=== PATIENT | female | born 1945 | race Caucasian/White ===

== ENCOUNTER → 2017-07-10 | Day surgery (SDC) | payer OTHER, MEDICARE ==
[2017-06-11 09:31] VITALS: Ht 160 cm; Wt 97.3 kg
[~2017-07-10] VITALS: Ht 160 cm; Wt 97.3 kg
[~2017-07-10] MED LIST: 500ML BSS 0.3ML EPI 1:1000PF IRRIG ONE; ACETAMINOPHEN 325 MG TAB PO PRN; AMLO-114 PO; AMVISC PLUS 0.8ML SYRINGE INT OCU ONE; ASPCH81X PO; ATOR-22 PO; ATROPINE SULFATE 0.1 MG/ML 5ML SYR IV PRN; BETAXOLOL HCL 0.25% OP SUSP PER DROP CHARGE OPL SCH; BRIMONIDINE TART 0.2% OP SOLN PER DROP CHARGE ONE; BSS FLUSH ONE; CHOL1CAP57 PO; CINN500T PO; ENDOCOAT 0.85ML SYRINGE INT OCU ONE; EpHEDrine SULFATE INJ 50 MG/ML AMP IV PRN; EpINEphrine INJ 1MG/ML AMP 1 MG/ML AMP ONE; HYDR25TA4 PO; INSDGI SC; INSU100I SC; ISOS60TA25 PO; LACTATED RINGER'S 1000ML 500 ML IV SCH; LIDOCAINE 4% OP SOLN DROP CHARGE ONE; LIDOCAINE 4% OP SOLN DROP CHARGE OPL SCH; LIDOCAINE HCL 1% MPF 2 ML VIAL ONE; LISI40TA PO; METO50TA16 PO; MIDAZOLAM HCL 1 MG/ML 2ML VIAL ONE; MIX: 4ML BSS 1ML EPI 1:1000 PF INSTIL ONE; MOXIFLOXACIN OPH SOLN PER DROP CHARGE ONE; MULT-506 PO; NTRGSL/4 UT; OCUCOAT 1 ML SOLN IO ONE; OMEG10007 PO; POVIDONE-IODINE OP SOLN 30 ML BTL ONE; PROPARACAINE 0.5% OP SOLN PER DROP CHARGE OPL SCH; PSYL55.43 PO; RMR15 PO; TOBRAMYCIN/DEXAMETHASONE OPH OINT PER APPLN CHARGE ONE
--- NOTE | 2017-07-10 08:20 | History & Physical Bridge - [place] ---
H&P Re-Evaluation Bridge Note: I have examined the patient, reviewed the History & Physical and in the interval since the performance of the History & Physical I have noted the following changes of clinical significance: No changes noted
[2017-07-10] MEDS: PHENYLEPHRINE HCL 2.5% OP SOLN PER DROP CHARGE OPL SCH ×2 (08:45→08:50)
[2017-07-10] MEDS: TROPICAMIDE 1% OP SOLN PER DROP CHARGE OPL SCH ×2 (08:46→08:51)
[2017-07-10] MEDS: CYCLOPENTOLATE HCL 1% OP SOLN PER DROP CHARGE OPL SCH ×2 (08:47→08:52)
[2017-07-10] MEDS: MOXIFLOXACIN OPH SOLN PER DROP CHARGE OPL SCH ×2 (08:48→08:58)
--- NOTE | 2017-07-10 09:46 | Discharge Instructions-SurgCtr ---
Discharge Instructions Date of Service Jul 10, 2017. Visit Reason for Visit: Cataract Left Eye Discharge Discharge Diagnosis / Problem: lens implant left eye Discharge Goals Goal(s): Improve function Activity Recommendations Activity Limitations: resume your previous activity Lifting Limitations: no more than 10 pounds Exercise/Sports Limitations: gradually increase as tolerated May Resume Sexual Activity: when tolerated Shower/Bathe: tomorrow Driving or Machine Use: resume 1 day after discharge Anesthesia . Post Anesthesia Instructions: If you have had General Anesthesia or IV Sedation: * Do not drive today. * Resume driving when surgeon permits. * Do not make important decisions or sign legal documents today. * Call surgeon for: 1. Temperature elevations greater than 101 degrees F. 2. Uncontrollable pain. 3. Excessive bleeding. 4. Persistent nausea and vomiting. 5. Medication intolerance (nausea, vomiting or rash). * For nausea and vomiting use only clear liquids such as: tea, soda, bouillon until nausea subsides, then gradually increase diet as tolerated. * If you have any concerns or questions, call your surgeon's office. If physician is unavailable and it is an emergency, call 911 or go to the nearest emergency room. . Instructions / Follow-Up Instructions / Follow-Up ACTIVITY RECOMMENDATIONS: * Light activities. * Mild irritation and blurred vision are common for the first few days. * You may walk outside, read, watch television. * Redness around the white part of the eye is common. MEDICATIONS: Resume previous medications unless instructed otherwise by your surgeon. Start all eye drops at 1 pm today: * Eye drops (today and tomorrow): Prednisone - one drop in operative eye every 3 hours while awake Ofloxacin - one drop in operative eye every 3 hours while awake SPECIAL CARE INSTRUCTIONS: * Tape plastic shield over eye to sleep at night. Call your doctor at with any concerns or problems. FOLLOW UP VISIT: Follow-up with Dr Levy at [place] office as scheduled. Diet Recommendations Home Diet: no limitations Procedures Procedures Performed: cataract extraction with lens implant Pending Studies Studies pending at discharge: no Medical Emergencies . Who to Call and When: Medical Emergencies: If at any time you feel your situation is an emergency, please call 911 immediately. . Non-Emergent Contact Non-Emergency issues call your: Petrographer Call Non-Emergent contact if: your pain is not controlled [phone] . . "Provider Documentation" section prepared by Blayne Levy. .
--- NOTE | 2017-07-10 09:49 | [facility] Operative Report ---
Operative Report Date of Service Jul 10, 2017. Operative Report 1. PREOPERATIVE DIAGNOSIS: Senile nuclear cataract, left eye. 2. POSTOPERATIVE DIAGNOSIS: Senile nuclear cataract, left eye. 3. PROCEDURE: Phacoemulsification of left cataract with posterior chamber lens implant, type Bausch [employer] Lomb, model Hoya [id number], power +20.5 diopters. ANESTHESIA: Local standby. SURGEON: Dr. Levy. COMPLICATIONS: None. OPERATING TIME: 10 minutes. 4. OPERATION AND FINDINGS: DESCRIPTION OF PROCEDURE: The left pupil was dilated. The anesthetic was administered using a topical technique. The left eye was prepped and draped. A speculum was placed. A clear corneal incision was formed. The chamber was filled with Amvisc Plus and Endocoat. Epinephrine solution was used. A paracentesis was placed. A capsulorrhexis was performed. The nucleus was hydrodissected. The lens was removed with phacoemulsification. Time was 5.69 seconds. The aspiration unit was used to remove the cortex. The capsule was filled with Amvisc Plus. The lens implant was folded and placed into the capsule. The incision was hydrated. The Amvisc was aspirated. The wound was secure. The chamber was deep. The pupil was round. Brimonidine, TobraDex ointment and Vigamox solution were placed. The speculum was removed. The patient was returned to the Recovery Room in stable condition. I attest to the content of the Intraoperative Record and any orders documented therein. Any exceptions are noted below. The scribe's documentation has been prepared in my presence, under my direction and personally reviewed by me in its entirety. I confirm that the note above accurately reflects all work, treatment, procedures, and medical decision making performed by me. I personally scribed for Blayne Levy M.D. (MARGY) on 07/10/17 at 09:49. Electronically submitted by Nelly Garcia (DAT).
[2017-07-10 09:51] VITALS: TEMP 36.7
--- NOTE | 2017-07-10 10:00 | Anesthesia Progress Nt - [facility] ---
Anesthesia Post Op Note Date & Time Jul 10, 2017 at 10:00 Vital Signs Pain Intensity: 0 Vital Signs Past 12 Hours Date Time Temp Pulse Resp B/P (MAP) Pulse Ox O2 Delivery O2 Flow Rate FiO2 07/10/17 08:36 37.1 59 22 136/75 (95) 95 Room Air Notes Mental Status: alert / awake / arousable, participated in evaluation Pt Amnestic to Procedure: Yes Nausea / Vomiting: adequately controlled Pain: adequately controlled Airway Patency, RR, SpO2: stable & adequate BP & HR: stable & adequate Hydration State: stable & adequate Anesthetic Complications: no major complications apparent
[2017-07-10 10:12] VITALS: BP 138/73; PULSE 54; O2SAT 97
== END | disposition home or self-care (01) ==
LOC: X.SURG 07:59
PROVIDERS: ATTEND Specialist
DX: H25.12 Age-related nuclear cataract, left eye (principal); E11.36 Type 2 diabetes mellitus with diabetic cataract; I10 Essential (primary) hypertension; Z79.4 Long term (current) use of insulin; Z79.82 Long term (current) use of aspirin; Z79.899 Other long term (current) drug therapy

== ENCOUNTER → 2017-07-24 | Day surgery (SDC) | payer OTHER, MEDICARE ==
[2017-07-22 09:41] VITALS: Ht 160 cm; Wt 97.3 kg
[~2017-07-24] VITALS: Ht 160 cm; Wt 97.3 kg
[~2017-07-24] MED LIST changes: -BETAXOLOL HCL 0.25% OP SUSP PER DROP CHARGE OPL SCH; +BETAXOLOL HCL 0.25% OP SUSP PER DROP CHARGE OPR SCH; +BRIMONIDINE TART 0.2% OP SOLN PER DROP CHARGE OPR ONE; -LIDOCAINE 4% OP SOLN DROP CHARGE OPL SCH; +LIDOCAINE 4% OP SOLN DROP CHARGE OPR SCH; -PROPARACAINE 0.5% OP SOLN PER DROP CHARGE OPL SCH; +PROPARACAINE 0.5% OP SOLN PER DROP CHARGE OPR SCH
[2017-07-24] MEDS: PHENYLEPHRINE HCL 2.5% OP SOLN PER DROP CHARGE OPR SCH ×2 (06:40→06:45)
[2017-07-24] MEDS: TROPICAMIDE 1% OP SOLN PER DROP CHARGE OPR SCH ×2 (06:41→06:46)
[2017-07-24] MEDS: CYCLOPENTOLATE HCL 1% OP SOLN PER DROP CHARGE OPR SCH ×2 (06:42→06:47)
[2017-07-24] MEDS: MOXIFLOXACIN OPH SOLN PER DROP CHARGE OPR SCH ×2 (06:43→06:53)
--- NOTE | 2017-07-24 07:13 | Discharge Instructions-SurgCtr ---
Discharge Instructions Date of Service Jul 24, 2017. Visit Reason for Visit: Cataract Right Eye Discharge Discharge Diagnosis / Problem: lens implant right eye Discharge Goals Goal(s): Improve function Activity Recommendations Activity Limitations: resume your previous activity Lifting Limitations: no more than 10 pounds Exercise/Sports Limitations: gradually increase as tolerated May Resume Sexual Activity: when tolerated Shower/Bathe: tomorrow Driving or Machine Use: resume 1 day after discharge Anesthesia . Post Anesthesia Instructions: If you have had General Anesthesia or IV Sedation: * Do not drive today. * Resume driving when surgeon permits. * Do not make important decisions or sign legal documents today. * Call surgeon for: 1. Temperature elevations greater than 101 degrees F. 2. Uncontrollable pain. 3. Excessive bleeding. 4. Persistent nausea and vomiting. 5. Medication intolerance (nausea, vomiting or rash). * For nausea and vomiting use only clear liquids such as: tea, soda, bouillon until nausea subsides, then gradually increase diet as tolerated. * If you have any concerns or questions, call your surgeon's office. If physician is unavailable and it is an emergency, call 911 or go to the nearest emergency room. . Instructions / Follow-Up Instructions / Follow-Up ACTIVITY RECOMMENDATIONS: * Light activities. * Mild irritation and blurred vision are common for the first few days. * You may walk outside, read, watch television. * Redness around the white part of the eye is common. MEDICATIONS: Resume previous medications unless instructed otherwise by your surgeon. Start all eye drops at 1 pm today: * Eye drops (today and tomorrow): Prednisone - one drop in operative eye every 3 hours while awake Ofloxacin - one drop in operative eye every 3 hours while awake SPECIAL CARE INSTRUCTIONS: * Tape plastic shield over eye to sleep at night. Call your doctor at with any concerns or problems. FOLLOW UP VISIT: Follow-up with Dr Levy at [place] office as scheduled. Diet Recommendations Home Diet: no limitations Procedures Procedures Performed: Right Cataract Phacoemulsification With Intraocular Lens Implant Pending Studies Studies pending at discharge: no Medical Emergencies . Who to Call and When: Medical Emergencies: If at any time you feel your situation is an emergency, please call 911 immediately. . Non-Emergent Contact Non-Emergency issues call your: Custom Shoemaker Call Non-Emergent contact if: your pain is not controlled [phone] . . "Provider Documentation" section prepared by Blayne Levy. .
--- NOTE | 2017-07-24 07:16 | [facility] Operative Report ---
Operative Report Date of Service Jul 24, 2017. Operative Report 1. PREOPERATIVE DIAGNOSIS: Senile nuclear cataract, right eye. 2. POSTOPERATIVE DIAGNOSIS: Senile nuclear cataract, right eye. 3. PROCEDURE: Phacoemulsification of right cataract with posterior chamber lens implant, type Bausch & Lomb, model Hoya [id number], power +19.0 diopters. ANESTHESIA: Local standby. SURGEON: Dr. Levy. COMPLICATIONS: None. OPERATING TIME: 10 minutes. 4. OPERATION AND FINDINGS: DESCRIPTION OF PROCEDURE: The right pupil was dilated. The anesthetic was administered using a topical technique. The right eye was prepped and draped. A speculum was placed. A clear corneal incision was formed. The chamber was filled with Amvisc Plus and Endocoat. Epinephrine solution was used. A paracentesis was placed. A capsulorrhexis was performed. The nucleus was hydrodissected. The lens was removed with phacoemulsification. Time was 0.3 seconds. The aspiration unit was used to remove the cortex. The capsule was filled with Amvisc Plus. The lens implant was folded and placed into the capsule. The incision was hydrated. The Amvisc was aspirated. The wound was secure. The chamber was deep. The pupil was round. Brimonidine, TobraDex ointment and Vigamox solution were placed. The speculum was removed. The patient was returned to the Recovery Room in stable condition. I attest to the content of the Intraoperative Record and any orders documented therein. Any exceptions are noted below. The scribe's documentation has been prepared in my presence, under my direction and personally reviewed by me in its entirety. I confirm that the note above accurately reflects all work, treatment, procedures, and medical decision making performed by me. I personally scribed for Blayne Levy M.D. (MARGY) on 07/24/17 at 07:16. Electronically submitted by Nelly Garcia (DAT).
[2017-07-24 07:17] VITALS: TEMP 36.5
[2017-07-24 07:39] VITALS: BP 130/70; PULSE 64; O2SAT 94
--- NOTE | 2017-07-24 07:46 | Anesthesia Progress Nt - [facility] ---
Anesthesia Post Op Note Date & Time Jul 24, 2017 at 07:46 Vital Signs Pain Intensity: 0 Vital Signs Past 12 Hours Date Time Temp Pulse Resp B/P (MAP) Pulse Ox O2 Delivery O2 Flow Rate FiO2 07/24/17 07:39 64 64 130/70 (90) 94 Room Air 07/24/17 07:17 36.5 60 18 146/75 (98) 95 Room Air 07/24/17 06:32 36.8 65 20 173/80 (111) 94 Room Air Notes Mental Status: alert / awake / arousable, participated in evaluation Pt Amnestic to Procedure: Yes Nausea / Vomiting: adequately controlled Pain: adequately controlled Airway Patency, RR, SpO2: stable & adequate BP & HR: stable & adequate Hydration State: stable & adequate Anesthetic Complications: no major complications apparent
== END | disposition home or self-care (01) ==
LOC: X.SURG 06:03
PROVIDERS: ATTEND Specialist
DX: H25.11 Age-related nuclear cataract, right eye (principal); I10 Essential (primary) hypertension; E11.9 Type 2 diabetes mellitus without complications; Z79.4 Long term (current) use of insulin; Z79.899 Other long term (current) drug therapy; Z79.82 Long term (current) use of aspirin

== ENCOUNTER → 2017-10-29 | Outpatient (CLI) | payer OTHER, MEDICARE ==
[~2017-10-29] MED LIST changes: -500ML BSS 0.3ML EPI 1:1000PF IRRIG ONE; -ACETAMINOPHEN 325 MG TAB PO PRN; -AMLO-114 PO; +AMLO10TA3 PO; -AMVISC PLUS 0.8ML SYRINGE INT OCU ONE; -ATROPINE SULFATE 0.1 MG/ML 5ML SYR IV PRN; +AZIT250T PO; +BENZ100C84 PO; -BETAXOLOL HCL 0.25% OP SUSP PER DROP CHARGE OPR SCH; -BRIMONIDINE TART 0.2% OP SOLN PER DROP CHARGE ONE; -BRIMONIDINE TART 0.2% OP SOLN PER DROP CHARGE OPR ONE; -BSS FLUSH ONE; +DXY100 PO; -ENDOCOAT 0.85ML SYRINGE INT OCU ONE; -EpHEDrine SULFATE INJ 50 MG/ML AMP IV PRN; -EpINEphrine INJ 1MG/ML AMP 1 MG/ML AMP ONE; +GLUC10007 PO; +GLUCTAB7 PO; -LACTATED RINGER'S 1000ML 500 ML IV SCH; -LIDOCAINE 4% OP SOLN DROP CHARGE ONE; -LIDOCAINE 4% OP SOLN DROP CHARGE OPR SCH; -LIDOCAINE HCL 1% MPF 2 ML VIAL ONE; +LUTE15CA PO; -MIDAZOLAM HCL 1 MG/ML 2ML VIAL ONE; -MIX: 4ML BSS 1ML EPI 1:1000 PF INSTIL ONE; -MOXIFLOXACIN OPH SOLN PER DROP CHARGE ONE; -OCUCOAT 1 ML SOLN IO ONE; -POVIDONE-IODINE OP SOLN 30 ML BTL ONE; -PROPARACAINE 0.5% OP SOLN PER DROP CHARGE OPR SCH; -TOBRAMYCIN/DEXAMETHASONE OPH OINT PER APPLN CHARGE ONE; +potassium chloride PO
--- NOTE | 2017-10-29 15:30 | MAMMOGRAPHY REPORT ---
BILATERAL DIGITAL SCREENING MAMMOGRAM WITH CAD: 10/29/2017 CLINICAL HISTORY: Routine screening. Patient has no complaints. TECHNIQUE: Bilateral CC and MLO views were obtained. Current study was also evaluated with a Compute r Aided Detection (CAD) system. COMPARISON: Comparison is made to exams dated: 09/20/2016 mammogram, 09/19/2015 mammogram, 09/12/2015 mammogram, 09/10/2014 mammogram, 09/07/2013 mammogram, and 09/01/2012 mammogram - [facility]. BREAST COMPOSITION: The tissue of both breasts is heterogeneously dense, which may obscure small mas ses. FINDINGS: There are diffuse bilateral benign benign calcifications in both breasts. A lobulated mas s in the 6:00 anterior left breast is slightly increased in size comparing to prior mammograms, but p reviously documented to represent a simple cyst on ultrasound. No new suspicious mass, architectural distortion or cluster of microcalcifications is seen. IMPRESSION: ACR BI-RADS CATEGORY 2: BENIGN There is no mammographic evidence of malignancy. A 1 year screening mammogram is recommended. The pa tient will receive written notification of the results. Approximately 10% of breast cancers are not detected with mammography. A negative mammographic report should not delay biopsy if a clinically suggestive mass is present. Anai Swain M.D. ay/:10/29/2017 15:06:46 Cotton Header: Ade ALFARO(Margaret)(Jj), [facility] letter sent: Normal 1/2 BI-RADS Code: ACR BI-RADS Category 2: Benign
== END | disposition home or self-care (01) ==
LOC: C.MAMM 14:23
PROVIDERS: ATTEND Internal Medicine
DX: Z12.31 Encounter for screening mammogram for malignant neoplasm of breast (principal)

== ENCOUNTER 2018-06-12 02:47 | Inpatient (IN) | payer OTHER, MEDICARE ==
[~2018-06-12] VITALS: Ht 160 cm; Wt 100.5 kg
[2018-06-12] VITALS (9 sets, daily range): BP systolic 122–164; BP diastolic 48–72; PULSE 65–74; TEMP 36.5–36.9; O2SAT 92–96; BMI 39.2
[~2018-06-12 02:47] MED LIST changes: -AZIT250T PO; -BENZ100C84 PO; -DXY100 PO; -GLUC10007 PO; -GLUCTAB7 PO; -LUTE15CA PO; -potassium chloride PO
[2018-06-12] MEDS ORDERED: ALBUT/IPRATROP 3MG/0.5MG NEB 3 ML VIAL INH STA (03:07)
[2018-06-12] MEDS ORDERED: BENZONATATE 100MG CAP PO ONE ×2 (03:15→08:00)
--- NOTE | 2018-06-12 03:16 | EMERGENCY ROOM VISIT NOTE ---
History Report prepared by Eduin: Hugh Lopez Under the Supervision of: Marilou BarnettO. First contact with patient: 02:54 Chief Complaint: COUGH Stated Complaint: COLD History of Present Illness The patient is a 73 year old female who presents to the Emergency Room with complaints of a worsening, dry, cough, beginning 3-4 days ago. The patient states she was evaluated by her PCP the other day and place on a z-pack. She reports it has helped, and she has three pills left. The patient notes her cough worsened tonight, and she cannot sleep because lying down worsens her symptoms. She states she took Robitussin without relief because the cough medication (tessalon perles) she was given was too expensive to fill the prescription. The patient reports a history of bronchitis and pneumonia. She notes she had a fever of 100.3 the past two nights, but it resolves overnight. The patient states she has been urinating more often because of her increased fluid intake. She reports she also has had a mild increase in the swelling of her legs. The patient notes she has chest tightness when she coughs and a runny nose. She states she has a history of two silent heart attacks, and she has not followed up with cardiology in the past 5 years because she was told she did not need to. The patient denies a smoking history, asthma history, seasonal allergies, dizziness, diarrhea, and black stool. Source of History: patient Onset: 3-4 days ago Position: other (lungs) Quality: other (dry cough) Timing: worsening Modifying Factors (Worsening): other (lying down) Modifying Factors (Relieving): other (z-pack) Associated Symptoms: No diarrhea Note: Associated symptoms: chest tightness, runny nose Denies: dizziness, black stool Review of Systems See HPI for pertinent positives & negatives. A total of 10 systems reviewed and were otherwise negative. Past Medical & Surgical Medical Problems: (1) Benign hypertension (2) CKD (chronic kidney disease), stage III (3) Coronary artery disease (4) Depressive disorder (5) Diabetes mellitus type II, controlled (6) Dyslipidemia (7) GERD (gastroesophageal reflux disease) (8) Hypoxia Surgical Problems: (1) H/O colonoscopy (2) H/O tubal ligation (3) History of arthroplasty of right knee (4) History of esophagogastroduodenoscopy (5) S/P cholecystectomy (6) S/P tonsillectomy Family History Diabetes mellitus FHx: heart disease Social History Smoking Status: Never Smoker Drug Use: none Marital Status: Housing Status: lives with family Occupation Status: retired Current/Historical Medications Scheduled Amlodipine (Norvasc), 10 MG PO QAM Aspirin (Aspirin Chewable), 81 MG PO QAM Atorvastatin (Lipitor), 20 MG PO QAM Azithromycin (Zithromax), 250 MG PO DAILY Cholecalciferol (Vitamin D3), 1,000 UNITS PO QAM Fish Oil ([place]-3), 1,200 MG PO QAM Nqzkaozheqn-Mbdniiiqghf-Kqv C- (Glucosamine Chondroitin), 500 MG PO DAILY Hydrochlorothiazide (Hctz), 25 MG PO QAM Insulin Glargine (Lantus), 44 UNITS SC QPM Insulin Lispro (Human) (Humalog), 1 DOSE SC UD Isosorbide Mononitrate Ext Rel (Imdur Ext Rel), 60 MG PO BID Lisinopril (Zestril), 40 MG PO QAM Lutein-Zeaxanthin (Lutein), 1 CAP PO DAILY Metoprolol Tartrate (Lopressor) (Lopressor), 50 MG PO BID Mirtazapine (Remeron *), 15 MG PO HS Multivitamin (Multivitamin), 1 TAB PO QAM Psyllium (Metamucil Powder), 1 TSP PO QAM [potassium chloride ], 99 MG PO DAILY Scheduled PRN Nitroglycerin (Nitrostat), 0.4 MG UT PRN PRN for Chest Pain Allergies Coded Allergies: Sulfa Antibiotics (Verified Allergy, Severe, HIVES, 06/12/18) Iodinated Diagnostic Agents (Verified Allergy, Intermediate, HIVES, 06/12/18 ) Penicillins (Verified Allergy, Intermediate, HIVES, 06/12/18) Codeine (Verified Allergy, Unknown, HAS TOLERATED MORPHINE W/O RXN SEVERE N&V, 06/12/18) Exenatide (Verified Allergy, Unknown, BYETTA-ELEVATED LIPASE, 06/12/18) Erythromycin (Verified Adverse Reaction, Intermediate, NAUSEA AND VOMITING , 06/12/18) Rofecoxib (Verified Adverse Reaction, Intermediate, NAUSEA AND VOMITING, ) Metformin (Verified Adverse Reaction, Mild, GI UPSET, 06/12/18) Morphine and Related (Verified Adverse Reaction, Mild, GI UPSET, 06/12/18) Physical Exam Vital Signs Date Time Temp Pulse Resp B/P (MAP) Pulse Ox O2 Delivery O2 Flow Rate FiO2 06/12/18 10:36 71 22 95 06/12/18 10:31 179/67 2.0 06/12/18 10:26 94 Nasal Cannula 2.0 06/12/18 10:16 73 18 94 06/12/18 10:08 73 22 165/67 94 Nasal Cannula 2.0 06/12/18 10:03 165/67 06/12/18 09:46 73 19 94 06/12/18 09:41 171/81 06/12/18 09:36 171/81 06/12/18 09:00 147/57 06/12/18 08:52 69 20 144/80 91 Nasal Cannula 2.0 06/12/18 08:40 144/80 06/12/18 08:16 68 20 91 06/12/18 07:49 72 06/12/18 07:45 65 18 159/61 91 Room Air 06/12/18 07:41 159/61 06/12/18 06:24 82 20 159/72 92 Room Air 06/12/18 04:31 93 20 156/63 92 Room Air 06/12/18 02:48 37.4 65 18 153/66 93 Room Air Physical Exam GENERAL: alert, well appearing, well nourished, no distress, non-toxic. Frequent cough. EYE EXAM: normal conjunctiva, PERRL and EOM's grossly intact OROPHARYNX: no exudate, no erythema, lips, buccal mucosa, and tongue normal and mucous membranes are moist NECK: supple, no nuchal rigidity, no adenopathy, non-tender LUNGS: Clear to auscultation. Normal chest wall mechanics, no w/r/r HEART: no murmurs, S1 normal and S2 normal ABDOMEN: abdomen soft, non-tender, normo-active bowel sounds, no masses, no rebound or guarding. BACK: Back is symmetrical on inspection and there is no deformity, no midline tenderness, no CVA tenderness. SKIN: no rashes and no bruising UPPER EXTREMITIES: upper extremities are grossly normal. Full range of motion, normal pulses. LOWER EXTREMITIES: Trace to 1+ LE edema. Full range of motion, normal pulses. NEURO EXAM: Normal sensorium, cranial nerves II-XII grossly intact, normal speech, no gross weakness of arms, no gross weakness of legs. Medical Decision & Procedures ER Provider Diagnostic Interpretation: X-ray: I interpreted the following studies. Chest: A two view study of the chest was reviewed and was negative for cardiomegaly, effusion, pulmonary edema , pneumothorax, or wide mediastinum. Questionable early infiltrate at the left base. Radiology results have been interpreted by the [facility] radiologist and reviewed by me. US VENOUS BILATERAL LOWER EXTREMITIES: No evidence of DVT in the bilateral lower extremities. Radiologist: Marisabel De Leon MD Study ready at 0507 and initial results transmitted at 0607. Laboratory Results 06/12/18 03:26 Red Blood Count 4.34, Mean Corpuscular Volume 91.0, Mean Corpuscular Hemoglobin 30.9, Mean Corpuscular Hemoglobin Concent 33.9, Mean Platelet Volume 9.6, Neutrophils (%) (Auto) 63.2, Lymphocytes (%) (Auto) 25.2, Monocytes (%) (Auto) 7.6, Eosinophils (%) (Auto) 3.4, Basophils (%) (Auto) 0.3, Neutrophils # (Auto) 4.41, Lymphocytes # (Auto) 1.76, Monocytes # (Auto) 0.53, Eosinophils # (Auto) 0.24, Basophils # (Auto) 0.02 06/12/18 03:26 Test 06/12/18 03:20 06/12/18 03:26 Procalcitonin 0.08 ng/ml (0-0.5) White Blood Count 6.98 K/uL (4.8-10.8) Red Blood Count 4.34 M/uL (4.2-5.4) Hemoglobin 13.4 g/dL (12.0-16.0) Hematocrit 39.5 % (37-47) Mean Corpuscular Volume 91.0 fL (80-100) Mean Corpuscular Hemoglobin 30.9 pg (25-34) Mean Corpuscular Hemoglobin Concent 33.9 g/dl (32-36) Platelet Count 203 K/uL (130-400) Mean Platelet Volume 9.6 fL (7.4-10.4) Neutrophils (%) (Auto) 63.2 % Lymphocytes (%) (Auto) 25.2 % Monocytes (%) (Auto) 7.6 % Eosinophils (%) (Auto) 3.4 % Basophils (%) (Auto) 0.3 % Neutrophils # (Auto) 4.41 K/uL (1.4-6.5) Lymphocytes # (Auto) 1.76 K/uL (1.2-3.4) Monocytes # (Auto) 0.53 K/uL (0.11-0.59) Eosinophils # (Auto) 0.24 K/uL (0-0.5) Basophils # (Auto) 0.02 K/uL (0-0.2) RDW Standard Deviation 41.3 fL (36.4-46.3) RDW Coefficient of Variation 12.3 % (11.5-14.5) Immature Granulocyte % (Auto) 0.3 % Immature Granulocyte # (Auto) 0.02 K/uL (0.00-0.02) Prothrombin Time 9.9 SECONDS (9.0-12.0) Prothromb Time International Ratio 0.9 (0.9-1.1) D-Dimer 2260 ug/L FEU (0-500) Anion Gap 6.0 mmol/L (3-11) Est Creatinine Clear Calc Drug Dose 46.9 ml/min Estimated GFR () 52.1 Estimated GFR (Non- 44.9 BUN/Creatinine Ratio 9.6 (10-20) Calcium Level 8.8 mg/dl (8.5-10.1) Magnesium Level 2.0 mg/dl (1.8-2.4) Total Bilirubin 0.7 mg/dl (0.2-1) Aspartate Amino Transf (AST/SGOT) 19 U/L (15-37) Alanine Aminotransferase (ALT/SGPT) 24 U/L (12-78) Alkaline Phosphatase 92 U/L (45-117) Pro-B-Type Natriuretic Peptide 179 pg/ml (0-900) Total Protein 8.0 gm/dl (6.4-8.2) Albumin 3.7 gm/dl (3.4-5.0) Globulin 4.3 gm/dl (2.5-4.0) Albumin/Globulin Ratio 0.9 (0.9-2) Thyroid Stimulating Hormone (TSH) 3.480 uIu/ml (0.300-4.500) Laboratory results per my review. Medications Administered Medications (Trade) Dose Ordered Sig/Cheri Route Start Time Stop Time Status Last Admin Dose Admin Benzonatate (Tessalon Perles Cap) 100 mg NOW ONCE PO 06/12/18 03:15 06/12/18 03:16 DC 06/12/18 03:13 100 MG Albuterol/ Ipratropium (Duoneb) 3 ml NOW STAT INH 06/12/18 03:07 06/12/18 03:09 DC 06/12/18 03:13 3 ML Benzonatate (Tessalon Perles Cap) 100 mg NOW ONCE PO 06/12/18 08:00 06/12/18 08:01 DC 06/12/18 08:17 100 MG Albuterol (Ventolin Hfa Inhaler) 2 puffs NOW ONCE INH 06/12/18 08:15 06/12/18 08:16 DC 06/12/18 08:23 2 PUFFS Dexamethasone Sodium Phosphate (Dexamethasone Inj Pf) 10 mg NOW ONCE IV 06/12/18 08:15 06/12/18 08:16 DC 06/12/18 08:22 10 MG ECG Per My Interpretation Indication: SOB/dyspnea Rate (beats per minute): 63 Rhythm: sinus rhythm Findings: 1st degree AV block, Q waves (V1 and V2), no acute ischemic change, other (low voltage throughout, poor R-wave progression. normal axis. normal intervals.) ED Course 0257: The patient was evaluated in room B03B. A complete history and physical exam was performed. 0307: Ordered Duoneb 3ml INH 0315: Ordered Benzonatate 100mg PO 0354: I discussed the current test results with the patient. She confirmed her allergy to CT dye. Her allergy is diffuse erythema and hives. She will have bilateral Doppler obtained of her lower extremities. 0730: Patient here feeling improved, will re-dose her Tessalon Perle. Patient awaiting VQ scan at this time. Aware the Dopplers are negative. 0900: Signed out to Dr. Calvillo awaiting V/Q study. If negative I would anticipate patient could be discharged and continue the course of her antibiotics for her bronchitis. Medical Decision Differential diagnoses includes but is not limited to pneumonia, bronchitis, COPD/Asthma exacerbation, pneumothorax, pulmonary embolism, congestive heart failure, acute coronary syndrome Patient well-appearing here despite complaints and improved following administration of Tessalon Perle and neb treatment. Patient already taking antibiotics for presumed bronchitis. No evidence of consolidation or pneumonia. Elevated d-dimer noted as patient unable to be ruled out using PERC criteria. Lower extremity Dopplers negative, and patient awaiting VQ scan due to IV dye allergy. Labs otherwise reassuring, troponin negative. I do not suspect ACS or congestive heart failure given several days of symptoms and negative labs and imaging. Patient not hypoxic here. Ambulatory trial had not yet been attempted as testing not completed. Patient signed out awaiting VQ scan for final disposition. Patient hemo-dynamically stable while in the ER. Mildly hypertensive likely secondary to symptoms and anxiety regarding the situation. Medication Reconcilliation Current Medication List: was personally reviewed by me Blood Pressure Screening Patient's blood pressure: Elevated blood pressure Blood pressure disposition: Referred to PCP Impression Primary Impression: Upper respiratory infection Additional Impression: Cough Scribe Attestation The scribe's documentation has been prepared under my direction and personally reviewed by me in its entirety. I confirm that the note above accurately reflects all work, treatment, procedures, and medical decision making performed by me. Departure Information Dispostion Still a Patient Referrals Dalton Gonzalez D.O. (PCP) Patient Instructions My [facility] Problem Qualifiers Primary Impression: Upper respiratory infection URI type: unspecified URI Qualified Codes: J06.9 - Acute upper respiratory infection, unspecified
[2018-06-12 03:31] LABS: BASO % 0.3 %; BASO ABS # 0.02 K/uL (0-0.2); EOS % 3.4 %; EOS ABS # 0.24 K/uL (0-0.5); HEMATOCRIT 39.5 % (37-47); HEMOGLOBIN 13.4 g/dL (12.0-16.0); IG# 0.02 K/uL (0.00-0.02); LYMPH % 25.2 %; LYMPH ABS # 1.76 K/uL (1.2-3.4); MEAN CORPUSCULAR HEMOGLOBIN 30.9 pg (25-34); MEAN CORPUSCULAR HGB CONC 33.9 g/dl (32-36); MEAN PLATELET VOLUME 9.6 fL (7.4-10.4); MONO % 7.6 %; MONO ABS # 0.53 K/uL (0.11-0.59); NEUT % 63.2 %; NEUT ABS # 4.41 K/uL (1.4-6.5); PLATELET COUNT 203 K/uL (130-400); RED CELL DISTRIBUTION WIDTH CV 12.3 % (11.5-14.5); RED CELL DISTRIBUTION WIDTH SD 41.3 fL (36.4-46.3); WHITE BLOOD COUNT 6.98 K/uL (4.8-10.8)
[2018-06-12 03:42] LABS: INR 0.9 (0.9-1.1)
[2018-06-12] MEDS ORDERED: GLUC10007 PO (03:42)
[2018-06-12] MEDS ORDERED: LUTE15CA PO (03:43)
[2018-06-12] MEDS ORDERED: potassium chloride PO (03:46)
[2018-06-12 04:03] LABS: ALBUMIN 3.7 gm/dl (3.4-5.0); ALKALINE PHOSPHATASE 92 U/L (45-117); ALT/SGPT 24 U/L (12-78); AST/SGOT 19 U/L (15-37); BLOOD UREA NITROGEN 11 mg/dl (7-18); CALCIUM 8.8 mg/dl (8.5-10.1); CARBON DIOXIDE 31 mmol/L (21-32); CREATININE 1.19 mg/dl (0.60-1.20); GLUCOSE 115 mg/dl (70-99); POTASSIUM 3.4 mmol/L (3.5-5.1); SODIUM 132 mmol/L (136-145)
[2018-06-12] MEDS ORDERED: AZIT250T PO (04:11)
[2018-06-12] MEDS ORDERED: BENZ100C84 PO (04:12)
--- NOTE | 2018-06-12 07:02 | DIAGNOSTIC IMAGING REPORT ---
BILATERAL LOWER EXTREMITY VENOUS DOPPLER HISTORY: elevated dimer, leg edema COMPARISON STUDY: None. FINDINGS: There is normal compressibility, flow, and augmentation within the bilateral lower extremity deep venous systems. IMPRESSION: No DVT within the right or left lower extremity. Electronically signed by: Jose Pathak M.D. 06/12/2018 7:01 AM Dictated Date/Time: 06/12/2018 7:01 AM
--- NOTE | 2018-06-12 07:45 | DIAGNOSTIC IMAGING REPORT ---
CHEST 2 VIEWS ROUTINE HISTORY: Short of breath. Cough. COMPARISON: Chest 01/01/2016. FINDINGS: The heart remains mildly enlarged. No pleural effusions. No pneumothorax. No focal lung consolidations to suggest pneumonia.. Calcified bilateral hilar lymph nodes. IMPRESSION: Mild cardiomegaly. Otherwise, no acute process within the chest. Electronically signed by: Jose Pathak M.D. 06/12/2018 7:44 AM Dictated Date/Time: 06/12/2018 7:42 AM
[2018-06-12] MEDS ORDERED: ALBUTEROL HFA 8 GM INHALER INH ONE (08:15)
[2018-06-12] MEDS ORDERED: DEXAMETHASONE **PF** INJ 10 MG/ML VIAL IV ONE (08:15)
[2018-06-12] MEDS ORDERED: ONDANSETRON INJ 2 MG/ML 2 ML VIAL IV PRN (11:00)
[2018-06-12] MEDS ORDERED: ALUMINUM/MAGNESIUM/SIMETH (MAALOX MAX) 30 ML UDC PO PRN (11:00)
[2018-06-12] MEDS ORDERED: NITROGLYCERIN 0.4 MG SL PER TAB CHARGE SL PRN (11:00)
[2018-06-12] MEDS ORDERED: POLYETHYLENE (MIRALAX) 17 GM PACK PO PRN (11:00)
[2018-06-12] MEDS ORDERED: ACETAMINOPHEN 325 MG TAB PO PRN (11:00)
[2018-06-12] MEDS ORDERED: GLUCTAB7 PO (11:13)
[2018-06-12] MEDS ORDERED: GLUCAGON FOR INJ 1 MG VIAL SQ PRN (11:30)
[2018-06-12] MEDS ORDERED: CARBOHYDRATES FOR HYPOGLYCEMIA PO PRN (11:30)
[2018-06-12] MEDS ORDERED: DEXTROSE 50% 50 ML SYR IV PRN (11:30)
[2018-06-12] MEDS ORDERED: GLUCOSE 10 TABS/TUBE PO PRN (11:30)
[2018-06-12] MEDS ORDERED: GLUCOSE 40% GEL 15 GM TUBE PO PRN (11:30)
[2018-06-12] MEDS ORDERED: POTASSIUM CHLORIDE 20 MEQ TABCR PO STA (12:05)
[2018-06-12] MEDS ORDERED: AMLODIPINE BESYLATE 5 MG TAB PO STA (12:07)
[2018-06-12] MEDS ORDERED: LISINOPRIL 40 MG TAB PO STA (12:08)
[2018-06-12] MEDS ORDERED: METOPROLOL TARTRATE 50 MG TAB PO STA (12:08)
[2018-06-12] MEDS ORDERED: LORAZEPAM 2 MG/ML 1 ML VIAL IV SCH (12:15)
[2018-06-12] MEDS ORDERED: NSS + 20MEQ KCL 1000ML 1,000 ML IV SCH (12:30)
--- NOTE | 2018-06-12 12:40 | History and Physical ---
History & Physical Date & Time of Service: Jun 12, 2018 at 11:28 Chief Complaint: COLD Primary Care Physician: Dalton Gonzalez D.O. History of Present Illness Source: patient, spouse, clinic records, hospital records Pt is 73 y/o F with PMH HTN, dyslipidemia, DM II, depression, anxiety, CKD III, CAD, GERD presented to ER with complaint of cough. Reports dry cough, sore throat, rhinorrhea, post nasal drip started 5 days ago. Her sore throat has decreased. Reports fever 100.3F 2 days ago, temp 100.4F yesterday. Took Advil once yesterday, no further antipyretics. Patient states last night increased coughing and came to ER. Some chest tightness with coughing and increased coughing with inspiration, but denies SOB. Denies other CP. Seen by PCP office . Was rx Tessalon Perles by PCP however didn't bead picker as were too expensive. Has taken Zithromax for 2 days. Denies ill contacts. Denies recent travel. Patient denies any history of asthma or COPD. States was an incident a couple years ago where she was exposed to the [place] dust and had some respiratory issues after that which have since resolved. Denies diaphoresis, N/V /D/C, BLUE, dizziness, syncope, vision changes, neck pain, orthopnea, palpitations , hemoptysis, sore throat, choking, otalgia, abdominal pain, paresthesias, weakness, extremity weakness, extremity edema, rashes, urinary symptoms, weight loss. In ER given dexamethasone, Tessalon Perles, DuoNeb with reported overall decreased cough. History echo in 2015: EF: 55-60%, normal wall motion, no significant valvular abnormality. Previous echo 11/2013: EF: 55-59%, grade 2 diastolic dysfunction, inferior wall mildly hypokinetic, mild aortic valve sclerosis without stenosis History nuclear stress test in 2013: Normal Past Medical/Surgical History Medical Problems: (1) Benign hypertension Status: Chronic (2) CKD (chronic kidney disease), stage III Status: Chronic (3) Coronary artery disease Status: Chronic (4) Depressive disorder Status: Chronic (5) Diabetes mellitus type II, controlled Status: Chronic (6) Dyslipidemia Status: Chronic (7) GERD (gastroesophageal reflux disease) Status: Chronic Surgical Problems: (1) H/O colonoscopy Status: Chronic (2) H/O tubal ligation Status: Chronic (3) History of arthroplasty of right knee Status: Chronic (4) History of esophagogastroduodenoscopy Status: Chronic (5) S/P cholecystectomy Status: Chronic (6) S/P tonsillectomy Status: Chronic Family History Diabetes mellitus FHx: heart disease Social History Smoking Status: Never Smoker Smokeless Tobacco Use: No Alcohol Use: none Drug Use: none Marital Status: Housing status: lives with family Occupational Status: retired Immunizations History of Influenza Vaccine: Yes History of Tetanus Vaccine?: Yes History of Pneumococcal: Yes History of Hepatitis B Vaccine: No Allergies Coded Allergies: Sulfa Antibiotics (Verified Allergy, Severe, HIVES, 06/12/18) Iodinated Diagnostic Agents (Verified Allergy, Intermediate, HIVES, 06/12/18 ) Penicillins (Verified Allergy, Intermediate, HIVES, 06/12/18) Codeine (Verified Allergy, Unknown, HAS TOLERATED MORPHINE W/O RXN SEVERE N&V, 06/12/18) Exenatide (Verified Allergy, Unknown, BYETTA-ELEVATED LIPASE, 06/12/18) Erythromycin (Verified Adverse Reaction, Intermediate, NAUSEA AND VOMITING , 06/12/18) Rofecoxib (Verified Adverse Reaction, Intermediate, NAUSEA AND VOMITING, ) Metformin (Verified Adverse Reaction, Mild, GI UPSET, 06/12/18) Morphine and Related (Verified Adverse Reaction, Mild, GI UPSET, 06/12/18) Home Medications Scheduled Amlodipine (Norvasc), 10 MG PO QAM Aspirin (Aspirin Chewable), 81 MG PO QAM Atorvastatin (Lipitor), 20 MG PO QAM Cholecalciferol (Vitamin D3), 1,000 UNITS PO QAM Doxycycline Hyclate (Doxycycline Hyclate), 100 MG PO BID Fish Oil ([place]-3), 1,200 MG PO QAM Jovgegzowlg-Kjjcbxwaddv-Hiz C- (Glucosamine Chondroitin), 500 MG PO DAILY Hydrochlorothiazide (Hctz), 25 MG PO QAM Insulin Glargine (Lantus), 44 UNITS SC QPM Insulin Lispro (Human) (Humalog), 1 DOSE SC UD Isosorbide Mononitrate Ext Rel (Imdur Ext Rel), 60 MG PO BID Lisinopril (Zestril), 40 MG PO QAM Lutein-Zeaxanthin (Lutein), 1 CAP PO DAILY Metoprolol Tartrate (Lopressor) (Lopressor), 50 MG PO BID Mirtazapine (Remeron *), 15 MG PO HS Multivitamin (Multivitamin), 1 TAB PO QAM Psyllium (Metamucil Powder), 1 TSP PO QAM [potassium chloride ], 99 MG PO DAILY Scheduled PRN Nitroglycerin (Nitrostat), 0.4 MG UT PRN PRN for Chest Pain Review of Systems See HPI for pertinent positives & negatives. All other systems reviewed and were otherwise negative Physical Exam Vital Signs Date Time Temp Pulse Resp B/P (MAP) Pulse Ox O2 Delivery O2 Flow Rate FiO2 06/12/18 11:07 74 06/12/18 10:31 179/67 2.0 06/12/18 10:26 94 Nasal Cannula 2.0 06/12/18 10:16 73 18 94 06/12/18 10:08 73 22 165/67 94 Nasal Cannula 2.0 06/12/18 10:03 165/67 06/12/18 09:46 73 19 94 06/12/18 09:41 171/81 06/12/18 09:36 171/81 06/12/18 09:00 147/57 06/12/18 08:52 69 20 144/80 91 Nasal Cannula 2.0 06/12/18 08:40 144/80 06/12/18 08:16 68 20 91 06/12/18 07:49 72 06/12/18 07:45 65 18 159/61 91 Room Air 06/12/18 07:41 159/61 06/12/18 06:24 82 20 159/72 92 Room Air 06/12/18 04:31 93 20 156/63 92 Room Air 06/12/18 02:48 37.4 65 18 153/66 93 Room Air General Appearance: WD/WN, no apparent distress (However occasional dry cough noted) Head: normocephalic, atraumatic Eyes: normal inspection, sclerae normal ENT: hearing grossly normal, pharynx normal, + pertinent finding (Mucous membranes mildly dry) Neck: supple, trachea midline Respiratory/Chest: lungs clear, normal breath sounds, no respiratory distress, no accessory muscle use Cardiovascular: regular rate, rhythm, normal peripheral pulses Abdomen/GI: normal bowel sounds, non tender, soft Extremities/Musculoskelatal: no calf tenderness, normal capillary refill, normal range of motion, + pedal edema (Slight to 1+ BLE) Neurologic/Psych: alert, normal mood/affect, oriented x 3 Skin: warm/dry Diagnostics Laboratory Results Results Past 24 Hours Test 06/12/18 03:26 06/12/18 11:26 Range/Units White Blood Count 6.98 4.8-10.8 K/uL Red Blood Count 4.34 4.2-5.4 M/uL Hemoglobin 13.4 12.0-16.0 g/dL Hematocrit 39.5 37-47 % Mean Corpuscular Volume 91.0 80-100 fL Mean Corpuscular Hemoglobin 30.9 25-34 pg Mean Corpuscular Hemoglobin Concent 33.9 32-36 g/dl Platelet Count 203 130-400 K/uL Mean Platelet Volume 9.6 7.4-10.4 fL Neutrophils (%) (Auto) 63.2 % Lymphocytes (%) (Auto) 25.2 % Monocytes (%) (Auto) 7.6 % Eosinophils (%) (Auto) 3.4 % Basophils (%) (Auto) 0.3 % Neutrophils # (Auto) 4.41 1.4-6.5 K/uL Lymphocytes # (Auto) 1.76 1.2-3.4 K/uL Monocytes # (Auto) 0.53 0.11-0.59 K/uL Eosinophils # (Auto) 0.24 0-0.5 K/uL Basophils # (Auto) 0.02 0-0.2 K/uL RDW Standard Deviation 41.3 36.4-46.3 fL RDW Coefficient of Variation 12.3 11.5-14.5 % Immature Granulocyte % (Auto) 0.3 % Immature Granulocyte # (Auto) 0.02 0.00-0.02 K/uL Prothrombin Time 9.9 9.0-12.0 SECONDS Prothromb Time International Ratio 0.9 0.9-1.1 D-Dimer 2260 0-500 ug/L FEU Sodium Level 132 136-145 mmol/L Potassium Level 3.4 3.5-5.1 mmol/L Chloride Level 95 98-107 mmol/L Carbon Dioxide Level 31 21-32 mmol/L Anion Gap 6.0 3-11 mmol/L Blood Urea Nitrogen 11 7-18 mg/dl Creatinine 1.19 0.60-1.20 mg/dl Est Creatinine Clear Calc Drug Dose 46.9 ml/min Estimated GFR () 52.1 Estimated GFR (Non- 44.9 BUN/Creatinine Ratio 9.6 10-20 Random Glucose 115 70-99 mg/dl Calcium Level 8.8 8.5-10.1 mg/dl Magnesium Level 2.0 1.8-2.4 mg/dl Total Bilirubin 0.7 0.2-1 mg/dl Aspartate Amino Transf (AST/SGOT) 19 15-37 U/L Alanine Aminotransferase (ALT/SGPT) 24 12-78 U/L Alkaline Phosphatase 92 45-117 U/L Troponin I < 0.015 0-0.045 ng/ml Pro-B-Type Natriuretic Peptide 179 0-900 pg/ml Total Protein 8.0 6.4-8.2 gm/dl Albumin 3.7 3.4-5.0 gm/dl Globulin 4.3 2.5-4.0 gm/dl Albumin/Globulin Ratio 0.9 0.9-2 Thyroid Stimulating Hormone (TSH) 3.480 0.300-4.500 uIu/ml Diagnostic Radiology CXR: IMPRESSION: Mild cardiomegaly. Otherwise, no acute process within the chest. VENOUS DOPPLER BLE: IMPRESSION: No DVT within the right or left lower extremity. Impression Assessment and Plan Pt is 73 y/o F with PMH HTN, dyslipidemia, DM II, depression, anxiety, CKD III, CAD, GERD presented with complaint of cough, sore throat, rhinorrhea, post nasal drip started 5 days ago, with worsening cough last night and reported fever 100.3F. HYPOXIA COUGH Probable bronchitis In ER patient afebrile, P: 65, R: 18, BP 153/66. O2 sat 91-92% on room air, however noted to drop to 88% on room air, Up to 95 percent on 2L NC. No leukocytosis, BNP: 179, initial troponin negative, EKG: No acute ST elevation. CXR: No infiltrate. Patient received DuoNeb, Ventolin inhaler, dexamethasone 10 mg IV, Tessalon Perles. Patient reports decreased cough after ER treatment. -procalcitonin WNL -DuoNebs -Supplemental oxygen per protocol, wean as able -Rocephin, doxycycline -CBC in a.m. ELEVATED D-DIMER R/O PE D-dimer: 2260. Doppler BLE: Negative for DVT. Patient history IVP dye allergy with hives even when premedicated with Benadryl and prednisone. VQ scan was attempted in ER however patient reports became claustrophobic and then denied skin. -Patient is willing to try VQ scan again being premedicated with Ativan, pending study results HYPOKALEMIA K: 3.4 -Potassium 40meg p.o., 20 meq. in IVF -PRP in am INSULIN-DEPENDENT DM II A1c: 8.8 and 11/2017 -A1c in a.m. -Continue Lantus 44 units -NovoLog sliding scale per protocol HTN In ER BP initially 153/66 up to 176/81. Patient does not have morning BP meds -Will give her morning meds: Metoprolol, amlodipine, lisinopril -Continue amlodipine, metoprolol, lisinopril -Hold HCTZ at this time, reevaluate fluid status CKD III Creatinine: 1.19 (baseline approximately 1.1) -Monitor renal function -Avoid nephrotoxic agents when possible H/O CAD Denies chest pain. Initial troponin negative -Trend troponin -Continue isosorbide, aspirin, atorvastatin, metoprolol HLD -Continue atorvastatin ANXIETY/DEPRESSION Denies current depression symptoms. Does have continued anxiety -uses Remeron at bedtime for anxiety DVT Prophylaxis -Heparin SQ Admit tele Full Code as per discussion with pt Follows with Dr Gonzalez for routine care Pt was seen with Dr Gonzalez. See addendum Attending addendum Patient seen and examined care coordinated with Mony Jo PA-C Labs and images reviewed This is a 73-year-old female with past medical history of hypertension hyperlipidemia type 2 diabetes, presented with fever and cough Was hypoxic in room air Failed outpatient treatment No evidence of sepsis Chest x-ray does not reveal any evidence of infiltrate or effusion Patient will be admitted to telemetry ACUTE HYPOXIC RESPIRATORY FAILURE Secondary to bronchitis No prior history of COPD, no audible wheeze, no evidence of pneumonia D-dimer elevated Lower extremity Doppler negative for DVT Due to patient's history of contrast allergy VQ scan ordered Continue supplemental O2, empiric antibiotic with doxycycline (patient was treated with Zithromax as outpatient) Please refer to further documentation by Mony Jo PA-C for discussion of other chronic issues Dipika Gonzalez MD Advanced Directives Existing Living Will: Yes Existing Power of Adoption Agent: Yes ( ) Resuscitation Status VTE Prophylaxis Will order VTE Prophylaxis: Yes Additional Copies To Dalton Gonzalez D.O.
[2018-06-12] MEDS: DOXYCYCLINE HYCLATE 100 MG CAP PO SCH ×2 (12:50→20:30)
[2018-06-12] MEDS: CEFTRIAXONE SOD INJ 1 GM in DEXTROSE 5% ADD-VANTAGE 50ML 50 ML IV SCH (12:50)
--- NOTE | 2018-06-12 12:50 | EMERGENCY ROOM VISIT NOTE ---
ED Visit Note This patient was signed out to me by Dr. duque at shift change. She is waiting for a VQ scan at 9:30 in the morning. There is concerned that her d- dimer was significantly elevated over 1999. Dopplers of her legs were negative. CAT scan of her chest was unable be obtained due to severe dye allergy and this is why the VQ scan was ordered. The patient went over to V/Q and was too anxious and could not do it and they brought her back over. When I saw her she seems comfortable and she has a dry cough. The nurses told me that she is in the high 80s on oxygen and they are worried she is getting hypoxemic project with exertion. This probably is more likely bronchitis with some hypoxemia however I do think she needs to be admitted/observed is difficult to rule out PE or other pathology. She may be willing to try this again later with some sedation she says. I did consult the [facility] hospitalist to see her in the ER.
[2018-06-12] MEDS: INSULIN ASPART 100 UNITS/ML 3 ML PEN SC SCH ×3 (12:53→20:36)
[2018-06-12] MEDS: HEPARIN SOD 5000 UNIT/0.5 ML CARP SQ SCH ×2 (12:57→20:38)
[2018-06-12] MEDS: ALBUT/IPRATROP 3MG/0.5MG NEB 3 ML VIAL INH SCH ×2 (15:48→20:51)
[2018-06-12] MEDS ORDERED: PHARMACY GLYCEMIC MGMT CONSULT PRN (19:30)
[2018-06-12] MEDS ORDERED: INSULIN GLARGINE SOLOSTAR 100 UNITS/ML 3 ML PEN SC ONE (20:00)
--- NOTE | 2018-06-12 20:29 | DIAGNOSTIC IMAGING REPORT ---
NUCLEAR PULMONARY VENTILATION/PERFUSION SCAN CLINICAL HISTORY: Elevated d-dimer. COMPARISON STUDY: Chest x-ray dated 06/12/2018. Pulmonary ventilation/perfusion scan dated 01/12/2011. TECHNIQUE: Initially, ventilation images of both lungs are obtained following the inhalation of 31.9 mCi of aerosolized technetium 99m DTPA. Subsequently, perfusion images of both lungs were obtained following the IV administration of 6.71 mCi of technetium 99m MAA. Ventilation and perfusion images were acquired in the anterior, posterior, and oblique projections. FINDINGS: A chest x-ray performed the same day 06/12/2018 shows cardiomegaly. The lungs are clear. The ventilation of both lungs is heterogeneous. Inhaled tracer is noted in the stomach. No perfusion defects are identified on the perfusion imaging. IMPRESSION: Findings are considered low probability for pulmonary embolus. Electronically signed by: Barry Isabel M.D. 06/12/2018 8:28 PM Dictated Date/Time: 06/12/2018 8:26 PM
[2018-06-12] MEDS: METOPROLOL TARTRATE 50 MG TAB PO SCH (20:30)
[2018-06-12] MEDS ORDERED: INSULIN HUMAN REGULAR IV BOLUS 8 UNIT in SYRINGE 0 ML IV SCH (20:30)
[2018-06-12] MEDS: BENZONATATE 100MG CAP PO PRN (20:31)
[2018-06-12] MEDS: ISOSORBIDE MONONITRATE 60 MG TABCR PO SCH (20:31)
[2018-06-12] MEDS ORDERED: INSULIN GLARGINE SOLOSTAR 100 UNITS/ML 3 ML PEN SC SCH (21:00)
[2018-06-12] MEDS ORDERED: MIRTAZAPINE TAB 15 MG TAB PO SCH (21:00)
[2018-06-13] MEDS: INSULIN ASPART 100 UNITS/ML 3 ML PEN SC SCH ×4 (00:18→11:49)
[2018-06-13] MEDS ORDERED: INSULIN ASPART 100 UNITS/ML 3 ML PEN SC ONE (01:00)
[2018-06-13 03:47] VITALS: BP 126/58; PULSE 60; TEMP 36.7; O2SAT 95
[2018-06-13] MEDS: HEPARIN SOD 5000 UNIT/0.5 ML CARP SQ SCH ×2 (06:13→13:29)
[2018-06-13 06:42] LABS: HEMATOCRIT 37.2 % (37-47); HEMOGLOBIN 12.8 g/dL (12.0-16.0); MEAN CELL VOLUME 91.4 fL (80-100); MEAN CORPUSCULAR HEMOGLOBIN 31.4 pg (25-34); MEAN CORPUSCULAR HGB CONC 34.4 g/dl (32-36); MEAN PLATELET VOLUME 9.9 fL (7.4-10.4); PLATELET COUNT 217 K/uL (130-400); RED CELL DISTRIBUTION WIDTH CV 12.5 % (11.5-14.5); RED CELL DISTRIBUTION WIDTH SD 41.4 fL (36.4-46.3)
[2018-06-13 07:12] VITALS: PULSE 60; O2SAT 94
[2018-06-13 07:16] LABS: CALCIUM 8.9 mg/dl (8.5-10.1); CREATININE 1.19 mg/dl (0.60-1.20); POTASSIUM 4.1 mmol/L (3.5-5.1)
[2018-06-13 07:30] VITALS: BP 106/45; PULSE 65; TEMP 36.4; O2SAT 95
[2018-06-13 07:53] LABS: HEMOGLOBIN A1C 8.4 % (4.5-5.6)
[2018-06-13] MEDS: ALBUT/IPRATROP 3MG/0.5MG NEB 3 ML VIAL INH SCH ×2 (07:53→11:37)
--- NOTE | 2018-06-13 08:13 | Clinical Documentation Query ---
CLINICAL DOCUMENTATION QUERY 73 yo female admitted with bronchitis c/p cough, SOB and fever. Patient's initial O2 sat 92% on room air dripped to 88% and resolved with O2 at 2L NC. In your clinical opinion is this patient being managed for: ( x ) Acute respiratory failure with hypoxia, resolved ( ) Not Agree ( ) Other explanation of clinical findings (No explanation is considered a No Response) ( ) Unable to determine ( ) Need to Discuss (Phone CDS or qliq) (No discussion is considered a No Response) The medical record reflects the following clinical findings, treatment, and risk factors. Clinical Indicators: As above Treatment: O2, telemetry, CXR, Duoneb Risk Factors: Age, elevated D-dimer, SOB, hypoxia, fever Please clarify and document your clinical opinion in the progress notes and discharge summary. Terms such as "probable", "suspected", "likely", "questionable", "possible", or "still to be ruled out" are acceptable. IF IN AGREEMENT, YOU MUST DOCUMENT ABOVE DIAGNOSTIC STATEMENT IN DAILY PROGRESS NOTES AND DISCHARGE SUMMARY. This document is not part of the patient's record. Thank You, Gracie Treviño RN, MSN [phone]
[2018-06-13] MEDS: ISOSORBIDE MONONITRATE 60 MG TABCR PO SCH (08:35)
[2018-06-13] MEDS: BENZONATATE 100MG CAP PO PRN (08:35)
[2018-06-13] MEDS: DOXYCYCLINE HYCLATE 100 MG CAP PO SCH (08:35)
[2018-06-13] MEDS: METOPROLOL TARTRATE 50 MG TAB PO SCH (08:35)
[2018-06-13] MEDS ORDERED: AMLODIPINE BESYLATE 5 MG TAB PO SCH (09:00)
[2018-06-13] MEDS ORDERED: LISINOPRIL 40 MG TAB PO SCH (09:00)
[2018-06-13] MEDS ORDERED: ASPIRIN 81 MG ECTAB PO SCH (09:00)
[2018-06-13] MEDS ORDERED: MULTIVITAMIN TAB PO SCH (09:00)
[2018-06-13] MEDS ORDERED: CHOLECALCIFEROL 1000 INTER.UNIT TAB PO SCH (09:00)
[2018-06-13] MEDS ORDERED: ATORVASTATIN 20 MG TAB PO SCH (09:00)
--- NOTE | 2018-06-13 10:42 | Hospitalist Progress Note ---
Hospitalist Progress Note Date of Service Jun 13, 2018. (Mercedes Jo ., LORENZO) Subjective Pt evaluation today including: conversation w/ patient, conversation w/ family , physical exam, chart review, lab review, review of inpatient medication list Pt seen and examined. Sitting in bedside chair. Reports is feeling much better today with overall decreased cough. Hasn't felt like had chest tightness or SOB. Feels like nebulizer treatments are helping. Denies fever/chills, diaphoresis, N/V/D/C, BLUE, dizziness, orthopnea, palpitations, abdominal pain, extremity edema, urinary symptoms. (Mercedes Jo ., LORENZO) Medications Medications (Trade) Dose Ordered Sig/Cheri Route Start Time Stop Time Status Last Admin Dose Admin Heparin Sodium (Porcine) (Heparin Sq 5000 Unit/0.5ml) 5,000 unit Q8 SQ 06/12/18 14:00 07/12/18 13:59 06/13/18 06:13 5,000 UNIT Polyethylene (Miralax Powder Packet) 17 gm DAILY PRN PO 06/12/18 11:00 07/12/18 10:59 06/13/18 08:45 17 GM Lorazepam (Ativan Inj) 1 mg TODAY@1215 IV 06/12/18 12:15 06/12/18 23:59 DC 06/12/18 16:25 1 MG Potassium Chloride (Klor-Con Tab) 40 meq NOW STAT PO 06/12/18 12:05 06/12/18 12:19 DC 06/12/18 12:48 40 MEQ Potassium Chloride/Sodium Chloride 1,000 ml @ 80 mls/hr [id number] IV 06/12/18 12:30 06/12/18 19:29 DC 06/12/18 12:51 80 MLS/HR Albuterol/ Ipratropium (Duoneb) 3 ml QIDR INH 06/12/18 16:00 07/12/18 15:59 06/13/18 07:53 3 ML Amlodipine Besylate (Norvasc Tab) 10 mg NOW STAT PO 06/12/18 12:07 06/12/18 12:19 DC 06/12/18 12:49 10 MG Metoprolol Tartrate (Lopressor Tab) 50 mg NOW STAT PO 06/12/18 12:08 06/12/18 12:19 DC 06/12/18 12:49 50 MG Lisinopril (Zestril Tab) 40 mg NOW STAT PO 06/12/18 12:08 06/12/18 12:19 DC 06/12/18 12:50 40 MG Amlodipine Besylate (Norvasc Tab) 10 mg QAM PO 06/13/18 09:00 07/13/18 08:59 06/13/18 08:36 10 MG Aspirin (Ecotrin Tab) 81 mg QAM PO 06/13/18 09:00 07/13/18 08:59 06/13/18 08:35 81 MG Atorvastatin Calcium (Lipitor Tab) 20 mg QAM PO 06/13/18 09:00 07/13/18 08:59 06/13/18 08:34 20 MG Isosorbide Mononitrate (Imdur Ext Rel Tab) 60 mg BID PO 06/12/18 21:00 07/12/18 20:59 06/13/18 08:35 60 MG Lisinopril (Zestril Tab) 40 mg QAM PO 06/13/18 09:00 07/13/18 08:59 06/13/18 08:36 40 MG Metoprolol Tartrate (Lopressor Tab) 50 mg BID PO 06/12/18 21:00 07/12/18 20:59 06/13/18 08:35 50 MG Mirtazapine (Remeron Tab) 15 mg HS PO 06/12/18 21:00 07/12/18 20:59 06/12/18 20:30 15 MG Multivitamins (Multivitamin Tab) 1 tab QAM PO 06/13/18 09:00 07/13/18 08:59 06/13/18 08:34 1 TAB Cholecalciferol (Vitamin D Tab) 1,000 inter.unit QAM PO 06/13/18 09:00 07/13/18 08:59 06/13/18 08:35 1,000 INTER.UNIT Benzonatate (Tessalon Perles Cap) 100 mg TID PRN PO 06/12/18 11:30 07/12/18 11:29 06/13/18 08:35 100 MG Insulin Aspart (novoLOG ASPART) SLIDING SCALE If C... ACHS SC 06/12/18 16:15 07/12/18 16:14 06/13/18 08:45 15 UNITS Doxycycline Hyclate (Vibramycin Cap) 100 mg BID PO 06/12/18 12:30 06/19/18 12:29 06/13/18 08:35 100 MG Ceftriaxone Sodium 1 gm/ Dextrose 50 ml @ 100 mls/hr Q24H IV 06/12/18 13:00 06/19/18 12:59 06/12/18 12:50 100 MLS/HR Insulin Aspart (novoLOG ASPART) SLIDING SCALE If C... TODAY@0000,0400 SC 06/13/18 00:00 06/13/18 04:01 DC 06/13/18 03:57 3 UNITS Insulin Glargine (Lantus Solostar Pen) 50 units NOW ONCE SC 06/12/18 20:00 06/12/18 20:01 DC 06/12/18 20:37 50 UNITS Insulin Human Regular 8 unit/ Syringe 8 ml @ 1.6 mls/min TODAY@2029 IV 06/12/18 20:30 06/12/18 20:34 DC 06/12/18 20:38 1.6 MLS/MIN (Mercedes Jo, LORENZO) Objective Vital Signs Date Time Temp Pulse Resp B/P (MAP) Pulse Ox O2 Delivery O2 Flow Rate FiO2 06/13/18 07:30 36.4 65 18 106/45 (65) 95 Nasal Cannula 2.0 06/13/18 07:12 60 18 94 Nasal Cannula 2.0 06/13/18 03:47 36.7 60 16 126/58 (80) 95 Room Air 06/12/18 23:40 36.9 66 20 122/48 (72) 92 Nasal Cannula 2.0 06/12/18 20:51 74 18 95 Room Air 06/12/18 20:03 36.5 71 22 146/58 (87) 94 Room Air 06/12/18 20:00 Room Air 06/12/18 16:19 92 Room Air 06/12/18 15:48 65 16 96 Nasal Cannula 2.0 06/12/18 15:17 36.5 67 19 154/72 (99) 96 Nasal Cannula 1.5 06/12/18 12:15 95 Nasal Cannula 2.0 06/12/18 12:00 36.9 74 20 164/64 (97) 95 Nasal Cannula 2.0 06/12/18 11:31 160/67 06/12/18 11:08 172/73 06/12/18 11:07 74 06/12/18 11:01 176/81 06/12/18 10:36 71 22 95 06/12/18 10:31 179/67 2.0 06/12/18 10:26 94 Nasal Cannula 2.0 06/12/18 10:16 73 18 94 06/12/18 10:08 73 22 165/67 94 Nasal Cannula 2.0 06/12/18 10:03 165/67 06/12/18 09:46 73 19 94 06/12/18 09:41 171/81 06/12/18 09:36 171/81 06/12/18 09:00 147/57 06/12/18 08:52 69 20 144/80 91 Nasal Cannula 2.0 06/12/18 08:40 144/80 (Mercedes Jo ., PA-C) Physical Exam General Appearance: no apparent distress, + obese Eyes: normal inspection, sclerae normal ENT: hearing grossly normal, pharynx normal, + pertinent finding (mucous membranes moist) Neck: supple, trachea midline Respiratory/Chest: lungs clear, normal breath sounds, no respiratory distress Cardiovascular: regular rate, rhythm Abdomen: normal bowel sounds, non tender, soft Extremities: normal range of motion, non-tender, normal capillary refill, + pedal edema (trace BLE) Neurologic/Psychiatric: alert, normal mood/affect, oriented x 3 Skin: warm/dry (Mercedes Jo ., PA-C) Laboratory Results Last 24 Hours Test 06/12/18 12:18 06/12/18 12:20 06/12/18 14:44 06/12/18 16:15 Troponin I < 0.015 ng/ml Bedside Glucose 191 mg/dl 270 mg/dl 291 mg/dl Test 06/12/18 17:15 06/12/18 18:30 06/12/18 20:00 06/13/18 00:09 Troponin I < 0.015 ng/ml Urine Color YELLOW Urine Appearance CLEAR Urine pH 7.0 Urine Specific [place] 1.025 Urine Protein 1+ Urine Glucose (UA) 3+ Urine Ketones 1+ Urine Occult Blood NEG Urine Nitrite NEG Urine Bilirubin NEG Urine Urobilinogen NEG Urine Leukocyte Esterase NEG Urine WBC (Auto) 1-5 /hpf Urine RBC (Auto) 0-4 /hpf Urine Hyaline Casts (Auto) 1-5 /lpf Urine Epithelial Cells (Auto) >30 /lpf Urine Bacteria (Auto) NEG Bedside Glucose 338 mg/dl 256 mg/dl Test 06/13/18 03:52 06/13/18 06:13 Bedside Glucose 187 mg/dl White Blood Count 8.40 K/uL Red Blood Count 4.07 M/uL Hemoglobin 12.8 g/dL Hematocrit 37.2 % Mean Corpuscular Volume 91.4 fL Mean Corpuscular Hemoglobin 31.4 pg Mean Corpuscular Hemoglobin Concent 34.4 g/dl RDW Standard Deviation 41.4 fL RDW Coefficient of Variation 12.5 % Platelet Count 217 K/uL Mean Platelet Volume 9.9 fL Sodium Level 138 mmol/L Potassium Level 4.1 mmol/L Chloride Level 102 mmol/L Carbon Dioxide Level 29 mmol/L Anion Gap 7.0 mmol/L Blood Urea Nitrogen 23 mg/dl Creatinine 1.19 mg/dl Est Creatinine Clear Calc Drug Dose 46.9 ml/min Estimated GFR () 52.1 Estimated GFR (Non- 44.9 BUN/Creatinine Ratio 19.4 Random Glucose 169 mg/dl Estimated Average Glucose 194 mg/dl Hemoglobin A1c 8.4 % Calcium Level 8.9 mg/dl Magnesium Level 2.3 mg/dl (Mercedes Jo, KAREEM-Oziel) Assessment and Plan BRONCHITIS HYPOXIA Pt improved with overall less cough, no further SOB/wheezing. Doing well with duoneb. O2 sats 94-95% on 2L CXR: No infiltrate. Procalcitonin was WNL. -DuoNebs -Wean Supplemental as able -Rocephin, doxycycline ELEVATED D-DIMER DDimer: 2200 VQ Scan: low probability for PE BLE venous doppler negative for DVT HYPOKALEMIA Resolved, K: 4.1 from 3.4 yesterday -Had Potassium replacement yesterday INSULIN-DEPENDENT DM II A1c: 8.4 Pt had elevated BSG's, highest 338. She had received IV dexamethasone 10mg IV in ER yesterday. -Lantus, Novolog sliding scale adjusted HTN Stable Continue amlodipine, metoprolol, lisinopril, HCTZ CKD III Creatinine: 1.19. Stable and at baseline of 1.1 -Monitor renal function -Avoid nephrotoxic agents when possible H/O CAD Denies chest pain. Troponin negative x 3 -Continue isosorbide, aspirin, atorvastatin, metoprolol HLD -Continue atorvastatin ANXIETY/DEPRESSION Stable -continue Remeron at bedtime for anxiety DVT Prophylaxis -Heparin SQ Admitted tele Disposition: Anticipate discharge home today or tomorrow Full Code as per discussion with pt Follows with Dr Gonzalez for routine care Pt was seen with Dr Gonzalez. See addendum (Mercedes Jo PA-C) Attending addendum Patient seen and examined care coordinated with Mony Jo PA-C Patient reports patient reports no further episode of shortness of breath or dyspnea on exertion Hypoxia has resolved patient is in room air No cough no fever or chills Wants to be discharged home today ACUTE HYPOXEMIC RESPIRATORY FAILURE Due to bronchitis Presented with hypoxemia and room air required supplemental O2 Symptoms resolved after breathing treatment, empiric antibiotic with doxycycline D-dimer found to be elevated Lower extremity Doppler negative for DVT CT of the chest was due to contrast dye allergy VQ scan shows low probability of PE Stable to be discharged home today Dipika Gonzalez MD (Dipika Gonzalez M.D.)
[2018-06-13 11:25] VITALS: BP 115/73; PULSE 57; TEMP 36.5; O2SAT 95
[2018-06-13 11:38] VITALS: PULSE 65; O2SAT 96
[2018-06-13] MEDS: CEFTRIAXONE SOD INJ 1 GM in DEXTROSE 5% ADD-VANTAGE 50ML 50 ML IV SCH (13:28)
[2018-06-13 13:35] VITALS: Ht 160 cm; Wt 100.5 kg
[2018-06-13] MEDS ORDERED: INSULIN GLARGINE SOLOSTAR 100 UNITS/ML 3 ML PEN SC STA (14:20)
--- NOTE | 2018-06-13 14:26 | Pharmacy Progress Note ---
Glycemic: Assessment & Plan Date of Service Jun 13, 2018. Assessment & Plan Assessment * 73 yo F with significant outpatient doses of insulin now with steroid-induced hyperglycemia * Outpatient regimen * Lantus 44 units qPM * Humalog TIDM // plus correction factor at 12 mg/dL/unit when BSG above 150 mg/dL * BSG's not well controlled - ranging 172-338 mg/dL over the last 24 hours * Will adjust regimen to similar to outpatient regimen, but slightly more basal insulin * Patient may require insulin drip later today if BSG's cannot be better controlled with above changes Plan * Basal insulin: Lantus 20 units x1 now, then ongoing qPM based on BSG (range 25-60 units) * Correctional Insulin: Novolog Correction per scale ACHS - two overnight checks Goal Range: Low 120 mg/dL - High 150 mg/dL Correction Factor: 12 mg/dL/unit * Prandial insulin: Per carb ratio of 1 unit per 3 grams CHO consumed Pharmacy will continue to monitor patient daily and write orders per [facility] inpatient glycemic control protocol. Thanks. * Please note that the plan above was derived based on current level of insulin resistance and hospital stress. These recommendations are appropriate for inpatient admission only. Plan of care upon discharge will need to be reassessed to avoid potential outpatient hypo/hyperglycemia.
[2018-06-13] MEDS ORDERED: DXY100 PO (14:48)
--- NOTE | 2018-06-13 14:49 | Discharge Instructions ---
Discharge Instructions Date of Service Jun 13, 2018. Admission Reason for Admission: Cough, Hypoxia Discharge Discharge Diagnosis / Problem: COUGH /BRONCHITIS Discharge Goals Goal(s): Decrease discomfort, Improve function, Increase independence, Improve disease control, Therapeutic intervention Activity Recommendations Activity Limitations: resume your previous activity . Instructions / Follow-Up Instructions / Follow-Up HOSPITAL FOLLOW UP :06/18/2018 @ 11:[address] Lukas Solitario MD General Internal Medicine [facility] Current Hospital Diet Patient's current hospital diet: Diabetes Type 2 Diet, AHA Diet (Heart Healthy) Discharge Diet Recommended Diet: AHA Diet (Heart Healthy), Diabetes Type 2 Diet Pending Studies Studies pending at discharge: no Laboratory Results Hemoglobin A1c Test 06/13/18 06:13 Range/Units Estimated Average Glucose 194 mg/dl Hemoglobin A1c 8.4 H 4.5-5.6 % Medical Emergencies . Who to Call and When: Medical Emergencies: If at any time you feel your situation is an emergency, please call 911 immediately. . Non-Emergent Contact Non-Emergency issues call your: Primary Care Provider . . "Provider Documentation" section prepared by Dipika Gonzalez. .
[2018-06-13 15:01] VITALS: BP 115/73; PULSE 65; TEMP 36.5; O2SAT 96
[2018-06-13] MEDS ORDERED: INSULIN GLARGINE SOLOSTAR 100 UNITS/ML 3 ML PEN SC SCH (21:00)
[2018-06-14] MEDS ORDERED: INSULIN ASPART 100 UNITS/ML 3 ML PEN SC SCH
[2018-06-14] MEDS ORDERED: HYDROCHLOROTHIAZIDE 25 MG TAB PO SCH (09:00)
--- NOTE | 2018-06-16 02:54 | Discharge Summary ---
Discharge Summary Date of Service Jun 16, 2018. Discharge Summary Admission Date: Jun 12, 2018 at 11:00 Discharge Date: Jun 13, 2018 Discharge Disposition: Home Principal Diagnosis: COUGH /BRONCHITIS Procedures: Portable chest x-ray: 06/12/2018 Mild cardiomegaly, otherwise no acute process within the chest Bilateral lower extremity venous Doppler No DVT within the right or left lower extremity VQ scan Low probability for PE Medication Reconciliation New Medications: Doxycycline Hyclate (Doxycycline Hyclate) 100 Mg Cap 100 MG PO BID for 3 Days, #6 CAP Continued Medications: Amlodipine (Norvasc) 10 Mg Tab 10 MG PO QAM Aspirin (Aspirin Chewable) 81 Mg Chew 81 MG PO QAM Atorvastatin (Lipitor) 20 Mg Tab 20 MG PO QAM Cholecalciferol (Vitamin D3) 1,000 Unit Cap 1000 UNITS PO QAM Fish Oil ([place]-3) 1 Ea Cap 1200 MG PO QAM Momdfmkhxxj-Fnxqzneehzr-Tkn C- (Glucosamine Chondroitin) 1 Tab Tab 500 MG PO DAILY Hydrochlorothiazide (Hctz) 25 Mg Tab 25 MG PO QAM Insulin Glargine (Lantus) Vial 44 UNITS SC QPM Insulin Lispro (Human) (Humalog) 100 Unit/Ml Inj 1 DOSE SC UD PER SLIDING SCALE Isosorbide Mononitrate Ext Rel (Imdur Ext Rel) 60 Mg Ertab 60 MG PO BID Lisinopril (Zestril) 40 Mg Tab 40 MG PO QAM Lutein-Zeaxanthin (Lutein) 1 Cap Cap 1 CAP PO DAILY Metoprolol Tartrate (Lopressor) (Lopressor) 50 Mg Tab 50 MG PO BID Mirtazapine (Remeron *) 15 Mg Tab 15 MG PO HS Multivitamin (Multivitamin) Tab 1 TAB PO QAM Nitroglycerin (Nitrostat) 0.4 Mg Tab 0.4 MG UT PRN PRN for Chest Pain Psyllium (Metamucil Powder) Powd 1 TSP PO QAM [potassium chloride ] () 99 MG PO DAILY Discontinued Medications: Azithromycin (Zithromax) 250 Mg Tab 250 MG PO DAILY, #4 TAB Admission Information HPI (per Admitting provider): Pt is 73 y/o F with PMH HTN, dyslipidemia, DM II, depression, anxiety, CKD III, CAD, GERD presented to ER with complaint of cough. Reports dry cough, sore throat, rhinorrhea, post nasal drip started 5 days ago. Her sore throat has decreased. Reports fever 100.3F 2 days ago, temp 100.4F yesterday. Took Advil once yesterday, no further antipyretics. Patient states last night increased coughing and came to ER. Some chest tightness with coughing and increased coughing with inspiration, but denies SOB. Denies other CP. Seen by PCP office . Was rx Tessalon Perles by PCP however didn't pick up driver as were too expensive. Has taken Zithromax for 2 days. Denies ill contacts. Denies recent travel. Patient denies any history of asthma or COPD. States was an incident a couple years ago where she was exposed to the [place] dust and had some respiratory issues after that which have since resolved. Denies diaphoresis, N/V /D/C, BLUE, dizziness, syncope, vision changes, neck pain, orthopnea, palpitations , hemoptysis, sore throat, choking, otalgia, abdominal pain, paresthesias, weakness, extremity weakness, extremity edema, rashes, urinary symptoms, weight loss. In ER given dexamethasone, Tessalon Perles, DuoNeb with reported overall decreased cough. History echo in 2015: EF: 55-60%, normal wall motion, no significant valvular abnormality. Previous echo 11/2013: EF: 55-59%, grade 2 diastolic dysfunction, inferior wall mildly hypokinetic, mild aortic valve sclerosis without stenosis History nuclear stress test in 2013: Normal Physical Exam (per Admitting): General Appearance: WD/WN, no apparent distress (However occasional dry cough noted) Head: normocephalic, atraumatic Eyes: normal inspection, sclerae normal ENT: hearing grossly normal, pharynx normal, + pertinent finding (Mucous membranes mildly dry) Neck: supple, trachea midline Respiratory/Chest: lungs clear, normal breath sounds, no respiratory distress, no accessory muscle use Cardiovascular: regular rate, rhythm, normal peripheral pulses Abdomen/GI: normal bowel sounds, non tender, soft Extremities/Musculoskelatal: no calf tenderness, normal capillary refill, normal range of motion, + pedal edema (Slight to 1+ BLE) Neurologic/Psych: alert, normal mood/affect, oriented x 3 Skin: warm/dry Hospital Course Assessment and Plan BRONCHITIS HYPOXIA Pt improved with overall less cough, no further SOB/wheezing. Doing well with duoneb. O2 sats 94-95% on 2L CXR: No infiltrate. Procalcitonin was WNL. -DuoNebs -Wean Supplemental as able -Rocephin, doxycycline ELEVATED D-DIMER DDimer: 2200 VQ Scan: low probability for PE BLE venous doppler negative for DVT HYPOKALEMIA Resolved, K: 4.1 from 3.4 yesterday -Had Potassium replacement yesterday INSULIN-DEPENDENT DM II A1c: 8.4 Pt had elevated BSG's, highest 338. She had received IV dexamethasone 10mg IV in ER yesterday. -Lantus, Novolog sliding scale adjusted HTN Stable Continue amlodipine, metoprolol, lisinopril, HCTZ CKD III Creatinine: 1.19. Stable and at baseline of 1.1 -Monitor renal function -Avoid nephrotoxic agents when possible H/O CAD Denies chest pain. Troponin negative x 3 -Continue isosorbide, aspirin, atorvastatin, metoprolol HLD -Continue atorvastatin ANXIETY/DEPRESSION Stable -continue Remeron at bedtime for anxiety DVT Prophylaxis -Heparin SQ Admitted tele Disposition: Anticipate discharge home today or tomorrow Full Code as per discussion with pt Follows with Dr Gonzalez for routine care Pt was seen with Dr Gonzalez. See addendum (Mercedes Jo PA-C) Attending addendum Patient seen and examined care coordinated with Mony Jo PA-C Patient reports patient reports no further episode of shortness of breath or dyspnea on exertion Hypoxia has resolved patient is in room air No cough no fever or chills Wants to be discharged home today ACUTE HYPOXEMIC RESPIRATORY FAILURE Due to bronchitis Presented with hypoxemia and room air required supplemental O2 Symptoms resolved after breathing treatment, empiric antibiotic with doxycycline D-dimer found to be elevated Lower extremity Doppler negative for DVT CT of the chest was due to contrast dye allergy VQ scan shows low probability of PE Stable to be discharged home today Dipika Gonzalez MD (Dipika Gonzalez M.D.) Total time spent on discharge = 40 mins This includes examination of the patient, discharge planning, medication reconciliation, and communication with other providers. Discharge Instructions Discharge Instructions Date of Service Jun 13, 2018. Admission Reason for Admission: Cough, Hypoxia Discharge Discharge Diagnosis / Problem: COUGH /BRONCHITIS Discharge Goals Goal(s): Decrease discomfort, Improve function, Increase independence, Improve disease control, Therapeutic intervention Activity Recommendations Activity Limitations: resume your previous activity . Instructions / Follow-Up Instructions / Follow-Up HOSPITAL FOLLOW UP :06/18/2018 @ 11:[address] Lukas Solitario MD General Internal Medicine [facility] Hospital Diet Patient's current hospital diet: Diabetes Type 2 Diet, AHA Diet (Heart Healthy) Discharge Diet Recommended Diet: AHA Diet (Heart Healthy), Diabetes Type 2 Diet Pending Studies Studies pending at discharge: no Laboratory Results Hemoglobin A1c Test 06/13/18 06:13 Range/Units Estimated Average Glucose 194 mg/dl Hemoglobin A1c 8.4 H 4.5-5.6 % Medical Emergencies . Who to Call and When: Medical Emergencies: If at any time you feel your situation is an emergency, please call 911 immediately. . Non-Emergent Contact Non-Emergency issues call your: Primary Care Provider . . "Provider Documentation" section prepared by Dipika Gonzalez.
== END 2018-06-13 16:10 | disposition home or self-care (01) | DRG 202 ==
LOC: C.EDB 02:48 → C.2E 11:00 → UNDOADMIN 11:00 → EDBEDREQ 11:10 → ENRESERV 11:10
PROVIDERS: ADMIT Hospitalist; ATTEND Hospitalist
DX: J40 Bronchitis, not specified as acute or chronic (principal); J96.01 Acute respiratory failure with hypoxia; I12.9 Hypertensive chronic kidney disease with stage 1 through stage 4 chronic kidney disease, or unspecified chronic kidney disease; N18.3 Chronic kidney disease, stage 3 (moderate); I25.10 Atherosclerotic heart disease of native coronary artery without angina pectoris; F32.9 Major depressive disorder, single episode, unspecified; E11.21 Type 2 diabetes mellitus with diabetic nephropathy; E78.5 Hyperlipidemia, unspecified; K21.9 Gastro-esophageal reflux disease without esophagitis; Z83.3 Family history of diabetes mellitus; Z79.4 Long term (current) use of insulin; Z88.2 Allergy status to sulfonamides; Z88.0 Allergy status to penicillin; Z88.5 Allergy status to narcotic agent; Z79.84 Long term (current) use of oral hypoglycemic drugs; E87.6 Hypokalemia

== ENCOUNTER 2021-10-17 18:18 | Inpatient (IN) ==
[2021-10-17] MEDS ORDERED: SODIUM CHLORIDE 0.9% 1000ML 1,000 ML IV ONE (19:22)
--- NOTE | 2021-10-17 19:24 | Emergency Department Note ---
Impression & Plan Chest pain, Hypertensive urgency ADMIT ED Provider Note HPI: The patient is a 76-year-old female with history of coronary artery disease, hyperlipidemia, chronic kidney disease, type 2 diabetes, GERD, presents the emergency department with a chief complaint of dizziness. Patient states that for about the past 3-1/2 hours she has had a sensation of dizziness. She states that this occurred when she was at home and got up from a seated position to go make dinner. Patient states this sensation has been relatively constant since then, she has had some nausea that is now resolved, denies any vomiting, denies any chest pain or shortness of breath. On arrival here to the ED the patient is noted to be hypertensive greater than 200 systolic, she is otherwise without any increased work of breathing, she does not any focal deficits, she is otherwise in no acute distress. ROS: -Neuro: Dizziness -General: Hypertension *10 point review systems was conducted and is otherwise negative unless stated above *Outpatient medications and allergy history reviewed PE: General: Alert, NAD HEENT: Normocephalic, atraumatic, trachea midline Eyes: Extraocular eye movement is intact, no scleral erythema Pulmonary: Clear to auscultation bilaterally, no wheezing Cardio: Regular rate and rhythm GI: Abdomen is soft, nontender : No suprapubic tenderness MSK: No evidence of trauma or malformation of the extremities, no edema Skin: No evidence of rash Neuro: Alert, no focal deficits, there is no ataxia on [id number] testing bilaterally Psychiatric: Cooperative monitoring tech: - An order was placed for continuous cardiac monitoring - Patient was noted to be in sinus rhythm with rate of 70 EKG: Rate: 66 Rhythm: Sinus rhythm Intervals: NV interval slightly prolonged at 214 ms, otherwise within normal limits ST changes: No ST elevation Time: 1922 Medical Decision Making: Patient presented to the emergency department with a chief complaint of dizzi ness, states she is also had some intermittent episodes of chest pain that occurred mostly after she arrived here to the ED. EKG does not show any acute ischemic changes, troponin is negative x1, patient does have a slight creatinine elevation although this does appear to be her baseline. Patient was given multiple doses of antihypertensive medications here in the ED including labetalol and hydralazine, her blood pressure did eventually downtrend to 179/74, she states that she feels improved on my reassessment but still has some mild chest discomfort. CT imaging of the head was performed here in the ED that does not show any evidence of subacute stroke, there is no evidence of intracranial bleeding. I did discuss obtaining MRI of the brain to rule out posterior circulation stroke, patient states that she absolutely cannot tolerate an MRI secondary to anxiety and claustrophobia. She was offered anxiolytic medications but again refused. In addition, patient states she has an anaphy lactic reaction to IV contrast therefore CT angiography of the head and chest was not performed. Chest x-ray was performed that does not show any evidence of mediastinum widening. Patient's pain is mild, have low suspicion for aortic dissection but the patient is aware that I cannot completely rule this out without imaging. Given the patient's multiple risk factors in addition to the fact that on my reassessment she is still complaining of some mild "chest tightness" I do think that she would benefit from admission for trending of enzymes and further care. She was given aspirin here in the ED following her work-up. I discussed case with the on-call hospitalist for [facility], Dr. Rodriguez, who accepted the patient to a monitored bed for further care, patient was in agreement to the above plan she was admitted in stable condition. * Diagnosis: Hypertensive urgency, chest pain, nonspecific vertigo/dizziness * Disposition: Admission * CRITICAL CARE TIME: 35 min -Management of hypertensive urgency with blood pressures greater than 220 systolic requiring IV medications for stabilization, time spent at the bedside, discussion with other healthcare providers and arrangement of admission, interpretation of diagnostic studies Grabiel Galeana DO Emergency Medicine Past Med/Surg History Medical History (Updated 10/17/21 @ 22:46 by Grabiel Galeana DO) CKD (chronic kidney disease), stage III Coronary artery disease Cough Diabetes mellitus type II, controlled Dyslipidemia Dyspnea GERD (gastroesophageal reflux disease) Lower extremity edema Lower extremity edema Morbid obesity due to excess calories Surgical History H/O colonoscopy H/O tubal ligation History of arthroplasty of right knee History of esophagogastroduodenoscopy S/P tonsillectomy Family History Other Family history non-contributory Social History Smoking Status: Never smoker Preferred Language: Cymraes Feels Safe at Home: Yes Allergies Allergies Allergy/AdvReac Type Severity Reaction Status Date / Time Sulfa (Sulfonamide Allergy Severe HIVES Verified 10/17/21 20:25 Antibiotics) Iodinated Contrast Media Allergy Intermediate HIVES Verified 10/17/21 20:25 Penicillins Allergy Intermediate HIVES Verified 10/17/21 20:25 codeine Allergy Unknown HAS Verified 10/17/21 20:25 TOLERATED MORPHINE W/O RXN SEVERE N&V exenatide Allergy Unknown BYETTA-ELEVATED Verified 10/17/21 20:25 LIPASE erythromycin base AdvReac Intermediate NAUSEA AND Verified 10/17/21 20:25 VOMITING rofecoxib AdvReac Intermediate NAUSEA AND Verified 10/17/21 20:25 VOMITING metformin AdvReac Mild GI UPSET Verified 10/17/21 20:25 morphine AdvReac Mild GI UPSET Verified 10/17/21 20:25 Home Meds Home Medications Medication Instructions Recorded Confirmed aspirin 81 mg chewable tablet 81 mg PO DAILY 08/24/18 10/17/21 atorvastatin 20 mg tablet 20 mg PO DAILY 08/24/18 10/17/21 cholecalciferol (vitamin D3) 25 1,000 unit PO DAILY 08/24/18 10/17/21 mcg (1,000 unit) tablet (Vitamin D3) cinnamon bark 500 mg capsule 500 mg PO DAILY 08/24/18 10/17/21 (Cinnamon) isosorbide mononitrate 60 mg 60 mg PO BID 08/24/18 10/17/21 tablet,extended release 24 hr metoprolol tartrate 50 mg tablet 50 mg PO BID 08/24/18 10/17/21 (Lopressor) multivitamin 1 tab PO DAILY 08/24/18 10/17/21 nitroglycerin 0.4 mg sublingual 0.4 mg SUBLINGUAL DIRECTED PRN 08/24/18 10/17/21 tablet (Nitrostat) psyllium husk 3.4 gram/5.4 gram 2 tbsp PO DAILY 08/24/18 10/17/21 oral powder (Metamucil) albuterol sulfate 90 mcg/actuation 2 puff INHALATION Q6H PRN 09/15/19 10/17/21 aerosol inhaler (ProAir HFA) insulin glargine 100 unit/mL (3 60 unit SUBCUT HS 09/15/19 10/17/21 mL) subcutaneous pen (Basaglar KwikPen U-100 Insulin) mirtazapine 30 mg tablet 30 mg PO HS 09/15/19 10/17/21 furosemide 40 mg tablet 40 mg PO DAILY 03/23/21 10/17/21 insulin lispro 100 unit/mL 5 unit SUBCUT TID 03/23/21 10/17/21 subcutaneous pen (Humalog KwikPen (U-100) Insulin) ketoconazole 2 % shampoo 1 applic TOPICAL Q14D 03/23/21 10/17/21 pen needle, diabetic 32 gauge x #50 ea 03/23/21 10/17/2132" (ReliOn Pen [place]) vit C,E,zinc,copper-oeabn5y 250 1 cap PO DAILY 03/23/21 10/17/21 mg-lutein 5 mg-zeaxanthin 1 mg capsule (Ocuvite Adult 50 Plus) ascorbic acid (vitamin C) 1,000 mg 1 g PO DAILY 10/17/21 10/17/21 tablet (Vitamin C) losartan 100 mg tablet 100 mg PO DAILY 10/17/21 10/17/21 potassium 99 mg tablet 99 mg PO DAILY 10/17/21 10/17/21 Results & Data (ED) Vital Signs Vital Signs - 24 hr 10/17/21 19:24 10/17/21 19:30 10/17/21 19:40 Temperature 37.3 C Temperature Source Oral Pulse Rate 65 68 65 Pulse Rate from SpO2 Sensor 68 65 Respiratory Rate 22 17 21 Respiratory Effort / Characteristics Non-Labored Spontaneous Respiratory Depth Normal Respiratory Pattern Regular Blood Pressure 228/154 H 218/85 H 188/68 H Blood Pressure Mean 178 129 108 Pulse Oximetry 96 94 96 Oxygen Delivery Method Room Air Sepsis Recent Fever Within 48 Hours No Sepsis New/Unexplained Change in Mental Status No Sepsis Action Taken by Nursing No Action Required 10/17/21 20:00 10/17/21 20:30 10/17/21 20:50 Temperature Temperature Source Pulse Rate 83 67 72 Pulse Rate from SpO2 Sensor 71 68 72 Respiratory Rate 15 19 11 L Respiratory Effort / Characteristics Respiratory Depth Respiratory Pattern Blood Pressure 203/64 H 189/70 H 177/71 H Blood Pressure Mean 110 109 106 Pulse Oximetry 96 95 93 Oxygen Delivery Method Sepsis Recent Fever Within 48 Hours Sepsis New/Unexplained Change in Mental Status Sepsis Action Taken by Nursing 10/17/21 21:00 10/17/21 21:10 10/17/21 22:00 Temperature Temperature Source Pulse Rate 68 68 72 Pulse Rate from SpO2 Sensor 68 69 72 Respiratory Rate 14 15 20 Respiratory Effort / Characteristics Respiratory Depth Respiratory Pattern Blood Pressure 188/66 H 177/79 H 179/74 H Blood Pressure Mean 106 111 109 Pulse Oximetry 92 95 97 Oxygen Delivery Method Sepsis Recent Fever Within 48 Hours Sepsis New/Unexplained Change in Mental Status Sepsis Action Taken by Nursing Laboratory Data Result diagrams: 10/17/21 19:33 10/17/21 19:33 Lab Results 10/17/21 10/17/21 10/17/21 Range/Units 19:33 19:33 19:33 WBC 5.33 (4.8-10.8) K/uL RBC 4.22 (4.2-5.4) M/uL Hgb 13.6 (12.0-16.0) g/dL Hct 39.6 (37-47) % MCV 93.8 (80-100) fL MCH 32.2 (25-34) pg MCHC 34.3 (32-36) g/dL RDW Std Deviation 44.6 (36.4-46.3) fL RDW Coeff of [place] 12.9 (11.5-14.5) % Plt Count 149 (130-400) K/uL MPV 9.7 (7.4-10.4) fL Immature Gran % (Auto) 0.2 % Neut % (Auto) 60.9 % Lymph % (Auto) 31.0 % [place] % (Auto) 4.7 % Eos % (Auto) 2.6 % Baso % (Auto) 0.6 % Neut # (Auto) 3.25 (1.4-6.5) K/uL Lymph # (Auto) 1.65 (1.2-3.4) K/uL [place] # (Auto) 0.25 (0.11-0.59) K/uL Eos # (Auto) 0.14 (0-0.5) K/uL Baso # (Auto) 0.03 (0-0.2) K/uL Immature Gran # (Auto) 0.01 (0.00-0.02) K/uL PT 9.8 (9.0-12.0) Seconds INR 1.0 (0.9-1.1) Sodium 136 (136-145) mmol/L Potassium 3.5 (3.5-5.1) mmol/L Chloride 99 (98-107) mmol/L Carbon Dioxide 33 H (21-32) mmol/L Anion Gap 4.0 (3-11) BUN 18 (7-18) mg/dl Creatinine 1.21 H (0.6-1.2) mg/dl Est Cr Clr Drug Dosing 44.6 ml/min Est GFR ( Amer) 50.0 ml/min Est GFR (Non-Af Amer) 43.1 ml/min BUN/Creatinine Ratio 15.2 (10-20) Glucose 261 H (70-99) mg/dl POC Glucose (70-99) mg/dl Calcium 9.2 (8.5-10.1) mg/dl Total Bilirubin 0.4 (0.2-1) mg/dl AST 14 L (15-37) U/L ALT 32 (12-78) Alkaline Phosphatase 93 (45-117) U/L Troponin I < 0.015 (0-0.045) ng/ml Total Protein 7.4 (6.4-8.2) gm/dl Albumin 3.7 (3.4-5.0) gm/dl Globulin 3.7 (2.5-4.0) gm/dl Albumin/Globulin Ratio 1.0 (0.9-2) Lipase 184 (73-393) U/L Urine Color Urine Appearance (Clear) Urine pH (4.5-7.5) Ur Specific [place] (1.000-1.030) Urine Protein (Negative) Urine Glucose (UA) (Negative) Urine Ketones (Negative) Urine Blood (Negative) Urine Nitrite (Negative) Urine Bilirubin (Negative) Urine Urobilinogen (Negative) Ur Leukocyte Esterase (Negative) Urine WBC (Auto) (0-5) /hpf Urine RBC (Auto) (0-4) /hpf U Hyaline Cast (Auto) (0-5) /lpf U Epithel Cells (Auto) (0-5) /lpf Urine Bacteria (Auto) (Negative) 10/17/21 10/17/21 Range/Units 19:33 20:37 WBC (4.8-10.8) K/uL RBC (4.2-5.4) M/uL Hgb (12.0-16.0) g/dL Hct (37-47) % MCV (80-100) fL MCH (25-34) pg MCHC (32-36) g/dL RDW Std Deviation (36.4-46.3) fL RDW Coeff of [place] (11.5-14.5) % Plt Count (130-400) K/uL MPV (7.4-10.4) fL Immature Gran % (Auto) % Neut % (Auto) % Lymph % (Auto) % [place] % (Auto) % Eos % (Auto) % Baso % (Auto) % Neut # (Auto) (1.4-6.5) K/uL Lymph # (Auto) (1.2-3.4) K/uL [place] # (Auto) (0.11-0.59) K/uL Eos # (Auto) (0-0.5) K/uL Baso # (Auto) (0-0.2) K/uL Immature Gran # (Auto) (0.00-0.02) K/uL PT (9.0-12.0) Seconds INR (0.9-1.1) Sodium (136-145) mmol/L Potassium (3.5-5.1) mmol/L Chloride (98-107) mmol/L Carbon Dioxide (21-32) mmol/L Anion Gap (3-11) BUN (7-18) mg/dl Creatinine (0.6-1.2) mg/dl Est Cr Clr Drug Dosing ml/min Est GFR ( Amer) ml/min Est GFR (Non-Af Amer) ml/min BUN/Creatinine Ratio (10-20) Glucose (70-99) mg/dl POC Glucose 253 H (70-99) mg/dl Calcium (8.5-10.1) mg/dl Total Bilirubin (0.2-1) mg/dl AST (15-37) U/L ALT (12-78) Alkaline Phosphatase (45-117) U/L Troponin I (0-0.045) ng/ml Total Protein (6.4-8.2) gm/dl Albumin (3.4-5.0) gm/dl Globulin (2.5-4.0) gm/dl Albumin/Globulin Ratio (0.9-2) Lipase (73-393) U/L Urine Color Yellow Urine Appearance Clear (Clear) Urine pH 7.5 (4.5-7.5) Ur Specific [place] 1.013 (1.000-1.030) Urine Protein 1+ H (Negative) Urine Glucose (UA) 2+ H (Negative) Urine Ketones Negative (Negative) Urine Blood Negative (Negative) Urine Nitrite Negative (Negative) Urine Bilirubin Negative (Negative) Urine Urobilinogen Negative (Negative) Ur Leukocyte Esterase Negative (Negative) Urine WBC (Auto) 1-5 (0-5) /hpf Urine RBC (Auto) 0-4 (0-4) /hpf U Hyaline Cast (Auto) 1-5 (0-5) /lpf U Epithel Cells (Auto) 5-10 H (0-5) /lpf Urine Bacteria (Auto) Negative (Negative) Administered Medications Discontinued Medications Aspirin (Aspirin Chew 324 Mg) 324 mg PO NOW STA Stop: 10/17/21 22:04 Last Admin: 10/17/21 22:27 Dose: 324 mg Documented by: [id number] Hydralazine HCl (Hydralazine Hcl 20 Mg/Ml Vial) 10 mg IV NOW STA Stop: 10/17/21 21:14 Last Admin: 10/17/21 21:18 Dose: 10 mg Documented by: [id number] Sodium Chloride (Nss 1000ml) 1,000 mls @ 999 mls/hr IV .Q1H1M ONE Stop: 10/17/21 20:22 Last Infusion: 10/17/21 20:43 Dose: 0 mls/hr Documented by: [id number] Admin: 10/17/21 19:42 Dose: 999 mls/hr Documented by: [id number] Labetalol HCl (Labetalol Hcl Iv 5 Mg/Ml 20ml) 10 mg IV NOW STA Stop: 10/17/21 19:33 Last Admin: 10/17/21 19:41 Dose: 10 mg Documented by: [id number] Cosigned by: [id number] Lorazepam (Lorazepam 0.5 Mg Tab) 0.5 mg PO NOW STA Stop: 10/17/21 21:18 Last Admin: 10/17/21 21:27 Dose: 0.5 mg Documented by: [id number] Imaging Data Radiologist's Impression: Head CT 10/17/21 19:[address] DOSE: 537.48 mGy.cm HISTORY: Dizziness. TECHNIQUE: Multiaxial CT images of the head were performed without the use of intravenous contrast. Automated exposure control was utilized for this study. A dose lowering technique was utilized adhering to the principles of ALARA. Comparison: Head CT 09/12/2015. Findings: Partial visualization of the chronically opacified right maxillary sinus. The mastoid air cells are clear. The calvarium and skull base are intact. The ventricles and sulci are within normal limits. There is no mass, hematoma, midline shift, or acute infarct. Impression: 1. No acute intracranial abnormality. 2. No change in the chronically opacified right maxillary sinus. ACT 112: Negative or not required by law. Electronically signed by: Jose Pathak M.D. 10/17/2021 8:32 PM Chest X-Ray 10/17/21 19:22 XR chest 1V portable HISTORY: DIZZY COMPARISON: Chest 09/15/2019. FINDINGS: The cardiac silhouette remains mildly enlarged. There are low lung volumes. No pleural effusions. No pneumothorax. No new focal lung consolidations to suggest pneumonia. No evidence for pulmonary edema. IMPRESSION: Stable mild cardiomegaly. Otherwise, no acute process within the chest. ACT 112: Negative or not required by law. Electronically signed by: Jose Pathak M.D. 10/17/2021 8:05 PM Discharge Plan Visit Data Chief Complaint: Illness Stated Complaint: Illness, Dizziness, Hypertension ED Provider: Grabiel Galeana Discharge Problem: Chest pain, Hypertensive urgency Forms Stand Alone Forms: [facility] Prescriptions Prescriptions: No Action furosemide 40 mg tablet 40 mg PO DAILY RF: 0 insulin lispro [Humalog KwikPen Insulin] 100 unit/mL insulin pen 5 unit subcut TID RF: 0 ketoconazole 2 % shampoo 1 applic topical Q14D RF: 0 Ocuvite Adult 50 Plus 250-5-1 mg capsule 1 cap PO DAILY RF: 0 (DME) pen needle, diabetic [ReliOn Pen [place]] 32 gauge x 5/32" needle See Rx Instructions .ROUTE .MEDSUPPLY Qty: 50 RF: 0 mirtazapine 30 mg tablet 30 mg PO HS RF: 0 albuterol sulfate [ProAir HFA] 90 mcg/actuation HFA aerosol inhaler 2 puff inhalation Q6H PRN (Reason: Shortness Of Breath Or Wheezing) RF: 0 Basaglar KwikPen U-100 Insulin 100 unit/mL (3 mL) Insulin Pen 60 unit subcut HS RF: 0 multivitamin Tablet 1 tab PO DAILY RF: 0 isosorbide mononitrate 60 mg Tablet Extended Release 24 Hr 60 mg PO BID RF: 0 metoprolol tartrate [Lopressor] 50 mg Tablet 50 mg PO BID RF: 0 nitroglycerin [Nitrostat] 0.4 mg Tablet, Sublingual 0.4 mg Sublingual DIRECTED PRN (Reason: Chest Pain) RF: 0 aspirin 81 mg Tablet,Chewable 81 mg PO DAILY RF: 0 cinnamon bark [Cinnamon] 500 mg Capsule 500 mg PO DAILY RF: 0 cholecalciferol (vitamin D3) [Vitamin D3] 1,000 unit Tablet 1,000 unit PO DAILY RF: 0 Metamucil 3.4 gram/5.4 gram Powder 2 tbsp PO DAILY RF: 0 atorvastatin 20 mg Tablet 20 mg PO DAILY RF: 0 ascorbic acid (vitamin C) [Vitamin C] 1,000 mg Tablet 1 g PO DAILY RF: 0 potassium 99 mg Tablet 99 mg PO DAILY RF: 0 losartan 100 mg tablet 100 mg PO DAILY RF: 0 Referrals Referrals: Dalton Gonzalez DO [Physician] - Discharge Problem: Chest pain Qualifiers: Chest pain type: unspecified Qualified Code(s): R07.9 - Chest pain, unspecified
[2021-10-17] MEDS ORDERED: LABETALOL HCL IV 5 MG/ML 20ML IV STA (19:32)
[2021-10-17 19:42] LABS: Basophils # (auto) 0.03 K/uL (0-0.2); Basophils % (auto) 0.6 %; Eosinophils # (auto) 0.14 K/uL (0-0.5); Eosinophils % (auto) 2.6 %; Hematocrit (blood only) 39.6 % (37-47); Hemoglobin 13.6 g/dL (12.0-16.0); Immature Granulocytes # (auto) 0.01 K/uL (0.00-0.02); Immature Granulocytes % (auto) 0.2 %; Lymphocytes # (auto) 1.65 K/uL (1.2-3.4); Mean Corpuscular Hemoglobin 32.2 pg (25-34); Mean Corpuscular Hgb Conc 34.3 g/dL (32-36); Mean Corpuscular Volume 93.8 fL (80-100); Mean Platelet Volume 9.7 fL (7.4-10.4); Monocytes # (auto) 0.25 K/uL (0.11-0.59); Monocytes % (auto) 4.7 %; Neutrophils # (auto) 3.25 K/uL (1.4-6.5); Neutrophils % (auto) 60.9 %; Platelet Count 149 K/uL (130-400); RDW Coefficient of Variation 12.9 % (11.5-14.5); RDW Standard Deviation 44.6 fL (36.4-46.3); Red Blood Count 4.22 M/uL (4.2-5.4); White Blood Count 5.33 K/uL (4.8-10.8)
[2021-10-17 19:56] LABS: Appearance Urine Clear (Clear); Bacteria Urine Automated Negative (Negative); Bilirubin Urine Negative (Negative); Blood Urine Negative (Negative); Color Urine Yellow; Glucose Urine UA 2+ (Negative); Ketones Urine Negative (Negative); Leukocyte Esterase Urine Negative (Negative); Nitrite Urine Negative (Negative); Prothrombin Time 9.8 Seconds (9.0-12.0); RBC Urine Automated 0-4 /hpf (0-4); Specific Gravity Urine 1.013 (1.000-1.030); Urobilinogen Urine Negative (Negative); pH Urine 7.5 (4.5-7.5)
[2021-10-17 20:00] LABS: Alanine Aminotransferase 32 (12-78); Albumin Level 3.7 gm/dl (3.4-5.0); Aspartate Aminotransferase 14 U/L (15-37); BUN Creatinine Ratio 15.2 (10-20); Blood Urea Nitrogen 18 mg/dl (7-18); Calcium 9.2 mg/dl (8.5-10.1); Carbon Dioxide 33 mmol/L (21-32); Chloride 99 mmol/L (98-107); Creatinine Clr Calc Pharmacy 44.6 ml/min; Est GFR (Non-African American) 43.1 ml/min; Glucose 261 mg/dl (70-99); Lipase 184 U/L (73-393); Potassium 3.5 mmol/L (3.5-5.1); Sodium 136 mmol/L (136-145)
[2021-10-17 20:02] LABS: Protein Urine 1+ (Negative)
[2021-10-17 20:05] LABS: Alkaline Phosphatase 93 U/L (45-117); Bilirubin,Total 0.4 mg/dl (0.2-1); Globulin 3.7 gm/dl (2.5-4.0); Total Protein 7.4 gm/dl (6.4-8.2); Troponin I < 0.015 ng/ml (0-0.045)
--- NOTE | 2021-10-17 20:06 | XRay Report ---
XR chest 1V portable HISTORY: DIZZY COMPARISON: Chest 09/15/2019. FINDINGS: The cardiac silhouette remains mildly enlarged. There are low lung volumes. No pleural effu sions. No pneumothorax. No new focal lung consolidations to suggest pneumonia. No evidence for pulmon lora edema. IMPRESSION: Stable mild cardiomegaly. Otherwise, no acute process within the chest. ACT 112: Negative or not required by law. Electronically signed by: Jose Pathak M.D. 10/17/2021 8:05 PM
--- NOTE | 2021-10-17 20:33 | CT Scan Report ---
HEAD CT NONCONTRAST CT DOSE: 537.48 mGy.cm HISTORY: Dizziness. TECHNIQUE: Multiaxial CT images of the head were performed without the use of intravenous contrast. A utomated exposure control was utilized for this study. A dose lowering technique was utilized adheri ng to the principles of ALARA. Comparison: Head CT 09/12/2015. Findings: Partial visualization of the chronically opacified right maxillary sinus. The mastoid air c ells are clear. The calvarium and skull base are intact. The ventricles and sulci are within normal l imits. There is no mass, hematoma, midline shift, or acute infarct. Impression: 1. No acute intracranial abnormality. 2. No change in the chronically opacified right maxillary sinus. ACT 112: Negative or not required by law. Electronically signed by: Jose Pathak M.D. 10/17/2021 8:32 PM
[2021-10-17] MEDS ORDERED: hydrALAZINE HCL 20 MG/ML VIAL IV STA (21:13)
[2021-10-17] MEDS ORDERED: LORazepam 0.5 MG TAB PO STA (21:17)
[2021-10-17] MEDS ORDERED: ASPIRIN CHEW 324 MG PO STA (22:03)
[2021-10-18] MEDS ORDERED: LABETALOL HCL IV 5 MG/ML 20ML IV PRN (01:24)
[2021-10-18] MEDS ORDERED: ONDANSETRON INJ 2 MG/ML 2 ML VIAL IV PRN (01:24)
[2021-10-18] MEDS ORDERED: ACETAMINOPHEN 325 MG TAB PO PRN (01:24)
[2021-10-18] MEDS ORDERED: NITROGLYCERIN SL 0.4 MG/TAB TAB SL PRN (01:24)
[2021-10-18] MEDS ORDERED: ALBUTEROL HFA 8 GM INHALER INH PRN (01:44)
[2021-10-18] MEDS ORDERED: DEXTROSE 50% 50 ML SYRINGE IV PRN (01:45)
[2021-10-18] MEDS ORDERED: GLUCOSE 40% GEL 15 GM TUBE PO PRN (01:45)
[2021-10-18] MEDS ORDERED: GLUCAGON FOR INJ 1 MG VIAL IM PRN (01:45)
[2021-10-18] MEDS ORDERED: CARBOHYDRATES FOR HYPOGLYCEMIA PO PRN (01:45)
[2021-10-18] MEDS ORDERED: GLUCOSE 10 TABS/TUBE PO PRN (01:45)
[2021-10-18] MEDS ORDERED: MIRTAZAPINE TAB 15 MG TAB PO ONE ×2 (01:46→12:56)
[2021-10-18] MEDS ORDERED: INSULIN GLARGINE SOLOSTAR 100 UNITS/ML 3 ML PEN SC STA (01:48)
[2021-10-18] MEDS: NITROGLYCERIN 2% OINTMENT 30GM TUBE EXT SCH ×2 (01:56→06:02)
--- NOTE | 2021-10-18 01:58 | History and Physical Report ---
DATE OF ADMISSION: 10/17/2021. CHIEF COMPLAINT: Dizziness and chest pain. HISTORY OF PRESENT ILLNESS: A 76-year-old female with past medical history significant for diabetes, diabetic retinopathy, hyperlipidemia, chronic kidney disease stage III, COPD, CAD, hypertension, obesity, irritable bowel syndrome, gastritis, history of panic disorder, lives at home, presents with dizziness and some chest discomfort. Today, the patient felt very dizzy and also some chest discomfort radiating to both her arms and checked her blood pressure, it was like 220s, so she came to the hospital. In the ER, blood pressure was 228/154, after labetalol it is improving. She says now dizziness is improving, but she thinks it could be a panic attack. She used to have panic attacks 10 years ago. She used to be on Klonopin, but stopped about 5 years ago. Currently, she is on Remeron. She has mild headache. No blurred visions or double visions. No earache, no runny nose, no sore throat, no cough, no fever. Feeling cold. Was nauseous earlier, but currently no nausea, no sweating. No shortness of breath, no abdominal pain. A few days back she had some constipation and diarrhea, but currently her bowels movements are okay. Has some mild burning micturition. No hematuria. Ambulates okay without any support. Appetite is okay. ALLERGIES: SULFA ANTIBIOTICS, IODINATED CONTRAST MEDIA, PENICILLINS, CODEINE, EXENATIDE, ERYTHROMYCIN BASE, ROFECOXIB, METFORMIN, MORPHINE. PAST MEDICAL HISTORY: As mentioned above. PAST SURGICAL HISTORY: Right total knee arthroplasty, bilateral carpal tunnel surgery, colonoscopy, EGDs, EGD with biopsy, right lower eyelid cyst removed,lasering of secondary cataract, ligation of oviducts, tonsillectomy, cholecystectomy, right revision of knee joint replacement. MEDICATIONS: The patient is on albuterol 2 puffs inhalation q. 6 hours p.r.n., vitamin C 1 gram p.o. daily, aspirin 81 mg p.o. daily, atorvastatin 20 mg p.o. daily, vitamin D 1000 units p.o. daily, furosemide 40 mg p.o. daily, Basaglar insulin 60 units subcutaneous at bedtime, insulin lispro 5 units subcutaneous t.i.d., isosorbide mononitrate 60 mg p.o. b.i.d., losartan 100 mg p.o. daily, metoprolol 50 mg p.o. b.i.d., Remeron 30 mg p.o. at bedtime, multivitamin 1 tablet p.o. daily, nitroglycerin 0.4 mg sublingual p.r.n., potassium 10 mEq p.o. daily, multivitamins 1 capsule p.o. daily. FAMILY HISTORY: Significant for father has eye problems, knee replacements; uncle has diabetes; aunt has diabetes. SOCIAL HISTORY: , no smoking, no alcohol, no drug use. REVIEW OF SYSTEMS: As per HPI. Rest of the review of systems is negative. PHYSICAL EXAMINATION: GENERAL: The patient is morbidly obese, not in acute distress. VITAL SIGNS: Temperature 37.3, pulse 71, respiratory rate 21, blood pressure was 228/154, currently 188/64, oxygen 90% on room air. HEENT: Pupils equal, round and reactive to light. Oral mucosa moist. NECK: No JVD, no neck masses. CARDIOVASCULAR: S1 and S2 heard. Regular rate and rhythm. No murmur, no gallop. RESPIRATORY: Normal AP diameter. No accessory muscle use. No wheezing, no crackles. ABDOMEN: Soft, bowel sounds present, nontender, no distention. CENTRAL NERVOUS SYSTEM: Cranial nerves II-XII grossly intact, nonfocal. EXTREMITIES: Bilateral lower extremity edema present, no erythema seen. LABORATORY DATA: WBC 5.3, hemoglobin 13.6, hematocrit 39.6, platelets 149. PT 9.8, INR 1. Sodium 136, potassium 3.5, chloride 99, bicarbonate 33, BUN 18, creatinine 1.2, serum glucose 261, calcium 9.2, total bilirubin 0.4, AST 114, ALT 32, alkaline phosphatase 93. Troponin I less than 0.015. Lipase 184. SARS-CoV-2 RNA negative. IMAGING DATA: Chest x-ray, no acute process. CT of the head, no acute intracranial abnormalities. EKG: Normal sinus rhythm with first-degree AV block at the rate of 66, no acute ST changes seen. ASSESSMENT AND PLAN: This is a 76-year-old female who presents with dizziness, found to have hypertensive urgency and also complains of some chest discomfort. 1. Dizziness and chest discomfort: Possibly secondary to hypertensive urgency. The patient also attributes it to her panic attacks. After labetalol, blood pressure improved and dizziness is improving. ACS initial workup negative. Will continue her home medication of losartan, Imdur, diuretics, metoprolol. Will place her on IV labetalol p.r.n. and also place on nitroglycerin paste. Monitor the blood pressure. Follow serial enzymes, echo. Keep her n.p.o. after midnight. Monitor in the tele and consult cardiology in the a.m. for further recommendations. 2. History of diabetes: The patient is on Basaglar insulin 60 units subcutaneous at bedtime. If the patient continues to be n.p.o., we need to cut back the night dose. Placed on insulin sliding scale. Follow the blood sugars, follow HbA1c levels. 3. Hyperlipidemia: Continue statin. 4. History of panic attacks: Currently on Remeron , which will be continued. If any concern, consult psychiatry. 5. Chronic kidney disease stage III: Baseline creatinine of 1.1, presently with a creatinine of 1.2. Will follow the labs. 6. History of chronic obstructive pulmonary disease: Currently stable. 7. History of coronary artery disease: Continue her aspirin, statin, beta osbaldo, and nitrate. 8. Obesity: Needs counseling. 9. B/l lower extremity edema. On Lasix. follow echo. 10. Deep venous thrombosis prophylaxis: Will place on sequential compression devices for now. DISPOSITION: Closely monitor in the [employer] tele. PT/OT prior to discharge. Social service to help with discharge planning. Level 1 full code. Job ID: [id number] [id number]
[2021-10-18] MEDS: INSULIN ASPART PER UNIT SC SCH ×5 (02:20→20:20)
[2021-10-18 05:52] LABS: Basophils # (auto) 0.03 K/uL (0-0.2); Basophils % (auto) 0.6 %; Eosinophils # (auto) 0.11 K/uL (0-0.5); Hematocrit (blood only) 37.4 % (37-47); Hemoglobin 12.7 g/dL (12.0-16.0); Immature Granulocytes # (auto) 0.01 K/uL (0.00-0.02); Immature Granulocytes % (auto) 0.2 %; Lymphocytes % (auto) 33.5 %; Mean Corpuscular Hemoglobin 31.8 pg (25-34); Mean Corpuscular Volume 93.7 fL (80-100); Mean Platelet Volume 9.9 fL (7.4-10.4); Monocytes % (auto) 5.6 %; Neutrophils # (auto) 3.13 K/uL (1.4-6.5); Neutrophils % (auto) 58.1 %; Platelet Count 150 K/uL (130-400); RDW Coefficient of Variation 13.1 % (11.5-14.5); RDW Standard Deviation 45.2 fL (36.4-46.3); Red Blood Count 3.99 M/uL (4.2-5.4); White Blood Count 5.38 K/uL (4.8-10.8)
[2021-10-18 06:28] LABS: BUN Creatinine Ratio 15.1 (10-20); Blood Urea Nitrogen 16 mg/dl (7-18); Carbon Dioxide 32 mmol/L (21-32); Chloride 105 mmol/L (98-107); Creatinine Clr Calc Pharmacy 51.5 ml/min; Est GFR (African American) 60.7 ml/min; Est GFR (Non-African American) 52.4 ml/min; Glucose 177 mg/dl (70-99); Potassium 3.5 mmol/L (3.5-5.1); Sodium 141 mmol/L (136-145)
[2021-10-18 06:33] LABS: Troponin I < 0.015 ng/ml (0-0.045)
[2021-10-18 06:34] LABS: Magnesium 2.2 mg/dl (1.8-2.4)
[2021-10-18 08:31] LABS: Estimated Average Glucose 200 mg/dl; Hemoglobin A1C 8.6 % (4.5-5.6)
--- NOTE | 2021-10-18 08:42 | Cardiology Consultation ---
Date of Consultation October 18, 2021 Assessment & Plan (1) Hypertensive urgency: (2) Chest pain: (3) Coronary artery disease: (4) Anxiety: Patient admitted for dizziness, chest tightness, with associated hypertensive urgency. EKG without acute ischemic changes. Negative cardiac enzymes Echo results pending Symptoms resolved this morning but BP remains uncontrolled. She was started on nitro patch and using IV labetalol PRN since admission. Will d/c nitro patch due to headaches. Transition metoprolol tartrate to carvedilol for additional BP support. Continue losartan 100 mg, isosorbide 60 mg BID, furosemide 40 mg. Pending BP response to AM meds and initiation of carvedilol, consider addition of low dose spironolactone to aid with edema and borderline hypokalemia. She has been intolerant to amlodipine in the past, causing increased edema. Will avoid Could also trial hydralazine if needed. Continue ASA, statin. At this time, stress testing not recommended due to uncontrolled hypertension. Once her BP has improved, could consider outpatient nuclear stress test. Case discussed with Dr. Castorena. Supervising Physician Co-Signing Physician Notes 76-year-old female admitted with vertigo and hypertensive urgency. Denies chest discomfort currently. Dizziness slowly improving. No dysrhythmias on telemetry. Denies any recent noncompliance with outpatient medications. PE: General: NAD, awake alert [place] x3. Heart: Regular, normal S1-S2. 2/6 systolic ejection murmur heard best at the right second intercostal space without radiation. Lungs: Clear bilateral, no rales, rhonchi, wheeze. Extremities: No edema. A/P: Agree with above PA-C history, physical exam, assessment and plan. Transition metoprolol to carvedilol to improve blood pressure control. Continue losartan, isosorbide, and furosemide as previously ordered. Pending review of blood pressure response to carvedilol, will consider addition of low-dose Aldactone. History of Present Illness Reason for Consultation: HTN urgency; chest pain Requesting Physician: Dr. Rodriguez Attending Physician: Dr. Marc Castorena History of Present Illness Patient is a 76 year old female who presnted to [facility] yesterday with complaints of dizziness, chest tightness, and elevated BP readings at home. She is known to [facility], following with Nathan Ramírez PA-C routinely. History includes: 1. ASCVD documented by August 2003 cardiac catheterization with a 100% occlusion of the PDA of the RCA with left to right collateral filling, 30% RCA stenosis, 30% LCX stenosis, and a 50% mid LAD stenosis. 2. Carotid artery disease, mild 3. Hypertension 4. Hyperlipidemia 5. Type II diabetes mellitus with retinopathy, stage III chronic kidney disease, neuropathy 6. Chart history of COPD At her last visit, due to systolic murmur, echo was ordered but not yet completed. Patient was in usual state of health yesterday morning. Her had cataract surgery and she took him/brought him home. They went out to eat for lunch. Last evening, she was preparing to go get dinner and had sudden onset dizziness, felt the room was spinning. She sat down, became "anxious". [place] she was having a panic attack with associated chest tightness radiating across her chest and down her b/l arms. She took her BP and found BP to be significantly elevated > 220 at home. She had a mild headache as well. Due to her symptoms she came to the ER for evaluation. Upon arrival to ER, BP was significantly elevated, consistent with home readings. Started on IV hydralazine, nitro patch was placed. EKG was without acute changes from prior. Negative cardiac enzymes. She underwent head CT which was unremarkable. Chest pain improved in the ER. Currently at time of consult, patient feeling fairly well. Admits to being anxious. She notes ongoing LE edema, but unchanged. Amlodipine was stopped earlier this year due to worsening LE edema. No orthopnea, PND. NO palpitations or tachypalpitations. No current chest pain or SOB. She admits to dietary indiscretion and high sodium foods. No fever, cough, chills. Echo was completed this morning. She has not yet taking morning meds. She is NPO but requesting to eat breakfast. Allergies Allergy/AdvReac Type Severity Reaction Status Date / Time Sulfa (Sulfonamide Allergy Severe HIVES Verified 10/17/21 20:25 Antibiotics) Iodinated Contrast Media Allergy Intermediate HIVES Verified 10/17/21 20:25 Penicillins Allergy Intermediate HIVES Verified 10/17/21 20:25 codeine Allergy Unknown HAS Verified 10/17/21 20:25 TOLERATED MORPHINE W/O RXN SEVERE N&V exenatide Allergy Unknown BYETTA-ELEVATED Verified 10/17/21 20:25 LIPASE erythromycin base AdvReac Intermediate NAUSEA AND Verified 10/17/21 20:25 VOMITING rofecoxib AdvReac Intermediate NAUSEA AND Verified 10/17/21 20:25 VOMITING metformin AdvReac Mild GI UPSET Verified 10/17/21 20:25 morphine AdvReac Mild GI UPSET Verified 10/17/21 20:25 Home Medications Medication Instructions Recorded Confirmed Type aspirin 81 mg chewable tablet 81 mg PO DAILY 08/24/18 10/17/21 History atorvastatin 20 mg tablet 20 mg PO DAILY 08/24/18 10/17/21 History cholecalciferol (vitamin D3) 25 1,000 unit PO DAILY 08/24/18 10/17/21 History mcg (1,000 unit) tablet (Vitamin D3) cinnamon bark 500 mg capsule 500 mg PO DAILY 08/24/18 10/17/21 History (Cinnamon) isosorbide mononitrate 60 mg 60 mg PO BID 08/24/18 10/17/21 History tablet,extended release 24 hr metoprolol tartrate 50 mg tablet 50 mg PO BID 08/24/18 10/17/21 History (Lopressor) multivitamin 1 tab PO DAILY 08/24/18 10/17/21 History nitroglycerin 0.4 mg sublingual 0.4 mg SUBLINGUAL DIRECTED PRN 08/24/18 10/17/21 History tablet (Nitrostat) psyllium husk 3.4 gram/5.4 gram 2 tbsp PO DAILY 08/24/18 10/17/21 History oral powder (Metamucil) albuterol sulfate 90 mcg/actuation 2 puff INHALATION Q6H PRN 09/15/19 10/17/21 History aerosol inhaler (ProAir HFA) insulin glargine 100 unit/mL (3 60 unit SUBCUT HS 09/15/19 10/17/21 History mL) subcutaneous pen (Basaglar KwikPen U-100 Insulin) mirtazapine 30 mg tablet 30 mg PO HS 09/15/19 10/17/21 History furosemide 40 mg tablet 40 mg PO DAILY 03/23/21 10/17/21 History insulin lispro 100 unit/mL 5 unit SUBCUT TID 03/23/21 10/17/21 History subcutaneous pen (Humalog KwikPen (U-100) Insulin) ketoconazole 2 % shampoo 1 applic TOPICAL Q14D 03/23/21 10/17/21 History pen needle, diabetic 32 gauge x #50 ea 03/23/21 10/17/21 History 5/32" (ReliOn Pen [place]) vit C,E,zinc,copper-whujz8q 250 1 cap PO DAILY 03/23/21 10/17/21 History mg-lutein 5 mg-zeaxanthin 1 mg capsule (Ocuvite Adult 50 Plus) ascorbic acid (vitamin C) 1,000 mg 1 g PO DAILY 10/17/21 10/17/21 History tablet (Vitamin C) losartan 100 mg tablet 100 mg PO DAILY 10/17/21 10/17/21 History potassium 99 mg tablet 99 mg PO DAILY 10/17/21 10/17/21 History Patient History Medical History (Updated 10/19/21 @ 09:36 by Marine Daugherty PA-C) CKD (chronic kidney disease), stage III Coronary artery disease Cough Diabetes mellitus type II, controlled Dyslipidemia Dyspnea GERD (gastroesophageal reflux disease) Lower extremity edema Lower extremity edema Morbid obesity due to excess calories Surgical History H/O colonoscopy H/O tubal ligation History of arthroplasty of right knee History of esophagogastroduodenoscopy S/P tonsillectomy Family History Other Family history non-contributory Social History Smoking Status: Never smoker Second Hand Exposure: No; Hx Alcohol Use: No Hx Substance Use: No Preferred Language: Hebrew Communication Ability: Effective Medicaid Nurse Required: No Beliefs That Will Affect Care: None marital status: Current Living Situation: Spouse How many Children do You have: 0 Other Information That Helps Us Care for You: No Feels Safe at Home: Yes Safety Concerns: Feels Safe At This Time Assistive Devices: None Review of Systems Review of Systems: All systems reviewed & are unremarkable except as noted in HPI & below Physical Exam Constitutional: WD/WN, vitals as above well developed and + obese; no acute distress Neck: trachea midline, no thyromegaly Respiratory: normal respiratory effort, lungs clear to auscultation Cardiovascular: Rate/Rhythm: regular rate and regular rhythm Heart Sounds: + murmur (II/ systolic murmur LSB) Palpation: normal PMI Vessels: no JVD Extremities: + edema (Trace to 1+ pretibial edema) Gastrointestinal (Abdomen): normal bowel sounds, soft, nontender, no hepatosplenomegaly Musculoskeletal: no cyanosis or clubbing, extremities motor strength 5/5 Neurologic: PERRL, EOMI, accommodation nl, no face palsy, no dysarthria Psychiatric: A+Ox3, euthymic affect Results & Data ([facility]) Vital Signs (Past 12 Hours) Vital Signs Temp Pulse Pulse Resp BP BP Pulse Ox 10/18/21 06:45 36.8 C 68 18 181/72 H 95 10/18/21 06:43 181/72 H 10/18/21 06:00 196/70 H 10/18/21 03:50 36.8 C 66 18 176/67 H 95 10/18/21 00:55 36.8 C 69 18 201/70 H 95 10/17/21 23:00 71 21 186/64 H 90 10/17/21 22:30 72 16 208/76 H 95 10/17/21 22:00 72 20 179/74 H 97 10/17/21 21:10 68 15 177/79 H 95 10/17/21 21:00 68 14 188/66 H 92 10/17/21 20:50 72 11 L 177/71 H 93 Laboratory Results 10/18/21 10/18/21 10/18/21 Range/Units 05:55 05:14 05:14 WBC (4.8-10.8) K/uL RBC (4.2-5.4) M/uL Hgb (12.0-16.0) g/dL Hct (37-47) % MCV (80-100) fL MCH (25-34) pg MCHC (32-36) g/dL RDW Std Deviation (36.4-46.3) fL RDW Coeff of [place] (11.5-14.5) % Plt Count (130-400) K/uL MPV (7.4-10.4) fL Immature Gran % (Auto) % Neut % (Auto) % Lymph % (Auto) % Barnes % (Auto) % Eos % (Auto) % Baso % (Auto) % Neut # (Auto) (1.4-6.5) K/uL Lymph # (Auto) (1.2-3.4) K/uL Barnes # (Auto) (0.11-0.59) K/uL Eos # (Auto) (0-0.5) K/uL Baso # (Auto) (0-0.2) K/uL Immature Gran # (Auto) (0.00-0.02) K/uL PT (9.0-12.0) Seconds INR (0.9-1.1) Sodium (136-145) mmol/L Potassium (3.5-5.1) mmol/L Chloride (98-107) mmol/L Carbon Dioxide (21-32) mmol/L Anion Gap (3-11) BUN (7-18) mg/dl Creatinine (0.6-1.2) mg/dl Est Cr Clr Drug Dosing ml/min Est GFR ( Amer) ml/min Est GFR (Non-Af Amer) ml/min BUN/Creatinine Ratio (10-20) Glucose (70-99) mg/dl POC Glucose 155 H (70-99) mg/dl Estimat Average Glucose 200 mg/dl Hemoglobin A1c 8.6 H (4.5-5.6) % Calcium (8.5-10.1) mg/dl Magnesium (1.8-2.4) mg/dl Total Bilirubin (0.2-1) mg/dl AST (15-37) U/L ALT (12-78) Alkaline Phosphatase (45-117) U/L Troponin I Cancelled (0-0.045) ng/ml Total Protein (6.4-8.2) gm/dl Albumin (3.4-5.0) gm/dl Globulin (2.5-4.0) gm/dl Albumin/Globulin Ratio (0.9-2) Lipase (73-393) U/L Urine Color Urine Appearance (Clear) Urine pH (4.5-7.5) Ur Specific Mode (1.000-1.030) Urine Protein (Negative) Urine Glucose (UA) (Negative) Urine Ketones (Negative) Urine Blood (Negative) Urine Nitrite (Negative) Urine Bilirubin (Negative) Urine Urobilinogen (Negative) Ur Leukocyte Esterase (Negative) Urine WBC (Auto) (0-5) /hpf Urine RBC (Auto) (0-4) /hpf U Hyaline Cast (Auto) (0-5) /lpf U Epithel Cells (Auto) (0-5) /lpf Urine Bacteria (Auto) (Negative) SARS-CoV-2, RNA, NAAT (NEGATIVE) 10/18/21 10/18/21 10/18/21 Range/Units 05:14 05:14 01:54 WBC 5.38 (4.8-10.8) K/uL RBC 3.99 L (4.2-5.4) M/uL Hgb 12.7 (12.0-16.0) g/dL Hct 37.4 (37-47) % MCV 93.7 (80-100) fL MCH 31.8 (25-34) pg MCHC 34.0 (32-36) g/dL RDW Std Deviation 45.2 (36.4-46.3) fL RDW Coeff of [place] 13.1 (11.5-14.5) % Plt Count 150 (130-400) K/uL MPV 9.9 (7.4-10.4) fL Immature Gran % (Auto) 0.2 % Neut % (Auto) 58.1 % Lymph % (Auto) 33.5 % Barnes % (Auto) 5.6 % Eos % (Auto) 2.0 % Baso % (Auto) 0.6 % Neut # (Auto) 3.13 (1.4-6.5) K/uL Lymph # (Auto) 1.80 (1.2-3.4) K/uL Barnes # (Auto) 0.30 (0.11-0.59) K/uL Eos # (Auto) 0.11 (0-0.5) K/uL Baso # (Auto) 0.03 (0-0.2) K/uL Immature Gran # (Auto) 0.01 (0.00-0.02) K/uL PT (9.0-12.0) Seconds INR (0.9-1.1) Sodium 141 (136-145) mmol/L Potassium 3.5 (3.5-5.1) mmol/L Chloride 105 (98-107) mmol/L Carbon Dioxide 32 (21-32) mmol/L Anion Gap 4.0 (3-11) BUN 16 (7-18) mg/dl Creatinine 1.03 (0.6-1.2) mg/dl Est Cr Clr Drug Dosing 51.5 ml/min Est GFR ( Amer) 60.7 ml/min Est GFR (Non-Af Amer) 52.4 ml/min BUN/Creatinine Ratio 15.1 (10-20) Glucose 177 H (70-99) mg/dl POC Glucose 319 H* (70-99) mg/dl Estimat Average Glucose mg/dl Hemoglobin A1c (4.5-5.6) % Calcium 9.0 (8.5-10.1) mg/dl Magnesium 2.2 (1.8-2.4) mg/dl Total Bilirubin (0.2-1) mg/dl AST (15-37) U/L ALT (12-78) Alkaline Phosphatase (45-117) U/L Troponin I < 0.015 (0-0.045) ng/ml Total Protein (6.4-8.2) gm/dl Albumin (3.4-5.0) gm/dl Globulin (2.5-4.0) gm/dl Albumin/Globulin Ratio (0.9-2) Lipase (73-393) U/L Urine Color Urine Appearance (Clear) Urine pH (4.5-7.5) Ur Specific Mode (1.000-1.030) Urine Protein (Negative) Urine Glucose (UA) (Negative) Urine Ketones (Negative) Urine Blood (Negative) Urine Nitrite (Negative) Urine Bilirubin (Negative) Urine Urobilinogen (Negative) Ur Leukocyte Esterase (Negative) Urine WBC (Auto) (0-5) /hpf Urine RBC (Auto) (0-4) /hpf U Hyaline Cast (Auto) (0-5) /lpf U Epithel Cells (Auto) (0-5) /lpf Urine Bacteria (Auto) (Negative) SARS-CoV-2, RNA, NAAT (NEGATIVE) 10/17/21 10/17/21 10/17/21 Range/Units 22:26 20:37 19:33 WBC (4.8-10.8) K/uL RBC (4.2-5.4) M/uL Hgb (12.0-16.0) g/dL Hct (37-47) % MCV (80-100) fL MCH (25-34) pg MCHC (32-36) g/dL RDW Std Deviation (36.4-46.3) fL RDW Coeff of [place] (11.5-14.5) % Plt Count (130-400) K/uL MPV (7.4-10.4) fL Immature Gran % (Auto) % Neut % (Auto) % Lymph % (Auto) % Barnes % (Auto) % Eos % (Auto) % Baso % (Auto) % Neut # (Auto) (1.4-6.5) K/uL Lymph # (Auto) (1.2-3.4) K/uL Barnes # (Auto) (0.11-0.59) K/uL Eos # (Auto) (0-0.5) K/uL Baso # (Auto) (0-0.2) K/uL Immature Gran # (Auto) (0.00-0.02) K/uL PT (9.0-12.0) Seconds INR (0.9-1.1) Sodium (136-145) mmol/L Potassium (3.5-5.1) mmol/L Chloride (98-107) mmol/L Carbon Dioxide (21-32) mmol/L Anion Gap (3-11) BUN (7-18) mg/dl Creatinine (0.6-1.2) mg/dl Est Cr Clr Drug Dosing ml/min Est GFR ( Amer) ml/min Est GFR (Non-Af Amer) ml/min BUN/Creatinine Ratio (10-20) Glucose (70-99) mg/dl POC Glucose 253 H (70-99) mg/dl Estimat Average Glucose mg/dl Hemoglobin A1c (4.5-5.6) % Calcium (8.5-10.1) mg/dl Magnesium (1.8-2.4) mg/dl Total Bilirubin (0.2-1) mg/dl AST (15-37) U/L ALT (12-78) Alkaline Phosphatase (45-117) U/L Troponin I (0-0.045) ng/ml Total Protein (6.4-8.2) gm/dl Albumin (3.4-5.0) gm/dl Globulin (2.5-4.0) gm/dl Albumin/Globulin Ratio (0.9-2) Lipase (73-393) U/L Urine Color Yellow Urine Appearance Clear (Clear) Urine pH 7.5 (4.5-7.5) Ur Specific Mode 1.013 (1.000-1.030) Urine Protein 1+ H (Negative) Urine Glucose (UA) 2+ H (Negative) Urine Ketones Negative (Negative) Urine Blood Negative (Negative) Urine Nitrite Negative (Negative) Urine Bilirubin Negative (Negative) Urine Urobilinogen Negative (Negative) Ur Leukocyte Esterase Negative (Negative) Urine WBC (Auto) 1-5 (0-5) /hpf Urine RBC (Auto) 0-4 (0-4) /hpf U Hyaline Cast (Auto) 1-5 (0-5) /lpf U Epithel Cells (Auto) 5-10 H (0-5) /lpf Urine Bacteria (Auto) Negative (Negative) SARS-CoV-2, RNA, NAAT NEGATIVE (NEGATIVE) 10/17/21 10/17/21 10/17/21 Range/Units 19:33 19:33 19:33 WBC 5.33 (4.8-10.8) K/uL RBC 4.22 (4.2-5.4) M/uL Hgb 13.6 (12.0-16.0) g/dL Hct 39.6 (37-47) % MCV 93.8 (80-100) fL MCH 32.2 (25-34) pg MCHC 34.3 (32-36) g/dL RDW Std Deviation 44.6 (36.4-46.3) fL RDW Coeff of [place] 12.9 (11.5-14.5) % Plt Count 149 (130-400) K/uL MPV 9.7 (7.4-10.4) fL Immature Gran % (Auto) 0.2 % Neut % (Auto) 60.9 % Lymph % (Auto) 31.0 % Barnes % (Auto) 4.7 % Eos % (Auto) 2.6 % Baso % (Auto) 0.6 % Neut # (Auto) 3.25 (1.4-6.5) K/uL Lymph # (Auto) 1.65 (1.2-3.4) K/uL Barnes # (Auto) 0.25 (0.11-0.59) K/uL Eos # (Auto) 0.14 (0-0.5) K/uL Baso # (Auto) 0.03 (0-0.2) K/uL Immature Gran # (Auto) 0.01 (0.00-0.02) K/uL PT 9.8 (9.0-12.0) Seconds INR 1.0 (0.9-1.1) Sodium 136 (136-145) mmol/L Potassium 3.5 (3.5-5.1) mmol/L Chloride 99 (98-107) mmol/L Carbon Dioxide 33 H (21-32) mmol/L Anion Gap 4.0 (3-11) BUN 18 (7-18) mg/dl Creatinine 1.21 H (0.6-1.2) mg/dl Est Cr Clr Drug Dosing 44.6 ml/min Est GFR ( Amer) 50.0 ml/min Est GFR (Non-Af Amer) 43.1 ml/min BUN/Creatinine Ratio 15.2 (10-20) Glucose 261 H (70-99) mg/dl POC Glucose (70-99) mg/dl Estimat Average Glucose mg/dl Hemoglobin A1c (4.5-5.6) % Calcium 9.2 (8.5-10.1) mg/dl Magnesium (1.8-2.4) mg/dl Total Bilirubin 0.4 (0.2-1) mg/dl AST 14 L (15-37) U/L ALT 32 (12-78) Alkaline Phosphatase 93 (45-117) U/L Troponin I < 0.015 (0-0.045) ng/ml Total Protein 7.4 (6.4-8.2) gm/dl Albumin 3.7 (3.4-5.0) gm/dl Globulin 3.7 (2.5-4.0) gm/dl Albumin/Globulin Ratio 1.0 (0.9-2) Lipase 184 (73-393) U/L Urine Color Urine Appearance (Clear) Urine pH (4.5-7.5) Ur Specific Mode (1.000-1.030) Urine Protein (Negative) Urine Glucose (UA) (Negative) Urine Ketones (Negative) Urine Blood (Negative) Urine Nitrite (Negative) Urine Bilirubin (Negative) Urine Urobilinogen (Negative) Ur Leukocyte Esterase (Negative) Urine WBC (Auto) (0-5) /hpf Urine RBC (Auto) (0-4) /hpf U Hyaline Cast (Auto) (0-5) /lpf U Epithel Cells (Auto) (0-5) /lpf Urine Bacteria (Auto) (Negative) SARS-CoV-2, RNA, NAAT (NEGATIVE) Diagnostic Findings Telemetry reviewed - NSR with HR"s in the 60's. No concerning arrhythmias EKG - NSR Sinus rhythm with 1st degree A-V block Possible old Inferior infarct, previously noted. No acute changes Chest xray: no acute process, lungs clear Head CT: 1. No acute intracranial abnormality. 2. No change in the chronically opacified right maxillary sinus. Medications Administered 10/18/21 10/18/21 10/18/21 Range/Units 05:55 05:14 05:14 WBC (4.8-10.8) K/uL RBC (4.2-5.4) M/uL Hgb (12.0-16.0) g/dL Hct (37-47) % MCV (80-100) fL MCH (25-34) pg MCHC (32-36) g/dL RDW Std Deviation (36.4-46.3) fL RDW Coeff of [place] (11.5-14.5) % Plt Count (130-400) K/uL MPV (7.4-10.4) fL Immature Gran % (Auto) % Neut % (Auto) % Lymph % (Auto) % Barnes % (Auto) % Eos % (Auto) % Baso % (Auto) % Neut # (Auto) (1.4-6.5) K/uL Lymph # (Auto) (1.2-3.4) K/uL Barnes # (Auto) (0.11-0.59) K/uL Eos # (Auto) (0-0.5) K/uL Baso # (Auto) (0-0.2) K/uL Immature Gran # (Auto) (0.00-0.02) K/uL PT (9.0-12.0) Seconds INR (0.9-1.1) Sodium (136-145) mmol/L Potassium (3.5-5.1) mmol/L Chloride (98-107) mmol/L Carbon Dioxide (21-32) mmol/L Anion Gap (3-11) BUN (7-18) mg/dl Creatinine (0.6-1.2) mg/dl Est Cr Clr Drug Dosing ml/min Est GFR ( Amer) ml/min Est GFR (Non-Af Amer) ml/min BUN/Creatinine Ratio (10-20) Glucose (70-99) mg/dl POC Glucose 155 H (70-99) mg/dl Estimat Average Glucose 200 mg/dl Hemoglobin A1c 8.6 H (4.5-5.6) % Calcium (8.5-10.1) mg/dl Magnesium (1.8-2.4) mg/dl Total Bilirubin (0.2-1) mg/dl AST (15-37) U/L ALT (12-78) Alkaline Phosphatase (45-117) U/L Troponin I Cancelled (0-0.045) ng/ml Total Protein (6.4-8.2) gm/dl Albumin (3.4-5.0) gm/dl Globulin (2.5-4.0) gm/dl Albumin/Globulin Ratio (0.9-2) Lipase (73-393) U/L Urine Color Urine Appearance (Clear) Urine pH (4.5-7.5) Ur Specific Mode (1.000-1.030) Urine Protein (Negative) Urine Glucose (UA) (Negative) Urine Ketones (Negative) Urine Blood (Negative) Urine Nitrite (Negative) Urine Bilirubin (Negative) Urine Urobilinogen (Negative) Ur Leukocyte Esterase (Negative) Urine WBC (Auto) (0-5) /hpf Urine RBC (Auto) (0-4) /hpf U Hyaline Cast (Auto) (0-5) /lpf U Epithel Cells (Auto) (0-5) /lpf Urine Bacteria (Auto) (Negative) SARS-CoV-2, RNA, NAAT (NEGATIVE) 10/18/21 10/18/21 10/18/21 Range/Units 05:14 05:14 01:54 WBC 5.38 (4.8-10.8) K/uL RBC 3.99 L (4.2-5.4) M/uL Hgb 12.7 (12.0-16.0) g/dL Hct 37.4 (37-47) % MCV 93.7 (80-100) fL MCH 31.8 (25-34) pg MCHC 34.0 (32-36) g/dL RDW Std Deviation 45.2 (36.4-46.3) fL RDW Coeff of [place] 13.1 (11.5-14.5) % Plt Count 150 (130-400) K/uL MPV 9.9 (7.4-10.4) fL Immature Gran % (Auto) 0.2 % Neut % (Auto) 58.1 % Lymph % (Auto) 33.5 % Barnes % (Auto) 5.6 % Eos % (Auto) 2.0 % Baso % (Auto) 0.6 % Neut # (Auto) 3.13 (1.4-6.5) K/uL Lymph # (Auto) 1.80 (1.2-3.4) K/uL Barnes # (Auto) 0.30 (0.11-0.59) K/uL Eos # (Auto) 0.11 (0-0.5) K/uL Baso # (Auto) 0.03 (0-0.2) K/uL Immature Gran # (Auto) 0.01 (0.00-0.02) K/uL PT (9.0-12.0) Seconds INR (0.9-1.1) Sodium 141 (136-145) mmol/L Potassium 3.5 (3.5-5.1) mmol/L Chloride 105 (98-107) mmol/L Carbon Dioxide 32 (21-32) mmol/L Anion Gap 4.0 (3-11) BUN 16 (7-18) mg/dl Creatinine 1.03 (0.6-1.2) mg/dl Est Cr Clr Drug Dosing 51.5 ml/min Est GFR ( Amer) 60.7 ml/min Est GFR (Non-Af Amer) 52.4 ml/min BUN/Creatinine Ratio 15.1 (10-20) Glucose 177 H (70-99) mg/dl POC Glucose 319 H* (70-99) mg/dl Estimat Average Glucose mg/dl Hemoglobin A1c (4.5-5.6) % Calcium 9.0 (8.5-10.1) mg/dl Magnesium 2.2 (1.8-2.4) mg/dl Total Bilirubin (0.2-1) mg/dl AST (15-37) U/L ALT (12-78) Alkaline Phosphatase (45-117) U/L Troponin I < 0.015 (0-0.045) ng/ml Total Protein (6.4-8.2) gm/dl Albumin (3.4-5.0) gm/dl Globulin (2.5-4.0) gm/dl Albumin/Globulin Ratio (0.9-2) Lipase (73-393) U/L Urine Color Urine Appearance (Clear) Urine pH (4.5-7.5) Ur Specific Mode (1.000-1.030) Urine Protein (Negative) Urine Glucose (UA) (Negative) Urine Ketones (Negative) Urine Blood (Negative) Urine Nitrite (Negative) Urine Bilirubin (Negative) Urine Urobilinogen (Negative) Ur Leukocyte Esterase (Negative) Urine WBC (Auto) (0-5) /hpf Urine RBC (Auto) (0-4) /hpf U Hyaline Cast (Auto) (0-5) /lpf U Epithel Cells (Auto) (0-5) /lpf Urine Bacteria (Auto) (Negative) SARS-CoV-2, RNA, NAAT (NEGATIVE) 10/17/21 10/17/21 10/17/21 Range/Units 22:26 20:37 19:33 WBC (4.8-10.8) K/uL RBC (4.2-5.4) M/uL Hgb (12.0-16.0) g/dL Hct (37-47) % MCV (80-100) fL MCH (25-34) pg MCHC (32-36) g/dL RDW Std Deviation (36.4-46.3) fL RDW Coeff of [place] (11.5-14.5) % Plt Count (130-400) K/uL MPV (7.4-10.4) fL Immature Gran % (Auto) % Neut % (Auto) % Lymph % (Auto) % Barnes % (Auto) % Eos % (Auto) % Baso % (Auto) % Neut # (Auto) (1.4-6.5) K/uL Lymph # (Auto) (1.2-3.4) K/uL Barnes # (Auto) (0.11-0.59) K/uL Eos # (Auto) (0-0.5) K/uL Baso # (Auto) (0-0.2) K/uL Immature Gran # (Auto) (0.00-0.02) K/uL PT (9.0-12.0) Seconds INR (0.9-1.1) Sodium (136-145) mmol/L Potassium (3.5-5.1) mmol/L Chloride (98-107) mmol/L Carbon Dioxide (21-32) mmol/L Anion Gap (3-11) BUN (7-18) mg/dl Creatinine (0.6-1.2) mg/dl Est Cr Clr Drug Dosing ml/min Est GFR ( Amer) ml/min Est GFR (Non-Af Amer) ml/min BUN/Creatinine Ratio (10-20) Glucose (70-99) mg/dl POC Glucose 253 H (70-99) mg/dl Estimat Average Glucose mg/dl Hemoglobin A1c (4.5-5.6) % Calcium (8.5-10.1) mg/dl Magnesium (1.8-2.4) mg/dl Total Bilirubin (0.2-1) mg/dl AST (15-37) U/L ALT (12-78) Alkaline Phosphatase (45-117) U/L Troponin I (0-0.045) ng/ml Total Protein (6.4-8.2) gm/dl Albumin (3.4-5.0) gm/dl Globulin (2.5-4.0) gm/dl Albumin/Globulin Ratio (0.9-2) Lipase (73-393) U/L Urine Color Yellow Urine Appearance Clear (Clear) Urine pH 7.5 (4.5-7.5) Ur Specific Mode 1.013 (1.000-1.030) Urine Protein 1+ H (Negative) Urine Glucose (UA) 2+ H (Negative) Urine Ketones Negative (Negative) Urine Blood Negative (Negative) Urine Nitrite Negative (Negative) Urine Bilirubin Negative (Negative) Urine Urobilinogen Negative (Negative) Ur Leukocyte Esterase Negative (Negative) Urine WBC (Auto) 1-5 (0-5) /hpf Urine RBC (Auto) 0-4 (0-4) /hpf U Hyaline Cast (Auto) 1-5 (0-5) /lpf U Epithel Cells (Auto) 5-10 H (0-5) /lpf Urine Bacteria (Auto) Negative (Negative) SARS-CoV-2, RNA, NAAT NEGATIVE (NEGATIVE) 10/17/21 10/17/21 10/17/21 Range/Units 19:33 19:33 19:33 WBC 5.33 (4.8-10.8) K/uL RBC 4.22 (4.2-5.4) M/uL Hgb 13.6 (12.0-16.0) g/dL Hct 39.6 (37-47) % MCV 93.8 (80-100) fL MCH 32.2 (25-34) pg MCHC 34.3 (32-36) g/dL RDW Std Deviation 44.6 (36.4-46.3) fL RDW Coeff of [place] 12.9 (11.5-14.5) % Plt Count 149 (130-400) K/uL MPV 9.7 (7.4-10.4) fL Immature Gran % (Auto) 0.2 % Neut % (Auto) 60.9 % Lymph % (Auto) 31.0 % Barnes % (Auto) 4.7 % Eos % (Auto) 2.6 % Baso % (Auto) 0.6 % Neut # (Auto) 3.25 (1.4-6.5) K/uL Lymph # (Auto) 1.65 (1.2-3.4) K/uL Barnes # (Auto) 0.25 (0.11-0.59) K/uL Eos # (Auto) 0.14 (0-0.5) K/uL Baso # (Auto) 0.03 (0-0.2) K/uL Immature Gran # (Auto) 0.01 (0.00-0.02) K/uL PT 9.8 (9.0-12.0) Seconds INR 1.0 (0.9-1.1) Sodium 136 (136-145) mmol/L Potassium 3.5 (3.5-5.1) mmol/L Chloride 99 (98-107) mmol/L Carbon Dioxide 33 H (21-32) mmol/L Anion Gap 4.0 (3-11) BUN 18 (7-18) mg/dl Creatinine 1.21 H (0.6-1.2) mg/dl Est Cr Clr Drug Dosing 44.6 ml/min Est GFR ( Amer) 50.0 ml/min Est GFR (Non-Af Amer) 43.1 ml/min BUN/Creatinine Ratio 15.2 (10-20) Glucose 261 H (70-99) mg/dl POC Glucose (70-99) mg/dl Estimat Average Glucose mg/dl Hemoglobin A1c (4.5-5.6) % Calcium 9.2 (8.5-10.1) mg/dl Magnesium (1.8-2.4) mg/dl Total Bilirubin 0.4 (0.2-1) mg/dl AST 14 L (15-37) U/L ALT 32 (12-78) Alkaline Phosphatase 93 (45-117) U/L Troponin I < 0.015 (0-0.045) ng/ml Total Protein 7.4 (6.4-8.2) gm/dl Albumin 3.7 (3.4-5.0) gm/dl Globulin 3.7 (2.5-4.0) gm/dl Albumin/Globulin Ratio 1.0 (0.9-2) Lipase 184 (73-393) U/L Urine Color Urine Appearance (Clear) Urine pH (4.5-7.5) Ur Specific Mode (1.000-1.030) Urine Protein (Negative) Urine Glucose (UA) (Negative) Urine Ketones (Negative) Urine Blood (Negative) Urine Nitrite (Negative) Urine Bilirubin (Negative) Urine Urobilinogen (Negative) Ur Leukocyte Esterase (Negative) Urine WBC (Auto) (0-5) /hpf Urine RBC (Auto) (0-4) /hpf U Hyaline Cast (Auto) (0-5) /lpf U Epithel Cells (Auto) (0-5) /lpf Urine Bacteria (Auto) (Negative) SARS-CoV-2, RNA, NAAT (NEGATIVE) (1) Chest pain Chest pain type: unspecified Qualified Code(s): R07.9 - Chest pain, unspecified
[2021-10-18] MEDS ORDERED: METOPROLOL TARTRATE 50 MG TAB PO SCH (09:00)
[2021-10-18] MEDS ORDERED: NON-FORMULARY MEDICATION (Potassium 99 mg Tablet) PO SCH (09:00)
[2021-10-18] MEDS: CHOLECALCIFEROL 1,000 UNITS 25 MCG TAB PO SCH (09:13)
[2021-10-18] MEDS: MULTIVITAMIN TAB PO SCH (09:13)
[2021-10-18] MEDS: LOSARTAN POTASSIUM 50 MG TAB PO SCH (09:13)
[2021-10-18] MEDS: ASCORBIC ACID 500 MG TAB PO SCH (09:13)
[2021-10-18] MEDS: ASPIRIN 81 MG ECTAB PO SCH (09:13)
[2021-10-18] MEDS: ATORVASTATIN 20 MG TAB PO SCH (09:13)
[2021-10-18] MEDS: ISOSORBIDE MONO EXTENDED REL 60 MG TABCR PO SCH ×2 (09:13→20:05)
[2021-10-18] MEDS: FUROSEMIDE 40 MG TAB PO SCH (09:13)
[2021-10-18] MEDS: carvediloL 12.5 MG TAB PO SCH ×2 (09:45→20:05)
[2021-10-18] MEDS ORDERED: Nursing to Pharmacy Communication SCH (10:45)
[2021-10-18] MEDS: PSYLLIUM 58.6% POWDER PACKET PO SCH (13:27)
--- NOTE | 2021-10-18 15:24 | Hospitalist Progress Note ---
Date of Service October 18, 2021 Assessment & Plan (1) Hypertensive urgency: Plan: Presented with dizziness and chest pain Noted to have a blood pressure of 228/154 at presentation in the emergency room Received appropriate medications and blood pressure has been improving as of this morning Appreciate cardiology input and recommendation She has been added carvedilol 12.5 mg twice daily and metoprolol has been discontinued Continue with losartan Echocardiogram showed normal systolic function with grade 1 diastolic dysfunction and no significant valvular abnormality Blood pressure has been improving (2) Chest pain: Plan: Denies any more chest pain Her chest pain seems to be related to anxiety and goes away with some activities Cardiac enzymes remain unremarkable, no significant EKG changes Echo: EF 65 to 70%, mild concentric LVH, grade 1 diastolic dysfunction and aortic valve sclerosis mild without significant aortic stenosis and no change compared with prior (3) Anxiety: Plan: Has significant anxiety and has been getting Remeron 30 mg at night May need more during daytime Was given 1 dose of Remeron 15 mg today (4) Coronary artery disease: Plan: As above (5) Diabetes mellitus type II, controlled: Plan: Hemoglobin A1c is elevated at 8.6 Continue diabetic diet and sliding scale insulin coverage (6) GERD (gastroesophageal reflux disease): Plan: DVT prophylaxis Subcu heparin Admission and Anticipated Discharge Date Admission Date: October 17, 2021 Subjective 10/18/2021 The patient was seen and examined in telemetry unit She was admitted with dizziness and chest pain and noted to have very high blood pressure at presentation She has been very anxious but denies any more chest pain and/or palpitation Her blood pressure has been improving Review of Systems Review of Systems: All systems reviewed and are unremarkable except as noted below Cardiovascular: Additional Comments: Has had chest pain with dizziness at presentation which are improving Neurologic: Remains very anxious Physical Exam Physical Exam: Lying in bed with mild to moderate anxiety Constitutional: well developed, well nourished, + ill appearing and + obese Eyes: PERRL, conjunctivae normal, anicteric sclerae ENMT: external ear and nose normal, oropharynx normal Neck: trachea midline, no thyromegaly Respiratory: no respiratory distress Auscultation: lungs clear to auscultation bilaterally; no crackles Cardiovascular: Rate/Rhythm: regular rate and regular rhythm; not tachycardic Heart Sounds: normal S1 and normal S2; no murmur Palpation: normal PMI Extremities: + edema (Trace edema bilaterally) Gastrointestinal (Abdomen): Inspection/Auscultation: normal bowel sounds; abdomen not distended Percussion/Palpation: abdomen soft; abdomen nontender Musculoskeletal: No acute arthritis in any joint Neurologic: Alert, awake and oriented x3. No focal sensory and motor deficit appreciated Lymphatic: no cervical or axillary lymphadenopathy Results & Data Results & Data ([facility]) Vital Signs (Past 12 Hours) Vital Signs Temp Pulse Pulse Resp BP Pulse Ox 10/18/21 11:30 36.7 C 68 20 162/71 H 96 10/18/21 08:00 66 10/18/21 06:45 36.8 C 68 18 181/72 H 95 10/18/21 06:43 181/72 H 10/18/21 06:00 196/70 H 10/18/21 03:50 36.8 C 66 18 176/67 H 95 Laboratory Results Short CBC 10/17/21 10/18/21 Range/Units 19:33 05:14 WBC 5.33 5.38 (4.8-10.8) K/uL Hgb 13.6 12.7 (12.0-16.0) g/dL Hct 39.6 37.4 (37-47) % Plt Count 149 150 (130-400) K/uL BMP 10/17/21 10/18/21 19:33 05:14 Sodium 136 141 Potassium 3.5 3.5 Chloride 99 105 Carbon Dioxide 33 H 32 BUN 18 16 Creatinine 1.21 H 1.03 Glucose 261 H 177 H Calcium 9.2 9.0 Cardiac Enzymes 10/17/21 10/18/21 10/18/21 Range/Units 19:33 05:14 05:14 Troponin I < 0.015 < 0.015 Cancelled (0-0.045) ng/ml Liver Function 10/17/21 Range/Units 19:33 Total Bilirubin 0.4 (0.2-1) mg/dl AST 14 L (15-37) U/L ALT 32 (12-78) Alkaline Phosphatase 93 (45-117) U/L Albumin 3.7 (3.4-5.0) gm/dl Urine 10/17/21 Range/Units 19:33 Urine Color Yellow Urine Appearance Clear (Clear) Urine pH 7.5 (4.5-7.5) Ur Specific [place] 1.013 (1.000-1.030) Urine Protein 1+ H (Negative) Urine Glucose (UA) 2+ H (Negative) Medications Administered Current Inpatient Medications Acetaminophen (Acetaminophen 325 Mg Tab) 650 mg PO Q4H PRN PRN Reason: Pain or Fever Stop: 11/17/21 01:23 Albuterol (Albuterol Hfa 8 Gm Inhaler) 2 puffs INH Q6H PRN PRN Reason: Shortness Of Breath Or Wheezing Stop: 11/17/21 01:43 Ascorbic Acid (Ascorbic Acid 500 Mg Tab) 1,000 mg PO DAILY [facility]DA Stop: 11/17/21 08:59 Last Admin: 10/18/21 09:13 Dose: 1,000 mg Documented by: Aspirin (Aspirin 81 Mg Ectab) 81 mg PO DAILY [facility]DA Stop: 11/17/21 08:59 Last Admin: 10/18/21 09:13 Dose: 81 mg Documented by: Atorvastatin Calcium (Atorvastatin 20 Mg Tab) 20 mg PO DAILY [facility]DA Stop: 11/17/21 08:59 Last Admin: 10/18/21 09:13 Dose: 20 mg Documented by: Carvedilol (Carvedilol 12.5 Mg Tab) 12.5 mg PO BID [facility] Stop: 11/17/21 08:59 Last Admin: 10/18/21 09:45 Dose: 12.5 mg Documented by: Dextrose (Dextrose 50% 50 Ml Syringe) 25 - 50 ml IV UD PRN; Protocol PRN Reason: Hypoglycemia Protocol Stop: 11/17/21 01:44 Furosemide (Furosemide 40 Mg Tab) 40 mg PO DAILY [facility]DA Stop: 11/17/21 08:59 Last Admin: 10/18/21 09:13 Dose: 40 mg Documented by: Glucagon (Glucagon For Inj 1 Mg Vial) 1 mg IM UD PRN; Protocol PRN Reason: Hypoglycemia Protocol Stop: 11/17/21 01:44 Glucose (Glucose 40% Gel 15 Gm Tube) 15 - 30 gm PO UD PRN; Protocol PRN Reason: Hypoglycemia Protocol Stop: 11/17/21 01:44 Glucose (Glucose 10 Tabs/Tube) 4 - 8 tabs PO UD PRN; Protocol PRN Reason: Hypoglycemia Protocol Stop: 11/17/21 01:44 Insulin Aspart (Insulin Aspart Per Unit) 0 units SC ACHS [facility]DA Stop: 11/17/21 11:29 Last Admin: 10/18/21 12:38 Dose: 4 units Documented by: Insulin Glargine (Insulin Glargine Solostar 100 Units/Ml 3 Ml Pen) 60 units SQ HS [facility] Stop: 11/17/21 20:59 Isosorbide Mononitrate (Isosorbide [place] Extended Rel 60 Mg Tabcr) 60 mg PO BID [facility]DA Stop: 11/17/21 08:59 Last Admin: 10/18/21 09:13 Dose: 60 mg Documented by: Labetalol HCl (Labetalol Hcl Iv 5 Mg/Ml 20ml) 10 mg IV Q4H PRN PRN Reason: Hypertension Stop: 11/17/21 01:23 Last Admin: 10/18/21 06:03 Dose: 10 mg Documented by: Losartan Potassium (Losartan Potassium 50 Mg Tab) 100 mg PO DAILY [facility] Stop: 11/17/21 08:59 Last Admin: 10/18/21 09:13 Dose: 100 mg Documented by: Mirtazapine (Mirtazapine Tab 15 Mg Tab) 30 mg PO HS [facility] Stop: 11/17/21 20:59 Miscellaneous (Carbohydrates For Hypoglycemia ) 15 - 30 gm PO UD PRN PRN Reason: Hypoglycemia Treatment Stop: 11/17/21 01:44 Multivitamins (Multivitamin Tab) 1 tab PO DAILY [facility] Stop: 11/17/21 08:59 Last Admin: 10/18/21 09:13 Dose: 1 tab Documented by: Nitroglycerin (Nitroglycerin Sl 0.4 Mg/Tab Tab) 0.4 mg SL UD PRN PRN Reason: Chest Pain Stop: 11/17/21 01:23 Ondansetron HCl (Ondansetron Inj 2 Mg/Ml 2 Ml Vial) 4 mg IV Q6H PRN PRN Reason: Nausea Stop: 11/17/21 01:23 Psyllium Hydrophilic Mucilloid (Psyllium 58.6% Powder Packet) 2 pkt PO QAM [facility] Stop: 11/17/21 09:29 Last Admin: 10/18/21 13:27 Dose: 2 pkt Documented by: Vitamin D (Cholecalciferol 1,000 Units 25 Mcg Tab) 1,000 units PO DAILY [facility] Stop: 11/17/21 08:59 Last Admin: 10/18/21 09:13 Dose: 1,000 units Documented by: (1) Chest pain Chest pain type: unspecified Qualified Code(s): R07.9 - Chest pain, unspecified
[2021-10-18] MEDS: HEPARIN SOD 5,000 UNIT/0.5 ML VIAL SQ SCH (20:19)
[2021-10-18] MEDS ORDERED: INSULIN GLARGINE SOLOSTAR 100 UNITS/ML 3 ML PEN SQ SCH (21:00)
[2021-10-18] MEDS ORDERED: MIRTAZAPINE TAB 15 MG TAB PO SCH (21:00)
--- NOTE | 2021-10-19 03:50 | Communication Note ---
Date of Service: October 19, 2021 Patient with bradycardic episodes in early a.m. 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 Possible Wenckebach on the monitor as per RN. Patient asymptomatic as per RN. EKG as per my interpretation: : Rate 55, sinus bradycardia, 1 AVB, inferior infarct AP Episodic bradycardia Patient asymptomatic for now Check a.m. electrolytes, TSH Hold Coreg for now until patient seen by Cardiology.
[2021-10-19 05:00] LABS: Basophils # (auto) 0.02 K/uL (0-0.2); Basophils % (auto) 0.4 %; Eosinophils # (auto) 0.25 K/uL (0-0.5); Eosinophils % (auto) 5.1 %; Hematocrit (blood only) 37.3 % (37-47); Hemoglobin 12.4 g/dL (12.0-16.0); Immature Granulocytes # (auto) 0.01 K/uL (0.00-0.02); Immature Granulocytes % (auto) 0.2 %; Lymphocytes # (auto) 1.78 K/uL (1.2-3.4); Lymphocytes % (auto) 36.6 %; Mean Corpuscular Hgb Conc 33.2 g/dL (32-36); Mean Corpuscular Volume 96.4 fL (80-100); Mean Platelet Volume 9.7 fL (7.4-10.4); Monocytes # (auto) 0.26 K/uL (0.11-0.59); Monocytes % (auto) 5.3 %; Neutrophils # (auto) 2.55 K/uL (1.4-6.5); Neutrophils % (auto) 52.4 %; Platelet Count 152 K/uL (130-400); RDW Coefficient of Variation 13.4 % (11.5-14.5); RDW Standard Deviation 46.7 fL (36.4-46.3); Red Blood Count 3.87 M/uL (4.2-5.4); White Blood Count 4.87 K/uL (4.8-10.8)
[2021-10-19 05:17] LABS: BUN Creatinine Ratio 16.9 (10-20); Calcium 9.2 mg/dl (8.5-10.1); Creatinine Clr Calc Pharmacy 47.4 ml/min; Est GFR (African American) 54.9 ml/min; Est GFR (Non-African American) 47.3 ml/min; Potassium 3.5 mmol/L (3.5-5.1)
[2021-10-19] MEDS ORDERED: POTASSIUM CHLORIDE CRTAB 20 MEQ TABCR PO STA (05:26)
[2021-10-19 05:28] LABS: Thyroid Stimulating Hormone 2.02 uIu/ml (0.300-4.500)
[2021-10-19 06:04] LABS: Magnesium 2.1 mg/dl (1.8-2.4)
[2021-10-19] MEDS ORDERED: POTASSIUM CHLORIDE CRTAB 20 MEQ TABCR PO ONE (07:30)
[2021-10-19] MEDS: ASCORBIC ACID 500 MG TAB PO SCH (08:38)
[2021-10-19] MEDS: LOSARTAN POTASSIUM 50 MG TAB PO SCH (08:38)
[2021-10-19] MEDS: CHOLECALCIFEROL 1,000 UNITS 25 MCG TAB PO SCH (08:38)
[2021-10-19] MEDS: FUROSEMIDE 40 MG TAB PO SCH (08:38)
[2021-10-19] MEDS: ASPIRIN 81 MG ECTAB PO SCH (08:38)
[2021-10-19] MEDS: ATORVASTATIN 20 MG TAB PO SCH (08:38)
[2021-10-19] MEDS: MULTIVITAMIN TAB PO SCH (08:39)
[2021-10-19] MEDS: ISOSORBIDE MONO EXTENDED REL 60 MG TABCR PO SCH (08:39)
[2021-10-19] MEDS ORDERED: SPIRONOLACTONE 12.5 MG TAB PO SCH (09:00)
[2021-10-19] MEDS: INSULIN ASPART PER UNIT SC SCH ×3 (09:00→17:27)
[2021-10-19] MEDS: HEPARIN SOD 5,000 UNIT/0.5 ML VIAL SQ SCH (09:01)
[2021-10-19] MEDS ORDERED: carvediloL 6.25 MG TAB PO SCH (09:30)
--- NOTE | 2021-10-19 09:30 | Cardiology Progress Note ---
Date of Service October 19, 2021 Assessment & Plan (1) Hypertensive urgency: (2) Chest pain: (3) Coronary artery disease: (4) Anxiety: (5) Second degree AV block, Mobitz type I: Plan: Patient admitted for dizziness, chest tightness, with associated hypertensive urgency. EKG without acute ischemic changes. Negative cardiac enzymes Echo with preserved LV systolic function, no wall motion abnormalities. BP improving. Transitioned to carvedilol 12.5 mg BID from metoprolol tartrate 50 mg BID. Last night, during sleep, she had several runs of 2nd degree AV block, type I. Carvedilol held this morning by hospitalist. Will resume lower dose 6.25 mg BID. Add spironolactone 12.5 mg for BP support and hypokalemia. Continue losartan 100 mg, isosorbide 60 mg BID, furosemide 40 mg. She has been intolerant to amlodipine in the past, causing increased edema. Will avoid Pending BP response after morning meds, likely discharge later today. Consider outpatient ZIO monitor for evaluation of arrhythmia. Case discussed with Dr. Castorena. Admission and Anticipated Discharge Date Admission Date: October 17, 2021 Supervising Physician Co-Signing Physician Notes 76-year-old female admitted with vertigo and hypertensive urgency. Blood pressure control improved. Notes mild dizziness this morning. Denies slurred speech, visual changes, focal weakness, or paresthesias. Brief episode of asymptomatic second-degree AV block Mobitz type I recorded overnight. Patient denies chest pain, shortness of breath, orthopnea, or PND. PE: General: NAD, awake alert [place] x3. Heart: Regular, normal S1-S2. 2/6 systolic ejection murmur heard best at the right second intercostal space without radiation. Lungs: Clear bilateral, no rales, rhonchi, wheeze. Extremities: No edema. A/P: Agree with above PA-C history, physical exam, assessment and plan. Reduce carvedilol due to evidence of second-degree AV block Mobitz type I. Add low- dose Aldactone. Continue other medications as previously ordered including losartan, isosorbide, and furosemide. Patient may be discharged home with outpatient cardiology follow-up from a cardiovascular perspective. Subjective Patient reported episode of dizziness this morning. Blood sugar was in the 90's and she reports she always has similar symptoms when sugars below 120. Symptoms improved with orange juice. Feels off balance when getting up to use the restroom but no syncope/near syncope. No recurrent chest pain. Overnight, patient developed 2nd degree AV block, type I on 2 occasions around 1:30 AM and 3:30 AM, patient was sleeping and no symptoms. No recurrent heart block this morning. Carvedilol was held this morning Review of Systems Review of Systems: All systems reviewed & are unremarkable except as noted in HPI & below Physical Exam Constitutional: WD/WN, vitals as above well developed and + obese; no acute distress Neck: trachea midline, no thyromegaly Respiratory: normal respiratory effort, lungs clear to auscultation Cardiovascular: Rate/Rhythm: regular rate and regular rhythm Heart Sounds: + murmur (II/ systolic murmur LSB) Palpation: normal PMI Vessels: no JVD Extremities: + edema (Trace to 1+ pretibial edema) Gastrointestinal (Abdomen): normal bowel sounds, soft, nontender, no hepatosplenomegaly Musculoskeletal: no cyanosis or clubbing, extremities motor strength 5/5 Neurologic: PERRL, EOMI, accommodation nl, no face palsy, no dysarthria Psychiatric: A+Ox3, euthymic affect Results & Data ([facility]) Vital Signs (Past 12 Hours) Vital Signs Temp Pulse Pulse Resp BP Pulse Ox 10/19/21 07:54 64 10/19/21 07:05 36.8 C 73 18 159/70 H 98 10/19/21 04:10 36.7 C 75 18 155/72 H 94 10/19/21 00:10 60 18 153/62 H 94 10/18/21 23:05 36.8 C 68 18 148/58 H 95 Laboratory Results 10/19/21 10/19/21 10/19/21 Range/Units 07:12 06:10 05:21 WBC (4.8-10.8) K/uL RBC (4.2-5.4) M/uL Hgb (12.0-16.0) g/dL Hct (37-47) % MCV (80-100) fL MCH (25-34) pg MCHC (32-36) g/dL RDW Std Deviation (36.4-46.3) fL RDW Coeff of [place] (11.5-14.5) % Plt Count (130-400) K/uL MPV (7.4-10.4) fL Immature Gran % (Auto) % Neut % (Auto) % Lymph % (Auto) % [place] % (Auto) % Eos % (Auto) % Baso % (Auto) % Neut # (Auto) (1.4-6.5) K/uL Lymph # (Auto) (1.2-3.4) K/uL [place] # (Auto) (0.11-0.59) K/uL Eos # (Auto) (0-0.5) K/uL Baso # (Auto) (0-0.2) K/uL Immature Gran # (Auto) (0.00-0.02) K/uL Sodium (136-145) mmol/L Potassium (3.5-5.1) mmol/L Chloride (98-107) mmol/L Carbon Dioxide (21-32) mmol/L Anion Gap (3-11) BUN (7-18) mg/dl Creatinine (0.6-1.2) mg/dl Est Cr Clr Drug Dosing ml/min Est GFR ( Amer) ml/min Est GFR (Non-Af Amer) ml/min BUN/Creatinine Ratio (10-20) Glucose (70-99) mg/dl POC Glucose 196 H 156 H 96 (70-99) mg/dl Calcium (8.5-10.1) mg/dl Magnesium (1.8-2.4) mg/dl TSH (0.300-4.500) uIu/ml 10/19/21 10/19/21 10/18/21 Range/Units 04:36 04:36 20:08 WBC 4.87 (4.8-10.8) K/uL RBC 3.87 L (4.2-5.4) M/uL Hgb 12.4 (12.0-16.0) g/dL Hct 37.3 (37-47) % MCV 96.4 (80-100) fL MCH 32.0 (25-34) pg MCHC 33.2 (32-36) g/dL RDW Std Deviation 46.7 H (36.4-46.3) fL RDW Coeff of [place] 13.4 (11.5-14.5) % Plt Count 152 (130-400) K/uL MPV 9.7 (7.4-10.4) fL Immature Gran % (Auto) 0.2 % Neut % (Auto) 52.4 % Lymph % (Auto) 36.6 % [place] % (Auto) 5.3 % Eos % (Auto) 5.1 % Baso % (Auto) 0.4 % Neut # (Auto) 2.55 (1.4-6.5) K/uL Lymph # (Auto) 1.78 (1.2-3.4) K/uL [place] # (Auto) 0.26 (0.11-0.59) K/uL Eos # (Auto) 0.25 (0-0.5) K/uL Baso # (Auto) 0.02 (0-0.2) K/uL Immature Gran # (Auto) 0.01 (0.00-0.02) K/uL Sodium 143 (136-145) mmol/L Potassium 3.5 (3.5-5.1) mmol/L Chloride 106 (98-107) mmol/L Carbon Dioxide 33 H (21-32) mmol/L Anion Gap 4.0 (3-11) BUN 19 H (7-18) mg/dl Creatinine 1.12 (0.6-1.2) mg/dl Est Cr Clr Drug Dosing 47.4 ml/min Est GFR ( Amer) 54.9 ml/min Est GFR (Non-Af Amer) 47.3 ml/min BUN/Creatinine Ratio 16.9 (10-20) Glucose 95 (70-99) mg/dl POC Glucose 205 H (70-99) mg/dl Calcium 9.2 (8.5-10.1) mg/dl Magnesium 2.1 (1.8-2.4) mg/dl TSH 2.020 (0.300-4.500) uIu/ml 10/18/21 10/18/21 Range/Units 16:21 11:14 WBC (4.8-10.8) K/uL RBC (4.2-5.4) M/uL Hgb (12.0-16.0) g/dL Hct (37-47) % MCV (80-100) fL MCH (25-34) pg MCHC (32-36) g/dL RDW Std Deviation (36.4-46.3) fL RDW Coeff of [place] (11.5-14.5) % Plt Count (130-400) K/uL MPV (7.4-10.4) fL Immature Gran % (Auto) % Neut % (Auto) % Lymph % (Auto) % [place] % (Auto) % Eos % (Auto) % Baso % (Auto) % Neut # (Auto) (1.4-6.5) K/uL Lymph # (Auto) (1.2-3.4) K/uL [place] # (Auto) (0.11-0.59) K/uL Eos # (Auto) (0-0.5) K/uL Baso # (Auto) (0-0.2) K/uL Immature Gran # (Auto) (0.00-0.02) K/uL Sodium (136-145) mmol/L Potassium (3.5-5.1) mmol/L Chloride (98-107) mmol/L Carbon Dioxide (21-32) mmol/L Anion Gap (3-11) BUN (7-18) mg/dl Creatinine (0.6-1.2) mg/dl Est Cr Clr Drug Dosing ml/min Est GFR ( Amer) ml/min Est GFR (Non-Af Amer) ml/min BUN/Creatinine Ratio (10-20) Glucose (70-99) mg/dl POC Glucose 227 H 164 H (70-99) mg/dl Calcium (8.5-10.1) mg/dl Magnesium (1.8-2.4) mg/dl TSH (0.300-4.500) uIu/ml Diagnostic Findings Telemetry reviewed: NSR this morning. Last evening around 1:30 AM and 3:30 AM - She had several beats of non sustained 2nd degree AV block, type I during sleep. No arrhythmias while awake. Echo report reviewed 10/18/21: Compared to prior study, no significant change. EF 65-70% Mild Concentric LVH Grade I diastolic dysfunction Aortic valve sclerosis mild, without significant aortic valvular stenosis Medications Administered Current Inpatient Medications Acetaminophen (Acetaminophen 325 Mg Tab) 650 mg PO Q4H PRN PRN Reason: Pain or Fever Stop: 11/17/21 01:23 Albuterol (Albuterol Hfa 8 Gm Inhaler) 2 puffs INH Q6H PRN PRN Reason: Shortness Of Breath Or Wheezing Stop: 11/17/21 01:43 Ascorbic Acid (Ascorbic Acid 500 Mg Tab) 1,000 mg PO DAILY [facility] Stop: 11/17/21 08:59 Last Admin: 10/19/21 08:38 Dose: 1,000 mg Documented by: Aspirin (Aspirin 81 Mg Ectab) 81 mg PO DAILY [facility] Stop: 11/17/21 08:59 Last Admin: 10/19/21 08:38 Dose: 81 mg Documented by: Atorvastatin Calcium (Atorvastatin 20 Mg Tab) 20 mg PO DAILY [facility] Stop: 11/17/21 08:59 Last Admin: 10/19/21 08:38 Dose: 20 mg Documented by: Carvedilol (Carvedilol 6.25 Mg Tab) 6.25 mg PO BID [facility] Stop: 11/18/21 09:29 Dextrose (Dextrose 50% 50 Ml Syringe) 25 - 50 ml IV UD PRN; Protocol PRN Reason: Hypoglycemia Protocol Stop: 11/17/21 01:44 Furosemide (Furosemide 40 Mg Tab) 40 mg PO DAILY [facility] Stop: 11/17/21 08:59 Last Admin: 10/19/21 08:38 Dose: 40 mg Documented by: Glucagon (Glucagon For Inj 1 Mg Vial) 1 mg IM UD PRN; Protocol PRN Reason: Hypoglycemia Protocol Stop: 11/17/21 01:44 Glucose (Glucose 40% Gel 15 Gm Tube) 15 - 30 gm PO UD PRN; Protocol PRN Reason: Hypoglycemia Protocol Stop: 11/17/21 01:44 Glucose (Glucose 10 Tabs/Tube) 4 - 8 tabs PO UD PRN; Protocol PRN Reason: Hypoglycemia Protocol Stop: 11/17/21 01:44 Heparin Sodium (Porcine) (Heparin Sod 5,000 Unit/0.5 Ml Vial) 5,000 units SQ Q12 [facility] Stop: 11/17/21 20:59 Last Admin: 10/19/21 09:01 Dose: 5,000 units Documented by: Insulin Aspart (Insulin Aspart Per Unit) 0 units SC ACHS [facility] Stop: 11/17/21 11:29 Last Admin: 10/19/21 09:00 Dose: 4 units Documented by: Insulin Glargine (Insulin Glargine Solostar 100 Units/Ml 3 Ml Pen) 60 units SQ HS [facility] Stop: 11/17/21 20:59 Last Admin: 10/18/21 20:19 Dose: 60 units Documented by: Isosorbide Mononitrate (Isosorbide [place] Extended Rel 60 Mg Tabcr) 60 mg PO BID [facility] Stop: 11/17/21 08:59 Last Admin: 10/19/21 08:39 Dose: 60 mg Documented by: Labetalol HCl (Labetalol Hcl Iv 5 Mg/Ml 20ml) 10 mg IV Q4H PRN PRN Reason: Hypertension Stop: 11/17/21 01:23 Last Admin: 10/18/21 06:03 Dose: 10 mg Documented by: Losartan Potassium (Losartan Potassium 50 Mg Tab) 100 mg PO DAILY [facility] Stop: 11/17/21 08:59 Last Admin: 10/19/21 08:38 Dose: 100 mg Documented by: Mirtazapine (Mirtazapine Tab 15 Mg Tab) 30 mg PO HS [facility] Stop: 11/17/21 20:59 Last Admin: 10/18/21 20:05 Dose: 30 mg Documented by: Miscellaneous (Carbohydrates For Hypoglycemia ) 15 - 30 gm PO UD PRN PRN Reason: Hypoglycemia Treatment Stop: 11/17/21 01:44 Multivitamins (Multivitamin Tab) 1 tab PO DAILY [facility] Stop: 11/17/21 08:59 Last Admin: 10/19/21 08:39 Dose: 1 tab Documented by: Nitroglycerin (Nitroglycerin Sl 0.4 Mg/Tab Tab) 0.4 mg SL UD PRN PRN Reason: Chest Pain Stop: 11/17/21 01:23 Ondansetron HCl (Ondansetron Inj 2 Mg/Ml 2 Ml Vial) 4 mg IV Q6H PRN PRN Reason: Nausea Stop: 11/17/21 01:23 Psyllium Hydrophilic Mucilloid (Psyllium 58.6% Powder Packet) 2 pkt PO QAM [facility] Stop: 11/17/21 09:29 Last Admin: 10/18/21 13:27 Dose: 2 pkt Documented by: Spironolactone (Spironolactone 12.5 Mg Tab) 12.5 mg PO DAILY [facility] Stop: 11/18/21 08:59 Vitamin D (Cholecalciferol 1,000 Units 25 Mcg Tab) 1,000 units PO DAILY [facility] Stop: 11/17/21 08:59 Last Admin: 10/19/21 08:38 Dose: 1,000 units Documented by: (1) Chest pain Chest pain type: unspecified Qualified Code(s): R07.9 - Chest pain, unspecified
[2021-10-19] MEDS: PSYLLIUM 58.6% POWDER PACKET PO SCH (09:47)
--- NOTE | 2021-10-19 11:09 | Hospitalist Progress Note ---
Date of Service October 19, 2021 Assessment & Plan (1) Hypertensive crisis: Plan: Presented with dizziness and chest pain Noted to have a blood pressure of 228/154 at presentation in the emergency room Received appropriate medications and blood pressure has been improving as of this morning Appreciate cardiology input and recommendation She has been added carvedilol 12.5 mg twice daily and metoprolol has been discontinued Continue with losartan Echocardiogram showed normal systolic function with grade 1 diastolic dysfunction and no significant valvular abnormality Blood pressure has been improving Carvedilol dose has been decreased to 6.25 twice daily due to second-degree AV block Mobitz type I Will get outpatient Zio patch She will be discharged home this afternoon Second-degree AV block, Mobitz type I Happened to be last night and carvedilol dose has been decreased to 6.25 twice daily Advised to have a Zio patch as an outpatient She has been stable and no more cardiac arrhythmias Will be discharged home this afternoon Ongoing dizziness Could be secondary to wax in the ear She has an appointment as an outpatient for that She was advised to take it easy for the next few days (2) Hypertensive urgency: Plan: As above (3) Chest pain: Plan: Denies any more chest pain Her chest pain seems to be related to anxiety and goes away with some activities Cardiac enzymes remain unremarkable, no significant EKG changes Echo: EF 65 to 70%, mild concentric LVH, grade 1 diastolic dysfunction and aortic valve sclerosis mild without significant aortic stenosis and no change compared with prior No more chest pain and or palpitation (4) Anxiety: Plan: Has significant anxiety and has been getting Remeron 30 mg at night May need more during daytime Was given 1 dose of Remeron 15 mg today She will have an appointment with her psychiatrist as an outpatient (5) Coronary artery disease: Plan: As above (6) Diabetes mellitus type II, controlled: Plan: Hemoglobin A1c is elevated at 8.6 Continue diabetic diet and sliding scale insulin coverage (7) GERD (gastroesophageal reflux disease): Plan: DVT prophylaxis Subcu heparin Admission and Anticipated Discharge Date Admission Date: October 17, 2021 Subjective 10/18/2021 The patient was seen and examined in telemetry unit She was admitted with dizziness and chest pain and noted to have very high blood pressure at presentation She has been very anxious but denies any more chest pain and/or palpitation Her blood pressure has been improving 10/19/2021 The patient was seen and examined in telemetry unit She has been feeling a little dizzy and going to have an evaluation by PCP as an outpatient for that She has been moving around in the room without any significant symptoms except occasional dizziness She feels that she is ready to be discharged and denies any more chest pain and/or palpitation Review of Systems Review of Systems: All systems reviewed and are unremarkable except as noted below Cardiovascular: Additional Comments: Has had chest pain with dizziness at presentation which are improving Neurologic: Remains very anxious Physical Exam Physical Exam: Lying in bed with mild to moderate anxiety Constitutional: well developed, well nourished, + ill appearing and + obese Eyes: PERRL, conjunctivae normal, anicteric sclerae ENMT: external ear and nose normal, oropharynx normal Neck: trachea midline, no thyromegaly Respiratory: no respiratory distress Auscultation: lungs clear to auscultation bilaterally; no crackles Cardiovascular: Rate/Rhythm: regular rate and regular rhythm; not tachycardic Heart Sounds: normal S1 and normal S2; no murmur Palpation: normal PMI Extremities: + edema (Trace edema bilaterally) Gastrointestinal (Abdomen): Inspection/Auscultation: normal bowel sounds; abdomen not distended Percussion/Palpation: abdomen soft; abdomen nontender Musculoskeletal: No acute arthritis in any joint Neurologic: Alert, awake and oriented x3. No focal sensory or motor deficit appreciated Lymphatic: no cervical or axillary lymphadenopathy Results & Data Results & Data ([facility]) Vital Signs (Past 12 Hours) Vital Signs Temp Pulse Pulse Resp BP Pulse Ox 10/19/21 07:54 64 10/19/21 07:05 36.8 C 73 18 159/70 H 98 10/19/21 04:10 36.7 C 75 18 155/72 H 94 10/19/21 00:10 60 18 153/62 H 94 10/18/21 23:05 36.8 C 68 18 148/58 H 95 Laboratory Results Short CBC 10/19/21 Range/Units 04:36 WBC 4.87 (4.8-10.8) K/uL Hgb 12.4 (12.0-16.0) g/dL Hct 37.3 (37-47) % Plt Count 152 (130-400) K/uL BMP 10/19/21 04:36 Sodium 143 Potassium 3.5 Chloride 106 Carbon Dioxide 33 H BUN 19 H Creatinine 1.12 Glucose 95 Calcium 9.2 Medications Administered Current Inpatient Medications Acetaminophen (Acetaminophen 325 Mg Tab) 650 mg PO Q4H PRN PRN Reason: Pain or Fever Stop: 11/17/21 01:23 Albuterol (Albuterol Hfa 8 Gm Inhaler) 2 puffs INH Q6H PRN PRN Reason: Shortness Of Breath Or Wheezing Stop: 11/17/21 01:43 Ascorbic Acid (Ascorbic Acid 500 Mg Tab) 1,000 mg PO DAILY MINDA Stop: 11/17/21 08:59 Last Admin: 10/19/21 08:38 Dose: 1,000 mg Documented by: Aspirin (Aspirin 81 Mg Ectab) 81 mg PO DAILY MINDA Stop: 11/17/21 08:59 Last Admin: 10/19/21 08:38 Dose: 81 mg Documented by: Atorvastatin Calcium (Atorvastatin 20 Mg Tab) 20 mg PO DAILY MINDA Stop: 11/17/21 08:59 Last Admin: 10/19/21 08:38 Dose: 20 mg Documented by: Carvedilol (Carvedilol 6.25 Mg Tab) 6.25 mg PO BID [facility] Stop: 11/18/21 09:29 Dextrose (Dextrose 50% 50 Ml Syringe) 25 - 50 ml IV UD PRN; Protocol PRN Reason: Hypoglycemia Protocol Stop: 11/17/21 01:44 Furosemide (Furosemide 40 Mg Tab) 40 mg PO DAILY [facility] Stop: 11/17/21 08:59 Last Admin: 10/19/21 08:38 Dose: 40 mg Documented by: Glucagon (Glucagon For Inj 1 Mg Vial) 1 mg IM UD PRN; Protocol PRN Reason: Hypoglycemia Protocol Stop: 11/17/21 01:44 Glucose (Glucose 40% Gel 15 Gm Tube) 15 - 30 gm PO UD PRN; Protocol PRN Reason: Hypoglycemia Protocol Stop: 11/17/21 01:44 Glucose (Glucose 10 Tabs/Tube) 4 - 8 tabs PO UD PRN; Protocol PRN Reason: Hypoglycemia Protocol Stop: 11/17/21 01:44 Heparin Sodium (Porcine) (Heparin Sod 5,000 Unit/0.5 Ml Vial) 5,000 units SQ Q12 MINDA Stop: 11/17/21 20:59 Last Admin: 10/19/21 09:01 Dose: 5,000 units Documented by: Insulin Aspart (Insulin Aspart Per Unit) 0 units SC ACHS MINDA Stop: 11/17/21 11:29 Last Admin: 10/19/21 09:00 Dose: 4 units Documented by: Insulin Glargine (Insulin Glargine Solostar 100 Units/Ml 3 Ml Pen) 60 units SQ HS [facility] [place] Stop: 11/17/21 20:59 Last Admin: 10/18/21 20:19 Dose: 60 units Documented by: Isosorbide Mononitrate (Isosorbide [place] Extended Rel 60 Mg Tabcr) 60 mg PO BID [facility] [place] Stop: 11/17/21 08:59 Last Admin: 10/19/21 08:39 Dose: 60 mg Documented by: Labetalol HCl (Labetalol Hcl Iv 5 Mg/Ml 20ml) 10 mg IV Q4H PRN PRN Reason: Hypertension Stop: 11/17/21 01:23 Last Admin: 10/18/21 06:03 Dose: 10 mg Documented by: Losartan Potassium (Losartan Potassium 50 Mg Tab) 100 mg PO DAILY [facility] [place] Stop: 11/17/21 08:59 Last Admin: 10/19/21 08:38 Dose: 100 mg Documented by: Mirtazapine (Mirtazapine Tab 15 Mg Tab) 30 mg PO HS [facility] [place] Stop: 11/17/21 20:59 Last Admin: 10/18/21 20:05 Dose: 30 mg Documented by: Miscellaneous (Carbohydrates For Hypoglycemia ) 15 - 30 gm PO UD PRN PRN Reason: Hypoglycemia Treatment Stop: 11/17/21 01:44 Multivitamins (Multivitamin Tab) 1 tab PO DAILY [facility] Stop: 11/17/21 08:59 Last Admin: 10/19/21 08:39 Dose: 1 tab Documented by: Nitroglycerin (Nitroglycerin Sl 0.4 Mg/Tab Tab) 0.4 mg SL UD PRN PRN Reason: Chest Pain Stop: 11/17/21 01:23 Ondansetron HCl (Ondansetron Inj 2 Mg/Ml 2 Ml Vial) 4 mg IV Q6H PRN PRN Reason: Nausea Stop: 11/17/21 01:23 Psyllium Hydrophilic Mucilloid (Psyllium 58.6% Powder Packet) 2 pkt PO QAM [facility] [place] Stop: 11/17/21 09:29 Last Admin: 10/19/21 09:47 Dose: 1 pkt Documented by: Spironolactone (Spironolactone 12.5 Mg Tab) 12.5 mg PO DAILY [facility] [place] Stop: 11/18/21 08:59 Last Admin: 10/19/21 09:47 Dose: 12.5 mg Documented by: Vitamin D (Cholecalciferol 1,000 Units 25 Mcg Tab) 1,000 units PO DAILY [facility] [place] Stop: 11/17/21 08:59 Last Admin: 10/19/21 08:38 Dose: 1,000 units Documented by: (1) Chest pain Chest pain type: unspecified Qualified Code(s): R07.9 - Chest pain, unspecified
--- NOTE | 2021-10-20 19:35 | Electrocardiogram Report ---
Test Reason : Blood Pressure : / mmHG Vent. Rate : 066 BPM Atrial Rate : 066 BPM P-R Int : 214 ms QRS Dur : 096 ms QT Int : 424 ms P-R-T Axes : 060 020 084 degrees QTc Int : 444 ms Sinus rhythm with 1st degree A-V block Inferior infarct , age undetermined Abnormal ECG When compared with ECG of 15-SEP-2019 20:30, Premature ventricular complexes are no longer Present Confirmed by Dylan Santiago ([id number]) on 10/20/2021 7:35:04 PM Referred By: REFERRED SELF Confirmed By:Dylan Santiago
--- NOTE | 2021-10-20 19:38 | Electrocardiogram Report ---
Test Reason : Blood Pressure : / mmHG Vent. Rate : 070 BPM Atrial Rate : 070 BPM P-R Int : 216 ms QRS Dur : 100 ms QT Int : 432 ms P-R-T Axes : 059 023 081 degrees QTc Int : 466 ms Sinus rhythm with 1st degree A-V block Possible Inferior infarct (cited on or before 17-OCT-2021) Abnormal ECG When compared with ECG of 17-OCT-2021 19:22, (unconfirmed) No significant change was found Confirmed by Dylan Santiago ([id number]) on 10/20/2021 7:38:25 PM Referred By: REFERRED SELF Confirmed By:Dylan Santiago
--- NOTE | 2021-10-20 19:48 | Electrocardiogram Report ---
Test Reason : Blood Pressure : / mmHG Vent. Rate : 065 BPM Atrial Rate : 065 BPM P-R Int : 234 ms QRS Dur : 098 ms QT Int : 450 ms P-R-T Axes : 063 034 096 degrees QTc Int : 468 ms Sinus rhythm with 1st degree A-V block Possible Inferior infarct (cited on or before 17-OCT-2021) Abnormal ECG When compared with ECG of 17-OCT-2021 20:41, (unconfirmed) No significant change was found Confirmed by Dylan Santiago ([id number]) on 10/20/2021 7:48:30 PM Referred By: REFERRED SELF Confirmed By:Dylan Santiago
--- NOTE | 2021-10-20 21:40 | Electrocardiogram Report ---
Test Reason : Blood Pressure : / mmHG Vent. Rate : 055 BPM Atrial Rate : 055 BPM P-R Int : 224 ms QRS Dur : 094 ms QT Int : 458 ms P-R-T Axes : 038 037 113 degrees QTc Int : 438 ms Sinus bradycardia with 1st degree A-V block Possible Inferior infarct (cited on or before 17-OCT-2021) Abnormal ECG When compared with ECG of 18-OCT-2021 06:13, (unconfirmed) No significant change was found Confirmed by Dylan Santiago ([id number]) on 10/20/2021 9:40:00 PM Referred By: REFERRED SELF Confirmed By:Dylan Santiago
--- NOTE | 2021-10-26 15:18 | Discharge Summary ---
Date of Service October 26, 2021 Admission HPI Per Admitting Provider DICTATED BY:Jeffrey Rodriguez MD DATE OF ADMISSION: 10/17/2021. CHIEF COMPLAINT: Dizziness and chest pain. HISTORY OF PRESENT ILLNESS: A 76-year-old female with past medical history si gnificant for diabetes, diabetic retinopathy, hyperlipidemia, chronic kidney disease stage III, COPD, CAD, hypertension, obesity, irritable bowel syndrome, gastritis, history of panic disorder, lives at home, presents with dizziness and some chest discomfort. Today, the patient felt very dizzy and also some chest discomfort radiating to both her arms and checked her blood pressure, it was like 220s, so she came to the hospital. In the ER, blood pressure was 228/154, after labetalol it is improving. She says now dizziness is improving, but she thinks it could be a panic attack. She used to have panic attacks 10 years ago. She used to be on Klonopin, but stopped about 5 years ago. Currently, she is on Remeron. She has mild headache. No blurred visions or double visions. No earache, no runny nose, no sore throat, no cough, no fever. Feeling cold. Was nauseous earlier, but currently no nausea, no sweating. No shortness of breath, no abdominal pain. A few days back she had some constipation and diarrhea, but currently her bowels movements are okay. Has some mild burning micturition. No hematuria. Ambulates okay without any support. Appetite is okay. Admission Exam Per Admitting Provider GENERAL: The patient is morbidly obese, not in acute distress. VITAL SIGNS: Temperature 37.3, pulse 71, respiratory rate 21, blood pressure was 228/154, currently 188/64, oxygen 90% on room air. HEENT: Pupils equal, round and reactive to light. Oral mucosa moist. NECK: No JVD, no neck masses. CARDIOVASCULAR: S1 and S2 heard. Regular rate and rhythm. No murmur, no gallop. RESPIRATORY: Normal AP diameter. No accessory muscle use. No wheezing, no crackles. ABDOMEN: Soft, bowel sounds present, nontender, no distention. CENTRAL NERVOUS SYSTEM: Cranial nerves II-XII grossly intact, nonfocal. EXTREMITIES: Bilateral lower extremity edema present, no erythema seen. Principal Diagnosis Hypertensive crisis, dizziness, anxiety Discharge Exam Lying in bed with mild to moderate anxiety Constitutional well developed, well nourished, + ill appearing and + obese Eyes PERRL, conjunctivae normal, anicteric sclerae ENMT external ear and nose normal, oropharynx normal Neck trachea midline, no thyromegaly Respiratory no respiratory distress Auscultation: lungs clear to auscultation bilaterally; no crackles Cardiovascular Rate/Rhythm: regular rate and regular rhythm; not tachycardic Heart Sounds: normal S1 and normal S2; no murmur Palpation: normal PMI Extremities: + edema (Trace edema bilaterally) Gastrointestinal (Abdomen) Inspection/Auscultation: normal bowel sounds; abdomen not distended Percussion/Palpation: abdomen soft; abdomen nontender Lymphatic no cervical or axillary lymphadenopathy Discharge Data Allergies Allergy/AdvReac Type Severity Reaction Status Date / Time Sulfa (Sulfonamide Allergy Severe HIVES Verified 10/17/21 20:25 Antibiotics) Iodinated Contrast Media Allergy Intermediate HIVES Verified 10/17/21 20:25 Penicillins Allergy Intermediate HIVES Verified 10/17/21 20:25 codeine Allergy Unknown HAS Verified 10/17/21 20:25 TOLERATED MORPHINE W/O RXN SEVERE N&V exenatide Allergy Unknown BYETTA-ELEVATED Verified 10/17/21 20:25 LIPASE erythromycin base AdvReac Intermediate NAUSEA AND Verified 10/17/21 20:25 VOMITING rofecoxib AdvReac Intermediate NAUSEA AND Verified 10/17/21 20:25 VOMITING metformin AdvReac Mild GI UPSET Verified 10/17/21 20:25 morphine AdvReac Mild GI UPSET Verified 10/17/21 20:25 Consultations 10/18/21 08:00 Consult Cardiology Routine Ordered Studies 10/17/21 19:21 CT head/brain wo con Stat Hospital Course (1) Hypertensive crisis: Presented with dizziness and chest pain Noted to have a blood pressure of 228/154 at presentation in the emergency room Received appropriate medications and blood pressure has been improving as of this morning Appreciate cardiology input and recommendation She has been added carvedilol 12.5 mg twice daily and metoprolol has been discontinued Continue with losartan Echocardiogram showed normal systolic function with grade 1 diastolic dysfunction and no significant valvular abnormality Blood pressure has been improving Carvedilol dose has been decreased to 6.25 twice daily due to second-degree AV block Mobitz type I Will get outpatient Zio patch She will be discharged home this afternoon Second-degree AV block, Mobitz type I Happened to be last night and carvedilol dose has been decreased to 6.25 twice daily Advised to have a Zio patch as an outpatient She has been stable and no more cardiac arrhythmias Will be discharged home this afternoon Ongoing dizziness Could be secondary to wax in the ear She has an appointment as an outpatient for that She was advised to take it easy for the next few days (2) Hypertensive urgency: As above (3) Chest pain: Denies any more chest pain Her chest pain seems to be related to anxiety and goes away with some activities Cardiac enzymes remain unremarkable, no significant EKG changes Echo: EF 65 to 70%, mild concentric LVH, grade 1 diastolic dysfunction and aortic valve sclerosis mild without significant aortic stenosis and no change compared with prior No more chest pain and or palpitation (4) Anxiety: Has significant anxiety and has been getting Remeron 30 mg at night May need more during daytime Was given 1 dose of Remeron 15 mg today She will have an appointment with her psychiatrist as an outpatient (5) Coronary artery disease: As above (6) Diabetes mellitus type II, controlled: Hemoglobin A1c is elevated at 8.6 Continue diabetic diet and sliding scale insulin coverage (7) GERD (gastroesophageal reflux disease): DVT prophylaxis Subcu heparin Total Time Total Time Spent Total Time Spent (In Minutes): 35 minutes Discharge Plan Discharge Items Patient Disposition: Home - Self-Care Reason For Visit: DIZZINESS, CHEST DISCOMFORT Discharge Diagnosis: Hypertensive crisis, dizziness, anxiety Condition on Discharge: Good Activity: Resume your previous activity Non-emergency contact: Primary Care Provider Call non-emergency contact if: you have any medication questions and your symptoms worsen Follow-up/Referrals: Lukas Solitario MD [Primary Care Provider] - (Date & Time 10/24/2021 11:00 AM Provider Genesis Chau MD Department General Internal Medicine [facility] ) Diet: Heart Healthy Addtl Attending Provider Instructions: Please take precautions to avoid fall Take your medications as advised Please give appointment with your healthcare providers as advised Pending Studies at Discharge: No Stand-Alone Forms: [employer], Smoking Cessation Medications and DC Order Prescriptions: New carvedilol 6.25 mg Tablet 6.25 mg PO BID Qty: 60 RF: 0 spironolactone 25 mg Tablet 12.5 mg PO DAILY Qty: 30 RF: 0 Continued furosemide 40 mg tablet 40 mg PO DAILY RF: 0 insulin lispro [Humalog KwikPen Insulin] 100 unit/mL insulin pen 5 unit subcut TID RF: 0 ketoconazole 2 % shampoo 1 applic topical Q14D RF: 0 Ocuvite Adult 50 Plus 250-5-1 mg capsule 1 cap PO DAILY RF: 0 (DME) pen needle, diabetic [ReliOn Pen [place]] 32 gauge x 5/32" needle See Rx Instructions .ROUTE .MEDSUPPLY Qty: 50 RF: 0 mirtazapine 30 mg tablet 30 mg PO HS RF: 0 albuterol sulfate [ProAir HFA] 90 mcg/actuation HFA aerosol inhaler 2 puff inhalation Q6H PRN (Reason: Shortness Of Breath Or Wheezing) RF: 0 Basaglar KwikPen U-100 Insulin 100 unit/mL (3 mL) Insulin Pen 60 unit subcut HS RF: 0 multivitamin Tablet 1 tab PO DAILY RF: 0 isosorbide mononitrate 60 mg Tablet Extended Release 24 Hr 60 mg PO BID RF: 0 nitroglycerin [Nitrostat] 0.4 mg Tablet, Sublingual 0.4 mg Sublingual DIRECTED PRN (Reason: Chest Pain) RF: 0 aspirin 81 mg Tablet,Chewable 81 mg PO DAILY RF: 0 cinnamon bark [Cinnamon] 500 mg Capsule 500 mg PO DAILY RF: 0 cholecalciferol (vitamin D3) [Vitamin D3] 1,000 unit Tablet 1,000 unit PO DAILY RF: 0 Metamucil 3.4 gram/5.4 gram Powder 2 tbsp PO DAILY RF: 0 atorvastatin 20 mg Tablet 20 mg PO DAILY RF: 0 ascorbic acid (vitamin C) [Vitamin C] 1,000 mg Tablet 1 g PO DAILY RF: 0 potassium 99 mg Tablet 99 mg PO DAILY RF: 0 losartan 100 mg tablet 100 mg PO DAILY RF: 0 Discontinued metoprolol tartrate [Lopressor] 50 mg Tablet 50 mg PO BID RF: 0 Discharge Orders: Discharge Order (Routine); Ordered 10/19/21 Ordered By: Ebony Jaffe/Other Patient Handouts: High Blood Sugar (Hyperglycemia), Managing Type 2 Diabetes, Special Foot Care for Diabetes Admission Data Admit Date/Time: 10/17/21 23:30 Attending Provider: Ebony Poole Admit Provider: Jeffrey Rodriguez Primary Care Provider: Lukas Solitario Other Providers: Nolan Arriola Other Interventions: Discharge Summary Assessment (RN) Last Done: 10/19/21 16:43
== END 2021-10-19 18:03 | disposition home or self-care (01) | DRG 305 ==
LOC: ED 18:18 → 2S 23:30

== ENCOUNTER 2023-04-27 12:22 | Observation (INO) ==
[2023-04-27] MEDS ORDERED: LABETALOL HCL IV 5 MG/ML 20ML IV STA (12:39)
--- NOTE | 2023-04-27 12:40 | Emergency Department Note ---
Impression & Plan Chest pain ADMIT ED Provider Note HPI: The patient is a 78-year-old female with history of coronary artery disease, stage III chronic kidney disease, type 2 diabetes, presents emergency department chief complaint of chest pain has been relatively constant since yesterday morning after she ate breakfast. Patient states that she has some epigastric pain that is also substernal in nature. On arrival here to the ED the patient is hypertensive, she is otherwise in no acute distress, she is saturating well on room air. ROS: - Per HPI Differential Diagnosis: Acute coronary syndrome, acid reflux, aortic dissection, amongst other potential pathologies. *Outpatient medications and allergy history reviewed. *Pertinent external medical records reviewed. 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 IV was established lab work obtained, patient was placed on traveler changer. EKG reviewed by myself does not show any evidence of ST elevation MA. Lab work shows no leukocytosis, hemoglobin is stable, platelet count is within normal limits, CMP does not show any critical findings, troponin is noted to be elevated at 74. Patient did have an episode of diaphoresis while here in the ED, glucose at that time was checked and was low in the 60s and therefore patient was given an amp of D50 with improvement in her symptoms. Repeat EKG was obtained and does not show any evidence of any acute ischemic changes. Chest x-ray does not show any evidence of widened mediastinum, patient has history of IV contrast allergy that she states is associated with severe shortness of breath, also has chronic kidney disease therefore CT angiography will not be obtained. I have lower suspicion for acute aortic dissection as the patient is not currently symptomatic and chest x-ray is reassuring. Blood pressure down trended with IV labetalol from the 200s systolic to 173/71 on reassessment prior to admission Given the patient's history of coronary artery disease, I do feel she should be admitted with an elevated troponin. Patient is in agreement. Case was discussed with the on-call midlevel provider for the [facility] service, Neha Santos, and the patient was placed for admission in stable condition. Critical care time: 35 minutes -Stabilization of hypertensive emergency with evidence of end-organ damage with elevated troponin requiring IV antihypertensives for improvement, time spent at the bedside, discussion with other healthcare providers and arrangement of admission Consultants: [facility] service Disposition discussion held by myself with: Patient Diagnosis: 1. Chest pain, acute 2. Elevated high-sensitivity troponin level 3. Hypoglycemic episode, acute 4. Hypertensive emergency, acute Disposition: Admission Grabiel Galeana DO Emergency Medicine Past Med/Surg History Medical History CKD (chronic kidney disease), stage III Coronary artery disease Cough Cough variant asthma Diabetes mellitus type II, controlled Dyslipidemia Dyspnea GERD (gastroesophageal reflux disease) Lower extremity edema Lower extremity edema Morbid obesity due to excess calories Surgical History H/O colonoscopy H/O tubal ligation History of arthroplasty of right knee History of esophagogastroduodenoscopy S/P tonsillectomy Family History Other Family history non-contributory Social History Smoking Status: Never smoker Second Hand Exposure: No; Hx Alcohol Use: No Hx Substance Use: No Preferred Language: Ukrainian Communication Ability: Effective Platform Supervisor Required: No Beliefs That Will Affect Care: None marital status: Current Living Situation: Spouse How many Children do You have: 0 Feels Safe at Home: Yes Assistive Devices: None Allergies Allergies Allergy/AdvReac Type Severity Reaction Status Date / Time Sulfa (Sulfonamide Allergy Severe HIVES Verified 06/28/22 10:00 Antibiotics) Iodinated Contrast Media Allergy Intermediate HIVES Verified 06/28/22 10:00 Penicillins Allergy Intermediate HIVES Verified 06/28/22 10:00 codeine Allergy Unknown HAS Verified 06/28/22 10:00 TOLERATED MORPHINE W/O RXN SEVERE N&V exenatide Allergy Unknown BYETTA-ELEVATED Verified 06/28/22 10:00 LIPASE erythromycin base AdvReac Intermediate NAUSEA AND Verified 06/28/22 10:00 VOMITING rofecoxib AdvReac Intermediate NAUSEA AND Verified 06/28/22 10:00 VOMITING metformin AdvReac Mild GI UPSET Verified 06/28/22 10:00 morphine AdvReac Mild GI UPSET Verified 06/28/22 10:00 Home Meds Home Medications Medication Instructions Recorded Confirmed aspirin 81 mg chewable tablet 81 mg PO DAILY 08/24/18 04/27/23 cinnamon bark 500 mg capsule 500 mg PO DAILY 08/24/18 04/27/23 (Cinnamon) isosorbide mononitrate 60 mg 60 mg PO BID 08/24/18 04/27/23 tablet,extended release 24 hr multivitamin 1 tab PO DAILY 08/24/18 04/27/23 nitroglycerin 0.4 mg sublingual 0.4 mg sublingual DIRECTED PRN 08/24/18 04/27/23 tablet (Nitrostat) Chest Pain psyllium husk 3.4 gram/5.4 gram 2 tbsp PO DAILY 08/24/18 04/27/23 oral powder (Metamucil) insulin glargine 100 unit/mL (3 60 unit subcut HS 09/15/19 04/27/23 mL) subcutaneous pen (Basaglar KwikPen U-100 Insulin) mirtazapine 30 mg tablet 30 mg PO HS 09/15/19 04/27/23 insulin lispro 100 unit/mL See Rx Instructions .Route .COMPLEX 03/23/21 04/27/23 subcutaneous pen (Humalog KwikPen (U-100) Insulin) ketoconazole 2 % shampoo 1 applic topical Q14D PRN Other 03/23/21 04/27/23 pen needle, diabetic 32 gauge x #50 ea 03/23/21 06/28/2232" (ReliOn Pen [place]) vit C,E,zinc,copper-ennyy0m 250 1 cap PO DAILY 03/23/21 04/27/23 mg-lutein 5 mg-zeaxanthin 1 mg capsule (Ocuvite Adult 50 Plus) losartan 100 mg tablet 100 mg PO DAILY 10/17/21 04/27/23 amlodipine 2.5 mg tablet 2.5 mg PO DAILY 04/27/23 04/27/23 atorvastatin 40 mg tablet 40 mg PO DAILY 04/27/23 04/27/23 carvedilol 3.125 mg tablet 3.125 mg PO BID 04/27/23 04/27/23 furosemide 40 mg tablet 40 mg PO Q2D 04/27/23 04/27/23 Previous Rx's Medication Instructions Recorded spironolactone 25 mg tablet 12.5 mg PO DAILY #30 tabs 10/19/21 Results & Data (ED) Vital Signs Vital Signs - 24 hr 04/27/23 12:23 04/27/23 12:31 04/27/23 12:52 Temperature 36.3 C L Temperature Source Temporal Artery Scan Pulse Rate 65 65 Pulse Rate [Apical] Pulse Rate from SpO2 Sensor Pulse Rhythm Regular Pulse Rhythm [Apical] Respiratory Rate 20 20 Respiratory Effort / Characteristics Non-Labored Non-Labored Respiratory Depth Blood Pressure 212/79 H Blood Pressure [Left Arm] Blood Pressure Mean 123 Blood Pressure Mean [Left Arm] Pulse Oximetry 97 97 Oxygen Delivery Method Room Air Room Air Room Air Sepsis Recent Fever Within 48 Hours No Sepsis New/Unexplained Change in Mental Status N/A Sepsis Action Taken by Nursing No Action Required 04/27/23 12:53 04/27/23 13:01 04/27/23 13:10 Temperature Temperature Source Pulse Rate 57 L Pulse Rate [Apical] 50 L 50 L Pulse Rate from SpO2 Sensor Pulse Rhythm Pulse Rhythm [Apical] Regular Regular Respiratory Rate 16 16 Respiratory Effort / Characteristics Non-Labored Respiratory Depth Normal Blood Pressure Blood Pressure [Left Arm] 179/63 H 180/68 H Blood Pressure Mean Blood Pressure Mean [Left Arm] 101 105 Pulse Oximetry 93 91 Oxygen Delivery Method Room Air Sepsis Recent Fever Within 48 Hours Sepsis New/Unexplained Change in Mental Status Sepsis Action Taken by Nursing 04/27/23 12:52 04/27/23 13:01 04/27/23 13:10 Temperature Temperature Source Pulse Rate 56 L 55 L 48 L Pulse Rate [Apical] Pulse Rate from SpO2 Sensor 57 L 48 L Pulse Rhythm Pulse Rhythm [Apical] Respiratory Rate 11 L 4 L 6 L Respiratory Effort / Characteristics Respiratory Depth Blood Pressure 205/76 H 179/63 H 180/68 H Blood Pressure [Left Arm] Blood Pressure Mean 119 101 105 Blood Pressure Mean [Left Arm] Pulse Oximetry 93 91 Oxygen Delivery Method Sepsis Recent Fever Within 48 Hours Sepsis New/Unexplained Change in Mental Status Sepsis Action Taken by Nursing 04/27/23 13:28 04/27/23 14:01 Temperature Temperature Source Pulse Rate 51 L 53 L Pulse Rate [Apical] Pulse Rate from SpO2 Sensor 48 L Pulse Rhythm Pulse Rhythm [Apical] Respiratory Rate 6 L 20 Respiratory Effort / Characteristics Respiratory Depth Blood Pressure 160/66 H 173/71 H Blood Pressure [Left Arm] Blood Pressure Mean 97 105 Blood Pressure Mean [Left Arm] Pulse Oximetry 92 Oxygen Delivery Method Sepsis Recent Fever Within 48 Hours Sepsis New/Unexplained Change in Mental Status Sepsis Action Taken by Nursing Laboratory Data 04/27/23 12:48 04/27/23 12:48 Lab Results 04/27/23 04/27/23 04/27/23 Range/Units 12:48 12:48 12:48 WBC 10.34 (4.8-10.8) K/ul RBC 4.33 (4.20-5.40) M/uL Hgb 14.0 (12.0-16.0) g/dl Hct 40.3 (37.0-47.0) % MCV 93.1 (80.0-100.0) fL MCH 32.3 (25.0-34.0) pg MCHC 34.7 (32.0-36.0) g/dL RDW Std Deviation 44.5 (36.4-46.3) fL RDW Coeff of [place] 13.1 (11.5-14.5) % Plt Count 228 (130-400) K/uL MPV 10.3 (9.4-12.4) fL Immature Gran % (Auto) 0.4 % Neut % (Auto) 56.1 % Lymph % (Auto) 34.5 % Wise % (Auto) 8.3 % Eos % (Auto) 0.4 % Baso % (Auto) 0.3 % Neut # (Auto) 5.80 (1.40-6.50) K/uL Lymph # (Auto) 3.57 H (1.2-3.4) K/uL Wise # (Auto) 0.86 H (0.11-0.59) K/uL Eos # (Auto) 0.04 (0-0.50) K/uL Baso # (Auto) 0.03 (0-0.2) K/uL Immature Gran # (Auto) 0.04 (0.01-0.20) K/uL PT 10.3 (9.0-12.0) Seconds INR 0.9 (0.9-1.1) Sodium 140 (136-145) mmol/L Potassium 3.9 (3.5-5.1) mmol/L Chloride 102 (98-107) mmol/L Carbon Dioxide 32 (21-32) mmol/L Anion Gap 6 (3-11) BUN 25 H (6-23) mg/dl Creatinine 1.27 H (0.6-1.2) mg/dl Est Cr Clr Drug Dosing 40.8 ml/min Est GFR ( Amer) 46.5 ml/min Est GFR (Non-Af Amer) 40.1 ml/min BUN/Creatinine Ratio 19.7 (10-20) Glucose 62 L (70-99(Fasting)) mg/dl POC Glucose (70-99) mg/dl Calcium 9.9 (8.6-10.3) mg/dl Total Bilirubin 0.5 (0.2-1.0) mg/dl AST 23 (13-39) U/L ALT 42 (7-52) U/L Alkaline Phosphatase 73 (34-104) U/L Troponin I High Sens 74.1 H* (0-14) pg/ml Total Protein 7.5 (6.0-8.3) gm/dl Albumin 4.4 (3.4-5.0) gm/dl Globulin 3.1 (2.5-4.0) gm/dl Albumin/Globulin Ratio 1.4 (0.9-2) Lipase 36 (11-82) U/L SARS-CoV-2, RNA, NAAT (NEGATIVE) 04/27/23 04/27/23 Range/Units 13:46 14:00 WBC (4.8-10.8) K/ul RBC (4.20-5.40) M/uL Hgb (12.0-16.0) g/dl Hct (37.0-47.0) % MCV (80.0-100.0) fL MCH (25.0-34.0) pg MCHC (32.0-36.0) g/dL RDW Std Deviation (36.4-46.3) fL RDW Coeff of [place] (11.5-14.5) % Plt Count (130-400) K/uL MPV (9.4-12.4) fL Immature Gran % (Auto) % Neut % (Auto) % Lymph % (Auto) % Wise % (Auto) % Eos % (Auto) % Baso % (Auto) % Neut # (Auto) (1.40-6.50) K/uL Lymph # (Auto) (1.2-3.4) K/uL Wise # (Auto) (0.11-0.59) K/uL Eos # (Auto) (0-0.50) K/uL Baso # (Auto) (0-0.2) K/uL Immature Gran # (Auto) (0.01-0.20) K/uL PT (9.0-12.0) Seconds INR (0.9-1.1) Sodium (136-145) mmol/L Potassium (3.5-5.1) mmol/L Chloride (98-107) mmol/L Carbon Dioxide (21-32) mmol/L Anion Gap (3-11) BUN (6-23) mg/dl Creatinine (0.6-1.2) mg/dl Est Cr Clr Drug Dosing ml/min Est GFR ( Amer) ml/min Est GFR (Non-Af Amer) ml/min BUN/Creatinine Ratio (10-20) Glucose (70-99(Fasting)) mg/dl POC Glucose 77 (70-99) mg/dl Calcium (8.6-10.3) mg/dl Total Bilirubin (0.2-1.0) mg/dl AST (13-39) U/L ALT (7-52) U/L Alkaline Phosphatase (34-104) U/L Troponin I High Sens (0-14) pg/ml Total Protein (6.0-8.3) gm/dl Albumin (3.4-5.0) gm/dl Globulin (2.5-4.0) gm/dl Albumin/Globulin Ratio (0.9-2) Lipase (11-82) U/L SARS-CoV-2, RNA, NAAT NEGATIVE (NEGATIVE) Administered Medications Discontinued Medications Dextrose (Dextrose 50% 50 Ml Syringe) 50 ml IV NOW ONE Stop: 04/27/23 13:49 Last Admin: 04/27/23 13:56 Dose: 50 ml Documented By: DARCY Labetalol HCl (Labetalol Hcl Iv 5 Mg/Ml 20ml) 10 mg IV NOW STA Stop: 04/27/23 12:40 Last Admin: 04/27/23 12:57 Dose: 10 mg Documented By: DARCY Co-signed By: TIARA Imaging Data Radiologist's Impression: Chest X-Ray 04/27/23 12:31 XR chest 1V portable CLINICAL HISTORY: Chest pain, nonspecific TECHNIQUE: Single frontal radiograph of the chest was obtained. Comparison: Comparison is made to chest radiograph 10/17/2021 FINDINGS: No lines and tubes are seen. Cardiomegaly is noted. The lungs are clear. No evidence of pleural effusion or pneumothorax. IMPRESSION: Stable cardiomegaly without evidence of acute abnormalities. ACT 112: Negative or not required by law. Electronically signed by: Maximino Ghotra M.D. 04/27/2023 2:25 PM Discharge Plan Visit Data Chief Complaint: Chest Pain Stated Complaint: SHAKEY,CHEST PAIN,DIARREAH ED Provider: Grabiel Galeana Discharge Problem: Chest pain Forms Stand Alone Forms: [facility] Prescriptions Prescriptions: No Action insulin lispro [Humalog KwikPen Insulin] 100 unit/mL insulin pen See Rx Instructions .ROUTE .COMPLEX Rx Instructions: 55 units before breakfast; 55 units before lunch and 95 units before dinner ketoconazole 2 % shampoo 1 applic topical Q14D PRN (Reason: Other) Rx Instructions: not using currently Ocuvite Adult 50 Plus 250-5-1 mg capsule 1 cap PO DAILY Rx Instructions: unsure if she still uses this (DME) pen needle, diabetic [ReliOn Pen [place]] 32 gauge x 5/32" needle See Rx Instructions .ROUTE .MEDSUPPLY Qty: 50 Rx Instructions: As directed mirtazapine 30 mg tablet 30 mg PO HS insulin glargine [Basaglar KwikPen U-100 Insulin] 100 unit/mL (3 mL) Insulin Pen 60 unit subcut HS multivitamin Tablet 1 tab PO DAILY isosorbide mononitrate 60 mg Tablet Extended Release 24 Hr 60 mg PO BID nitroglycerin [Nitrostat] 0.4 mg Tablet, Sublingual 0.4 mg Sublingual DIRECTED PRN (Reason: Chest Pain) aspirin 81 mg Tablet,Chewable 81 mg PO DAILY cinnamon bark [Cinnamon] 500 mg Capsule 500 mg PO DAILY Metamucil 3.4 gram/5.4 gram Powder 2 tbsp PO DAILY losartan 100 mg tablet 100 mg PO DAILY spironolactone 25 mg Tablet 12.5 mg PO DAILY Qty: 30 0RF atorvastatin 40 mg tablet 40 mg PO DAILY amlodipine 2.5 mg tablet 2.5 mg PO DAILY carvedilol 3.125 mg tablet 3.125 mg PO BID furosemide 40 mg tablet 40 mg PO Q2D Referrals Referrals: Lukas Solitario MD [Primary Care Provider] - Chest pain Qualifiers: Chest pain type: unspecified Qualified Code(s): R07.9 - Chest pain, unspecified
[2023-04-27 13:07] LABS: Basophils # (auto) 0.03 K/uL (0-0.2); Basophils % (auto) 0.3 %; Eosinophils # (auto) 0.04 K/uL (0-0.50); Eosinophils % (auto) 0.4 %; Hematocrit (blood only) 40.3 % (37.0-47.0); Immature Granulocytes # (auto) 0.04 K/uL (0.01-0.20); Immature Granulocytes % (auto) 0.4 %; Lymphocytes # (auto) 3.57 K/uL (1.2-3.4); Lymphocytes % (auto) 34.5 %; Mean Corpuscular Hemoglobin 32.3 pg (25.0-34.0); Mean Corpuscular Hgb Conc 34.7 g/dL (32.0-36.0); Mean Corpuscular Volume 93.1 fL (80.0-100.0); Mean Platelet Volume 10.3 fL (9.4-12.4); Monocytes # (auto) 0.86 K/uL (0.11-0.59); Monocytes % (auto) 8.3 %; Neutrophils % (auto) 56.1 %; Platelet Count 228 K/uL (130-400); RDW Coefficient of Variation 13.1 % (11.5-14.5); RDW Standard Deviation 44.5 fL (36.4-46.3); Red Blood Count 4.33 M/uL (4.20-5.40); White Blood Count 10.34 K/ul (4.8-10.8)
[2023-04-27 13:19] LABS: Albumin Globulin Ratio 1.4 (0.9-2); Albumin Level 4.4 gm/dl (3.4-5.0); BUN Creatinine Ratio 19.7 (10-20); Bilirubin,Total 0.5 mg/dl (0.2-1.0); Calcium 9.9 mg/dl (8.6-10.3); Creatinine Clr Calc Pharmacy 40.8 ml/min; Est GFR (African American) 46.5 ml/min; Est GFR (Non-African American) 40.1 ml/min; Globulin 3.1 gm/dl (2.5-4.0); Potassium 3.9 mmol/L (3.5-5.1); Total Protein 7.5 gm/dl (6.0-8.3)
[2023-04-27 13:28] LABS: INR 0.9 (0.9-1.1); Prothrombin Time 10.3 Seconds (9.0-12.0)
[2023-04-27 13:32] LABS: Troponin I High Sensitivity 74.1 pg/ml (0-14)
[2023-04-27] MEDS ORDERED: DEXTROSE 50% 50 ML SYRINGE IV ONE (13:48)
--- NOTE | 2023-04-27 14:27 | XRay Report ---
XR chest 1V portable CLINICAL HISTORY: Chest pain, nonspecific TECHNIQUE: Single frontal radiograph of the chest was obtained. Comparison: Comparison is made to chest radiograph 10/17/2021 FINDINGS: No lines and tubes are seen. Cardiomegaly is noted. The lungs are clear. No evidence of pleural effus ion or pneumothorax. IMPRESSION: Stable cardiomegaly without evidence of acute abnormalities. ACT 112: Negative or not required by law. Electronically signed by: Maximino Ghotra M.D. 04/27/2023 2:25 PM
--- NOTE | 2023-04-27 14:59 | History & Physical Report ---
Date of Service April 27, 2023 Assessment & Plan (1) Chest pain: (2) Hypoglycemia: (3) T2DM (type 2 diabetes mellitus): Plan This is a 78-year-old female who has a significant past medical history of CAD, chronic diastolic CHF, HTN, HLD, T2DM with retinopathy, nephropathy and [place] ropathy, CKD stage III, IBS who presents to ED secondary to chest pain. Chest pain described as, "tightness," started yesterday after stressful event while eating breakfast with friends at the [employer] shop. Today she generally felt unwell and shaky, took 50 units of Humalog insulin and was unable to eat her breakfast. Chest pain/tightness free while in ED. When presented to ED patient was hypoglycemic. She is being admitted due to history of CAD, chest tightness as well as mild elevated troponin. Chest tightness has since resolved. Atypical chest pain CAD Elevated troponin Hypertension Symptoms appear concerning for anxiety as well as hypoglycemia However given history we will do full ACS work-up Cycle troponin, repeat EKG in a.m. Obtain echocardiogram, last done 1 year ago which revealed mild aortic valve stenosis and preserved ejection fraction We will hold on cardiology consult for now, if troponin trends up will consult Patient is also significantly hypertensive in ED, she received 1 dose of IV labetalol which did cause some mild bradycardia Will monitor closely on floor Continue ASA, statin, amlodipine, Imdur, losartan and Aldactone Patient also prescribed 40 mg of Lasix and potassium supplement which have since been placed on hold due to outpatient elevation of renal function, Lasix may need resumed while inpatient pt outpatient blood pressures were reviewed in [facility] and are well controlled 04/23 124/50, 03/18 was 114/54 ; this may be in setting of anxiety as well Insulin-dependent T2DM, uncontrolled Hypoglycemic event Complications of diabetes include neuropathy, nephropathy and retinopathy Patient on high doses of insulin, 50 units of Lantus at bedtime and Humalo units before breakfast and lunch and 90 units before dinner Last A1c was 9.2 in March Consult glycemic pharmacy lantus/novolog per protocol CKD stage III Renal function at baseline, creatinine 1.27 Avoid nephrotoxic agents DVT prophylaxis: Lovenox Dispo: PCU for ACS rule out PCP: Altaf Full code Patient was seen and examined in collaboration with, Dr. Jacobs please see addendum History of Present Illness Chief Complaint: Chest pain prior to arrival. Primary Care Provider: Lukas Solitario MD This is a 78-year-old female who has a significant past medical history of CAD, chronic diastolic CHF, HTN, HLD, T2DM with retinopathy, nephropathy and neuropathy, CKD stage III, IBS who presents to ED secondary to chest pain. is at bedside. Yesterday they went to [employer] for breakfast and she got blueberry pancakes and they overloaded it with blueberries. They went with some friends and some events occurred yesterday with her friends that really stressed her out. Shortly after she developed chest tightness. This morning she had a temp of 99.3 and generally felt unwell and was shaky. She then took her insulin and her bsg prior to checking sugar was 135. She took her short acting insulin and all she ate was her yogurt and banana and took 50 units of humalog. She never ate her whole breakfast which is why her bsg went low here. She just didn't feel good and couldn't eat. She has had similar feeling 30 years ago when her brother . She got chest tightness the first time yesterday morning after breakfast. Her chest tightness is now gone. She denies SOB, ARAUZ, dizziness, lightheaded, uri sx, cough, abd pain, n/v/d, and worsened leg swelling. She denies recent illness History from ED provider includes that patient presented with substernal chest pain as well as epigastric pain. She has prior history of coronary artery disease but no prior intervention. Upon arrival to ED patient was significantly hypertensive which was treated with IV labetalol. Initial chest x-ray was nega tive for any acute abnormality and no mediastinal widening. Initial EKG was without ischemic change but initial Trope mildly bumped at 75. She did receive ASA. Approximately 45 minutes into her hospital stay she became diaphoretic which was felt to be associated with hypoglycemia with a blood sugar in the 70s. Patient did take her morning insulin but did not yet eat anything. At that time she was given an amp of D50 and her symptoms improved. A repeat EKG was also taken at that time which was negative for any ischemic findings. ED provider thought symptoms may be gastric related as well but given prior history felt should be admitted for further work-up. Allergies Allergy/AdvReac Type Severity Reaction Status Date / Time Sulfa (Sulfonamide Allergy Severe HIVES Verified 06/28/22 10:00 Antibiotics) Iodinated Contrast Media Allergy Intermediate HIVES Verified 06/28/22 10:00 Penicillins Allergy Intermediate HIVES Verified 06/28/22 10:00 codeine Allergy Unknown HAS Verified 06/28/22 10:00 TOLERATED MORPHINE W/O RXN SEVERE N&V exenatide Allergy Unknown BYETTA-ELEVATED Verified 06/28/22 10:00 LIPASE erythromycin base AdvReac Intermediate NAUSEA AND Verified 06/28/22 10:00 VOMITING rofecoxib AdvReac Intermediate NAUSEA AND Verified 06/28/22 10:00 VOMITING metformin AdvReac Mild GI UPSET Verified 06/28/22 10:00 morphine AdvReac Mild GI UPSET Verified 06/28/22 10:00 Home Medications Medication Instructions Recorded Confirmed Type aspirin 81 mg chewable tablet 81 mg PO DAILY 08/24/18 04/27/23 History cinnamon bark 500 mg capsule 500 mg PO DAILY 08/24/18 04/27/23 History (Cinnamon) isosorbide mononitrate 60 mg 60 mg PO BID 08/24/18 04/27/23 History tablet,extended release 24 hr multivitamin 1 tab PO DAILY 08/24/18 04/27/23 History nitroglycerin 0.4 mg sublingual 0.4 mg sublingual DIRECTED PRN 08/24/18 04/27/23 History tablet (Nitrostat) Chest Pain psyllium husk 3.4 gram/5.4 gram 2 tbsp PO DAILY 08/24/18 04/27/23 History oral powder (Metamucil) insulin glargine 100 unit/mL (3 50 unit subcut HS 09/15/19 04/27/23 History mL) subcutaneous pen (Basaglar KwikPen U-100 Insulin) mirtazapine 30 mg tablet 30 mg PO HS 09/15/19 04/27/23 History insulin lispro 100 unit/mL See Rx Instructions .Route .COMPLEX 03/23/21 04/27/23 History subcutaneous pen (Humalog KwikPen (U-100) Insulin) ketoconazole 2 % shampoo 1 applic topical Q14D PRN Other 03/23/21 04/27/23 History pen needle, diabetic 32 gauge x #50 ea 03/23/21 06/28/22 History " (ReliOn Pen [place]) vit C,E,zinc,copper-qpgup2u 250 1 cap PO DAILY 03/23/21 04/27/23 History mg-lutein 5 mg-zeaxanthin 1 mg capsule (Ocuvite Adult 50 Plus) losartan 100 mg tablet 100 mg PO DAILY 10/17/21 04/27/23 History spironolactone 25 mg tablet 12.5 mg PO DAILY #30 tabs 10/19/21 04/27/23 Rx amlodipine 2.5 mg tablet 2.5 mg PO DAILY 04/27/23 04/27/23 History atorvastatin 40 mg tablet 40 mg PO DAILY 04/27/23 04/27/23 History carvedilol 3.125 mg tablet 3.125 mg PO BID 04/27/23 04/27/23 History furosemide 40 mg tablet 40 mg PO Q2D 04/27/23 04/27/23 History Past Med/Surg History Medical History CKD (chronic kidney disease), stage III Coronary artery disease Cough Cough variant asthma Diabetes mellitus type II, controlled Dyslipidemia Dyspnea GERD (gastroesophageal reflux disease) Lower extremity edema Lower extremity edema Morbid obesity due to excess calories Surgical History H/O colonoscopy H/O tubal ligation History of arthroplasty of right knee History of esophagogastroduodenoscopy S/P tonsillectomy Family History Other Family history non-contributory Social History Smoking Status: Never smoker Second Hand Exposure: No; Hx Alcohol Use: No Hx Substance Use: No Preferred Language: Panamanian Communication Ability: Effective [employer] Supervisor Required: No Beliefs That Will Affect Care: None marital status: Current Living Situation: Spouse How many Children do You have: 0 Feels Safe at Home: Yes Assistive Devices: None Review of Systems Review of Systems: All systems reviewed & are unremarkable except as noted in HPI & below Physical Exam Physical Exam: please see Dr. Jacobs addendum for physical exam findings. Results & Data Results & Data Vital Signs (Past 12 Hours) Vital Signs Temp Pulse Pulse Resp BP BP Pulse Ox 04/27/23 14:01 53 L 20 173/71 H 04/27/23 13:28 51 L 6 L 160/66 H 92 04/27/23 13:10 48 L 6 L 180/68 H 91 04/27/23 13:01 55 L 4 L 179/63 H 04/27/23 12:52 56 L 11 L 205/76 H 93 04/27/23 13:10 50 L 16 180/68 H 91 04/27/23 13:01 50 L 16 179/63 H 93 04/27/23 12:53 57 L 04/27/23 12:52 04/27/23 12:31 65 20 97 04/27/23 12:23 36.3 C L 65 20 212/79 H 97 O2 Del Method 04/27/23 14:01 04/27/23 13:28 04/27/23 13:10 04/27/23 13:01 04/27/23 12:52 04/27/23 13:10 04/27/23 13:01 Room Air 04/27/23 12:53 04/27/23 12:52 Room Air 04/27/23 12:31 Room Air 04/27/23 12:23 Room Air Diagnostic Findings Chest X-Ray 04/27/23 12:31 XR chest 1V portable CLINICAL HISTORY: Chest pain, nonspecific TECHNIQUE: Single frontal radiograph of the chest was obtained. Comparison: Comparison is made to chest radiograph 10/17/2021 FINDINGS: No lines and tubes are seen. Cardiomegaly is noted. The lungs are clear. No evidence of pleural effusion or pneumothorax. IMPRESSION: Stable cardiomegaly without evidence of acute abnormalities. ACT 112: Negative or not required by law. Electronically signed by: Maximino Ghotra M.D. 04/27/2023 2:25 PM Medications Administered Medication List Discontinued Medications Dextrose (Dextrose 50% 50 Ml Syringe) 50 ml IV NOW ONE Stop: 04/27/23 13:49 Last Admin: 04/27/23 13:56 Dose: 50 ml Documented By: DARCY Labetalol HCl (Labetalol Hcl Iv 5 Mg/Ml 20ml) 10 mg IV NOW STA Stop: 04/27/23 12:40 Last Admin: 04/27/23 12:57 Dose: 10 mg Documented By: DARCY Co-signed By: TIARA ECG Rate (beats per minute): 53 Rhythm: sinus bradycardia Findings: + 1st degree AV block and + PVC Additional Comments: EKG done on arrival showed ventricular rate of 63 bpm, no ST or T wave change, VT interval 194 ms, QTc 397 ms COVID-19 Results Results COVID-19 Adm Lab Results: RBC 4.33 M/uL (4.20-5.40) 04/27/23 WBC 10.34 K/ul (4.8-10.8) 04/27/23 Hgb 14.0 g/dl (12.0-16.0) 04/27/23 Hct 40.3 % (37.0-47.0) 04/27/23 Plt Count 228 K/uL (130-400) 04/27/23 Neutrophils (%) (Auto) 56.1 % 04/27/23 Lymphocytes (%) (Auto) 34.5 % 04/27/23 Monocytes # (Auto) 0.86 K/uL (0.11-0.59) H 04/27/23 Eosinophils # (Auto) 0.04 K/uL (0-0.50) 04/27/23 Immature Granulocyte % (Auto) 0.4 % 04/27/23 Neutrophils # (Auto) 5.80 K/uL (1.40-6.50) 04/27/23 Lymphocytes # (Auto) 3.57 K/uL (1.2-3.4) H 04/27/23 Monocytes # (Auto) 0.86 K/uL (0.11-0.59) H 04/27/23 Eosinophils # (Auto) 0.04 K/uL (0-0.50) 04/27/23 Basophils # (Auto) 0.03 K/uL (0-0.2) 04/27/23 Immature Granulocyte # (Auto) 0.04 K/uL (0.01-0.20) 3 Na 140 mmol/L (136-145) 04/27/23 K 3.9 mmol/L (3.5-5.1) 04/27/23 Cl 102 mmol/L (98-107) 04/27/23 CO2 32 mmol/L (21-32) 04/27/23 Anion Gap 6 (3-11) 04/27/23 BUN 25 mg/dl (6-23) H 04/27/23 Creatinine 1.27 mg/dl (0.6-1.2) H 04/27/23 BUN/Creatinine Ratio 19.7 (10-20) 04/27/23 Glucose Level 62 mg/dl (70-99(Fasting)) L 04/27/23 Ca 9.9 mg/dl (8.6-10.3) 04/27/23 Total Bilirubin 0.5 mg/dl (0.2-1.0) 04/27/23 AST/SGOT 23 U/L (13-39) 04/27/23 ALT/SGPT 42 U/L (7-52) 04/27/23 Alkaline Phosphatase 73 U/L (34-104) 04/27/23 Total Protein 7.5 gm/dl (6.0-8.3) 04/27/23 Albumin 4.4 gm/dl (3.4-5.0) 04/27/23 Globulin 3.1 gm/dl (2.5-4.0) 04/27/23 Albumin/Globulin Ratio 1.4 (0.9-2) 04/27/23 INR 0.9 (0.9-1.1) 04/27/23 SARS-CoV-2, RNA, NAAT NEGATIVE (NEGATIVE) 04/27/23 Chest X-Ray 04/27/23 Code Status & VTE Plan Code Status Full code Supervising Physician Co-Signing Physician Notes Pt is a 78 y/o F with hx of IDDM, CAD, Diastolic dysfunction, HTN, HLD, CKD III, Asthma, Panic disorder, IBS , Mild admitted for substernal CP and hypoglycemia. Pt took 50 units of humolog today morning and did not eat breakfast after PE: obese pt, NAD Lungs: CTA, no wheezing or crackles Cardiac: Normal S1/S2, no murmur Abd: obese abd, NT, ND, soft MSK: trace b/l LE pitting edema Psych: AAOx3, normal affect A/P: Chest pain: -currently resolved -EKG: Sinus nanda (but pt was avg low 60s during the exam), No ST changes -Initial trop is elevated ---- trend trop, obtain echo and admit to tele -will consult cardiology if the trop trends up -CXR: no acute finding IDDM with Hypoglycemia: -pt did not eat after taking humolog -pt is on high dose of lantus and humolog and her output A1C was 9 -will continue currently home regimen and consult diabetic pharmacist - A1C in the AM Other chronic conditions: plan as above Agree with A/P by Neha Mckeon PA-C (1) Chest pain Chest pain type: unspecified Qualified Code(s): R07.9 - Chest pain, unspecified
[2023-04-27] MEDS ORDERED: ASPIRIN CHEW 324 MG PO STA (15:18)
[2023-04-27] MEDS ORDERED: GLUCOSE 40% GEL 15 GM TUBE PO PRN (17:46)
[2023-04-27] MEDS ORDERED: GLUCAGON FOR INJ 1 MG VIAL SQ PRN (17:46)
[2023-04-27] MEDS ORDERED: PHARMACY GLYCEMIC MGMT CONSULT PRN (17:46)
[2023-04-27] MEDS ORDERED: DEXTROSE 50% 50 ML SYRINGE IV PRN (17:46)
[2023-04-27] MEDS ORDERED: POLYETHYLENE (MIRALAX) 17 GM PACK PO PRN (17:46)
[2023-04-27] MEDS ORDERED: ALUMINUM/MAGNESIUM SUSP 30 ML UDC PO PRN (17:46)
[2023-04-27] MEDS ORDERED: ACETAMINOPHEN 325 MG TAB PO PRN (17:46)
[2023-04-27] MEDS ORDERED: CARBOHYDRATES FOR HYPOGLYCEMIA PO PRN (17:46)
[2023-04-27] MEDS ORDERED: ONDANSETRON INJ 2 MG/ML 2 ML VIAL IV PRN (17:46)
[2023-04-27] MEDS ORDERED: GLUCOSE 10 TAB/TUBE PO PRN (17:46)
--- NOTE | 2023-04-27 18:18 | Electrocardiogram Report ---
Test Reason : Blood Pressure : / mmHG Vent. Rate : 063 BPM Atrial Rate : 063 BPM P-R Int : 194 ms QRS Dur : 084 ms QT Int : 388 ms P-R-T Axes : 060 -23 077 degrees QTc Int : 397 ms Normal sinus rhythm with sinus arrhythmia Low voltage QRS Inferior infarct (cited on or before 17-OCT-2021) Possible Anterolateral infarct , age undetermined Abnormal ECG When compared with ECG of 19-OCT-2021 04:12, MI interval has decreased Borderline criteria for Anterolateral infarct are now Present Nonspecific T wave abnormality, improved in Lateral leads Confirmed by Dylan Santiago ([id number]) on 04/27/2023 6:18:02 PM Referred By: REFERRED SELF Confirmed By:Dylan Santiago
--- NOTE | 2023-04-27 18:21 | Electrocardiogram Report ---
Test Reason : Blood Pressure : / mmHG Vent. Rate : 053 BPM Atrial Rate : 053 BPM P-R Int : 226 ms QRS Dur : 090 ms QT Int : 444 ms P-R-T Axes : 065 -17 072 degrees QTc Int : 416 ms Sinus bradycardia with 1st degree A-V block with Premature supraventricular complexes Low voltage QRS Cannot rule out Anterior infarct (cited on or before 27-APR-2023) Abnormal ECG When compared with ECG of 27-APR-2023 12:29, (unconfirmed) Premature supraventricular complexes are now Present OR interval has increased Confirmed by Dlyan Santiago ([id number]) on 04/27/2023 6:21:30 PM Referred By: REFERRED SELF Confirmed By:Dylan Santiago
[2023-04-27] MEDS: INSULIN ASPART PER UNIT CHARGE SC SCH ×2 (19:15→20:14)
[2023-04-27] MEDS ORDERED: hydrOXYzine HCl 25 MG TAB PO STA (19:39)
[2023-04-27] MEDS: carvediloL 3.125 MG TAB PO SCH (20:05)
[2023-04-27] MEDS: ENOXAPARIN INJ 40 MG/0.4 ML SYR SQ SCH (20:06)
[2023-04-27] MEDS: ISOSORBIDE MONO EXTENDED REL 60 MG TABCR PO SCH (20:06)
[2023-04-27] MEDS: LANTUS PER UNIT CHARGE SQ SCH (20:13)
[2023-04-27] MEDS: MIRTAZAPINE TAB 15 MG TAB PO SCH (22:12)
[2023-04-28] MEDS ORDERED: INSULIN ASPART PER UNIT CHARGE SC SCH (02:00)
[2023-04-28 06:37] LABS: Chol HDL Ratio 2.1 (0-5)
[2023-04-28 06:46] LABS: Troponin I High Sensitivity 56.3 pg/ml (0-14)
[2023-04-28] MEDS: INSULIN ASPART PER UNIT CHARGE SC SCH ×4 (07:45→20:42)
[2023-04-28] MEDS ORDERED: NON-FORMULARY MEDICATION (C,E,Zinc,Copper 11-Omega3s-Lut [Ocuvite Adult 50 Plus] 250-5-1 m PO SCH (09:00)
[2023-04-28] MEDS ORDERED: amLODIPine BESYLATE 5 MG TAB PO SCH (09:00)
[2023-04-28] MEDS: ASPIRIN 81 MG ECTAB PO SCH (09:22)
[2023-04-28] MEDS: ISOSORBIDE MONO EXTENDED REL 60 MG TABCR PO SCH ×2 (09:23→20:34)
[2023-04-28] MEDS: ATORVASTATIN 40 MG TAB PO SCH (09:23)
[2023-04-28] MEDS: carvediloL 3.125 MG TAB PO SCH ×2 (09:23→22:01)
[2023-04-28] MEDS: CEROVITE ADV FORMULA TAB PO SCH (09:24)
[2023-04-28] MEDS: LOSARTAN POTASSIUM 50 MG TAB PO SCH (09:24)
[2023-04-28] MEDS: SPIRONOLACTONE 12.5 MG TAB PO SCH (09:24)
[2023-04-28] MEDS: PSYLLIUM or GUAR GUM FIBER POWDER PACKET PO SCH (09:54)
--- NOTE | 2023-04-28 11:27 | Cardiology Consultation ---
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 Angina precipitated by acute emotional stressors, hypertensive urgency and hypoglycemia. Echocardiogram demonstrates preserved LV systolic EKGs revealed no acute ST segment changes Troponins elevated but flat consistent with patient's underlying hypertensive disease, renal insufficient Medication adjustments recently notable for reduction in antihypertension regimen due to rising creatinine including reduction in furosemide Blood pressure is relatively controlled currently. Carvedilol held last night due to hold parameter Impression: Chronic angina pectoris with acute exacerbation secondary to hypertensive urgency, hyperglycemia Recommendations: Increase antihypertensive regimen. Will increase amlodipine to 2.5 mg twice per day. Continue prior medications with likely resumption of furosemide once renal function discerned Repeat labs test today Renovascular ultrasound given recent change in renal function, hypertensive urgency Avoid hypoglycemia We will consider stress testing as outpatient but patient has declined in past. Severe contrast allergy noted Cardiology will follow History of Present Illness Requesting Physician: Dr. Poole Attending Physician: Ebony Poole MD History of Present Illness Patient is a 78-year-old female with very complex underlying history which includes 1. Chronic coronary artery diseaseOctober 2002 cardiac catheterization with a 100% occlusion of the PDA of the RCA with left to right collateral filling, 30% RCA stenosis, 30% LCX stenosis, and a 50% mid LAD stenosis. Chronic stable angina 2. Longstanding hypertension with diastolic heart failure 3. Mild to moderate calcific valvular disease without significant stenosis or insufficiency 4. Complex iodinated contrast allergy 5. Type 2 diabetes mellitus with labile glucose Patient presents now noting episode of chest tightness the day prior to admission after becoming emotionally involved in stressful situation. Following morning felt "out of sorts, diaphoretic" sought ER evaluation where patient found to be hypertensive and hyperglycemic. Patient treated with D50 and single dose of IV labetalol Blood pressures trending towards slightly better control in hospital Recent history notable for reduction in diuretic dosing due to slight rise in creatinine on outpatient testing. Furosemide reduced to every other day No specific exertional relationship to symptoms with patient with mild chronic dyspnea. [place] febrile and "sweaty" on presentation with recurrence in hospital but associated each time with hypoglycemia. No documented fever Allergies Allergy/AdvReac Type Severity Reaction Status Date / Time Sulfa (Sulfonamide Allergy Severe HIVES Verified 06/28/22 10:00 Antibiotics) Iodinated Contrast Media Allergy Intermediate HIVES Verified 06/28/22 10:00 Penicillins Allergy Intermediate HIVES Verified 06/28/22 10:00 codeine Allergy Unknown HAS Verified 06/28/22 10:00 TOLERATED MORPHINE W/O RXN SEVERE N&V exenatide Allergy Unknown BYETTA-ELEVATED Verified 06/28/22 10:00 LIPASE erythromycin base AdvReac Intermediate NAUSEA AND Verified 06/28/22 10:00 VOMITING rofecoxib AdvReac Intermediate NAUSEA AND Verified 06/28/22 10:00 VOMITING metformin AdvReac Mild GI UPSET Verified 06/28/22 10:00 morphine AdvReac Mild GI UPSET Verified 06/28/22 10:00 Home Medications Medication Instructions Recorded Confirmed Type aspirin 81 mg chewable tablet 81 mg PO DAILY 08/24/18 04/27/23 History cinnamon bark 500 mg capsule 500 mg PO DAILY 08/24/18 04/27/23 History (Cinnamon) isosorbide mononitrate 60 mg 60 mg PO BID 08/24/18 04/27/23 History tablet,extended release 24 hr multivitamin 1 tab PO DAILY 08/24/18 04/27/23 History nitroglycerin 0.4 mg sublingual 0.4 mg sublingual DIRECTED PRN 08/24/18 04/27/23 History tablet (Nitrostat) Chest Pain psyllium husk 3.4 gram/5.4 gram 2 tbsp PO DAILY 08/24/18 04/27/23 History oral powder (Metamucil) insulin glargine 100 unit/mL (3 50 unit subcut HS 09/15/19 04/27/23 History mL) subcutaneous pen (Basaglar KwikPen U-100 Insulin) mirtazapine 30 mg tablet 30 mg PO HS 09/15/19 04/27/23 History insulin lispro 100 unit/mL See Rx Instructions .Route .COMPLEX 03/23/21 04/27/23 History subcutaneous pen (Humalog KwikPen (U-100) Insulin) ketoconazole 2 % shampoo 1 applic topical Q14D PRN Other 03/23/21 04/27/23 History pen needle, diabetic 32 gauge x #50 ea 03/23/21 06/28/22 History " (ReliOn [place]) vit C,E,zinc,copper-xlzan6p 250 1 cap PO DAILY 03/23/21 04/27/23 History mg-lutein 5 mg-zeaxanthin 1 mg capsule (Ocuvite Adult 50 Plus) losartan 100 mg tablet 100 mg PO DAILY 10/17/21 04/27/23 History spironolactone 25 mg tablet 12.5 mg PO DAILY #30 tabs 10/19/21 04/27/23 Rx amlodipine 2.5 mg tablet 2.5 mg PO DAILY 04/27/23 04/27/23 History atorvastatin 40 mg tablet 40 mg PO DAILY 04/27/23 04/27/23 History carvedilol 3.125 mg tablet 3.125 mg PO BID 04/27/23 04/27/23 History furosemide 40 mg tablet 40 mg PO Q2D 04/27/23 04/27/23 History Patient History Medical History CKD (chronic kidney disease), stage III Coronary artery disease Cough Cough variant asthma Diabetes mellitus type II, controlled Dyslipidemia Dyspnea GERD (gastroesophageal reflux disease) Lower extremity edema Lower extremity edema Morbid obesity due to excess calories Surgical History H/O colonoscopy H/O tubal ligation History of arthroplasty of right knee History of esophagogastroduodenoscopy S/P tonsillectomy Family History Other Family history non-contributory Social History Smoking Status: Never smoker Second Hand Exposure: No; Hx Alcohol Use: No Hx Substance Use: No Preferred Language: Spanish Communication Ability: Effective Quarter Section Ironer Required: No Beliefs That Will Affect Care: None marital status: Current Living Situation: Spouse How many Children do You have: 0 Other Information That Helps Us Care for You: No Feels Safe at Home: Yes Safety Concerns: Feels Safe At This Time Assistive Devices: None Review of Systems Review of Systems: All systems reviewed & are unremarkable except as noted in HPI & below Results & Data Vital Signs (Past 12 Hours) Vital Signs Temp Pulse Resp BP Pulse Ox O2 Del Method 04/28/23 07:56 36.9 C 56 L 18 146/68 H 96 Room Air 04/28/23 02:49 36.6 C 48 L 18 126/61 95 Room Air Laboratory Results Laboratory Results - last 24 hr 04/27/23 04/27/23 04/27/23 12:48 12:48 12:48 WBC 10.34 RBC 4.33 Hgb 14.0 Hct 40.3 MCV 93.1 MCH 32.3 MCHC 34.7 RDW Std Deviation 44.5 RDW Coeff of [place] 13.1 Plt Count 228 MPV 10.3 Immature Gran % (Auto) 0.4 Neut % (Auto) 56.1 Lymph % (Auto) 34.5 [place] % (Auto) 8.3 Eos % (Auto) 0.4 Baso % (Auto) 0.3 Neut # (Auto) 5.80 Lymph # (Auto) 3.57 H [place] # (Auto) 0.86 H Eos # (Auto) 0.04 Baso # (Auto) 0.03 Immature Gran # (Auto) 0.04 PT 10.3 INR 0.9 Sodium 140 Potassium 3.9 Chloride 102 Carbon Dioxide 32 Anion Gap 6 BUN 25 H Creatinine 1.27 H Est Cr Clr Drug Dosing 40.8 Est GFR ( Amer) 46.5 Est GFR (Non-Af Amer) 40.1 BUN/Creatinine Ratio 19.7 Glucose 62 L POC Glucose Estimat Average Glucose Hemoglobin A1c Calcium 9.9 Total Bilirubin 0.5 AST 23 ALT 42 Alkaline Phosphatase 73 Troponin I High Sens 74.1 H* Total Protein 7.5 Albumin 4.4 Globulin 3.1 Albumin/Globulin Ratio 1.4 Triglycerides Cholesterol LDL Cholesterol, Calc VLDL Cholesterol, Calc HDL Cholesterol Cholesterol/HDL Ratio Lipase 36 SARS-CoV-2, RNA, NAAT 04/27/23 04/27/23 04/27/23 13:46 14:00 15:36 WBC RBC Hgb Hct MCV MCH MCHC RDW Std Deviation RDW Coeff of [place] Plt Count MPV Immature Gran % (Auto) Neut % (Auto) Lymph % (Auto) [place] % (Auto) Eos % (Auto) Baso % (Auto) Neut # (Auto) Lymph # (Auto) [place] # (Auto) Eos # (Auto) Baso # (Auto) Immature Gran # (Auto) PT INR Sodium Potassium Chloride Carbon Dioxide Anion Gap BUN Creatinine Est Cr Clr Drug Dosing Est GFR ( Amer) Est GFR (Non-Af Amer) BUN/Creatinine Ratio Glucose POC Glucose 77 113 H Estimat Average Glucose Hemoglobin A1c Calcium Total Bilirubin AST ALT Alkaline Phosphatase Troponin I High Sens Total Protein Albumin Globulin Albumin/Globulin Ratio Triglycerides Cholesterol LDL Cholesterol, Calc VLDL Cholesterol, Calc HDL Cholesterol Cholesterol/HDL Ratio Lipase SARS-CoV-2, RNA, NAAT NEGATIVE 04/27/23 04/27/23 04/27/23 15:38 18:04 20:08 WBC RBC Hgb Hct MCV MCH MCHC RDW Std Deviation RDW Coeff of [place] Plt Count MPV Immature Gran % (Auto) Neut % (Auto) Lymph % (Auto) [place] % (Auto) Eos % (Auto) Baso % (Auto) Neut # (Auto) Lymph # (Auto) [place] # (Auto) Eos # (Auto) Baso # (Auto) Immature Gran # (Auto) PT INR Sodium Potassium Chloride Carbon Dioxide Anion Gap BUN Creatinine Est Cr Clr Drug Dosing Est GFR ( Amer) Est GFR (Non-Af Amer) BUN/Creatinine Ratio Glucose POC Glucose 189 H 198 H Estimat Average Glucose Hemoglobin A1c Calcium Total Bilirubin AST ALT Alkaline Phosphatase Troponin I High Sens 68.5 H* Total Protein Albumin Globulin Albumin/Globulin Ratio Triglycerides Cholesterol LDL Cholesterol, Calc VLDL Cholesterol, Calc HDL Cholesterol Cholesterol/HDL Ratio Lipase SARS-CoV-2, RNA, NAAT 04/27/23 04/27/23 04/28/23 22:34 23:48 01:56 WBC RBC Hgb Hct MCV MCH MCHC RDW Std Deviation RDW Coeff of [place] Plt Count MPV Immature Gran % (Auto) Neut % (Auto) Lymph % (Auto) [place] % (Auto) Eos % (Auto) Baso % (Auto) Neut # (Auto) Lymph # (Auto) [place] # (Auto) Eos # (Auto) Baso # (Auto) Immature Gran # (Auto) PT INR Sodium Potassium Chloride Carbon Dioxide Anion Gap BUN Creatinine Est Cr Clr Drug Dosing Est GFR ( Amer) Est GFR (Non-Af Amer) BUN/Creatinine Ratio Glucose POC Glucose 114 H 113 H Estimat Average Glucose Hemoglobin A1c Calcium Total Bilirubin AST ALT Alkaline Phosphatase Troponin I High Sens 58.3 H* D Total Protein Albumin Globulin Albumin/Globulin Ratio Triglycerides Cholesterol LDL Cholesterol, Calc VLDL Cholesterol, Calc HDL Cholesterol Cholesterol/HDL Ratio Lipase SARS-CoV-2, RNA, NAAT 04/28/23 04/28/23 04/28/23 05:45 05:45 07:22 WBC RBC Hgb Hct MCV MCH MCHC RDW Std Deviation RDW Coeff of [place] Plt Count MPV Immature Gran % (Auto) Neut % (Auto) Lymph % (Auto) [place] % (Auto) Eos % (Auto) Baso % (Auto) Neut # (Auto) Lymph # (Auto) [place] # (Auto) Eos # (Auto) Baso # (Auto) Immature Gran # (Auto) PT INR Sodium Potassium Chloride Carbon Dioxide Anion Gap BUN Creatinine Est Cr Clr Drug Dosing Est GFR ( Amer) Est GFR (Non-Af Amer) BUN/Creatinine Ratio Glucose POC Glucose 96 Estimat Average Glucose Pending Hemoglobin A1c Pending Calcium Total Bilirubin AST ALT Alkaline Phosphatase Troponin I High Sens 56.3 H* Total Protein Albumin Globulin Albumin/Globulin Ratio Triglycerides 163 H Cholesterol 121 LDL Cholesterol, Calc 31 VLDL Cholesterol, Calc 33 H HDL Cholesterol 57 Cholesterol/HDL Ratio 2.1 Lipase SARS-CoV-2, RNA, NAAT 04/28/23 11:11 WBC RBC Hgb Hct MCV MCH MCHC RDW Std Deviation RDW Coeff of [place] Plt Count MPV Immature Gran % (Auto) Neut % (Auto) Lymph % (Auto) [place] % (Auto) Eos % (Auto) Baso % (Auto) Neut # (Auto) Lymph # (Auto) [place] # (Auto) Eos # (Auto) Baso # (Auto) Immature Gran # (Auto) PT INR Sodium Potassium Chloride Carbon Dioxide Anion Gap BUN Creatinine Est Cr Clr Drug Dosing Est GFR ( Amer) Est GFR (Non-Af Amer) BUN/Creatinine Ratio Glucose POC Glucose 218 H Estimat Average Glucose Hemoglobin A1c Calcium Total Bilirubin AST ALT Alkaline Phosphatase Troponin I High Sens Total Protein Albumin Globulin Albumin/Globulin Ratio Triglycerides Cholesterol LDL Cholesterol, Calc VLDL Cholesterol, Calc HDL Cholesterol Cholesterol/HDL Ratio Lipase SARS-CoV-2, RNA, NAAT (1) Chest pain Chest pain type: unspecified Qualified Code(s): R07.9 - Chest pain, unspecified
[2023-04-28 12:37] LABS: Basophils # (auto) 0.03 K/uL (0-0.2); Basophils % (auto) 0.4 %; Eosinophils # (auto) 0.07 K/uL (0-0.50); Hematocrit (blood only) 37.9 % (37.0-47.0); Hemoglobin 12.7 g/dl (12.0-16.0); Immature Granulocytes # (auto) 0.03 K/uL (0.01-0.20); Immature Granulocytes % (auto) 0.4 %; Lymphocytes # (auto) 2.09 K/uL (1.2-3.4); Lymphocytes % (auto) 31.1 %; Mean Corpuscular Hemoglobin 31.8 pg (25.0-34.0); Mean Corpuscular Hgb Conc 33.5 g/dL (32.0-36.0); Mean Corpuscular Volume 94.8 fL (80.0-100.0); Mean Platelet Volume 10.3 fL (9.4-12.4); Monocytes % (auto) 7.4 %; Neutrophils % (auto) 59.7 %; Platelet Count 172 K/uL (130-400); RDW Coefficient of Variation 13.2 % (11.5-14.5); White Blood Count 6.72 K/ul (4.8-10.8)
--- NOTE | 2023-04-28 12:41 | Hospitalist Progress Note ---
Date of Service April 28, 2023 Assessment & Plan (1) Chest pain: (2) Hypoglycemia: (3) T2DM (type 2 diabetes mellitus): Plan This is a 78-year-old female who has a significant past medical history of CAD, chronic diastolic CHF, HTN, HLD, T2DM with retinopathy, nephropathy and [place] ropathy, CKD stage III, IBS who presents to ED secondary to chest pain. Chest pain described as, "tightness," started yesterday after stressful event while eating breakfast with friends at the [employer] [place]. Today she generally felt unwell and shaky, took 50 units of Humalog insulin and was unable to eat her breakfast. Chest pain/tightness free while in ED. When presented to ED patient was hypoglycemic. She is being admitted due to history of CAD, chest tightness as well as mild elevated troponin. Chest tightness has since resolved. Atypical chest pain CAD Elevated troponin Hypertension Symptoms appear concerning for anxiety as well as hypoglycemia However given history we will do full ACS work-up Cycle troponin, repeat EKG in a.m.-troponins have been mildly elevated but not increasing. EKG remains unremarkable and the echo is not supportive of any ACS Obtain echocardiogram, last done 1 year ago which revealed mild aortic valve stenosis and preserved ejection fraction- Repeat echo shows: LV is normal in size, mild concentric LVH, LV wall motion is normal, EF is 60 to 65%, diastolic dysfunction grade 2, mild aortic valve sclerosis without significant stenosis and trace aortic regurgitation Patient is also significantly hypertensive in ED, she received 1 dose of IV labetalol which did cause some mild bradycardia Continue ASA, statin, amlodipine, Imdur, losartan and Aldactone Patient also prescribed 40 mg of Lasix and potassium supplement which have since been placed on hold due to outpatient elevation of renal function, Lasix may need resumed while inpatient pt outpatient blood pressures were reviewed in [facility] and are well controlled 04/23 124/50, 03/18 was 114/54 ; this may be in setting of anxiety as well Appreciate cardiology input and recommendation Occasional be adjusted to control the high blood pressure Patient wanted to have a stress test or an outpatient Remains medically stable to be discharged Insulin-dependent T2DM, uncontrolled Hypoglycemic event Complications of diabetes include neuropathy, nephropathy and retinopathy Patient on high doses of insulin, 50 units of Lantus at bedtime and [place] units before breakfast and lunch and 90 units before dinner Last A1c was 9.2 in March Consult glycemic pharmacy lantus/novolog per protocol Blood sugar remains stable CKD stage III Renal function at baseline, creatinine 1.27 Avoid nephrotoxic agents We will recheck PRP today DVT prophylaxis: Lovenox Dispo: PCU for ACS rule out PCP: Altaf Full code Will be going home this afternoon Admission and Anticipated Discharge Date Admission Date: April 27, 2023 Subjective 04/28/2023 The patient was seen and examined in telemetry unit She has been feeling much better and denies any chest pain and her palpitation Her blood pressure seems to stable at this time She admits to have a lot of anxiety which is stable at this time and she wants to go home Review of Systems Review of Systems: All systems reviewed and are unremarkable except as noted below Physical Exam Physical Exam: Sitting at the edge of the bed without any acute distress Constitutional: well developed, well nourished and + obese; not ill appearing Eyes: PERRL, conjunctivae normal, anicteric sclerae ENMT: external ear and nose normal, oropharynx normal Neck: trachea midline, no thyromegaly Respiratory: no respiratory distress Auscultation: + diminished lung sounds and + crackles (Occasional crackles at the bases) Cardiovascular: Rate/Rhythm: regular rate and regular rhythm; not tachycardic Heart Sounds: normal S1, normal S2 and + murmur Extremities: + edema (Trace edema bilaterally) Gastrointestinal (Abdomen): Inspection/Auscultation: normal bowel sounds; abdomen not distended Percussion/Palpation: abdomen soft; abdomen nontender Musculoskeletal: No acute arthritis involving any joint Neurologic: normal touch/pain/proprioception and moves all extremities; no focal motor deficits Psychiatric: A+Ox3, euthymic affect Lymphatic: no cervical or axillary lymphadenopathy Results & Data Results & Data Vital Signs (Past 12 Hours) Vital Signs Temp Pulse Pulse Resp BP Pulse Ox O2 Del Method 04/28/23 07:32 47 L 04/28/23 11:47 36.7 C 76 18 147/61 H 96 Room Air 04/28/23 07:56 36.9 C 56 L 18 146/68 H 96 Room Air 04/28/23 02:49 36.6 C 48 L 18 126/61 95 Room Air Laboratory Results Short CBC 04/27/23 04/28/23 Range/Units 12:48 11:58 WBC 10.34 6.72 (4.8-10.8) K/ul Hgb 14.0 12.7 (12.0-16.0) g/dl Hct 40.3 37.9 (37.0-47.0) % Plt Count 228 172 (130-400) K/uL BMP 04/27/23 12:48 Sodium 140 Potassium 3.9 Chloride 102 Carbon Dioxide 32 BUN 25 H Creatinine 1.27 H Glucose 62 L Calcium 9.9 Liver Function 04/27/23 Range/Units 12:48 Total Bilirubin 0.5 (0.2-1.0) mg/dl AST 23 (13-39) U/L ALT 42 (7-52) U/L Alkaline Phosphatase 73 (34-104) U/L Albumin 4.4 (3.4-5.0) gm/dl Medications Administered Current Inpatient Medications Acetaminophen (Acetaminophen 325 Mg Tab) 650 mg PO Q4H PRN PRN Reason: Pain or Fever Stop: 05/27/23 17:45 Al Hydrox/Mg Hydrox/Simethicone (Aluminum/Magnesium Susp 30 Ml Udc) 15 ml PO Q4H PRN PRN Reason: Dyspepsia Stop: 05/27/23 17:45 Amlodipine Besylate (Amlodipine Besylate 5 Mg Tab) 2.5 mg PO BID MINDA Stop: 05/28/23 20:59 Aspirin (Aspirin 81 Mg Ectab) 81 mg PO DAILY MINDA Stop: 05/28/23 08:59 Last Admin: 04/28/23 09:22 Dose: 81 mg Atorvastatin Calcium (Atorvastatin 40 Mg Tab) 40 mg PO DAILY MINDA Stop: 05/28/23 08:59 Last Admin: 04/28/23 09:23 Dose: 40 mg Carvedilol (Carvedilol 3.125 Mg Tab) 3.125 mg PO BID MINDA Stop: 05/27/23 20:59 Last Admin: 04/28/23 09:23 Dose: 3.125 mg Dextrose (Dextrose 50% 50 Ml Syringe) 25 - 50 ml IV UD PRN; Protocol PRN Reason: Hypoglycemia Protocol Stop: 05/27/23 17:45 Enoxaparin Sodium (Enoxaparin Inj 40 Mg/0.4 Ml Syr) 40 mg SQ HS MINDA Stop: 05/27/23 20:59 Last Admin: 04/27/23 20:06 Dose: 40 mg Glucagon (Glucagon For Inj 1 Mg Vial) 1 mg SQ UD PRN; Protocol PRN Reason: Hypoglycemia Protocol Stop: 05/27/23 17:45 Glucose (Glucose 10 Tab/Tube) 4 - 8 tab PO UD PRN; Protocol PRN Reason: Hypoglycemia Treatment Stop: 05/27/23 17:45 Glucose (Glucose 40% Gel 15 Gm Tube) 15 - 30 gm PO UD PRN; Protocol PRN Reason: Hypoglycemia Protocol Stop: 05/27/23 17:45 Insulin Aspart (Insulin Aspart Per Unit Charge) 0 units SC ACHS MINDA Stop: 05/27/23 18:29 Last Admin: 04/28/23 11:45 Dose: 10 units Insulin Glargine (Lantus Per Unit Charge) 0 units SQ HS MINDA; Protocol Stop: 05/27/23 20:59 Last Admin: 04/27/23 20:13 Dose: 40 units Isosorbide Mononitrate (Isosorbide [place] Extended Rel 60 Mg Tabcr) 60 mg PO BID MINDA Stop: 05/27/23 20:59 Last Admin: 04/28/23 09:23 Dose: 60 mg Losartan Potassium (Losartan Potassium 50 Mg Tab) 100 mg PO DAILY MINDA Stop: 05/28/23 08:59 Last Admin: 04/28/23 09:24 Dose: 100 mg Mirtazapine (Mirtazapine Tab 15 Mg Tab) 30 mg PO HS MINDA Stop: 05/27/23 20:59 Last Admin: 04/27/23 22:12 Dose: 30 mg Miscellaneous (Carbohydrates For Hypoglycemia ) 15 - 30 gm PO UD PRN PRN Reason: Hypoglycemia Protocol Stop: 05/27/23 17:45 Miscellaneous Information (Pharmacy Glycemic Mgmt Consult) 1 each N/A UD PRN PRN Reason: Consult Stop: 05/27/23 17:45 Multivitamins/Minerals (Cerovite Adv Formula Tab) 1 tab PO DAILY MINDA Stop: 05/28/23 08:59 Last Admin: 04/28/23 09:24 Dose: 1 tab Ondansetron HCl (Ondansetron Inj 2 Mg/Ml 2 Ml Vial) 4 mg IV Q6H PRN PRN Reason: Nausea Stop: 05/27/23 17:45 Polyethylene Glycol (Polyethylene (Miralax) 17 Gm Pack) 17 gm PO DAILY PRN PRN Reason: Constipation Stop: 05/27/23 17:45 Psyllium Hydrophilic Mucilloid (Psyllium Or Guar Gum Fiber Powder Packet) 1 pkt PO QAM MINDA Stop: 05/28/23 09:59 Last Admin: 04/28/23 09:54 Dose: 1 pkt Spironolactone (Spironolactone 12.5 Mg Tab) 12.5 mg PO DAILY [facility] Stop: 05/28/23 08:59 Last Admin: 04/28/23 09:24 Dose: 12.5 mg (1) Chest pain Chest pain type: unspecified Qualified Code(s): R07.9 - Chest pain, unspecified
[2023-04-28 12:44] LABS: BUN Creatinine Ratio 19.1 (10-20); Est GFR (African American) 42.8 ml/min; Est GFR (Non-African American) 36.9 ml/min; Potassium 4.7 mmol/L (3.5-5.1)
[2023-04-28] MEDS ORDERED: hydrOXYzine HCl 25 MG TAB PO STA (13:20)
--- NOTE | 2023-04-28 14:27 | XRay Report ---
XR knee RT 1 or 2V routine CLINICAL HISTORY: Fall,r/o fracture COMPARISON: Right knee CT May 12, 2020. Right knee radiographs November 26, 2013. FINDINGS: The long stem constrained total right knee arthroplasty is intact. There is no periprosthe tic fracture. There is no joint effusion. Stable postoperative findings are noted. IMPRESSION: Intact total right knee arthroplasty. No periprosthetic fracture. ACT 112: Negative or not required by law. Electronically signed by: Norberto Parra M.D. 04/28/2023 2:25 PM
--- NOTE | 2023-04-28 14:52 | Pharmacy Report ---
Pharmacy Glycemic Short Note 2 - Date of Service April 28, 2023 - Glycemic Short BSG Results (Last 24 hours): 04/27/23 04/27/23 04/27/23 15:36 18:04 20:08 Glucose POC Glucose 113 H 189 H 198 H 04/27/23 04/28/23 04/28/23 23:48 01:56 07:22 Glucose POC Glucose 114 H 113 H 96 04/28/23 04/28/23 11:11 11:58 Glucose 221 H POC Glucose 218 H OUTPATIENT ANTIDIABETIC REGIMEN: * Lantus 50 units, Humalog 55 units breakfast/lunch, 95 units with dinner ASSESSMENT: * Patient admitted with chest pain. Pharmacy consulted for glycemic management as patient on large doses of insulin with meals at home. Patient received 40 units basal insulin last evening. Fasting BSG 96 mg/dL - will adjust scale for basal slightly for HS, but continue 30-40 units at HS * Patient refused insulin for breakfast this AM - lunch BSG elevated. Given correctional at lunch. PLAN FOR INPATIENT GLYCEMIC CONTROL: * Hold outpatient oral diabetes medications * Basal insulin * Lantus 30-40 units HS * Bolus insulin * NovoLog per scale ACHS or Q6hrs while NPO * Goal Range: Low 110 mg/dL - High 140 mg/dL * Correction Factor: 20 mg/dL/unit * Nutritional / Prandial insulin per carb ratio of 1 unit per 6 grams CHO consumed
[2023-04-28] MEDS: amLODIPine BESYLATE 5 MG TAB PO SCH (20:34)
[2023-04-28] MEDS: MIRTAZAPINE TAB 15 MG TAB PO SCH (20:35)
[2023-04-28] MEDS: ENOXAPARIN INJ 40 MG/0.4 ML SYR SQ SCH (20:35)
[2023-04-28] MEDS: LANTUS PER UNIT CHARGE SQ SCH (20:41)
[2023-04-29 06:31] LABS: BUN Creatinine Ratio 19.3 (10-20); Calcium 8.7 mg/dl (8.6-10.3); Creatinine Clr Calc Pharmacy 36.9 ml/min; Est GFR (African American) 41.3 ml/min; Est GFR (Non-African American) 35.6 ml/min; Potassium 4.3 mmol/L (3.5-5.1)
--- NOTE | 2023-04-29 07:23 | Ultrasound Report ---
DOPPLER ULTRASOUND OF THE RENAL ARTERIES CLINICAL HISTORY: Hypertensive urgency. COMPARISON STUDY: No priors. TECHNIQUE: Doppler sonography of the renal arteries was performed to assess renal artery stenosis. Im ages are reviewed in the transverse and longitudinal planes. FINDINGS: The kidneys demonstrate cortical atrophy. Echotexture these normal. The right kidney measures 11.1 cm in length and the left kidney measures 11.8 cm in length. There is no hydronephrosis. On the right, intrarenal arterial resistive indices range from 0.56 to 0.57. Intrarenal arterial wave forms are normal with brisk upstrokes. The right renal arterial waveform is normal, and velocities wi thin the right renal artery measure up to 68 cm/sec. The right renal vein is patent. On the left, intrarenal arterial resistive indices range from 0.65 to 0.74. Intrarenal arterial wave forms are normal with brisk upstrokes. The left renal arterial waveform is normal, and velocities wit hin the left renal artery measure up to 74 cm/sec. The left renal vein is patent. The abdominal aorta is patent. Velocities within the abdominal aorta measure up to 114 cm/s. IMPRESSION: There is no sonographic evidence of renal artery stenosis. ACT 112: Negative or not required by law. Electronically signed by: Barry Isabel M.D. 04/29/2023 7:21 AM
[2023-04-29 08:07] LABS: Estimated Average Glucose 217 mg/dl; Hemoglobin A1C 9.2 % (4.5-5.6)
[2023-04-29] MEDS: INSULIN ASPART PER UNIT CHARGE SC SCH ×2 (09:59→12:29)
[2023-04-29] MEDS: carvediloL 3.125 MG TAB PO SCH ×2 (10:01→10:25)
[2023-04-29] MEDS: ASPIRIN 81 MG ECTAB PO SCH (10:02)
[2023-04-29] MEDS: amLODIPine BESYLATE 5 MG TAB PO SCH (10:02)
[2023-04-29] MEDS: ISOSORBIDE MONO EXTENDED REL 60 MG TABCR PO SCH (10:03)
[2023-04-29] MEDS: ATORVASTATIN 40 MG TAB PO SCH (10:03)
[2023-04-29] MEDS: LOSARTAN POTASSIUM 50 MG TAB PO SCH (10:03)
[2023-04-29] MEDS: SPIRONOLACTONE 12.5 MG TAB PO SCH (10:04)
[2023-04-29] MEDS: CEROVITE ADV FORMULA TAB PO SCH (10:04)
[2023-04-29] MEDS: PSYLLIUM or GUAR GUM FIBER POWDER PACKET PO SCH (10:04)
--- NOTE | 2023-04-29 10:31 | Pharmacy Report ---
Pharmacy Glycemic Short Note 2 - Date of Service April 29, 2023 - Glycemic Short BSG Results (Last 24 hours): 04/28/23 04/28/23 04/28/23 11:11 11:58 16:16 Glucose 221 H POC Glucose 218 H 124 H 04/28/23 04/29/23 04/29/23 20:19 00:10 05:44 Glucose 94 POC Glucose 208 H 97 04/29/23 07:09 Glucose POC Glucose 88 OUTPATIENT ANTIDIABETIC REGIMEN: * Lantus 50 units, Humalog 55 units breakfast/lunch, 95 units with dinner ASSESSMENT: 04/29 * 47 units SQ insulin given over last 24 hrs. Fasting BSG 88 this AM with 35 units basal on board. Suspect patient not compliant with outpt regimen as prescribed as inpatient needs only a small fraction of reported outpt doses. * Given fasting BSG less than 100, will titrate down basal insulin dose * Post-prandial BSGs fluctuated yesterday, likely due to refusal of meal time insulin doses with subsequent rebound 04/28 * Patient admitted with chest pain. Pharmacy consulted for glycemic management as patient on large doses of insulin with meals at home. Patient received 40 units basal insulin last evening. Fasting BSG 96 mg/dL - will adjust scale for basal slightly for HS, but continue 30-40 units at HS * Patient refused insulin for breakfast this AM - lunch BSG elevated. Given correctional at lunch. PLAN FOR INPATIENT GLYCEMIC CONTROL: * Hold outpatient oral diabetes medications * Basal insulin * Lantus 0-25 units HS per scale (0 units if BSG less than 120, 18 units if 120-200, 25 units if above 200) * Bolus insulin * NovoLog per scale ACHS or Q6hrs while NPO * Goal Range: Low 110 mg/dL - High 140 mg/dL * Correction Factor: 25 mg/dL/unit * Nutritional / Prandial insulin per carb ratio of 1 unit per 7 grams CHO consumed
--- NOTE | 2023-04-29 11:08 | Cardiology Progress Note ---
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 Angina precipitated by acute emotional stressors, hypertensive urgency and hypoglycemia. Echocardiogram demonstrates preserved LV systolic EKGs revealed no acute ST segment changes Troponins elevated but flat consistent with patient's underlying hypertensive disease, renal insufficient Medication adjustments recently notable for reduction in antihypertension regimen due to rising creatinine including reduction in furosemide Blood pressure is relatively controlled currently. Carvedilol held last night due to hold parameter Impression: Chronic angina pectoris with acute exacerbation secondary to hypertensive urgency, hypoglycemia Recommendations: Increase antihypertensive regimen. Will increase amlodipine to 2.5 mg twice per day. Continue prior medications with likely resumption of furosemide once renal function discerned Repeat labs test today Renovascular ultrasound given recent change in renal function, hypertensive urgency Avoid hypoglycemia We will consider stress testing as outpatient but patient has declined in past. Severe contrast allergy noted Cardiology will follow 04/29/2023 No cardiac complaints. Telemetry with transient Mobitz type I second degree AV block no profound bradycardia arrhythmias. Blood pressures well controlled. Sugar still trending low in the mornings Impression: Chronic stable angina with acute exacerbation secondary to hypertens flash urgency, hypoglycemia Recommendations: Continue medications as ordered currently. Resume furosemide 3days/week on discharge. Continue carvedilol at current dosing 3.125 mg twice per day. Follow-up cardiology 2 to 4 weeks time Admission and Anticipated Discharge Date Admission Date: April 27, 2023 Subjective Patient seen and examined, chart, medications, telemetry reviewed. No further chest pain or discomfort. No tachypalpitations or dizziness. Telemetry reveals sinus and sinus bradycardia with transient Mobitz type I no profound bradycardia arrhythmia or pauses. No fevers chills unexplained infections. Ambulatory in room without difficulty. Being with diabetic teaching service regarding possible reduction in insulin Review of Systems Review of Systems: All systems reviewed & are unremarkable except as noted in Subjective Physical Exam Constitutional: WD/WN, vitals as above no acute distress Eyes: PERRL, conjunctivae normal, anicteric sclerae ENMT: external ear and nose normal, oropharynx normal Neck: trachea midline, no thyromegaly Respiratory: normal respiratory effort, lungs clear to auscultation Cardiovascular: Rate/Rhythm: regular rate, regular rhythm and + bradycardic Heart Sounds: + murmur Vessels: no JVD Extremities: no edema Gastrointestinal (Abdomen): normal bowel sounds, soft, nontender, no hepatosplenomegaly Skin: no rashes, warm and dry Results & Data Vital Signs (Past 12 Hours) Vital Signs Temp Pulse Pulse Resp BP Pulse Ox O2 Del Method 04/29/23 07:56 59 L 04/29/23 07:10 36.7 C 67 18 149/66 H 98 Room Air 04/29/23 03:00 37 C 61 18 139/60 94 Room Air Laboratory Results Laboratory Results - last 24 hr 04/28/23 04/28/23 04/28/23 05:45 11:11 11:58 WBC 6.72 RBC 4.00 L Hgb 12.7 Hct 37.9 MCV 94.8 MCH 31.8 MCHC 33.5 RDW Std Deviation 46.0 RDW Coeff of [place] 13.2 Plt Count 172 MPV 10.3 Immature Gran % (Auto) 0.4 Neut % (Auto) 59.7 Lymph % (Auto) 31.1 [place] % (Auto) 7.4 Eos % (Auto) 1.0 Baso % (Auto) 0.4 Neut # (Auto) 4.00 Lymph # (Auto) 2.09 [place] # (Auto) 0.50 Eos # (Auto) 0.07 Baso # (Auto) 0.03 Immature Gran # (Auto) 0.03 Sodium Potassium Chloride Carbon Dioxide Anion Gap BUN Creatinine Est Cr Clr Drug Dosing Est GFR ( Amer) Est GFR (Non-Af Amer) BUN/Creatinine Ratio Glucose POC Glucose 218 H Estimat Average Glucose 217 Hemoglobin A1c 9.2 H Calcium 04/28/23 04/28/23 04/28/23 11:58 16:16 20:19 WBC RBC Hgb Hct MCV MCH MCHC RDW Std Deviation RDW Coeff of [place] Plt Count MPV Immature Gran % (Auto) Neut % (Auto) Lymph % (Auto) [place] % (Auto) Eos % (Auto) Baso % (Auto) Neut # (Auto) Lymph # (Auto) [place] # (Auto) Eos # (Auto) Baso # (Auto) Immature Gran # (Auto) Sodium 138 Potassium 4.7 D Chloride 100 Carbon Dioxide 32 Anion Gap 6 BUN 26 H Creatinine 1.36 H Est Cr Clr Drug Dosing 38.0 Est GFR ( Amer) 42.8 Est GFR (Non-Af Amer) 36.9 BUN/Creatinine Ratio 19.1 Glucose 221 H POC Glucose 124 H 208 H Estimat Average Glucose Hemoglobin A1c Calcium 9.0 04/29/23 04/29/23 04/29/23 00:10 05:44 07:09 WBC RBC Hgb Hct MCV MCH MCHC RDW Std Deviation RDW Coeff of [place] Plt Count MPV Immature Gran % (Auto) Neut % (Auto) Lymph % (Auto) [place] % (Auto) Eos % (Auto) Baso % (Auto) Neut # (Auto) Lymph # (Auto) [place] # (Auto) Eos # (Auto) Baso # (Auto) Immature Gran # (Auto) Sodium 139 Potassium 4.3 Chloride 103 Carbon Dioxide 32 Anion Gap 4 BUN 27 H Creatinine 1.40 H Est Cr Clr Drug Dosing 36.9 Est GFR ( Amer) 41.3 Est GFR (Non-Af Amer) 35.6 BUN/Creatinine Ratio 19.3 Glucose 94 POC Glucose 97 88 Estimat Average Glucose Hemoglobin A1c Calcium 8.7 (1) Chest pain Chest pain type: unspecified Qualified Code(s): R07.9 - Chest pain, unspecified
--- NOTE | 2023-04-29 11:20 | Hospitalist Progress Note ---
Date of Service April 29, 2023 Assessment & Plan (1) Chest pain: (2) Hypoglycemia: (3) T2DM (type 2 diabetes mellitus): Plan This is a 78-year-old female who has a significant past medical history of CAD, chronic diastolic CHF, HTN, HLD, T2DM with retinopathy, nephropathy and [place] ropathy, CKD stage III, IBS who presents to ED secondary to chest pain. Chest pain described as, "tightness," started yesterday after stressful event while eating breakfast with friends at the [employer] shop. Today she generally felt unwell and shaky, took 50 units of Humalog insulin and was unable to eat her breakfast. Chest pain/tightness free while in ED. When presented to ED patient was hypoglycemic. She is being admitted due to history of CAD, chest tightness as well as mild elevated troponin. Chest tightness has since resolved. Atypical chest pain CAD Elevated troponin Hypertension Symptoms appear concerning for anxiety as well as hypoglycemia However given history we will do full ACS work-up Cycle troponin, repeat EKG in a.m.-troponins have been mildly elevated but not increasing. EKG remains unremarkable and the echo is not supportive of any ACS Obtain echocardiogram, last done 1 year ago which revealed mild aortic valve stenosis and preserved ejection fraction- Repeat echo shows: LV is normal in size, mild concentric LVH, LV wall motion is normal, EF is 60 to 65%, diastolic dysfunction grade 2, mild aortic valve sclerosis without significant stenosis and trace aortic regurgitation Patient is also significantly hypertensive in ED, she received 1 dose of IV labetalol which did cause some mild bradycardia Continue ASA, statin, amlodipine, Imdur, losartan and Aldactone Patient also prescribed 40 mg of Lasix and potassium supplement which have since been placed on hold due to outpatient elevation of renal function, Lasix may need resumed while inpatient pt outpatient blood pressures were reviewed in [facility] and are well controlled 04/23 124/50, 03/18 was 114/54 ; this may be in setting of anxiety as well Appreciate cardiology input and recommendation Occasional be adjusted to control the high blood pressure Patient wanted to have a stress test or an outpatient Remains medically stable to be discharged Insulin-dependent T2DM, uncontrolled Hypoglycemic event Complications of diabetes include neuropathy, nephropathy and retinopathy Patient on high doses of insulin, 50 units of Lantus at bedtime and Humalo units before breakfast and lunch and 90 units before dinner Last A1c was 9.2 in March Consult glycemic pharmacy lantus/novolog per protocol Blood sugar remains reasonably stable CKD stage III Renal function at baseline, creatinine 1.27 Avoid nephrotoxic agents Renal ultrasound did not show any arterial stenosis Creatinine is slightly elevated at 1.40 DVT prophylaxis: Lovenox Dispo: PCU for ACS rule out PCP: Altaf Full code Will be discharged home this afternoon Admission and Anticipated Discharge Date Admission Date: April 27, 2023 Subjective 04/28/2023 The patient was seen and examined in telemetry unit She has been feeling much better and denies any chest pain and her palpitation Her blood pressure seems to stable at this time She admits to have a lot of anxiety which is stable at this time and she wants to go home 04/29/2023 The patient was seen and examined in telemetry unit She has been feeling much better and denies any significant symptoms Her blood pressure remains stable though on the upper side at 146/66 Did not have significant bradycardia arrhythmias Review of Systems Review of Systems: All systems reviewed and are unremarkable except as noted below Physical Exam Physical Exam: Sitting at the edge of the bed without any acute distress Constitutional: well developed, well nourished and + obese; not ill appearing Eyes: PERRL, conjunctivae normal, anicteric sclerae ENMT: external ear and nose normal, oropharynx normal Neck: trachea midline, no thyromegaly Respiratory: no respiratory distress Auscultation: + diminished lung sounds and + crackles (Occasional crackles at the bases) Cardiovascular: Rate/Rhythm: regular rate and regular rhythm; not tachycardic Heart Sounds: normal S1, normal S2 and + murmur Extremities: + edema (Trace edema bilaterally) Gastrointestinal (Abdomen): Inspection/Auscultation: normal bowel sounds; abdomen not distended Percussion/Palpation: abdomen soft; abdomen nontender Musculoskeletal: No acute arthritis involving any joint Neurologic: normal touch/pain/proprioception and moves all extremities; no focal motor deficits Psychiatric: A+Ox3, euthymic affect Lymphatic: no cervical or axillary lymphadenopathy Results & Data Results & Data Vital Signs (Past 12 Hours) Vital Signs Temp Pulse Pulse Resp BP Pulse Ox O2 Del Method 04/29/23 11:08 36.7 C 56 L 18 146/66 H 97 Room Air 04/29/23 07:56 59 L 04/29/23 07:10 36.7 C 67 18 149/66 H 98 Room Air 04/29/23 03:00 37 C 61 18 139/60 94 Room Air Laboratory Results Short CBC 04/28/23 Range/Units 11:58 WBC 6.72 (4.8-10.8) K/ul Hgb 12.7 (12.0-16.0) g/dl Hct 37.9 (37.0-47.0) % Plt Count 172 (130-400) K/uL BMP 04/28/23 04/29/23 11:58 05:44 Sodium 138 139 Potassium 4.7 D 4.3 Chloride 100 103 Carbon Dioxide 32 32 BUN 26 H 27 H Creatinine 1.36 H 1.40 H Glucose 221 H 94 Calcium 9.0 8.7 Medications Administered Current Inpatient Medications Acetaminophen (Acetaminophen 325 Mg Tab) 650 mg PO Q4H PRN PRN Reason: Pain or Fever Stop: 05/27/23 17:45 Last Admin: 04/28/23 14:00 Dose: 650 mg Al Hydrox/Mg Hydrox/Simethicone (Aluminum/Magnesium Susp 30 Ml Udc) 15 ml PO Q4H PRN PRN Reason: Dyspepsia Stop: 05/27/23 17:45 Amlodipine Besylate (Amlodipine Besylate 5 Mg Tab) 2.5 mg PO BID MINDA Stop: 05/28/23 20:59 Last Admin: 04/29/23 10:02 Dose: 2.5 mg Aspirin (Aspirin 81 Mg Ectab) 81 mg PO DAILY MINDA Stop: 05/28/23 08:59 Last Admin: 04/29/23 10:02 Dose: 81 mg Atorvastatin Calcium (Atorvastatin 40 Mg Tab) 40 mg PO DAILY MINDA Stop: 05/28/23 08:59 Last Admin: 04/29/23 10:03 Dose: 40 mg Carvedilol (Carvedilol 3.125 Mg Tab) 3.125 mg PO BID MINDA Stop: 05/27/23 20:59 Last Admin: 04/29/23 10:25 Dose: 3.125 mg Dextrose (Dextrose 50% 50 Ml Syringe) 25 - 50 ml IV UD PRN; Protocol PRN Reason: Hypoglycemia Protocol Stop: 05/27/23 17:45 Enoxaparin Sodium (Enoxaparin Inj 40 Mg/0.4 Ml Syr) 40 mg SQ HS MINDA Stop: 05/27/23 20:59 Last Admin: 04/28/23 20:35 Dose: 40 mg Glucagon (Glucagon For Inj 1 Mg Vial) 1 mg SQ UD PRN; Protocol PRN Reason: Hypoglycemia Protocol Stop: 05/27/23 17:45 Glucose (Glucose 10 Tab/Tube) 4 - 8 tab PO UD PRN; Protocol PRN Reason: Hypoglycemia Treatment Stop: 05/27/23 17:45 Glucose (Glucose 40% Gel 15 Gm Tube) 15 - 30 gm PO UD PRN; Protocol PRN Reason: Hypoglycemia Protocol Stop: 05/27/23 17:45 Insulin Aspart (Insulin Aspart Per Unit Charge) 0 units SC ACHS [facility] Stop: 05/27/23 18:29 Last Admin: 04/29/23 09:59 Dose: Not Given Insulin Glargine (Lantus Per Unit Charge) 0 units SQ HS [facility]; Protocol Stop: 05/29/23 20:59 Isosorbide Mononitrate (Isosorbide Addison Extended Rel 60 Mg Tabcr) 60 mg PO BID MINDA Stop: 05/27/23 20:59 Last Admin: 04/29/23 10:03 Dose: 60 mg Losartan Potassium (Losartan Potassium 50 Mg Tab) 100 mg PO DAILY [facility] Stop: 05/28/23 08:59 Last Admin: 04/29/23 10:03 Dose: 100 mg Mirtazapine (Mirtazapine Tab 15 Mg Tab) 30 mg PO HS [facility] Stop: 05/27/23 20:59 Last Admin: 04/28/23 20:35 Dose: 30 mg Miscellaneous (Carbohydrates For Hypoglycemia ) 15 - 30 gm PO UD PRN PRN Reason: Hypoglycemia Protocol Stop: 05/27/23 17:45 Miscellaneous Information (Pharmacy Glycemic Mgmt Consult) 1 each N/A UD PRN PRN Reason: Consult Stop: 05/27/23 17:45 Multivitamins/Minerals (Cerovite Adv Formula Tab) 1 tab PO DAILY [facility] Stop: 05/28/23 08:59 Last Admin: 04/29/23 10:04 Dose: 1 tab Ondansetron HCl (Ondansetron Inj 2 Mg/Ml 2 Ml Vial) 4 mg IV Q6H PRN PRN Reason: Nausea Stop: 05/27/23 17:45 Polyethylene Glycol (Polyethylene (Miralax) 17 Gm Pack) 17 gm PO DAILY PRN PRN Reason: Constipation Stop: 05/27/23 17:45 Psyllium Hydrophilic Mucilloid (Psyllium Or Guar Gum Fiber Powder Packet) 1 pkt PO QAM [facility] Stop: 05/28/23 09:59 Last Admin: 04/29/23 10:04 Dose: 1 pkt Spironolactone (Spironolactone 12.5 Mg Tab) 12.5 mg PO DAILY [facility] Stop: 05/28/23 08:59 Last Admin: 04/29/23 10:04 Dose: 12.5 mg (1) Chest pain Chest pain type: unspecified Qualified Code(s): R07.9 - Chest pain, unspecified
--- NOTE | 2023-04-29 16:34 | Discharge Summary ---
Date of Service April 29, 2023 Admission HPI Per Admitting Provider This is a 78-year-old female who has a significant past medical history of CAD, chronic diastolic CHF, HTN, HLD, T2DM with retinopathy, nephropathy and neuropathy, CKD stage III, IBS who presents to ED secondary to chest pain. is at bedside. Yesterday they went to [place] for breakfast and she got blueberry pancakes and they overloaded it with blueberries. They went with some friends and some events occurred yesterday with her friends that really stressed her out. Shortly after she developed chest tightness. This morning she had a temp of 99.3 and generally felt unwell and was shaky. She then took her insulin and her bsg prior to checking sugar was 135. She took her short acting insulin and all she ate was her yogurt and banana and took 50 units of humalog. She never ate her whole breakfast which is why her bsg went low here. She just didn't feel good and couldn't eat. She has had similar feeling 30 years ago when her brother . She got chest tightness the first time yesterday morning after breakfast. Her chest tightness is now gone. She denies SOB, ARAUZ, dizziness, lightheaded, uri sx, cough, abd pain, n/v/d, and worsened leg swelling. She denies recent illness History from ED provider includes that patient presented with substernal chest pain as well as epigastric pain. She has prior history of coronary artery disease but no prior intervention. Upon arrival to ED patient was significantly hypertensive which was treated with IV labetalol. Initial chest x-ray was negative for any acute abnormality and no mediastinal widening. Initial EKG was without ischemic change but initial Trope mildly bumped at 75. She did receive ASA. Approximately 45 minutes into her hospital stay she became diaphoretic which was felt to be associated with hypoglycemia with a blood sugar in the 70s. Patient did take her morning insulin but did not yet eat anything. At that time she was given an amp of D50 and her symptoms improved. A repeat EKG was also taken at that time which was negative for any ischemic findings. ED provider thought symptoms may be gastric related as well but given prior history felt should be admitted for further work-up. Admission Exam Per Admitting Provider obese pt, NAD Lungs: CTA, no wheezing or crackles Cardiac: Normal S1/S2, no murmur Abd: obese abd, NT, ND, soft MSK: trace b/l LE pitting edema Psych: AAOx3, normal affect Principal Diagnosis Chest pain-no ACS, CAD, hypertension, type 2 diabetes Discharge Exam Sitting at the edge of the bed without any acute distress Constitutional well developed, well nourished and + obese; not ill appearing Eyes PERRL, conjunctivae normal, anicteric sclerae ENMT external ear and nose normal, oropharynx normal Neck trachea midline, no thyromegaly Respiratory no respiratory distress Auscultation: + diminished lung sounds and + crackles (Occasional crackles at t he bases) Cardiovascular Rate/Rhythm: regular rate and regular rhythm; not tachycardic Heart Sounds: normal S1, normal S2 and + murmur Extremities: + edema (Trace edema bilaterally) Gastrointestinal (Abdomen) Inspection/Auscultation: normal bowel sounds; abdomen not distended Percussion/Palpation: abdomen soft; abdomen nontender Neurologic normal touch/pain/proprioception and moves all extremities; no focal motor deficits Psychiatric A+Ox3, euthymic affect Lymphatic no cervical or axillary lymphadenopathy Discharge Data Allergies Allergy/AdvReac Type Severity Reaction Status Date / Time Sulfa (Sulfonamide Allergy Severe HIVES Verified 06/28/22 10:00 Antibiotics) Iodinated Contrast Media Allergy Intermediate HIVES Verified 06/28/22 10:00 Penicillins Allergy Intermediate HIVES Verified 06/28/22 10:00 codeine Allergy Unknown HAS Verified 06/28/22 10:00 TOLERATED MORPHINE W/O RXN SEVERE N&V exenatide Allergy Unknown BYETTA-ELEVATED Verified 06/28/22 10:00 LIPASE erythromycin base AdvReac Intermediate NAUSEA AND Verified 06/28/22 10:00 VOMITING rofecoxib AdvReac Intermediate NAUSEA AND Verified 06/28/22 10:00 VOMITING metformin AdvReac Mild GI UPSET Verified 06/28/22 10:00 morphine AdvReac Mild GI UPSET Verified 06/28/22 10:00 Consultations 04/27/23 14:56 ED Decision to Admit Stat 04/28/23 11:48 Consult Cardiology Routine Ordered Studies 04/28/23 11:43 US duplex renal artery Routine Hospital Course (1) Chest pain: (2) Hypoglycemia: (3) T2DM (type 2 diabetes mellitus): Plan This is a 78-year-old female who has a significant past medical history of CAD, chronic diastolic CHF, HTN, HLD, T2DM with retinopathy, nephropathy and neuropathy, CKD stage III, IBS who presents to ED secondary to chest pain. Chest pain described as, "tightness," started yesterday after stressful event while eating breakfast with friends at the [employer] shop. Today she generally felt unwell and shaky, took 50 units of Humalog insulin and was unable to eat her breakfast. Chest pain/tightness free while in ED. When presented to ED patient was hypoglycemic. She is being admitted due to history of CAD, chest tightness as well as mild elevated troponin. Chest tightness has since resolved. Atypical chest pain CAD Elevated troponin Hypertension Symptoms appear concerning for anxiety as well as hypoglycemia However given history we will do full ACS work-up Cycle troponin, repeat EKG in a.m.-troponins have been mildly elevated but not increasing. EKG remains unremarkable and the echo is not supportive of any ACS Obtain echocardiogram, last done 1 year ago which revealed mild aortic valve stenosis and preserved ejection fraction- Repeat echo shows: LV is normal in size, mild concentric LVH, LV wall motion is normal, EF is 60 to 65%, diastolic dysfunction grade 2, mild aortic valve sclerosis without significant stenosis and trace aortic regurgitation Patient is also significantly hypertensive in ED, she received 1 dose of IV labetalol which did cause some mild bradycardia Continue ASA, statin, amlodipine, Imdur, losartan and Aldactone Patient also prescribed 40 mg of Lasix and potassium supplement which have since been placed on hold due to outpatient elevation of renal function, Lasix may need resumed while inpatient pt outpatient blood pressures were reviewed in [facility] and are well controlled 04/23 124/50, 03/18 was 114/54 ; this may be in setting of anxiety as well Appreciate cardiology input and recommendation Occasional be adjusted to control the high blood pressure Patient wanted to have a stress test or an outpatient Remains medically stable to be discharged Insulin-dependent T2DM, uncontrolled Hypoglycemic event Complications of diabetes include neuropathy, nephropathy and retinopathy Patient on high doses of insulin, 50 units of Lantus at bedtime and Humalo units before breakfast and lunch and 90 units before dinner Last A1c was 9.2 in March Consult glycemic pharmacy lantus/novolog per protocol Blood sugar remains reasonably stable CKD stage III Renal function at baseline, creatinine 1.27 Avoid nephrotoxic agents Renal ultrasound did not show any arterial stenosis Creatinine is slightly elevated at 1.40 DVT prophylaxis: Lovenox Dispo: PCU for ACS rule out PCP: Altaf Full code Will be discharged home this afternoon Total Time Total Time Spent Total Time Spent (In Minutes): 35 minutes Discharge Plan Discharge Items Patient Disposition: Home - Self-Care Reason For Visit: SHAKEY,CHEST PAIN,DIARREAH Discharge Diagnosis: Chest pain-no ACS, CAD, hypertension, type 2 diabetes Condition on Discharge: Fair Activity: Resume your previous activity Non-emergency contact: Primary Care Provider Call non-emergency contact if: you have any medication questions and your symptoms worsen Follow-up/Referrals: Lukas Solitario MD [Primary Care Provider] - (Your doctor's office will give you a call on Saturday with an appointment within 7 days) Diet: Heart Healthy and Low Sodium (2gm) Addtl Attending Provider Instructions: Please take precautions to avoid falls Current medications as advised Your amlodipine has been increased to 2.5 mg twice daily Your carvedilol has been decreased to 3.125 mg twice daily Please keep appointments with your healthcare providers Addtl Solar Resource Assessor Provider Instructions: DIABETES RECOMMENDATIONS: - If eating a smaller meal/less carbohydrates, will need less Humalog to prevent the blood sugar from dropping too low. - If eating a larger meal/more carbohydrates, will need slightly more Humalog. - Even if blood sugar level is below 110, you still need some Humalog to cover the meal you plan to eat. - The goal is to learn overtime how much less and how much more Humalog you need for different meals. - If fasting blood sugar is below 110, recommend taking 20% less Lantus that evening --> 45 units. - If it is easier, you can switch the timing of your Lantus and take in the morning. - To help prevent hard spots/scar tissue build-up in your abdomen, try to rotate injection site with each new injection. - Avoid any areas that are bruised or have a hard spot/scar tissue. - When leaving the house, try to take your glucose meter and Humalog in case you end up stopping for a meal. - May want to put a post-it on the door as a reminder until this becomes a habit. - Please reach out to Brett Leonora Ramsey if you are having frequent hyperglycemia or hypoglycemia. Take Care!! Pending Studies at Discharge: No Stand-Alone Forms: My [facility], Smoking Cessation Medications and DC Order Prescriptions: New carvedilol 3.125 mg tablet 3.125 mg PO BID Qty: 60 0RF Rx Instructions: must administer with a meal/food Continued insulin lispro [Humalog KwikPen Insulin] 100 unit/mL insulin pen See Rx Instructions .ROUTE .COMPLEX Rx Instructions: 55 units before breakfast; 55 units before lunch and 95 units before dinner ketoconazole 2 % shampoo 1 applic topical Q14D PRN (Reason: Other) Rx Instructions: not using currently Ocuvite Adult 50 Plus 250-5-1 mg capsule 1 cap PO DAILY Rx Instructions: unsure if she still uses this (DME) pen needle, diabetic [ReliOn Pen [place]] 32 gauge x 5/32" needle See Rx Instructions .ROUTE .MEDSUPPLY Qty: 50 Rx Instructions: As directed mirtazapine 30 mg tablet 30 mg PO HS insulin glargine [Basaglar KwikPen U-100 Insulin] 100 unit/mL (3 mL) Insulin Pen 50 unit subcut HS multivitamin Tablet 1 tab PO DAILY isosorbide mononitrate 60 mg Tablet Extended Release 24 Hr 60 mg PO BID nitroglycerin [Nitrostat] 0.4 mg Tablet, Sublingual 0.4 mg Sublingual DIRECTED PRN (Reason: Chest Pain) aspirin 81 mg Tablet,Chewable 81 mg PO DAILY cinnamon bark [Cinnamon] 500 mg Capsule 500 mg PO DAILY Metamucil 3.4 gram/5.4 gram Powder 2 tbsp PO DAILY losartan 100 mg tablet 100 mg PO DAILY spironolactone 25 mg Tablet 12.5 mg PO DAILY Qty: 30 0RF atorvastatin 40 mg tablet 40 mg PO DAILY furosemide 40 mg tablet 40 mg PO Q2D Changed amlodipine 2.5 mg tablet 2.5 mg PO BID Qty: 1 0RF Discontinued carvedilol 3.125 mg tablet 3.125 mg PO BID Discharge Orders: Discharge Order (Routine); Ordered 04/29/23 Ordered By: Ebony Poole Admission Data Admit Date/Time: 04/27/23 15:07 Attending Provider: Ebony Poole Admit Provider: Giselle Jacobs Primary Care Provider: Lukas Solitario Other Providers: Giselle Jacobs ; Nolan Arriola Other Interventions: Discharge Summary Assessment (RN) Last Done: 04/29/23 12:57
[2023-04-29] MEDS ORDERED: LANTUS PER UNIT CHARGE SQ SCH (21:00)
--- NOTE | 2023-04-30 08:10 | Electrocardiogram Report ---
Test Reason : Blood Pressure : / mmHG Vent. Rate : 051 BPM Atrial Rate : 051 BPM P-R Int : 260 ms QRS Dur : 092 ms QT Int : 454 ms P-R-T Axes : 064 025 085 degrees QTc Int : 418 ms Sinus bradycardia with 1st degree A-V block Otherwise normal ECG When compared with ECG of 27-APR-2023 13:55, Premature supraventricular complexes are no longer Present Confirmed by Dylan Santiago ([id number]) on 04/30/2023 8:10:28 AM Referred By: REFERRED SELF Confirmed By:Dylan Santiago
== END 2023-04-29 13:58 | disposition home or self-care (01) ==
LOC: ED 12:22 → 2E 12:22 → SUATTDRO 15:07 → 2E 17:25

== ENCOUNTER 2023-05-25 22:25 | Inpatient (IN) ==
[2023-05-25 22:53] LABS: Basophils # (auto) 0.03 K/uL (0-0.2); Basophils % (auto) 0.5 %; Eosinophils # (auto) 0.18 K/uL (0-0.50); Hematocrit (blood only) 34.3 % (37.0-47.0); Hemoglobin 11.9 g/dl (12.0-16.0); Immature Granulocytes # (auto) 0.02 K/uL (0.01-0.20); Immature Granulocytes % (auto) 0.3 %; Lymphocytes # (auto) 1.56 K/uL (1.2-3.4); Lymphocytes % (auto) 25.7 %; Mean Corpuscular Hemoglobin 32.2 pg (25.0-34.0); Mean Corpuscular Hgb Conc 34.7 g/dL (32.0-36.0); Mean Platelet Volume 9.8 fL (9.4-12.4); Monocytes # (auto) 0.37 K/uL (0.11-0.59); Monocytes % (auto) 6.1 %; Neutrophils # (auto) 3.92 K/uL (1.40-6.50); Neutrophils % (auto) 64.4 %; Platelet Count 176 K/uL (130-400); RDW Standard Deviation 43.8 fL (36.4-46.3); Red Blood Count 3.69 M/uL (4.20-5.40); White Blood Count 6.08 K/ul (4.8-10.8)
[2023-05-25 23:07] LABS: Partial Thromboplastin Ratio 0.9; Partial Thromboplastin Time 24.1 Seconds (21.0-31.0); Prothrombin Time 10.8 Seconds (9.0-12.0)
[2023-05-25] MEDS ORDERED: NITROGLYCERIN 2% OINTMENT 30GM TUBE EXT STA (23:24)
[2023-05-25] MEDS ORDERED: ONDANSETRON INJ 2 MG/ML 2 ML VIAL IV STA (23:24)
[2023-05-25] MEDS ORDERED: FAMOTIDINE 20MG IV PUSH 20 MG/5 ML SYR IV STA (23:24)
--- NOTE | 2023-05-25 23:28 | Emergency Department Note ---
Impression & Plan Chest pain, Elevated troponin ED Provider Note ED Provider Note NAME: SHANI STARK AGE:78 SEX: Female : 1945 ARRIVES VIA: EMS INFORMANT: Patient ED PROVIDER(s): Cherelle Ozuna DO CHIEF COMPLAINT: Chest pain HPI: This is a 78-year-old female presents emergency room due to concern for chest pain which began this evening as she was unloading groceries. She states pain was across her whole chest, seemed initially worse on the right but now feels worse on the left. She states she also felt short of breath and was nauseated. She states she has had some radiation of the pain into bilateral upper arms as well as into the right side of her neck and right jaw. Patient states she had a stress test done earlier this week and was told by Dr. Arriola that she needs to have a catheterization and placement of stents. She states that is scheduled for the beginning of June done at [facility]. She did not take any medication at home, however EMS gave her 2 sprays of sublingual nitro and 4 baby aspirin to chew in route. She states this has not significantly helped and still feels pain right now. She states her breathing is better and the nausea is mildly improved additionally. She denies any recent fevers, chills, or illness. She states she has had bilateral lower extremity edema but does take a diuretic. She states her anxiety medication was also recently increased. PAST MEDICAL HISTORY:See Below PAST SURGICAL HISTORY:See Below FAMILY HISTORY:See Below SOCIAL HISTORY:See Below HOME MEDICATIONS:See Below ALLERGIES:See Below VITALS:See Below PHYSICAL EXAMINATION: GENERAL: alert, well appearing, well nourished, no distress, non-toxic EYE EXAM: normal conjunctiva, PERRL and EOM's grossly intact OROPHARYNX: no exudate, no erythema, lips, buccal mucosa, and tongue normal and mucous membranes are moist NECK: supple, no nuchal rigidity, no adenopathy, non-tender LUNGS: Clear to auscultation. Normal chest wall mechanics, no w/r/r HEART: no murmurs, S1 normal and S2 normal ABDOMEN: abdomen soft, non-tender, normo-active bowel sounds, no masses, no rebound or guarding. BACK: Back is symmetrical on inspection and there is no deformity, no midline tenderness, no CVA tenderness. SKIN: no rashes, petechiae, orbruising UPPER EXTREMITIES: upper extremities are grossly normal. FROM, nml pulses b/l. LOWER EXTREMITIES: No pitting edema. FROM, nml pulses b/l. NEURO EXAM: Normal sensorium, cranial nerves II-XII grossly intact, normal speech, no facial droop,nogross weakness of arms, no gross weakness of legs. Gross sensation intact. No ataxia. Vital Signs: reviewed and remarkable Differential Diagnosis: acute coronary syndrome, pericarditis, pulmonary embolus, aortic dissection, pneumonia, pneumothorax, musculoskeletal pain, perf, cardiac tamponade, as well as others were considered MEDICAL DECISION MAKING: This is a 78-year-old female who presents emergency department due to concern for recurrent chest pain and difficulty breathing. Patient with recent abnormal outpatient stress test and plan for catheterization with cardiology. Patient had no improvement in pain following aspirin and nitro from EMS. On arrival here she was hemodynamically stable and afebrile. Labs drawn and sent, IV established, EKG and chest x-ray performed at bedside and interpreted by me, patient monitored on telemetry. No ectopy or dysrhythmia noted. No acute EKG changes were seen per my interpretation. Patient given Nitropaste initially. Due to persistent pain she was then given IV morphine and reported no improvement. Following this she was given IV fentanyl and IV Tylenol as well as IV Pepcid with improvement of symptoms. IV heparin added. Case discussed with on-call [facility] cardiology initially as a precaution given prior arrangements and recent evaluation. Case then discussed with [facility] hospitalist for additional evaluation and management. Patient did have resolution of pain here and was otherwise stable throughout. Repeat EKG also performed did not show any dynamic or evolving changes. Consultation(s): 0038: Discussed with Dr. García. Recommends usual treatment of symptoms here and heparin drip. If patient's symptoms persist would make the patient a heart alert and have interventional come in for additional evaluation and treatment. Does not feel patient requires urgent transfer to [place]. ER Treatment Provided: See below 0040: Patient updated on results and plan. Diagnostics Interpreted By Me: -ECG: Normal sinus at 71, first-degree AV block, normal axis, normal intervals, no acute ST/T wave changes; no acute change compared to April 28, 2023 -Cardiac Monitoring: An order was placed for continuous cardiac monitoring. The monitor shows a rate of 66 with normal sinus rhythm. -Laboratory studies: As stated above and show below. -Imaging studies: X-ray Chest: A single view study of the chest was reviewed and was negative for cardiomegaly, focal infiltrate, effusion, pulmonary edema, or wide mediastinum. Triage Nursing Note Reviewed Prior/Outside Records Reviewed -recent outpatient stress test reviewed Critical Care: Critical care of 42 min performed to assess and manage high likelihood of life- threatening ACS, involving labs and imaging performed with assessment to evaluate ACS diagnosis with frequent reassessment. This time includes bedside time, treatment discussions with patient/family/consultants, documentation time and excludes procedure time. Past Med/Surg History Medical History CKD (chronic kidney disease), stage III Coronary artery disease Cough Cough variant asthma Diabetes mellitus type II, controlled Dyslipidemia Dyspnea GERD (gastroesophageal reflux disease) Lower extremity edema Lower extremity edema Morbid obesity due to excess calories Surgical History H/O colonoscopy H/O tubal ligation History of arthroplasty of right knee History of esophagogastroduodenoscopy S/P tonsillectomy Family History Other Family history non-contributory Social History Smoking Status: Never smoker Second Hand Exposure: No; Hx Alcohol Use: No Hx Substance Use: No Preferred Language: Moldovan Communication Ability: Effective 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 Beliefs That Will Affect Care: None marital status: Current Living Situation: Spouse How many Children do You have: 0 Other Information That Helps Us Care for You: No Feels Safe at Home: Yes Safety Concerns: Feels Safe At This Time Assistive Devices: None Allergies Allergies Allergy/AdvReac Type Severity Reaction Status Date / Time Sulfa (Sulfonamide Allergy Severe HIVES Verified 06/28/22 10:00 Antibiotics) Iodinated Contrast Media Allergy Intermediate HIVES Verified 06/28/22 10:00 Penicillins Allergy Intermediate HIVES Verified 06/28/22 10:00 codeine Allergy Unknown HAS Verified 06/28/22 10:00 TOLERATED MORPHINE W/O RXN SEVERE N&V exenatide Allergy Unknown BYETTA-ELEVATED Verified 06/28/22 10:00 LIPASE erythromycin base AdvReac Intermediate NAUSEA AND Verified 06/28/22 10:00 VOMITING rofecoxib AdvReac Intermediate NAUSEA AND Verified 06/28/22 10:00 VOMITING metformin AdvReac Mild GI UPSET Verified 06/28/22 10:00 morphine AdvReac Mild GI UPSET Verified 06/28/22 10:00 Home Meds Home Medications Medication Instructions Recorded Confirmed aspirin 81 mg chewable tablet 81 mg PO DAILY 08/24/18 04/27/23 cinnamon bark 500 mg capsule 500 mg PO DAILY 08/24/18 04/27/23 (Cinnamon) isosorbide mononitrate 60 mg 60 mg PO BID 08/24/18 04/27/23 tablet,extended release 24 hr multivitamin 1 tab PO DAILY 08/24/18 04/27/23 nitroglycerin 0.4 mg sublingual 0.4 mg sublingual DIRECTED PRN 08/24/18 0 04/27/23 tablet (Nitrostat) Chest Pain psyllium husk 3.4 gram/5.4 gram 2 tbsp PO DAILY 08/24/18 04/27/23 oral powder (Metamucil) insulin glargine 100 unit/mL (3 50 unit subcut HS 09/15/19 04/27/23 mL) subcutaneous pen (Basaglar KwikPen U-100 Insulin) mirtazapine 30 mg tablet 30 mg PO HS 09/15/19 04/27/23 insulin lispro 100 unit/mL See Rx Instructions .Route .COMPLEX 03/23/21 04/27/23 subcutaneous pen (Humalog KwikPen (U-100) Insulin) ketoconazole 2 % shampoo 1 applic topical Q14D PRN Other 03/23/21 04/27/23 pen needle, diabetic 32 gauge x #50 ea 03/23/21 06/28/2232" (ReliOn Pen Castor) vit C,E,zinc,copper-slmfa6f 250 1 cap PO DAILY 03/23/21 04/27/23 mg-lutein 5 mg-zeaxanthin 1 mg capsule (Ocuvite Adult 50 Plus) losartan 100 mg tablet 100 mg PO DAILY 10/17/21 04/27/23 atorvastatin 40 mg tablet 40 mg PO DAILY 04/27/23 04/27/23 furosemide 40 mg tablet 40 mg PO Q2D 04/27/23 04/27/23 sertraline 25 mg tablet 50 mg PO BID 05/26/23 05/26/23 Previous Rx's Medication Instructions Recorded spironolactone 25 mg tablet 12.5 mg PO DAILY #30 tabs 10/19/21 amlodipine 2.5 mg tablet 2.5 mg PO BID #1 tab 04/28/23 carvedilol 3.125 mg tablet 3.125 mg PO BID #60 tabs 04/29/23 Results & Data (ED) Vital Signs Vital Signs - 24 hr 05/25/23 22:34 05/25/23 22:38 05/25/23 23:03 Temperature 37.1 C Temperature Source Oral Pulse Rate 72 66 Pulse Rate [Apical] 61 Pulse Rate from SpO2 Sensor Respiratory Rate 16 12 Respiratory Effort / Characteristics Non-Labored Spontaneous Respiratory Depth Respiratory Pattern Regular Blood Pressure 188/88 H Blood Pressure [Right Arm] 186/78 H Blood Pressure Mean 121 Blood Pressure Mean [Right Arm] 114 Blood Pressure Position Semi-fowlers Blood Pressure Position [Right Arm] Semi-fowlers Pulse Oximetry 93 94 Oxygen Delivery Method Room Air Oxygen Flow Rate Sepsis Recent Fever Within 48 Hours No Sepsis New/Unexplained Change in Mental Status No Sepsis Action Taken by Nursing No Action Required 05/25/23 23:43 05/26/23 00:00 05/26/23 00:00 Temperature Temperature Source Pulse Rate 77 Pulse Rate [Apical] 65 Pulse Rate from SpO2 Sensor Respiratory Rate 18 20 Respiratory Effort / Characteristics Non-Labored Spontaneous Respiratory Depth Normal Respiratory Pattern Blood Pressure 208/82 H Blood Pressure [Right Arm] 188/81 H Blood Pressure Mean 146 Blood Pressure Mean [Right Arm] 116 Blood Pressure Position Blood Pressure Position [Right Arm] Pulse Oximetry 95 92 Oxygen Delivery Method Room Air Room Air Oxygen Flow Rate Sepsis Recent Fever Within 48 Hours Sepsis New/Unexplained Change in Mental Status Sepsis Action Taken by Nursing 05/26/23 00:18 05/26/23 00:35 05/26/23 00:30 Temperature Temperature Source Pulse Rate Pulse Rate [Apical] 63 Pulse Rate from SpO2 Sensor Respiratory Rate 18 Respiratory Effort / Characteristics Respiratory Depth Respiratory Pattern Blood Pressure 178/81 H Blood Pressure [Right Arm] 185/78 H Blood Pressure Mean 125 Blood Pressure Mean [Right Arm] 113 Blood Pressure Position Blood Pressure Position [Right Arm] Pulse Oximetry 92 97 Oxygen Delivery Method Room Air Nasal Cannula Oxygen Flow Rate 2 Sepsis Recent Fever Within 48 Hours Sepsis New/Unexplained Change in Mental Status Sepsis Action Taken by Nursing 05/26/23 00:30 05/26/23 01:00 05/26/23 01:00 Temperature Temperature Source Pulse Rate 60 60 Pulse Rate [Apical] Pulse Rate from SpO2 Sensor Respiratory Rate 18 18 Respiratory Effort / Characteristics Respiratory Depth Respiratory Pattern Blood Pressure 170/69 H Blood Pressure [Right Arm] Blood Pressure Mean 122 Blood Pressure Mean [Right Arm] Blood Pressure Position Blood Pressure Position [Right Arm] Pulse Oximetry 90 95 Oxygen Delivery Method Room Air Nasal Cannula Oxygen Flow Rate 2 Sepsis Recent Fever Within 48 Hours Sepsis New/Unexplained Change in Mental Status Sepsis Action Taken by Nursing 05/26/23 01:30 05/26/23 01:30 05/26/23 02:00 Temperature Temperature Source Pulse Rate 66 Pulse Rate [Apical] Pulse Rate from SpO2 Sensor Respiratory Rate 18 Respiratory Effort / Characteristics Respiratory Depth Respiratory Pattern Blood Pressure 162/72 H 164/62 H Blood Pressure [Right Arm] Blood Pressure Mean 113 123 Blood Pressure Mean [Right Arm] Blood Pressure Position Blood Pressure Position [Right Arm] Pulse Oximetry 95 Oxygen Delivery Method Nasal Cannula Oxygen Flow Rate Sepsis Recent Fever Within 48 Hours Sepsis New/Unexplained Change in Mental Status Sepsis Action Taken by Nursing 05/26/23 02:00 05/26/23 02:30 05/26/23 02:30 Temperature Temperature Source Pulse Rate 59 L 63 Pulse Rate [Apical] Pulse Rate from SpO2 Sensor Respiratory Rate 21 20 Respiratory Effort / Characteristics Respiratory Depth Respiratory Pattern Blood Pressure 159/66 H Blood Pressure [Right Arm] Blood Pressure Mean 95 Blood Pressure Mean [Right Arm] Blood Pressure Position Blood Pressure Position [Right Arm] Pulse Oximetry 92 95 Oxygen Delivery Method Nasal Cannula Nasal Cannula Oxygen Flow Rate 2 2 Sepsis Recent Fever Within 48 Hours Sepsis New/Unexplained Change in Mental Status Sepsis Action Taken by Nursing 05/26/23 02:51 05/26/23 02:40 05/26/23 02:50 Temperature Temperature Source Pulse Rate 60 61 61 Pulse Rate [Apical] Pulse Rate from SpO2 Sensor 60 61 Respiratory Rate 18 14 Respiratory Effort / Characteristics Respiratory Depth Respiratory Pattern Blood Pressure Blood Pressure [Right Arm] Blood Pressure Mean Blood Pressure Mean [Right Arm] Blood Pressure Position Blood Pressure Position [Right Arm] Pulse Oximetry 94 95 Oxygen Delivery Method Oxygen Flow Rate Sepsis Recent Fever Within 48 Hours Sepsis New/Unexplained Change in Mental Status Sepsis Action Taken by Nursing 05/26/23 02:57 05/26/23 02:57 05/26/23 03:00 Temperature Temperature Source Pulse Rate 61 Pulse Rate [Apical] Pulse Rate from SpO2 Sensor 60 Respiratory Rate 16 Respiratory Effort / Characteristics Respiratory Depth Respiratory Pattern Blood Pressure 182/72 H 186/75 H Blood Pressure [Right Arm] Blood Pressure Mean 138 128 Blood Pressure Mean [Right Arm] Blood Pressure Position Blood Pressure Position [Right Arm] Pulse Oximetry 97 Oxygen Delivery Method Oxygen Flow Rate Sepsis Recent Fever Within 48 Hours Sepsis New/Unexplained Change in Mental Status Sepsis Action Taken by Nursing 05/26/23 03:00 05/26/23 03:10 05/26/23 03:20 Temperature Temperature Source Pulse Rate 56 L 55 L 74 Pulse Rate [Apical] Pulse Rate from SpO2 Sensor 56 L 57 L Respiratory Rate 15 17 14 Respiratory Effort / Characteristics Respiratory Depth Respiratory Pattern Blood Pressure Blood Pressure [Right Arm] Blood Pressure Mean Blood Pressure Mean [Right Arm] Blood Pressure Position Blood Pressure Position [Right Arm] Pulse Oximetry 97 97 Oxygen Delivery Method Oxygen Flow Rate Sepsis Recent Fever Within 48 Hours Sepsis New/Unexplained Change in Mental Status Sepsis Action Taken by Nursing 05/26/23 03:30 05/26/23 03:30 05/26/23 03:31 Temperature Temperature Source Pulse Rate 60 Pulse Rate [Apical] Pulse Rate from SpO2 Sensor 59 L Respiratory Rate 17 Respiratory Effort / Characteristics Respiratory Depth Respiratory Pattern Blood Pressure 201/83 H 193/77 H Blood Pressure [Right Arm] Blood Pressure Mean 140 150 Blood Pressure Mean [Right Arm] Blood Pressure Position Blood Pressure Position [Right Arm] Pulse Oximetry 98 Oxygen Delivery Method Oxygen Flow Rate Sepsis Recent Fever Within 48 Hours Sepsis New/Unexplained Change in Mental Status Sepsis Action Taken by Nursing 05/26/23 03:31 05/26/23 03:40 Temperature Temperature Source Pulse Rate 60 56 L Pulse Rate [Apical] Pulse Rate from SpO2 Sensor 61 55 L Respiratory Rate 21 17 Respiratory Effort / Characteristics Respiratory Depth Respiratory Pattern Blood Pressure Blood Pressure [Right Arm] Blood Pressure Mean Blood Pressure Mean [Right Arm] Blood Pressure Position Blood Pressure Position [Right Arm] Pulse Oximetry 98 97 Oxygen Delivery Method Oxygen Flow Rate Sepsis Recent Fever Within 48 Hours Sepsis New/Unexplained Change in Mental Status Sepsis Action Taken by Nursing Laboratory Data 05/25/23 22:35 05/25/23 22:35 Lab Results 05/25/23 05/25/2323 Range/Units 22:35 22:35 22:35 WBC 6.08 (4.8-10.8) K/ul RBC 3.69 L (4.20-5.40) M/uL Hgb 11.9 L (12.0-16.0) g/dl Hct 34.3 L (37.0-47.0) % MCV 93.0 (80.0-100.0) fL MCH 32.2 (25.0-34.0) pg MCHC 34.7 (32.0-36.0) g/dL RDW Std Deviation 43.8 (36.4-46.3) fL RDW Coeff of [place] 13.0 (11.5-14.5) % Plt Count 176 (130-400) K/uL MPV 9.8 (9.4-12.4) fL Immature Gran % (Auto) 0.3 % Neut % (Auto) 64.4 % Lymph % (Auto) 25.7 % [place] % (Auto) 6.1 % Eos % (Auto) 3.0 % Baso % (Auto) 0.5 % Neut # (Auto) 3.92 (1.40-6.50) K/uL Lymph # (Auto) 1.56 (1.2-3.4) K/uL [place] # (Auto) 0.37 (0.11-0.59) K/uL Eos # (Auto) 0.18 (0-0.50) K/uL Baso # (Auto) 0.03 (0-0.2) K/uL Immature Gran # (Auto) 0.02 (0.01-0.20) K/uL PT 10.8 (9.0-12.0) Seconds INR 1.0 (0.9-1.1) APTT 24.1 (21.0-31.0) Seconds PTT Ratio 0.9 Sodium 137 (136-145) mmol/L Potassium TNP Chloride 99 (98-107) mmol/L Carbon Dioxide 29 (21-32) mmol/L Anion Gap 9 (3-11) BUN 15 (6-23) mg/dl Creatinine 1.26 H (0.6-1.2) mg/dl Est Cr Clr Drug Dosing 41.7 ml/min Est GFR ( Amer) 46.9 ml/min Est GFR (Non-Af Amer) 40.5 ml/min BUN/Creatinine Ratio 11.9 (10-20) Glucose 172 H (70-99(Fasting)) mg/dl Calcium 9.1 (8.6-10.3) mg/dl Magnesium (1.7-2.4) mg/dl Total Bilirubin 0.6 (0.2-1.0) mg/dl AST TNP ALT 20 (7-52) U/L Alkaline Phosphatase 66 (34-104) U/L Troponin I High Sens 47.2 H (0-14) pg/ml B-Natriuretic Peptide (0-100) pg/ml Total Protein 6.9 (6.0-8.3) gm/dl Albumin 4.1 (3.4-5.0) gm/dl Globulin 2.8 (2.5-4.0) gm/dl Albumin/Globulin Ratio 1.5 (0.9-2) SARS-CoV-2 (PCR) (Negative) Influenza Type A (PCR) (Neg) Influenza Type B (PCR) (Neg) RSV (RT-PCR) (Neg) 05/25/23 05/26/23 05/26/23 Range/Units 22:35 00:28 01:45 WBC (4.8-10.8) K/ul RBC (4.20-5.40) M/uL Hgb (12.0-16.0) g/dl Hct (37.0-47.0) % MCV (80.0-100.0) fL MCH (25.0-34.0) pg MCHC (32.0-36.0) g/dL RDW Std Deviation (36.4-46.3) fL RDW Coeff of [place] (11.5-14.5) % Plt Count (130-400) K/uL MPV (9.4-12.4) fL Immature Gran % (Auto) % Neut % (Auto) % Lymph % (Auto) % [place] % (Auto) % Eos % (Auto) % Baso % (Auto) % Neut # (Auto) (1.40-6.50) K/uL Lymph # (Auto) (1.2-3.4) K/uL [place] # (Auto) (0.11-0.59) K/uL Eos # (Auto) (0-0.50) K/uL Baso # (Auto) (0-0.2) K/uL Immature Gran # (Auto) (0.01-0.20) K/uL PT (9.0-12.0) Seconds INR (0.9-1.1) APTT (21.0-31.0) Seconds PTT Ratio Sodium (136-145) mmol/L Potassium 3.6 Chloride (98-107) mmol/L Carbon Dioxide (21-32) mmol/L Anion Gap (3-11) BUN (6-23) mg/dl Creatinine (0.6-1.2) mg/dl Est Cr Clr Drug Dosing ml/min Est GFR ( Amer) ml/min Est GFR (Non-Af Amer) ml/min BUN/Creatinine Ratio (10-20) Glucose (70-99(Fasting)) mg/dl Calcium (8.6-10.3) mg/dl Magnesium 1.7 (1.7-2.4) mg/dl Total Bilirubin (0.2-1.0) mg/dl AST 19 ALT (7-52) U/L Alkaline Phosphatase (34-104) U/L Troponin I High Sens (0-14) pg/ml B-Natriuretic Peptide 70 (0-100) pg/ml Total Protein (6.0-8.3) gm/dl Albumin (3.4-5.0) gm/dl Globulin (2.5-4.0) gm/dl Albumin/Globulin Ratio (0.9-2) SARS-CoV-2 (PCR) NEGATIVE (Negative) Influenza Type A (PCR) Negative (Neg) Influenza Type B (PCR) Negative (Neg) RSV (RT-PCR) Negative (Neg) Administered Medications Heparin Sodium/Dextrose (Heparin Sodium/Dextrose) 25,000 units in 500 mls @ 17 mls/hr IV .Q24H [facility]; Protocol Stop: 06/25/23 00:59 Last Admin: 05/26/23 01:11 Dose: 850 units/hr, 17 mls/hr Documented By: GRAY Co-signed By: Discontinued Medications Carvedilol (Carvedilol 3.125 Mg Tab) 3.125 mg PO NOW ONE Stop: 05/26/23 04:14 Last Admin: 05/26/23 05:01 Dose: 3.125 mg Documented By: ZEN Fentanyl Citrate (Fentanyl Citrate Pf 100 Mcg/2 Ml Vial) 50 mcg IV NOW STA Stop: 05/26/23 02:07 Last Admin: 05/26/23 02:13 Dose: 50 mcg Documented By: GRAY Heparin Sodium (Porcine) (Heparin Sod (Porcine) 1000 Unit/Ml) 1 units IV NOW ONE Stop: 05/26/23 00:53 Last Admin: 05/26/23 01:11 Dose: 4,000 units Documented By: GRAY Co-signed By: Heparin Sodium/Dextrose (Heparin Iv Adult Wt-Based Low-Dose With Bolus Protocol) 1 each IV NOW STA; Protocol Stop: 05/26/23 00:38 Last Admin: 05/26/23 01:15 Dose: 1 each Documented By: GRAY Famotidine (Pepcid 20mg Iv Push) 20 mg in 5 mls @ 2.5 mls/min IV NOW STA Stop: 05/25/23 23:25 Last Admin: 05/25/23 23:52 Dose: 2.5 mls/min Documented By: GRAY Acetaminophen (Ofirmev) 1,000 mg in 100 mls @ 400 mls/hr IV NOW STA Stop: 05/26/23 02:20 Last Infusion: 05/26/23 02:27 Dose: 0 mls/hr Documented By: Admin: 05/26/23 02:12 Dose: 400 mls/hr Documented By: GRAY Mirtazapine (Mirtazapine Tab 15 Mg Tab) 30 mg PO NOW ONE Stop: 05/26/23 04:14 Last Admin: 05/26/23 05:02 Dose: 30 mg Documented By: ZEN Morphine Sulfate (Morphine Sulfate 2 Mg/Ml Carp) 2 mg IV NOW STA Stop: 05/26/23 00:16 Last Admin: 05/26/23 00:42 Dose: 2 mg Documented By: GRAY Nitroglycerin (Nitroglycerin 2% Ointment 30gm Tube) 1 inch EXT NOW STA Stop: 05/25/23 23:25 Last Admin: 05/25/23 23:50 Dose: 1 inch Documented By: GRAY Ondansetron HCl (Ondansetron Inj 2 Mg/Ml 2 Ml Vial) 4 mg IV NOW STA Stop: 05/25/23 23:25 Last Admin: 05/25/23 23:52 Dose: 4 mg Documented By: GRAY Discharge Plan Visit Data Chief Complaint: Chest Pain Stated Complaint: CHEST PAIN ED Provider: Cherelle Ozuna Discharge Problem: Chest pain, Elevated troponin Patient Disposition: Admitted As Inpatient Discharge Instructions Interventions: ED Discharge Assessment Last Done: 05/26/23 04:58
[2023-05-25 23:53] LABS: Alanine Aminotransferase 20 U/L (7-52); Albumin Globulin Ratio 1.5 (0.9-2); Albumin Level 4.1 gm/dl (3.4-5.0); Alkaline Phosphatase 66 U/L (34-104); Anion Gap 9 (3-11); BUN Creatinine Ratio 11.9 (10-20); Bilirubin,Total 0.6 mg/dl (0.2-1.0); Blood Urea Nitrogen 15 mg/dl (6-23); Calcium 9.1 mg/dl (8.6-10.3); Carbon Dioxide 29 mmol/L (21-32); Chloride 99 mmol/L (98-107); Creatinine Clr Calc Pharmacy 41.7 ml/min; Est GFR (African American) 46.9 ml/min; Est GFR (Non-African American) 40.5 ml/min; Globulin 2.8 gm/dl (2.5-4.0); Glucose 172 mg/dl (70-99(Fasting)); Sodium 137 mmol/L (136-145); Total Protein 6.9 gm/dl (6.0-8.3); Troponin I High Sensitivity 47.2 pg/ml (0-14)
[2023-05-26] MEDS ORDERED: Heparin IV Adult Wt-Based Low-Dose WITH Bolus Protocol IV STA (00:37)
[2023-05-26] MEDS: MoRPHine SULFATE 2 MG/ML CARP IV STA ×2 (00:39→00:42)
[2023-05-26] MEDS ORDERED: HEPARIN SOD (PORCINE) 1000 UNIT/ML IV ONE (00:52)
[2023-05-26 00:58] LABS: Magnesium 1.7 mg/dl (1.7-2.4); Potassium 3.6 mmol/L (3.5-5.1)
[2023-05-26] MEDS: HEPARIN SODIUM/DEXTROSE 25,000 UNITS/500 ML BAG IV SCH (01:11)
[2023-05-26] MEDS ORDERED: ACETAMINOPHEN 1,000 MG/100 ML VIAL IV STA (02:06)
[2023-05-26] MEDS ORDERED: fentaNYL citrate PF 100 MCG/2 ML VIAL IV STA (02:06)
[2023-05-26 02:55] LABS: Influenza A virus by PCR Negative (Neg); Influenza B virus by PCR Negative (Neg); RSV by PCR Negative (Neg); SARS CoV2 RNA(COVID-19) Ceph NEGATIVE (Negative)
[2023-05-26] MEDS ORDERED: MIRTAZAPINE TAB 15 MG TAB PO ONE (04:13)
[2023-05-26] MEDS ORDERED: carvediloL 3.125 MG TAB PO ONE (04:13)
--- NOTE | 2023-05-26 04:13 | History & Physical Report ---
Date of Service May 26, 2023 Assessment & Plan (1) Chest pain: Plan: 78-year-old female presents with chest pain. Chest pain Recently in the hospital for chest pain in the end of April thought to be from emotional stress, hypertensive urgency and hypoglycemia. Outpatient stress test was abnormal and plan for cardiac cath in November. History of angina Today had chest pain after carrying grocery bags. EKG okay. Troponin 47. ER discussed with cardiology Started on IV heparin which will be continued. Continue home Coreg aspirin and statin We will follow serial cardiac enzymes and echocardiogram N.p.o. Cardiology consult Close monitoring. Hypertension Continue home medication of Coreg, diuretics, Imdur, losartan and amlodipine We will monitor the blood pressure. Chronic diastolic CHF Lasix and spironolactone We will monitor for volume overload Diabetes Currently n.p.o. We will cut back on Lantus to 25 nightly while n.p.o. Sliding scale Glycemic pharmacy consult We will follow the blood sugars. Hyperlipidemia continue statin CKD stage III Presented with creatinine 1.2 seems to be at baseline We will follow the labs History of asthma cough variant History of recurrent acute complicated bronchitis Currently seems stable Carotid artery disease On aspirin and statin Needs follow-up Suspected sleep apnea Last admission had type I second-degree AV block at night Seems evaluated by sleep medicine in January 2022 and seems patient declined further evaluation and treatment We will place on oxygen while sleeping. DVT prophylaxis on IV heparin Disposition Telemetry floor Full code History of Present Illness Chief Complaint: Chest pain Primary Care Provider: Lukas Solitario MD 78-year-old female past medical history significant for diabetes on insulin, irritable bowel syndrome, CAD, hypertension, hyperlipidemia, osteoarthritis, panic disorder, obesity, suspected sleep apnea, chronic diastolic CHF, cough variant asthma, chronic kidney disease stage III presents with chest pain. Patient was admitted in the last week of April for chest pain thought to be from emotional stressors, hypertensive urgency and hypoglycemia. Patient had outpatient stress test which was abnormal. Plan for cardiac cath in [place]. Today she came from grocery carrying grocery bags from car to home. She also went downstairs and put some stuff in the refrigerator. And after coming back up she noticed chest pain in the upper part of the chest radiating to the right hand 89/by 10 in severity and was not subsiding so she came to the ER. In the ER she was placed on nitro paste and morphine was given. Currently pain is 2/10 in severity. Nitro caused headache but it got resolved now . Denies any blurred visions. No earache or runny nose or sore throat. No cough. No fevers. No shortness of breath. Currently no nausea. No abdominal pain. Normal bowel and bladder movements. Past medical history as mentioned above Past surgical history right total knee arthroplasty, bilateral carpal tunnel surgery, colonoscopy, EGD, EGD with biopsy, right eyelid surgery, bilateral lasering of secondary cataract, ligation of oviduct, tonsillectomy, cholecystectomy, right knee joint replacement revision. Family history mother has eye problems, knee replacement. Aunt has diabetes. Uncle has diabetes. Allergies Allergy/AdvReac Type Severity Reaction Status Date / Time Sulfa (Sulfonamide Allergy Severe HIVES Verified 06/28/22 10:00 Antibiotics) Iodinated Contrast Media Allergy Intermediate HIVES Verified 06/28/22 10:00 Penicillins Allergy Intermediate HIVES Verified 06/28/22 10:00 codeine Allergy Unknown HAS Verified 06/28/22 10:00 TOLERATED MORPHINE W/O RXN SEVERE N&V exenatide Allergy Unknown BYETTA-ELEVATED Verified 06/28/22 10:00 LIPASE erythromycin base AdvReac Intermediate NAUSEA AND Verified 06/28/22 10:00 VOMITING rofecoxib AdvReac Intermediate NAUSEA AND Verified 06/28/22 10:00 VOMITING metformin AdvReac Mild GI UPSET Verified 06/28/22 10:00 morphine AdvReac Mild GI UPSET Verified 06/28/22 10:00 Home Medications Medication Instructions Recorded Confirmed Type aspirin 81 mg chewable tablet 81 mg PO DAILY 08/24/18 04/27/23 History cinnamon bark 500 mg capsule 500 mg PO DAILY 08/24/18 04/27/23 History (Cinnamon) isosorbide mononitrate 60 mg 60 mg PO BID 08/24/18 04/27/23 History tablet,extended release 24 hr multivitamin 1 tab PO DAILY 08/24/18 04/27/23 History nitroglycerin 0.4 mg sublingual 0.4 mg sublingual DIRECTED PRN 08/24/1804/05 History tablet (Nitrostat) Chest Pain psyllium husk 3.4 gram/5.4 gram 2 tbsp PO DAILY 08/24/18 04/27/23 History oral powder (Metamucil) insulin glargine 100 unit/mL (3 50 unit subcut HS 09/15/19 04/27/23 History mL) subcutaneous pen (Basaglar KwikPen U-100 Insulin) mirtazapine 30 mg tablet 30 mg PO HS 09/15/19 04/27/23 History insulin lispro 100 unit/mL See Rx Instructions .Route .COMPLEX 03/23/21 04/27/23 History subcutaneous pen (Humalog KwikPen (U-100) Insulin) ketoconazole 2 % shampoo 1 applic topical Q14D PRN Other 03/23/21 04/27/23 History pen needle, diabetic 32 gauge x #50 ea 03/23/21 06/28/22 History 32" (ReliOn Pen [place]) vit C,E,zinc,copper-tcqte9w 250 1 cap PO DAILY 03/23/21 04/27/23 History mg-lutein 5 mg-zeaxanthin 1 mg capsule (Ocuvite Adult 50 Plus) losartan 100 mg tablet 100 mg PO DAILY 10/17/21 04/27/23 History spironolactone 25 mg tablet 12.5 mg PO DAILY #30 tabs 10/19/21 04/27/23 Rx atorvastatin 40 mg tablet 40 mg PO DAILY 04/27/23 04/27/23 History furosemide 40 mg tablet 40 mg PO Q2D 04/27/23 04/27/23 History amlodipine 2.5 mg tablet 2.5 mg PO BID #1 tab 04/28/23 04/27/23 Rx carvedilol 3.125 mg tablet 3.125 mg PO BID #60 tabs 04/29/23 Rx Past Med/Surg History Medical History CKD (chronic kidney disease), stage III Coronary artery disease Cough Cough variant asthma Diabetes mellitus type II, controlled Dyslipidemia Dyspnea GERD (gastroesophageal reflux disease) Lower extremity edema Lower extremity edema Morbid obesity due to excess calories Surgical History H/O colonoscopy H/O tubal ligation History of arthroplasty of right knee History of esophagogastroduodenoscopy S/P tonsillectomy Family History Other Family history non-contributory Social History Smoking Status: Never smoker Second Hand Exposure: No; Hx Alcohol Use: No Hx Substance Use: No Preferred Language: Greek Communication Ability: Effective Six Color Press Operator Required: No Beliefs That Will Affect Care: None marital status: Current Living Situation: Spouse How many Children do You have: 0 Feels Safe at Home: Yes Assistive Devices: None Review of Systems Review of Systems: All systems reviewed & are unremarkable except as noted in Subjective Physical Exam Physical Exam: General- Not in distress Head- atraumatic Eyes- PERRL ENT- oropharynx clear Neck- supple, no JVD, Lungs- clear to auscultation and percussion Heart- regular rhythm; no murmur, no gallop, no rub appreciated Abdomen- normal bowel sounds, soft, nontender, No distension. Extremities- b/l pretibial edema present, no erythema seen. Neuro- alert, oriented x 3; PERRL, EOMI; no facial palsy; no dysarthria; Non focal Skin- warm & dry Results & Data Results & Data Vital Signs (Past 12 Hours) Vital Signs Temp Pulse Pulse Resp BP BP Pulse Ox 05/26/23 02:51 60 05/26/23 02:30 63 20 95 05/26/23 02:30 159/66 H 05/26/23 02:00 59 L 21 92 05/26/23 02:00 164/62 H 05/26/23 01:30 66 18 95 05/26/23 01:30 162/72 H 05/26/23 01:00 60 18 95 05/26/23 01:00 170/69 H 05/26/23 00:30 60 18 90 05/26/23 00:30 178/81 H 05/26/23 00:35 97 05/26/23 00:18 63 18 185/78 H 92 05/26/23 00:00 77 20 92 05/26/23 00:00 208/82 H 05/25/23 23:43 65 18 188/81 H 95 05/25/23 23:03 61 12 186/78 H 94 05/25/23 22:38 66 05/25/23 22:34 37.1 C 72 16 188/88 H 93 O2 Del Method O2 Flow Rate 05/26/23 02:51 05/26/23 02:30 Nasal Cannula 2 05/26/23 02:30 05/26/23 02:00 Nasal Cannula 2 05/26/23 02:00 05/26/23 01:30 Nasal Cannula 05/26/23 01:30 05/26/23 01:00 Nasal Cannula 2 05/26/23 01:00 05/26/23 00:30 Room Air 05/26/23 00:30 05/26/23 00:35 Nasal Cannula 2 05/26/23 00:18 Room Air 05/26/23 00:00 Room Air 05/26/23 00:00 05/25/23 23:43 Room Air 05/25/23 23:03 05/25/23 22:38 05/25/23 22:34 Room Air Diagnostic Findings Laboratory Results WBC 6.08 K/ul (4.8-10.8) 05/25/23 22:35 RBC 3.69 M/uL (4.20-5.40) L 05/25/23 22:35 Hgb 11.9 g/dl (12.0-16.0) L 05/25/23 22:35 Hct 34.3 % (37.0-47.0) L 05/25/23 22:35 MCV 93.0 fL (80.0-100.0) 05/25/23 22:35 MCH 32.2 pg (25.0-34.0) 05/25/23 22:35 MCHC 34.7 g/dL (32.0-36.0) 05/25/23 22:35 RDW Std Deviation 43.8 fL (36.4-46.3) 05/25/23 22:35 RDW Coeff of [place] 13.0 % (11.5-14.5) 05/25/23 22:35 Plt Count 176 K/uL (130-400) 05/25/23 22:35 MPV 9.8 fL (9.4-12.4) 05/25/23 22:35 Immature Gran % (Auto) 0.3 % 05/25/23 22:35 Neut % (Auto) 64.4 % 05/25/23 22:35 Lymph % (Auto) 25.7 % 05/25/23 22:35 [place] % (Auto) 6.1 % 05/25/23 22:35 Eos % (Auto) 3.0 % 05/25/23 22:35 Baso % (Auto) 0.5 % 05/25/23 22:35 Neut # (Auto) 3.92 K/uL (1.40-6.50) 05/25/23 22:35 Lymph # (Auto) 1.56 K/uL (1.2-3.4) 05/25/23 22:35 [place] # (Auto) 0.37 K/uL (0.11-0.59) 05/25/23 22:35 Eos # (Auto) 0.18 K/uL (0-0.50) 05/25/23 22:35 Baso # (Auto) 0.03 K/uL (0-0.2) 05/25/23 22:35 Immature Gran # (Auto) 0.02 K/uL (0.01-0.20) 05/25/23 22:35 PT 10.8 Seconds (9.0-12.0) 05/25/23 22:35 INR 1.0 (0.9-1.1) 05/25/23 22:35 APTT 24.1 Seconds (21.0-31.0) 05/25/23 22:35 PTT Ratio 0.9 05/25/23 22:35 Sodium 137 mmol/L (136-145) 05/25/23 22:35 Potassium 3.6 mmol/L (3.5-5.1) 05/26/23 00:28 Chloride 99 mmol/L (98-107) 05/25/23 22:35 Carbon Dioxide 29 mmol/L (21-32) 05/25/23 22:35 Anion Gap 9 (3-11) 05/25/23 22:35 BUN 15 mg/dl (6-23) 05/25/23 22:35 Creatinine 1.26 mg/dl (0.6-1.2) H 05/25/23 22:35 Est Cr Clr Drug Dosing 41.7 ml/min 05/25/23 22:35 Est GFR ( Amer) 46.9 ml/min 05/25/23 22:35 Est GFR (Non-Af Amer) 40.5 ml/min 05/25/23 22:35 BUN/Creatinine Ratio 11.9 (10-20) 05/25/23 22:35 Glucose 172 mg/dl (70-99(Fasting)) H 05/25/23 22:35 Calcium 9.1 mg/dl (8.6-10.3) 05/25/23 22:35 Magnesium 1.7 mg/dl (1.7-2.4) 05/26/23 00:28 Total Bilirubin 0.6 mg/dl (0.2-1.0) 05/25/23 22:35 AST 19 U/L (13-39) 05/26/23 00:28 ALT 20 U/L (7-52) 05/25/23 22:35 Alkaline Phosphatase 66 U/L (34-104) 05/25/23 22:35 Troponin I High Sens 47.2 pg/ml (0-14) H 05/25/23 22:35 B-Natriuretic Peptide 70 pg/ml (0-100) 05/25/23 22:35 Total Protein 6.9 gm/dl (6.0-8.3) 05/25/23 22:35 Albumin 4.1 gm/dl (3.4-5.0) 05/25/23 22:35 Globulin 2.8 gm/dl (2.5-4.0) 05/25/23 22:35 Albumin/Globulin Ratio 1.5 (0.9-2) 05/25/23 22:35 SARS-CoV-2 (PCR) NEGATIVE (Negative) 05/26/23 01:45 Influenza Type A (PCR) Negative (Neg) 05/26/23 01:45 Influenza Type B (PCR) Negative (Neg) 05/26/23 01:45 RSV (RT-PCR) Negative (Neg) 05/26/23 01:45 ECG Additional Comments: ECG sinus bradycardia with first-degree AV block at rate of 57. No significant change was found Code Status & VTE Plan VTE Prophylaxis Plan VTE Prophylaxis will be ordered: Yes
[2023-05-26] MEDS ORDERED: NITROGLYCERIN SL 0.4 MG/TAB TAB SL PRN (05:58)
[2023-05-26] MEDS ORDERED: DEXTROSE 50% 50 ML SYRINGE IV PRN (05:58)
[2023-05-26] MEDS ORDERED: ACETAMINOPHEN 325 MG TAB PO PRN (05:58)
[2023-05-26] MEDS ORDERED: PHARMACY GLYCEMIC MGMT CONSULT PRN (05:58)
[2023-05-26] MEDS ORDERED: GLUCOSE 40% GEL 15 GM TUBE PO PRN (05:58)
[2023-05-26] MEDS ORDERED: GLUCOSE 10 TAB/TUBE PO PRN (05:58)
[2023-05-26] MEDS ORDERED: MoRPHine SULFATE 2 MG/ML CARP IV PRN (05:58)
[2023-05-26] MEDS ORDERED: GLUCAGON FOR INJ 1 MG VIAL SQ PRN (05:58)
[2023-05-26] MEDS ORDERED: CARBOHYDRATES FOR HYPOGLYCEMIA PO PRN (05:58)
[2023-05-26] MEDS: NITROGLYCERIN 2% OINTMENT 30GM TUBE EXT SCH ×3 (06:24→17:19)
[2023-05-26] MEDS: INSULIN ASPART PER UNIT CHARGE SC SCH ×4 (06:25→21:00)
[2023-05-26 07:21] LABS: Basophils # (auto) 0.04 K/uL (0-0.2); Basophils % (auto) 0.7 %; Eosinophils # (auto) 0.23 K/uL (0-0.50); Eosinophils % (auto) 3.9 %; Hematocrit (blood only) 32.7 % (37.0-47.0); Hemoglobin 11.5 g/dl (12.0-16.0); Immature Granulocytes # (auto) 0.02 K/uL (0.01-0.20); Immature Granulocytes % (auto) 0.3 %; Lymphocytes # (auto) 1.79 K/uL (1.2-3.4); Lymphocytes % (auto) 30.1 %; Mean Corpuscular Hemoglobin 32.2 pg (25.0-34.0); Mean Corpuscular Hgb Conc 35.2 g/dL (32.0-36.0); Mean Corpuscular Volume 91.6 fL (80.0-100.0); Mean Platelet Volume 9.5 fL (9.4-12.4); Monocytes # (auto) 0.35 K/uL (0.11-0.59); Monocytes % (auto) 5.9 %; Neutrophils # (auto) 3.51 K/uL (1.40-6.50); Neutrophils % (auto) 59.1 %; Platelet Count 163 K/uL (130-400); RDW Coefficient of Variation 12.9 % (11.5-14.5); RDW Standard Deviation 42.7 fL (36.4-46.3); Red Blood Count 3.57 M/uL (4.20-5.40); White Blood Count 5.94 K/ul (4.8-10.8)
[2023-05-26 07:32] LABS: BUN Creatinine Ratio 11.8 (10-20); Calcium 8.8 mg/dl (8.6-10.3); Creatinine Clr Calc Pharmacy 47.2 ml/min; Est GFR (African American) 55.3 ml/min; Est GFR (Non-African American) 47.7 ml/min; Magnesium 1.8 mg/dl (1.7-2.4); Potassium 3.6 mmol/L (3.5-5.1)
--- NOTE | 2023-05-26 08:13 | Electrocardiogram Report ---
Test Reason : Blood Pressure : / mmHG Vent. Rate : 071 BPM Atrial Rate : 071 BPM P-R Int : 220 ms QRS Dur : 094 ms QT Int : 418 ms P-R-T Axes : 067 021 085 degrees QTc Int : 454 ms Sinus rhythm with 1st degree A-V block Abnormal ECG When compared with ECG of 28-APR-2023 05:00, No significant change was found Confirmed by Richard Delgado ([id number]) on 05/26/2023 8:13:15 AM Referred By: Nolan Arriola Confirmed By:Richard Delgado
--- NOTE | 2023-05-26 08:21 | XRay Report ---
XR chest 1V portable CLINICAL HISTORY: Chest pain, nonspecific. Shortness of breath. COMPARISON STUDY: Chest radiograph April 27, 2023. FINDINGS: Low lung volumes are again noted. There is no pneumothorax or pleural effusion. Cardiomegal y is unchanged. There is mild interstitial prominence. No evidence for overt pulmonary edema. IMPRESSION: Stable cardiomegaly. Mild interstitial prominence which may reflect pulmonary vascular c ongestion. An infectious process is considered less likely. ACT 112: Negative or not required by law. Electronically signed by: Norberto Parra M.D. 05/26/2023 8:20 AM
[2023-05-26 08:51] LABS: Partial Thromboplastin Time 55.9 Seconds (21.0-31.0)
[2023-05-26] MEDS ORDERED: NON-FORMULARY MEDICATION (Multivitamin Tablet) PO SCH (09:00)
[2023-05-26] MEDS ORDERED: amLODIPine BESYLATE 5 MG TAB PO SCH (09:00)
[2023-05-26] MEDS ORDERED: FUROSEMIDE 40 MG TAB PO SCH (09:00)
[2023-05-26] MEDS: ATORVASTATIN 40 MG TAB PO SCH (09:22)
[2023-05-26] MEDS: LOSARTAN POTASSIUM 50 MG TAB PO SCH (09:22)
[2023-05-26] MEDS: ASPIRIN 81 MG ECTAB PO SCH (09:22)
[2023-05-26] MEDS: carvediloL 3.125 MG TAB PO SCH ×2 (09:22→19:54)
[2023-05-26] MEDS: CEROVITE ADV FORMULA TAB PO SCH (09:22)
[2023-05-26] MEDS: ISOSORBIDE MONO EXTENDED REL 60 MG TABCR PO SCH ×2 (09:22→19:53)
[2023-05-26] MEDS: SPIRONOLACTONE 12.5 MG TAB PO SCH (09:23)
[2023-05-26] MEDS ORDERED: amLODIPine BESYLATE 5 MG TAB PO ONE (10:45)
[2023-05-26] MEDS ORDERED: Nursing to Pharmacy Communication SCH (13:00)
[2023-05-26] MEDS: predniSONE 50 MG TAB PO SCH ×2 (13:44→21:03)
--- NOTE | 2023-05-26 13:56 | Pharmacy Report ---
Pharmacy Glycemic Short Note 2 - Date of Service May 26, 2023 - Glycemic Short BSG Results (Last 24 hours): 05/25/23 05/26/23 05/26/23 22:35 04:12 06:58 Glucose 172 H 139 H POC Glucose 164 H 05/26/23 11:44 Glucose POC Glucose 154 H OUTPATIENT ANTIDIABETIC REGIMEN: * Lantus 50 units HS * Humalog 55 units with meals ASSESSMENT: * Ms López is a 78 y/o F with a PMH of T2DM who presents with chest pain. Originally patient was NPO on admission. At lunch, patient was ordered diet. She is scheduled to be NPO at midnight for cardiac cath. Patient has an IV dye allergy and is ordered prednisone 50 mg PO q8 x 4 doses as the time of procedure is unknown. First dose at 1400 today. * BSG on admission was 164 mg/dL and at lunch was 154 mg/dL. * For Lantus, will give 25 units tonight (half of home dose) since patient is NPO tomorrow. * For steroid coverage, will give NPH 40 units SQ x 1 (0.4 units/kg) to cover steroids for today. Pending additional order tomorrow for other two doses. * Novolog weight-based stress of 2/3. When patient is NPO tomorrow, will do q4 checks to ensure blood sugars can be controlled. PLAN FOR INPATIENT GLYCEMIC CONTROL: * Hold outpatient oral diabetes medications * Basal insulin * Lantus 25 units SQ HS * NPH 40 units SQ x 1 for prednisone 50 mg dose * Bolus insulin * NovoLog per scale ACHS or Q4hrs while NPO * Goal Range: Low 110 mg/dL - High 140 mg/dL * Correction Factor: 25 mg/dL/unit * Nutritional / Prandial insulin per carb ratio of 1 unit per 5 grams CHO consumed
[2023-05-26] MEDS ORDERED: NovoLIN-N (NPH) PER UNIT CHARGE SQ ONE (14:00)
--- NOTE | 2023-05-26 15:47 | Cardiology Consultation ---
Date of Consultation May 26, 2023 Assessment & Plan (1) Unstable angina pectoris: Unstable angina -Patient with minimal elevation in the high-sensitivity troponin I with measurements of 47 and 19 PG per mL, then repeat this morning 4.3 PG per mL. Measurements are actually improved compared to her previous measurements that peaked at 74 PG per mL last month. -As noted, recent nuclear stress test with reversible anterior, anterolateral perfusion defect consistent with ischemia in the LAD or perhaps circumflex territory. 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 -Presentation and biomarkers more consistent with unstable angina than a non- STEMI at present. -Waxing waning discomfort currently relieved with noted improved blood pressure, no significant repolarization changes on EKG. -Continue aspirin, unfractioned heparin infusion (to be held at 4 AM tomorrow morning) topical nitrates, carvedilol, losartan, spironolactone. -Recent addition of amlodipine 2.5 mg twice daily noted, will increase to 5 mg twice daily. Difficult to control hypertension -Continue medications including topical nitrates, Imdur, losartan, spironolactone, amlodipine, carvedilol, furosemide 40 mg every other day. Blood pressure under better control at present. Dyslipidemia Recent outpatient LDL level 04/22/2023 was 64 mg/dL. Continue atorvastatin 40 mg daily Contrast Allergy Start prophylaxis with prednisone 50 mg every 8 hours x 4 doses, pending cardiac cath. Plan on oral diphenhydramine 50 mg 1 hour prior to cardiac catheterization. Discussed with pharmacy with regards to her glycemic control. Case discussed with Dr. Reid the hospital service for the purpose of coord ination of care. History of Present Illness Attending Physician: Ebony Poole MD History of Present Illness Zuleyma López is a 78-year-old female seen in cardiology consultation per the request of Dr Rodriguez for the evaluation of acute coronary syndrome. Patient well-known to our service, having followed with both Dr. Arriola and Grabiel Ramírez PA-C, most recent visit had taken place 2 days ago on 05/24/2023 and she also had an outpatient stress test in our office interpreted by the undersigned last week on 05/22/2023. History is notable for recent presentation to [facility] on 04/27/2023 with chest discomfort, hypertensive urgency, presenting blood pressure 212/79. Noted history of anxiety. She was seen in consultation by Dr. Arriola at that time. Echocardiogram revealed no regional wall motion abnormalities. Antihypertensive regimen altered with new addition of amlodipine 2.5 mg twice daily in addition to her other medications. At the time of her recent posthospital visit with primary care her blood pressure was well controlled. She presented for a pharmacologic nuclear stress test on 05/22/2023 at [facility] and was noted to be hypertensive upon arrival, initial blood pressure 194/90, with persistent hypertension after the test maximum blood pressure 228/98. She had not taken her furosemide, spironolactone, or losartan 100 mg the morning of the test, and she was instructed to go home and take her medications. Stress testing revealed a moderate-sized reversible anterior, anterolateral perfusion defect consistent with ischemia in the LAD and possibly circumflex coronary territories, LVEF calculated to be greater than 70% by the gated SPECT technique. She subsequently seen in follow-up on 05/24/2023. Due to ongoing intermittent chest tightness symptoms, cardiac catheterization tentatively planned at [facility] on 06/04/2023. In the meantime, yesterday she had waxing waning of shortness of breath and chest pressure prompting her current presentation to the emergency department at [facility]. Initial blood pressures on presentation last evening once again elevated with measurements of 188/81, 208/82, and had recently trended down with most recent measurement of 111/51. Patient asymptomatic at the time of my evaluation and was on unfractioned heparin infusion. Past Cardiac History: 1. Chronic coronary heart disease, status postcardiac catheterization performed by Dr. Arriola August, with 100% occlusion of the PDA branch of the right coronary artery with [id number] collateral filling, 30% RCA stenosis noted otherwise, 30% circumflex stenosis, 50% mid LAD stenosis 2. Longstanding history of chronic stable angina 3. Difficulty control hypertension with diastolic dysfunction, diastolic heart failure 4. Type 2 diabetes mellitus 5. 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 Allergies Allergy/AdvReac Type Severity Reaction Status Date / Time Sulfa (Sulfonamide Allergy Severe HIVES Verified 06/28/22 10:00 Antibiotics) Iodinated Contrast Media Allergy Intermediate HIVES Verified 06/28/22 10:00 Penicillins Allergy Intermediate HIVES Verified 06/28/22 10:00 codeine Allergy Unknown HAS Verified 06/28/22 10:00 TOLERATED MORPHINE W/O RXN SEVERE N&V exenatide Allergy Unknown BYETTA-ELEVATED Verified 06/28/22 10:00 LIPASE erythromycin base AdvReac Intermediate NAUSEA AND Verified 06/28/22 10:00 VOMITING rofecoxib AdvReac Intermediate NAUSEA AND Verified 06/28/22 10:00 VOMITING metformin AdvReac Mild GI UPSET Verified 06/28/22 10:00 morphine AdvReac Mild GI UPSET Verified 06/28/22 10:00 Home Medications Medication Instructions Recorded Confirmed Type aspirin 81 mg chewable tablet 81 mg PO DAILY 08/24/18 04/27/23 History cinnamon bark 500 mg capsule 500 mg PO DAILY 08/24/18 04/27/23 History (Cinnamon) isosorbide mononitrate 60 mg 60 mg PO BID 08/24/18 04/27/23 History tablet,extended release 24 hr multivitamin 1 tab PO DAILY 08/24/18 04/27/23 History nitroglycerin 0.4 mg sublingual 0.4 mg sublingual DIRECTED PRN 08/24/18 04/27/23 History tablet (Nitrostat) Chest Pain psyllium husk 3.4 gram/5.4 gram 2 tbsp PO DAILY 08/24/18 04/27/23 History oral powder (Metamucil) insulin glargine 100 unit/mL (3 50 unit subcut HS 09/15/19 04/27/23 History mL) subcutaneous pen (Basaglar KwikPen U-100 Insulin) mirtazapine 30 mg tablet 30 mg PO HS 09/15/19 04/27/23 History insulin lispro 100 unit/mL See Rx Instructions .Route .COMPLEX 03/23/21 04/27/23 History subcutaneous pen (Humalog KwikPen (U-100) Insulin) ketoconazole 2 % shampoo 1 applic topical Q14D PRN Other 03/23/21 04/27/23 History pen needle, diabetic 32 gauge x #50 ea 03/23/21 06/28/22 History 532" (ReliOn Pen [place]) vit C,E,zinc,copper-bznbt8n 250 1 cap PO DAILY 03/23/21 04/27/23 History mg-lutein 5 mg-zeaxanthin 1 mg capsule (Ocuvite Adult 50 Plus) losartan 100 mg tablet 100 mg PO DAILY 10/17/21 04/27/23 History spironolactone 25 mg tablet 12.5 mg PO DAILY #30 tabs 10/19/21 04/27/23 Rx atorvastatin 40 mg tablet 40 mg PO DAILY 04/27/23 04/27/23 History furosemide 40 mg tablet 40 mg PO Q2D 04/27/23 04/27/23 History amlodipine 2.5 mg tablet 2.5 mg PO BID #1 tab 04/28/23 04/27/23 Rx carvedilol 3.125 mg tablet 3.125 mg PO BID #60 tabs 04/29/23 Rx sertraline 25 mg tablet 50 mg PO BID 05/26/23 05/26/23 History Patient History Medical History CKD (chronic kidney disease), stage III Coronary artery disease Cough Cough variant asthma Diabetes mellitus type II, controlled Dyslipidemia Dyspnea GERD (gastroesophageal reflux disease) Lower extremity edema Lower extremity edema Morbid obesity due to excess calories Surgical History H/O colonoscopy H/O tubal ligation History of arthroplasty of right knee History of esophagogastroduodenoscopy S/P tonsillectomy Family History Other Family history non-contributory Social History Smoking Status: Never smoker Second Hand Exposure: No; Hx Alcohol Use: No Hx Substance Use: No Preferred Language: Swedish Communication Ability: Effective [employer] Finder Required: No Beliefs That Will Affect Care: None marital status: Current Living Situation: Spouse How many Children do You have: 0 Other Information That Helps Us Care for You: No Feels Safe at Home: Yes Safety Concerns: Feels Safe At This Time Assistive Devices: None Review of Systems Review of Systems: All systems reviewed & are unremarkable except as noted in HPI & below Physical Exam Constitutional: WD/WN, vitals as above Respiratory: normal respiratory effort, lungs clear to auscultation Cardiovascular: RRR, no murmur, no edema Gastrointestinal (Abdomen): normal bowel sounds, soft, nontender, no hepatos plenomegaly Neurologic: PERRL, EOMI, accommodation nl, no face palsy, no dysarthria Psychiatric: A+Ox3, euthymic affect Results & Data Vital Signs (Past 12 Hours) Vital Signs Temp Pulse Pulse Resp BP BP Pulse Ox 05/26/23 15:19 51 L 05/26/23 12:07 36.4 C L 51 L 18 111/51 L 93 05/26/23 09:00 05/26/23 09:42 58 L 05/26/23 07:51 36.3 C L 63 20 158/64 H 91 05/26/23 06:00 59 L 05/26/23 05:51 36.7 C 64 18 196/76 H 93 05/26/23 04:00 55 L 12 97 05/26/23 04:00 183/72 H 05/26/23 03:50 56 L 17 96 05/26/23 03:40 56 L 17 97 05/26/23 03:31 60 21 98 05/26/23 03:31 193/77 H 05/26/23 03:30 60 17 98 05/26/23 03:30 201/83 H O2 Del Method 05/26/23 15:19 05/26/23 12:07 Room Air 05/26/23 09:00 Room Air 05/26/23 09:42 05/26/23 07:51 Room Air 05/26/23 06:00 05/26/23 05:51 Room Air 05/26/23 04:00 05/26/23 04:00 05/26/23 03:50 05/26/23 03:40 05/26/23 03:31 05/26/23 03:31 05/26/23 03:30 05/26/23 03:30 Laboratory Results Cardiac Enzymes 05/25/23 05/25/23 05/26/23 Range/Units 22:35 22:35 00:28 AST TNP 19 Troponin I High Sens 47.2 H (0-14) pg/ml B-Natriuretic Peptide 70 (0-100) pg/ml 05/26/23 05/26/23 Range/Units 06:58 11:57 AST Troponin I High Sens 19.0 H D 12.3 D (0-14) pg/ml B-Natriuretic Peptide (0-100) pg/ml Coagulation 05/25/23 05/25/23 05/26/23 Range/Units 22:35 22:35 06:58 PT 10.8 (9.0-12.0) Seconds APTT 24.1 55.9 H* (21.0-31.0) Seconds B-Natriuretic Peptide 70 (0-100) pg/ml CBC 05/25/23 05/26/23 Range/Units 22:35 06:58 WBC 6.08 5.94 (4.8-10.8) K/ul RBC 3.69 L 3.57 L (4.20-5.40) M/uL Hgb 11.9 L 11.5 L (12.0-16.0) g/dl Hct 34.3 L 32.7 L (37.0-47.0) % Plt Count 176 163 (130-400) K/uL Neut # (Auto) 3.92 3.51 (1.40-6.50) K/uL Lymph # (Auto) 1.56 1.79 (1.2-3.4) K/uL [place] # (Auto) 0.37 0.35 (0.11-0.59) K/uL Eos # (Auto) 0.18 0.23 (0-0.50) K/uL Baso # (Auto) 0.03 0.04 (0-0.2) K/uL Comprehensive Metabolic Panel 05/25/23 05/26/23 05/26/23 Range/Units 22:35 00:28 06:58 Sodium 137 139 (136-145) mmol/L Potassium TNP 3.6 3.6 Chloride 99 102 (98-107) mmol/L Carbon Dioxide 29 32 (21-32) mmol/L BUN 15 13 (6-23) mg/dl Creatinine 1.26 H 1.10 (0.6-1.2) mg/dl Glucose 172 H 139 H (70-99(Fasting)) mg/dl Calcium 9.1 8.8 (8.6-10.3) mg/dl AST TNP 19 ALT 20 (7-52) U/L Alkaline Phosphatase 66 (34-104) U/L Total Protein 6.9 (6.0-8.3) gm/dl Albumin 4.1 (3.4-5.0) gm/dl Diagnostic Findings EKG performed 05/26/2023 at 2232 hrs. revealed sinus rhythm with first-degree AV block, no significant repolarization changes, no significant change compared to previous performed 04/28/2023 Repeat echocardiogram for reassessment of wall motion performed today 05/26/2023 and interpreted pendantly, no regional wall motion abnormalities noted, LVEF 6065%, trace aortic valve insufficiency, and aortic valve sclerosis without stenosis noted at the time of previous study 04/28/2023
--- NOTE | 2023-05-26 16:40 | Hospitalist Progress Note ---
Date of Service May 26, 2023 Assessment & Plan (1) Chest pain: Plan: 78-year-old female presents with chest pain. Unstable angina-no evidence of ACS Recently in the hospital for chest pain in the end of April thought to be from emotional stress, hypertensive urgency and hypoglycemia. Outpatient stress test was abnormal and plan for cardiac cath in November. History of angina EKG okay. Troponin 47. And serial troponins did not show any significant increase Started on IV heparin which will be continued Continue home Coreg aspirin and statin Echocardiogram reviewed-echo was done on April 26 as well. Limited goal- directed views where obtained, no regional wall motion abnormalities, LV systolic function is normal, LVEF 60 to 65% and there is no pericardial effusion. Cardiology consult-appreciate input and recommendation Has been feeling a little better Cardiac cath tomorrow Hypertension Continue home medication of Coreg, diuretics, Imdur, losartan and amlodipine We will monitor the blood pressure. Amlodipine has been increased to 5 mg twice daily Chronic diastolic CHF Lasix and spironolactone We will monitor for volume overload Current doses of diuretics have been continued Diabetes Currently n.p.o. We will cut back on Lantus to 25 nightly while n.p.o. Sliding scale Glycemic pharmacy consult We will follow the blood sugars. Hyperlipidemia continue statin CKD stage III Presented with creatinine 1.2 seems to be at baseline We will follow the labs Creatinine has been normal History of asthma cough variant History of recurrent acute complicated bronchitis Currently seems stable Carotid artery disease On aspirin and statin Needs follow-up Suspected sleep apnea Last admission had type I second-degree AV block at night Seems evaluated by sleep medicine in January 2022 and seems patient declined further evaluation and treatment We will place on oxygen while sleeping. We will push for outpatient sleep study on discharge DVT prophylaxis on IV heparin Disposition Telemetry floor Full code Admission and Anticipated Discharge Date Admission Date: May 26, 2023 Subjective 05/26/2023 The patient was seen and examined in telemetry unit She has been having typical angina symptoms for some time Her pain seems to be better in the hospital She will have cardiac cath tomorrow Review of Systems Review of Systems: All systems reviewed and are unremarkable except as noted below Cardiovascular: Additional Comments: Exertional angina with shortness of breath and radiation of pain and chest tightness Physical Exam Physical Exam: Sitting on a chair without any acute distress but very anxious Constitutional: well developed, well nourished, + ill appearing and + obese Eyes: PERRL, conjunctivae normal, anicteric sclerae ENMT: external ear and nose normal, oropharynx normal Neck: trachea midline, no thyromegaly Respiratory: no respiratory distress Auscultation: + diminished lung sounds and + crackles (Minimal crackles at the bases) Cardiovascular: Rate/Rhythm: regular rate, regular rhythm and + bradycardic Heart Sounds: normal S1, normal S2 and + murmur (Ejection systolic murmur over the aortic area) Extremities: + edema (1+ edema bilaterally) Gastrointestinal (Abdomen): Inspection/Auscultation: normal bowel sounds; abdomen not distended Percussion/Palpation: abdomen soft; abdomen nontender Musculoskeletal: No acute arthritis involving any joint Neurologic: Alert, awake and oriented x3 Lymphatic: no cervical or axillary lymphadenopathy Results & Data Results & Data Vital Signs (Past 12 Hours) Vital Signs Temp Pulse Pulse Resp BP Pulse Ox O2 Del Method 05/26/23 15:19 51 L 05/26/23 12:07 36.4 C L 51 L 18 111/51 L 93 Room Air 05/26/23 09:00 Room Air 05/26/23 09:42 58 L 05/26/23 07:51 36.3 C L 63 20 158/64 H 91 Room Air 05/26/23 06:00 59 L 05/26/23 05:51 36.7 C 64 18 196/76 H 93 Room Air Laboratory Results Short CBC 05/25/23 05/26/23 Range/Units 22:35 06:58 WBC 6.08 5.94 (4.8-10.8) K/ul Hgb 11.9 L 11.5 L (12.0-16.0) g/dl Hct 34.3 L 32.7 L (37.0-47.0) % Plt Count 176 163 (130-400) K/uL BMP 05/25/23 05/26/23 05/26/23 22:35 00:28 06:58 Sodium 137 139 Potassium TNP 3.6 3.6 Chloride 99 102 Carbon Dioxide 29 32 BUN 15 13 Creatinine 1.26 H 1.10 Glucose 172 H 139 H Calcium 9.1 8.8 Liver Function 05/25/23 05/26/23 Range/Units 22:35 00:28 Total Bilirubin 0.6 (0.2-1.0) mg/dl AST TNP 19 ALT 20 (7-52) U/L Alkaline Phosphatase 66 (34-104) U/L Albumin 4.1 (3.4-5.0) gm/dl Medications Administered Current Inpatient Medications Acetaminophen (Acetaminophen 325 Mg Tab) 650 mg PO Q4H PRN PRN Reason: Pain or Fever Stop: 06/25/23 05:57 Amlodipine Besylate (Amlodipine Besylate 5 Mg Tab) 5 mg PO BID [facility] Stop: 06/25/23 20:59 Aspirin (Aspirin 81 Mg Ectab) 81 mg PO DAILY MINDA Stop: 06/25/23 08:59 Last Admin: 05/26/23 09:22 Dose: 81 mg Atorvastatin Calcium (Atorvastatin 40 Mg Tab) 40 mg PO DAILY MINDA Stop: 06/25/23 08:59 Last Admin: 05/26/23 09:22 Dose: 40 mg Carvedilol (Carvedilol 3.125 Mg Tab) 3.125 mg PO BID MINDA Stop: 06/25/23 08:59 Last Admin: 05/26/23 09:22 Dose: 3.125 mg Dextrose (Dextrose 50% 50 Ml Syringe) 25 - 50 ml IV UD PRN; Protocol PRN Reason: Hypoglycemia Protocol Stop: 06/25/23 05:57 Diphenhydramine HCl (Diphenhydramine Capsule 25 Mg Cap) 50 mg PO NOW [facility] Stop: 05/27/23 08:01 Furosemide (Furosemide 40 Mg Tab) 40 mg PO Q2D@0900 MINDA Stop: 06/25/23 08:59 Last Admin: 05/26/23 11:22 Dose: 40 mg Glucagon (Glucagon For Inj 1 Mg Vial) 1 mg SQ UD PRN; Protocol PRN Reason: Hypoglycemia Protocol Stop: 06/25/23 05:57 Glucose (Glucose 10 Tab/Tube) 4 - 8 tab PO UD PRN; Protocol PRN Reason: Hypoglycemia Treatment Stop: 06/25/23 05:57 Glucose (Glucose 40% Gel 15 Gm Tube) 15 - 30 gm PO UD PRN; Protocol PRN Reason: Hypoglycemia Protocol Stop: 06/25/23 05:57 Heparin Sodium/Dextrose (Heparin Sodium/Dextrose) 25,000 units in 500 mls @ 17 mls/hr IV .Q24H MINDA; Protocol Stop: 06/25/23 00:59 Last Titration: 05/26/23 09:02 Dose: 850 units/hr, 17 mls/hr Sodium Chloride (Nss 1000ml) 1,000 mls @ 60 mls/hr IV .[id number] [facility] Stop: 06/25/23 20:59 Insulin Aspart (Insulin Aspart Per Unit Charge) 0 units SC ACHS MINDA Stop: 05/26/23 23:59 Insulin Aspart (Insulin Aspart Per Unit Charge) 0 units SC Q4 MINDA Stop: 06/26/23 00:00 Insulin Glargine (Lantus Per Unit Charge) 25 units SQ HS MINDA Stop: 06/25/23 20:59 Isosorbide Mononitrate (Isosorbide Braxton Extended Rel 60 Mg Tabcr) 60 mg PO BID MINDA Stop: 06/25/23 08:59 Last Admin: 05/26/23 09:22 Dose: 60 mg Losartan Potassium (Losartan Potassium 50 Mg Tab) 100 mg PO DAILY MINDA Stop: 06/25/23 08:59 Last Admin: 05/26/23 09:22 Dose: 100 mg Mirtazapine (Mirtazapine Tab 15 Mg Tab) 30 mg PO HS [facility] Stop: 06/25/23 20:59 Miscellaneous (Carbohydrates For Hypoglycemia ) 15 - 30 gm PO UD PRN PRN Reason: Hypoglycemia Protocol Stop: 06/25/23 05:57 Miscellaneous (Hold Heparin Order) 1 each N/A ONE ONE Stop: 05/27/23 04:01 Miscellaneous Information (Pharmacy Glycemic Mgmt Consult) 1 each N/A UD PRN PRN Reason: Consult Stop: 06/25/23 05:57 Morphine Sulfate (Morphine Sulfate 2 Mg/Ml Carp) 2 mg IV Q30M PRN PRN Reason: Chest Pain Stop: 06/09/23 05:57 Multivitamins/Minerals (Cerovite Adv Formula Tab) 1 tab PO DAILY MINDA Stop: 06/25/23 08:59 Last Admin: 05/26/23 09:22 Dose: 1 tab Nitroglycerin (Nitroglycerin Sl 0.4 Mg/Tab Tab) 0.4 mg SL Q5M PRN PRN Reason: Chest Pain Stop: 06/25/23 05:57 Nitroglycerin (Nitroglycerin 2% Ointment 30gm Tube) 1 inch EXT Q6 MINDA Stop: 06/25/23 05:59 Last Admin: 05/26/23 12:31 Dose: 1 inch Prednisone (Prednisone 50 Mg Tab) 50 mg PO Q8 [facility] Stop: 05/27/23 14:01 Last Admin: 05/26/23 13:44 Dose: 50 mg Spironolactone (Spironolactone 12.5 Mg Tab) 12.5 mg PO DAILY [facility] Stop: 06/25/23 08:59 Last Admin: 05/26/23 09:23 Dose: 12.5 mg
[2023-05-26] MEDS: SERTRALINE HCL 50 MG TABLET PO SCH (19:51)
[2023-05-26] MEDS: amLODIPine BESYLATE 5 MG TAB PO SCH (19:53)
[2023-05-26] MEDS ORDERED: MIRTAZAPINE TAB 15 MG TAB PO SCH (21:00)
[2023-05-26] MEDS ORDERED: LANTUS PER UNIT CHARGE SQ SCH (21:00)
[2023-05-26] MEDS: SODIUM CHLORIDE 0.9% 1000ML 1,000 ML IV SCH (21:04)
[2023-05-27] MEDS: INSULIN ASPART PER UNIT CHARGE SC SCH ×4 (00:47→12:44)
[2023-05-27] MEDS: NITROGLYCERIN 2% OINTMENT 30GM TUBE EXT SCH ×2 (00:48→05:02)
[2023-05-27] MEDS ORDERED: HOLD HEPARIN ORDER ONE (04:00)
[2023-05-27] MEDS: HEPARIN SODIUM/DEXTROSE 25,000 UNITS/500 ML BAG IV SCH (04:04)
[2023-05-27] MEDS: predniSONE 50 MG TAB PO SCH ×2 (05:02→15:56)
[2023-05-27 06:03] LABS: Basophils # (auto) 0.02 K/uL (0-0.2); Basophils % (auto) 0.3 %; Hematocrit (blood only) 34.9 % (37.0-47.0); Immature Granulocytes # (auto) 0.04 K/uL (0.01-0.20); Immature Granulocytes % (auto) 0.6 %; Lymphocytes # (auto) 0.72 K/uL (1.2-3.4); Lymphocytes % (auto) 10.1 %; Mean Corpuscular Hemoglobin 32.1 pg (25.0-34.0); Mean Corpuscular Hgb Conc 34.4 g/dL (32.0-36.0); Mean Corpuscular Volume 93.3 fL (80.0-100.0); Mean Platelet Volume 9.9 fL (9.4-12.4); Monocytes # (auto) 0.08 K/uL (0.11-0.59); Monocytes % (auto) 1.1 %; Neutrophils # (auto) 6.27 K/uL (1.40-6.50); Neutrophils % (auto) 87.9 %; Platelet Count 184 K/uL (130-400); RDW Coefficient of Variation 12.8 % (11.5-14.5); RDW Standard Deviation 43.6 fL (36.4-46.3); Red Blood Count 3.74 M/uL (4.20-5.40); White Blood Count 7.13 K/ul (4.8-10.8)
[2023-05-27 06:21] LABS: BUN Creatinine Ratio 16.2 (10-20); Creatinine Clr Calc Pharmacy 33.7 ml/min; Est GFR (African American) 36.8 ml/min; Est GFR (Non-African American) 31.8 ml/min; Magnesium 1.8 mg/dl (1.7-2.4); Potassium 4.2 mmol/L (3.5-5.1)
[2023-05-27 06:33] LABS: Partial Thromboplastin Ratio 0.9; Partial Thromboplastin Time 25.6 Seconds (21.0-31.0)
[2023-05-27 07:37] LABS: Estimated Average Glucose 183 mg/dl
[2023-05-27] MEDS ORDERED: diphenhydrAMINE Capsule 25 MG CAP PO SCH (08:00)
[2023-05-27] MEDS: SERTRALINE HCL 50 MG TABLET PO SCH (08:18)
[2023-05-27] MEDS: CEROVITE ADV FORMULA TAB PO SCH (08:18)
[2023-05-27] MEDS: LOSARTAN POTASSIUM 50 MG TAB PO SCH (08:18)
[2023-05-27] MEDS: ATORVASTATIN 40 MG TAB PO SCH (08:18)
[2023-05-27] MEDS: carvediloL 3.125 MG TAB PO SCH (08:18)
[2023-05-27] MEDS: ISOSORBIDE MONO EXTENDED REL 60 MG TABCR PO SCH (08:18)
[2023-05-27] MEDS: ASPIRIN 81 MG ECTAB PO SCH (08:19)
[2023-05-27] MEDS: SPIRONOLACTONE 12.5 MG TAB PO SCH (08:19)
[2023-05-27] MEDS: amLODIPine BESYLATE 5 MG TAB PO SCH (08:21)
--- NOTE | 2023-05-27 08:44 | Electrocardiogram Report ---
Test Reason : Blood Pressure : / mmHG Vent. Rate : 061 BPM Atrial Rate : 061 BPM P-R Int : 242 ms QRS Dur : 094 ms QT Int : 438 ms P-R-T Axes : 062 010 092 degrees QTc Int : 440 ms Sinus rhythm with 1st degree A-V block Abnormal ECG When compared with ECG of 26-MAY-2023 02:49, No significant change was found Confirmed by Richard Delgado ([id number]) on 05/27/2023 8:44:24 AM Referred By: Nolan Arriola Confirmed By:Richard Delgado
--- NOTE | 2023-05-27 08:44 | Electrocardiogram Report ---
Test Reason : Blood Pressure : / mmHG Vent. Rate : 057 BPM Atrial Rate : 057 BPM P-R Int : 250 ms QRS Dur : 092 ms QT Int : 452 ms P-R-T Axes : 067 036 092 degrees QTc Int : 439 ms Sinus bradycardia with 1st degree A-V block Abnormal ECG When compared with ECG of 25-MAY-2023 22:32, No significant change was found Confirmed by Richard Delgado ([id number]) on 05/27/2023 8:43:56 AM Referred By: Nolan Arriola Confirmed By:Richard Delgado
--- NOTE | 2023-05-27 10:04 | Pre Anesthesia Assessment ---
Date of Service May 27, 2023 Pre Sedation Assessment Vital Signs Temp Pulse Pulse Resp BP Pulse Ox O2 Del Method 05/27/23 07:55 36.7 C 66 20 171/71 H 94 Room Air 05/27/23 03:00 36.5 C 70 16 166/69 H 92 Room Air 05/27/23 03:25 65 05/26/23 23:00 36.6 C 71 16 168/69 H 93 Room Air 05/26/23 19:00 37.0 C 68 20 182/74 H 95 Room Air 05/26/23 16:50 36.5 C 59 L 20 150/75 H 91 Room Air 05/26/23 15:19 51 L 05/26/23 12:07 36.4 C L 51 L 18 111/51 L 93 Room Air Cardiovascular RRR, no murmur, no edema Respiratory normal respiratory effort, lungs clear to auscultation Pre-Sedation Airway Assessment Smoking Status: Never smoker Hx Sleep Apnea: No Short, Thick Neck: No Thyromental Distance: > or= 3.5 Finger Breadths Oral Cavity: + WNL Mallampati Class: IV ASA: ASA4 NPO Status Date of Last Intake of Fluids: 05/27/23 Time of Last Intake of Fluids: 06:00 Last Oral Intake of Fluids Comment: sip with meds Date of Last Intake of Solid Food: 05/26/23 Notes The planned sedation has been discussed with the patient. Informed Consent was obtained. I have identified the patient, determined the appropriateness of sedation and have assessed the patient immediately prior to the procedure. All medicine(s) and interventions are by my order.
[2023-05-27] MEDS ORDERED: HEPARIN (PORCINE) 1000 UNIT/ML 10 ML (CATH LAB USE ONLY) ONE (10:13)
[2023-05-27] MEDS ORDERED: fentaNYL citrate PF 100 MCG/2 ML VIAL ONE (10:13)
[2023-05-27] MEDS ORDERED: MIDAZOLAM HCL 1 MG/ML 2ML VIAL ONE (10:13)
[2023-05-27] MEDS ORDERED: niCARdipine HCL INJ 2.5 MG/ML 10 ML AMP ONE (10:13)
[2023-05-27] MEDS ORDERED: NITROGLYCERIN/D5W 100MCG/ML 20ML SYR ONE (10:14)
[2023-05-27] MEDS ORDERED: diphenhydrAMINE 50 MG/ML VIAL ONE (10:14)
[2023-05-27] MEDS ORDERED: hydrALAZINE HCL 20 MG/ML VIAL ONE (10:18)
[2023-05-27] MEDS ORDERED: HYDROCORTISONE SOD SUCCINATE 100 MG/2 ML VIAL ONE (10:23)
[2023-05-27] MEDS ORDERED: FAMOTIDINE 20MG/5ML IV PUSH IV ONE (10:23)
[2023-05-27] MEDS ORDERED: METOPROLOL TARTRATE 1 MG/ML VIAL IV ONE (10:31)
[2023-05-27] MEDS ORDERED: NITROGLYCERIN SL 0.4 MG/TAB TAB SL PRN (10:52)
--- NOTE | 2023-05-27 10:52 | Post Anesthesia Assessment ---
Date of Service May 27, 2023 Post Sedation Assessment Vital Signs Temp Pulse Pulse Resp BP Pulse Ox O2 Del Method 05/27/23 07:55 36.7 C 66 20 171/71 H 94 Room Air 05/27/23 03:00 36.5 C 70 16 166/69 H 92 Room Air 05/27/23 03:25 65 05/26/23 23:00 36.6 C 71 16 168/69 H 93 Room Air 05/26/23 19:00 37.0 C 68 20 182/74 H 95 Room Air 05/26/23 16:50 36.5 C 59 L 20 150/75 H 91 Room Air 05/26/23 15:19 51 L 05/26/23 12:07 36.4 C L 51 L 18 111/51 L 93 Room Air Recovery Score Activity: Moves 4 extremities Respiration: Deep Breath/Cough Circulation: +/-20% PreAnes Value Consciousness: Fully Awake Oxygen Saturation: > 92% On Room Air Discharge Sedation Level of Care: Fast Track Phase II Post Sedation Plan On clinical assessment, the patient appears to have tolerated the sedation without complications. Patient is recovering as anticipated. Patient will continue to be monitored by nursing and may be discharged when sedation discharge criteria are met per below protocol. Upon Completions of procedure up to 15 minutes continue every 5 minute vital signs and the P.A.R. score; then discharge to a Phase I or Fast Track to Phase II per the following guidelines: * Discharge Patient to appropriate Phase II area if PAR is 8 or greater or return to pre- procedure baseline. The post - procedure orders will be as directed. * If PAR score is less than 8 or not return to pre-procedure baseline then patient will follow Phase I monitoring till PAR is reached for Phase II. The Phase I may be done in procedure room or may call to secure a Phase I area. * If naloxone or flumazenil are used for reversal, hold in Phase I for continued monitoring from when last reversal dose was given for a minimum of 60 minutes or longer pending the nurse and/or physician discretion of patient condition before discharge to Phase II. Please call the Sedation Physician to re-evaluate and complete post-note for discharge to Phase II area. Do NOT discharge from procedure sedation or Phase 1 until post- sedation evaluation note is complete by procedure /sedation MD Sedation Discharge Instructions to be given to the patient at discharge to home. [facility] Procedure Codes (Charges) Indication for Procedure Indication for procedure: NSTEMI Sedation/Anesthesia Procedure 1: Sedation/Anesthesia: 08029 Mod Sedation by the same physician;Init15 Min Child Age 5 & Up (Start 1032, end 1041) Total Sedation Time (minutes): 9
--- NOTE | 2023-05-27 11:09 | Cardiac Catheterization ---
[facility] Data: [place] Expert Cardiac Status Clinical evaluation leading to the procedure CAD Presenation: Non STEMI Anginal Classification: CCS IV Heart Failure: No Cardiogenic Shock within 24 Hours: No Cardiac Arrest within 24 Hours: No Imaging Studies Past 6 Months: Yes Stress Studies Past 6 Months: Yes Stress Testing w/SPECT MPI: Yes - Positive Coronary Anatomy Dominant: Right Left Main (% Stenosis): Normal LAD (% Stenosis): Ostial (80%), Proximal (80 to 90%) and Distal (Mild) D1 (% Stenosis): Ostial (90%) D2 (% Stenosis): Proximal (40%) Circumflex (% Stenosis): Ostial (80% calcified), Proximal, Mid (Up to 70%) and Distal (Mild diffuse) OM1 (% Stenosis): Normal OM2 (% Stenosis): Proximal (30 to 40%) RCA (% Stenosis): Mid (Long eccentric 50 to 70%) R PDA (% Stenosis): Ostial (100% QUALITY ASSURANCE INTERN, fills left to right collaterals) R PL1 (% Stenosis): Normal Diagnostic Physicians Name: Bhargav Ramírez MD, PhD Closure Device Percutaneous Entry Location: Radial Closure Device: Radial Band Recommendations: Medical Therapy and/or Counseling and CABG Intraprocedure Events Significant Disection: No Perforation: No Cardiac Cath Procedure Full Procedure Date May 27, 2023 Pre-Procedure Diagnosis Pre-Procedure Diagnosis: Non STEMI AUC Score AUC Score: 07 Post-Procedure Diagnosis Post-Procedure Diagnosis: Severe CAD Procedure(s) Performed Procedure(s) Performed: Coronary Angiography Industrial Therapist Bhargav Ramírez MD, PhD Estimated Blood Loss Estimated Blood Loss: 5 mL Medication(s) Medication(s): Diphenhydramine, Fentanyl, Heparin, Hydralazine, Lidocaine 1%, Metoprolol, Nicardipine, Nitroglycerin and Versed Summary of Findings Brief description: Patient was brought to the cardiac catheterization suite where she was shaved and prepped in a sterile fashion. Sedated using IV Versed and fentanyl. In addition, her blood pressure was very elevated so she was provided IV Lopressor and hydralazine. Additionally, she has IVP contrast allergy and was therefore provided Benadryl, Solu-Medrol, and Pepcid IV. Soft tissues of the right wrist were anesthetized using 1 mL of 1% Xylocaine. The right radial artery was accessed using a modified Seldinger technique and a 6 Norwegian radial artery glide sheath was placed. She was provided anticoagulation with IV heparin and antispasmodics including nicardipine and nitroglycerin. All catheters were advanced and exchanged over a 0.035 J-tip wire. Left coronary angiography in orthogonal views with a 5 [place] 4 diagnostic catheter. Right coronary angiography in orthogonal views with a 5 [place] 4 diagnostic catheter. Diagnostic catheters were removed. Radial artery sheath was removed. Hemostasis was obtained using the TR band. Patient remained hemodynamically stable and asymptomatic. She was returned to the recovery area. This ended the case. Coronary angiography findings: [id number]-[id number] vessel bifurcating into LAD and circumflex. No angiographically significant disease. LAD-large caliber and transapical. The proximal to mid segment is moderately calcified. Beginning at the ostium through the proximal segment there is a long eccentric stenosis of 80%. At the level of the first diagonal there is a focal 80 to 90% stenosis. First diagonal is small with an ostial 90% stenosis. There is also a large septal branch arising early and then the smaller septal branch. Mid LAD is relatively short and provides a large caliber second diagonal. This is a branching vessel with proximal up to 40% stenosis. Distally the LAD has diffuse mild disease of up to 30%. LCx-large caliber and nondominant. There is an ostial calcified 80% stenosis. The proximal AV groove vessel is relatively large and provides a small OM. The mid segment has a focal up to 70% narrowing. It provides a large caliber branching OM 2. This vessel has mild proximal disease of up to 30 to 40% and then mild scattered disease beyond that. The distal AV groove circumflex is medium in caliber and terminates as 2 small branches. There is diffuse mild disease in this segment. RCA-large caliber and dominant. Proximal segment with minimal disease and after the first marginal the mid to early distal vessel have diffuse disease of 50 to 70%. The vessel bifurcates into a large multi branching posterior lateral and a PDA which appears to be 100% occluded proximally. This vessel fills via left to right collateralization. Summary: 1. Severe multivessel coronary disease. 2. Recommend evaluation by CT surgery regarding coronary artery bypass grafting. 3. Recommend guideline directed medical therapy for secondary prevention of coronary disease to include; low-dose aspirin, high intensity statin therapy, beta-osbaldo, and NAOMIE inhibitor/ARB as tolerated. Hemodynamics Rest Ao:: 145/62 mmHg Final Ao: 130/67 mmHg LV: Not performed Recommendations Recommendations: Medical Therapy and/or Counseling and CABG Radiation Exposure (mGy) 867 mGy, total fluoroscopy time 1.0 minutes Contrast (mls) 83 ml Anesthesia 2 mg IV Versed, 50 mcg IV fentanyl, start 1032, end 1041 Procedural Complication(s) None Disposition Recovery Room\PACU I attest to the content of the Intraoperative Record and any orders documented therein. Any exceptions are noted below. [facility] Card Cath Procedure Codes Cardiac Catheterization Procedure 1: Cardiovascular Cath Procedures: 39355 Coronaries Moderate Sedation Procedure 1: Sedation/Anesthesia: 36429 Mod Sedation by the same physician;Init15 Min Child Age 5 & Up (Start time 1032, end time 1041) PG Care Time/CCT Total # of Minutes Spent Total Time Spent with Patient: Total time spent is greater than 50% in coordination of care (as documented) at patient's floor/unit and/or counseling patient:
[2023-05-27] MEDS: SODIUM CHLORIDE 0.9% 1000ML 1,000 ML IV SCH (11:24)
[2023-05-27] MEDS ORDERED: NovoLIN-N (NPH) PER UNIT CHARGE SQ ONE (13:15)
--- NOTE | 2023-05-27 13:53 | Hospitalist Progress Note ---
Date of Service May 27, 2023 Assessment & Plan (1) Chest pain: Plan: 78-year-old female presents with chest pain. Unstable angina-no evidence of ACS Recently in the hospital for chest pain in the end of April thought to be from emotional stress, hypertensive urgency and hypoglycemia. Outpatient stress test was abnormal and plan for cardiac cath in November. History of angina EKG okay. Troponin 47. And serial troponins did not show any significant increase Started on IV heparin which will be continued Continue home Coreg aspirin and statin Echocardiogram reviewed-echo was done on April 26 as well. Limited goal- directed views where obtained, no regional wall motion abnormalities, LV systolic function is normal, LVEF 60 to 65% and there is no pericardial effusion. Cardiology consult-appreciate input and recommendation Has been feeling a little better Status post cardiac cath-showed multivessel CAD She will be transferred to [place] for further evaluation for possible CABG Remains stable to be transferred Hypertension Continue home medication of Coreg, diuretics, Imdur, losartan and amlodipine We will monitor the blood pressure. Amlodipine has been increased to 5 mg twice daily Chronic diastolic CHF Lasix and spironolactone We will monitor for volume overload Current doses of diuretics have been continued Diabetes Currently n.p.o. We will cut back on Lantus to 25 nightly while n.p.o. Sliding scale Glycemic pharmacy consult We will follow the blood sugars. Hyperlipidemia continue statin CKD stage III Presented with creatinine 1.2 seems to be at baseline We will follow the labs Creatinine has been normal-creatinine is slightly elevated at 1.54-needs to monitor History of asthma cough variant History of recurrent acute complicated bronchitis Currently seems stable Carotid artery disease On aspirin and statin Needs follow-up Suspected sleep apnea Last admission had type I second-degree AV block at night Seems evaluated by sleep medicine in January 2022 and seems patient declined further evaluation and treatment We will place on oxygen while sleeping. We will push for outpatient sleep study on discharge DVT prophylaxis on IV heparin Disposition Telemetry floor Full code Admission and Anticipated Discharge Date Admission Date: May 26, 2023 Subjective 05/26/2023 The patient was seen and examined in telemetry unit She has been having typical angina symptoms for some time Her pain seems to be better in the hospital She will have cardiac cath tomorrow 05/27/2023 The patient was seen and examined in telemetry unit in presence of the She is a status post cardiac cath -noted to have multivessel CAD Awaiting transfer to [place] Review of Systems Review of Systems: All systems reviewed and are unremarkable except as noted below Cardiovascular: Additional Comments: Exertional angina with shortness of breath and radiation of pain and chest tightness Physical Exam Physical Exam: Sitting on a chair without any acute distress but very anxious Constitutional: well developed, well nourished, + ill appearing and + obese Eyes: PERRL, conjunctivae normal, anicteric sclerae ENMT: external ear and nose normal, oropharynx normal Neck: trachea midline, no thyromegaly Respiratory: no respiratory distress Auscultation: + diminished lung sounds and + crackles (Minimal crackles at the bases) Cardiovascular: Rate/Rhythm: regular rate, regular rhythm and + bradycardic Heart Sounds: normal S1, normal S2 and + murmur (Ejection systolic murmur over the aortic area) Extremities: + edema (1+ edema bilaterally) Gastrointestinal (Abdomen): Inspection/Auscultation: normal bowel sounds; abdomen not distended Percussion/Palpation: abdomen soft; abdomen nontender Musculoskeletal: No acute arthritis involving any joint Neurologic: normal touch/pain/proprioception and moves all extremities; no focal motor deficits Psychiatric: A+Ox3, euthymic affect Lymphatic: no cervical or axillary lymphadenopathy Results & Data Results & Data Vital Signs (Past 12 Hours) Vital Signs Temp Pulse Pulse Resp BP Pulse Ox O2 Del Method 05/27/23 13:08 36.5 C 78 20 145/79 H 90 Room Air 05/27/23 12:06 36.8 C 86 20 143/84 H 91 Room Air 05/27/23 11:38 36.8 C 84 18 139/76 90 Room Air 05/27/23 11:08 36.8 C 74 20 145/78 H 90 Room Air 05/27/23 10:53 75 14 181/83 H 93 Room Air 05/27/23 07:55 36.7 C 66 20 171/71 H 94 Room Air 05/27/23 03:00 36.5 C 70 16 166/69 H 92 Room Air 05/27/23 03:25 65 Laboratory Results Short CBC 05/27/23 Range/Units 05:46 WBC 7.13 (4.8-10.8) K/ul Hgb 12.0 (12.0-16.0) g/dl Hct 34.9 L (37.0-47.0) % Plt Count 184 (130-400) K/uL BMP 05/27/23 05:46 Sodium 137 Potassium 4.2 Chloride 102 Carbon Dioxide 30 BUN 25 H Creatinine 1.54 H D Glucose 176 H Calcium 9.0 Medications Administered Current Inpatient Medications Acetaminophen (Acetaminophen 325 Mg Tab) 650 mg PO Q4H PRN PRN Reason: Pain or Fever Stop: 06/25/23 05:57 Amlodipine Besylate (Amlodipine Besylate 5 Mg Tab) 5 mg PO BID MINDA Stop: 06/25/23 20:59 Last Admin: 05/27/23 08:21 Dose: 5 mg Aspirin (Aspirin 81 Mg Ectab) 81 mg PO DAILY MINDA Stop: 06/25/23 08:59 Last Admin: 05/27/23 08:19 Dose: 81 mg Atorvastatin Calcium (Atorvastatin 40 Mg Tab) 40 mg PO DAILY MINDA Stop: 06/25/23 08:59 Last Admin: 05/27/23 08:18 Dose: 40 mg Carvedilol (Carvedilol 3.125 Mg Tab) 3.125 mg PO BID MINDA Stop: 06/25/23 08:59 Last Admin: 05/27/23 08:18 Dose: 3.125 mg Dextrose (Dextrose 50% 50 Ml Syringe) 25 - 50 ml IV UD PRN; Protocol PRN Reason: Hypoglycemia Protocol Stop: 06/25/23 05:57 Glucagon (Glucagon For Inj 1 Mg Vial) 1 mg SQ UD PRN; Protocol PRN Reason: Hypoglycemia Protocol Stop: 06/25/23 05:57 Glucose (Glucose 10 Tab/Tube) 4 - 8 tab PO UD PRN; Protocol PRN Reason: Hypoglycemia Treatment Stop: 06/25/23 05:57 Glucose (Glucose 40% Gel 15 Gm Tube) 15 - 30 gm PO UD PRN; Protocol PRN Reason: Hypoglycemia Protocol Stop: 06/25/23 05:57 Heparin Sodium/Dextrose (Heparin Sodium/Dextrose) 25,000 units in 500 mls @ 0 mls/hr IV .Q0M MINDA; Protocol Stop: 06/25/23 00:59 Last Titration: 05/27/23 10:11 Dose: Infused Sodium Chloride (Nss 1000ml) 1,000 mls @ 80 mls/hr IV .[id number] [facility] Stop: 06/25/23 20:59 Last Admin: 05/27/23 11:24 Dose: 60 mls/hr Insulin Aspart (Insulin Aspart Per Unit Charge) 0 units SC ACHS MINDA Stop: 06/26/23 16:29 Insulin Aspart (Insulin Aspart Per Unit Charge) 0 units SC 0000 [facility] Stop: 05/28/23 00:01 Insulin Glargine (Lantus Per Unit Charge) 30 units SQ HS [facility] Stop: 06/26/23 20:59 Isosorbide Mononitrate (Isosorbide [place] Extended Rel 60 Mg Tabcr) 60 mg PO BID MINDA Stop: 06/25/23 08:59 Last Admin: 05/27/23 08:18 Dose: 60 mg Losartan Potassium (Losartan Potassium 50 Mg Tab) 100 mg PO DAILY MINDA Stop: 06/25/23 08:59 Last Admin: 05/27/23 08:18 Dose: 100 mg Mirtazapine (Mirtazapine Tab 15 Mg Tab) 30 mg PO HS [facility] Stop: 06/25/23 20:59 Last Admin: 05/26/23 19:54 Dose: 30 mg Miscellaneous (Carbohydrates For Hypoglycemia ) 15 - 30 gm PO UD PRN PRN Reason: Hypoglycemia Protocol Stop: 06/25/23 05:57 Miscellaneous Information (Pharmacy Glycemic Mgmt Consult) 1 each N/A UD PRN PRN Reason: Consult Stop: 06/25/23 05:57 Morphine Sulfate (Morphine Sulfate 2 Mg/Ml Carp) 2 mg IV Q30M PRN PRN Reason: Chest Pain Stop: 06/09/23 05:57 Multivitamins/Minerals (Cerovite Adv Formula Tab) 1 tab PO DAILY MINDA Stop: 06/25/23 08:59 Last Admin: 05/27/23 08:18 Dose: 1 tab Nitroglycerin (Nitroglycerin Sl 0.4 Mg/Tab Tab) 0.4 mg SL Q5M PRN PRN Reason: Chest Pain Stop: 06/26/23 10:51 Prednisone (Prednisone 50 Mg Tab) 50 mg PO Q8 [facility] Stop: 05/27/23 14:01 Last Admin: 05/27/23 05:02 Dose: 50 mg Sertraline HCl (Sertraline Hcl 50 Mg Tablet) 50 mg PO BID [facility] Stop: 06/25/23 20:59 Last Admin: 05/27/23 08:18 Dose: 50 mg Spironolactone (Spironolactone 12.5 Mg Tab) 12.5 mg PO DAILY MINDA Stop: 06/25/23 08:59 Last Admin: 05/27/23 08:19 Dose: 12.5 mg
--- NOTE | 2023-05-27 14:19 | Cardiology Progress Note ---
Date of Service May 27, 2023 Assessment & Plan (1) Unstable angina pectoris: Plan: Unstable angina -Patient with minimal elevation in the high-sensitivity troponin I with measurements of 47.2 pgml -->19 pg/ml--> 8.3 pg/ml. Measurements are actually improved compared to her previous measurements that peaked at 74 PG per mL last month. -As noted, recent nuclear stress test with reversible anterior, anterolateral perfusion defect consistent with ischemia in the LAD or perhaps circumflex territory. 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 Cardiac catheterization performed this a.m., 05/27/[address] Ramírez of interventional cardiology revealing multivessel CAD as noted: Dominant: Right Left Main (% Stenosis): Normal LAD (% Stenosis): Ostial (80%), Proximal (80 to 90%) and Distal (Mild) D1 (% Stenosis): Ostial (90%) D2 (% Stenosis): Proximal (40%) Circumflex (% Stenosis): Ostial (80% calcified), Proximal, Mid (Up to 70%) and Distal (Mild diffuse) OM1 (% Stenosis): Normal OM2 (% Stenosis): Proximal (30 to 40%) RCA (% Stenosis): Mid (Long eccentric 50 to 70%) R PDA (% Stenosis): Ostial (100% VEST MAKER, fills left to right collaterals) R PL1 (% Stenosis): Normal -Presentation and biomarkers more consistent with unstable angina than a non- STEMI at present. -Patient with history of chronic stable angina, but with 6 weeks progressively worse angina and presented with crescendo angina. -Patient with preserved left ventricular systolic function, type 2 diabetes mellitus (suboptimally controlled-most recent hemoglobin A1c 03/28/2023 9.2%, 8% on 05/26/2023 at [facility]). Heparin infusion reinitiated postcardiac catheterization. Had a long discussion with the patient and her . At this time I recommend transfer to tertiary center, [facility], for CT surgery evaluation with regards to CABG, or consideration for complex high risk PCI to the LAD territory. Patient agreeable. Based on review of heart catheterization films, will need both CT surgery and interventional to weigh in. Continue aspirin, unfractioned heparin, carvedilol 3.125 mg twice daily (past history of acute block block and therefore beta-osbaldo has not been titrated) atorvastatin 80 mg daily, isosorbide mononitrate 60 mg twice daily, losartan 100 mg daily, spironolactone 12.5 mg daily, amlodipine 5 mg twice daily (recently initiated and titrated). Difficult to control hypertension -Continue medications including topical nitrates, Imdur, losartan, spironolactone, amlodipine, carvedilol, furosemide 40 mg every other day. Furosemide currently on hold given mild increase in creatinine, contrast exposure. Blood pressure under better control at present. Blood pressure was 136/74 at time of remeasurement during my assessment today. Dyslipidemia Recent outpatient LDL level 04/22/2023 was 64 mg/dL. Continue atorvastatin 40 mg daily Contrast Allergy Start prophylaxis with prednisone 50 mg every 8 hours x 3 doses, and diphenhydramine 50 mg by mouth 1 hour prior to cardiac catheterization. At the time of my reassessment 1 hour postcontrast, patient without rash, feeling well. Stage III CKD Creatinine 1.26 on presentation, improved to 1.1 yesterday, and was 1.54 this morning prior to cardiac catheterization despite IV fluids. Continue normal saline, 80 mils an hour for now. Patient received 80 mL of contrast. We will follow. Cased discussed with Dr Brien Short who is on the inpatient service for cardiology at [facility] and accepts the patient in transfer. The electronic connection to transfer catheterization films to [facility] as currently down, and therefore a disc was made. I ensured that it is on his chart and asked the community affairs manager to assist in making sure that it makes it to his transfer chart. Updated Dr. Poole of the hospitalist service with regards to the above findings and plan. (2) CKD (chronic kidney disease), stage III: Admission and Anticipated Discharge Date Admission Date: May 26, 2023 Subjective Patient seen in cardiology follow up post cardiac cath. She was seen in room 458. Her , Elvis , was at the bedside. Heparin is infusing. Her right radial catheterization site is without hematoma. Describes having had mild recurrent chest pain episodes overnight, none post catheterization. Telemetry reveals SR in the 70s. Review of Systems Review of Systems: All systems reviewed & are unremarkable except as noted in HPI & below Physical Exam Constitutional: WD/WN, vitals as above Respiratory: normal respiratory effort, lungs clear to auscultation Cardiovascular: RRR, no murmur, no edema Gastrointestinal (Abdomen): normal bowel sounds, soft, nontender, no hepa tosplenomegaly Neurologic: PERRL, EOMI, accommodation nl, no face palsy, no dysarthria Psychiatric: A+Ox3, euthymic affect Results & Data Vital Signs (Past 12 Hours) Vital Signs Temp Pulse Pulse Resp BP Pulse Ox O2 Del Method 05/27/23 13:08 36.5 C 78 20 145/79 H 90 Room Air 05/27/23 12:06 36.8 C 86 20 143/84 H 91 Room Air 05/27/23 11:38 36.8 C 84 18 139/76 90 Room Air 05/27/23 11:08 36.8 C 74 20 145/78 H 90 Room Air 05/27/23 10:53 75 14 181/83 H 93 Room Air 05/27/23 07:55 36.7 C 66 20 171/71 H 94 Room Air 05/27/23 03:00 36.5 C 70 16 166/69 H 92 Room Air 05/27/23 03:25 65 Laboratory Results Cardiac Enzymes 05/26/23 Range/Units 17:15 Troponin I High Sens 8.3 D (0-14) pg/ml Coagulation 05/27/23 Range/Units 05:46 APTT 25.6 (21.0-31.0) Seconds CBC 05/27/23 Range/Units 05:46 WBC 7.13 (4.8-10.8) K/ul RBC 3.74 L (4.20-5.40) M/uL Hgb 12.0 (12.0-16.0) g/dl Hct 34.9 L (37.0-47.0) % Plt Count 184 (130-400) K/uL Neut # (Auto) 6.27 (1.40-6.50) K/uL Lymph # (Auto) 0.72 L (1.2-3.4) K/uL [place] # (Auto) 0.08 L (0.11-0.59) K/uL Eos # (Auto) 0.00 (0-0.50) K/uL Baso # (Auto) 0.02 (0-0.2) K/uL Comprehensive Metabolic Panel 05/27/23 Range/Units 05:46 Sodium 137 (136-145) mmol/L Potassium 4.2 (3.5-5.1) mmol/L Chloride 102 (98-107) mmol/L Carbon Dioxide 30 (21-32) mmol/L BUN 25 H (6-23) mg/dl Creatinine 1.54 H D (0.6-1.2) mg/dl Glucose 176 H (70-99(Fasting)) mg/dl Calcium 9.0 (8.6-10.3) mg/dl Intake and Output 05/26/23 05/27/23 05/27/23 22:59 06:59 14:59 Intake Total 240 / 697.30 323.85 / 697.30 902.7 / 902.7 Output Total 950 / 2850 Balance -710 / -2152.70 323.85 / -2152.70 902.7 / 902.7 Intake: IV 323.85 / 457.30 902.7 / 902.7 Heparin Sodium/Dextrose 25,000 323.85 / 457.30 42.7 / 42.7 units In 500 ml @ 850 UNITS/HR 17 mls/hr IV .Q24H MINDA Rx#: [id number] Sodium Chloride 0.9% 1000ML 1, 860 / 860 000 ml @ 80 mls/hr IV .[id number] MINDA Rx#:[id number] Oral 240 / 240 Output: Urine 950 / 2850 Other: # Unmeasured Voids 1 Weight 101.8 kg Weight Measurement Method Built in [facility]
--- NOTE | 2023-05-27 15:11 | Pharmacy Report ---
Pharmacy Glycemic Short Note 2 - Date of Service May 27, 2023 - Glycemic Short BSG Results (Last 24 hours): 05/26/23 05/26/23 05/27/23 16:23 20:28 00:15 Glucose POC Glucose 249 H 272 H 222 H 05/27/23 05/27/23 05/27/23 03:27 05:46 07:45 Glucose 176 H POC Glucose 199 H 181 H 05/27/23 12:33 Glucose POC Glucose 285 H OUTPATIENT ANTIDIABETIC REGIMEN: * Lantus 50 units HS * Humalog 55 units with meals ASSESSMENT: 05/27 * Patient received total of 121 units of insulin yesterday, of which 40 units were NPH to cover prednisone 50 mg po q 8 hours and 25 units were basal i nsulin * Fasting BSG 176 mg/dL - patient to go to director of cardiac cath lab today. Has 2 more doses of prednisone 50 mg left ( and ) * Also appears that hydrocortisone was given in director of cardiac cath lab. Lunch time BSG elevated at 285 mg/dL - Will order another 40 units of NPH to be given at 1400 with last dose of prednisone * Plan to increase basal insulin from 25-30 units at HS. Discussed with RN and patient to be transferred out. Discharge orders in - recommended to hold NPH dose if last dose of prednisone not given 05/26 * Ms López is a 78 y/o F with a PMH of T2DM who presents with chest pain. Originally patient was NPO on admission. At lunch, patient was ordered diet. She is scheduled to be NPO at midnight for cardiac cath. Patient has an IV dye allergy and is ordered prednisone 50 mg PO q8 x 4 doses as the time of procedure is unknown. First dose at 1400 today. * BSG on admission was 164 mg/dL and at lunch was 154 mg/dL. * For Lantus, will give 25 units tonight (half of home dose) since patient is NPO tomorrow. * For steroid coverage, will give NPH 40 units SQ x 1 (0.4 units/kg) to cover steroids for today. Pending additional order tomorrow for other two doses. * Novolog weight-based stress of 2/3. When patient is NPO tomorrow, will do q4 checks to ensure blood sugars can be controlled. PLAN FOR INPATIENT GLYCEMIC CONTROL: * Hold outpatient oral diabetes medications * Basal insulin * Lantus 30 units SQ HS * NPH 40 units SQ x 1 for prednisone 50 mg dose * Bolus insulin * NovoLog per scale ACHS or Q4hrs while NPO * Goal Range: Low 110 mg/dL - High 140 mg/dL * Correction Factor: 15 mg/dL/unit * Nutritional / Prandial insulin per carb ratio of 1 unit per 5 grams CHO consumed
[2023-05-27] MEDS ORDERED: INSULIN ASPART PER UNIT CHARGE SC SCH (16:30)
[2023-05-27] MEDS ORDERED: Nursing to Pharmacy Communication SCH (17:30)
[2023-05-27 17:40] LABS: Partial Thromboplastin Ratio 0.8; Partial Thromboplastin Time 22.2 Seconds (21.0-31.0)
[2023-05-27] MEDS ORDERED: LANTUS PER UNIT CHARGE SQ SCH (21:00)
[2023-05-28] MEDS ORDERED: INSULIN ASPART PER UNIT CHARGE SC SCH
== END 2023-05-27 18:14 | disposition short-term general hospital (02) | DRG 287 ==
LOC: ED 22:25 → 4W 05-26 03:48
PROC: CLB.CCO (2023-05-27 09:30)